=== PATIENT | female | born 1935 | race Caucasian/White ===

== ENCOUNTER → 2016-09-19 | Outpatient (CLI) | payer OTHER ==
[~2016-09-19] MED LIST: AMR2 PO; Aggrenox PO; CHOL100027 PO; CRS20 PO; FISHOIL PO; GLC500 PO; Gabapentin PO; HMLI SC; LEVO25TA34 PO; Lisinopril PO; Nexium PO
[2016-09-19 09:47] LABS: ALT/SGPT 22 U/L (12-78); AST/SGOT 17 U/L (15-37); BLOOD UREA NITROGEN 17 mg/dl (7-18); BUN/CREATININE RATIO 17.4 (10-20); CALCIUM 9.1 mg/dl (8.5-10.1); CARBON DIOXIDE 29 mmol/L (21-32); CHLORIDE 107 mmol/L (98-107); CHOLESTEROL 115 mg/dl (0-200); GLUCOSE 139 mg/dl (70-99); POTASSIUM 4.3 mmol/L (3.5-5.1); SODIUM 142 mmol/L (136-145)
[2016-09-19 09:53] LABS: ESTIMATED AVERAGE GLUCOSE 169 mg/dl; HA1C FLAG Normal (Normal)
[2016-09-19 09:58] LABS: ALB/GLOB RATIO 0.9 (0.9-2); ALKALINE PHOSPHATASE 117 U/L (45-117); CHOLESTEROL/HDL RATIO 2.7; HDL CHOLESTEROL 43 mg/dl; LDL CHOLESTEROL CALCULATED 34 mg/dl; TRIGLYCERIDES 190 mg/dl (0-150); VERY LOW DENSITY LIPOPROT CALC 38 mg/dl
== END | disposition home or self-care (01) ==
LOC: C.LAB 08:23
PROVIDERS: ATTEND Nurse Practitioner
DX: E11.49 Type 2 diabetes mellitus with other diabetic neurological complication (principal); E03.9 Hypothyroidism, unspecified

== ENCOUNTER → 2017-01-27 | Outpatient (CLI) | payer OTHER ==
[2017-01-27 19:04] LABS: URINE APPEARANCE CLEAR (CLEAR); URINE BILIRUBIN NEG (NEG); URINE COLOR YELLOW; URINE NITRITE NEG (NEG); URINE PH 5.5 (4.5-7.5); URINE SPECIFIC GRAVITY 1.029 (1.000-1.030); UROBILINOGEN NEG (NEG)
[2017-01-27 19:05] LABS: MANUAL MICROSCOPIC REQUIRED? NO; REVIEW REQ? NO
== END | disposition home or self-care (01) ==
LOC: C.LAB 17:17
PROVIDERS: ATTEND Nurse Practitioner
DX: R39.9 Unspecified symptoms and signs involving the genitourinary system (principal)

== ENCOUNTER → 2017-03-24 | Outpatient (CLI) | payer OTHER ==
[2017-03-24 12:30] LABS: ALT/SGPT 17 U/L (12-78); BLOOD UREA NITROGEN 20 mg/dl (7-18); BUN/CREATININE RATIO 21.8 (10-20); CALCIUM 10.1 mg/dl (8.5-10.1); CARBON DIOXIDE 28 mmol/L (21-32); CHLORIDE 105 mmol/L (98-107); CHOLESTEROL 126 mg/dl (0-200); CREATININE 0.93 mg/dl (0.60-1.20); GLUCOSE 108 mg/dl (70-99); POTASSIUM 4.4 mmol/L (3.5-5.1); SODIUM 140 mmol/L (136-145)
[2017-03-24 12:41] LABS: ALB/GLOB RATIO 0.9 (0.9-2); ALKALINE PHOSPHATASE 140 U/L (45-117); AST/SGOT 15 U/L (15-37); CHOLESTEROL/HDL RATIO 2.8; HDL CHOLESTEROL 45 mg/dl; LDL CHOLESTEROL CALCULATED 47 mg/dl; TRIGLYCERIDES 172 mg/dl (0-150); VERY LOW DENSITY LIPOPROT CALC 34 mg/dl
[2017-03-24 13:09] LABS: ESTIMATED AVERAGE GLUCOSE 166 mg/dl; HA1C FLAG Normal (Normal)
[2017-03-24 13:29] LABS: RATIO 5.3 mcg/mg (0-30.0)
== END | disposition home or self-care (01) ==
LOC: C.LAB 09:58
PROVIDERS: ATTEND Nurse Practitioner
DX: E11.49 Type 2 diabetes mellitus with other diabetic neurological complication (principal)

== ENCOUNTER → 2017-04-09 | Outpatient (CLI) | payer OTHER ==
--- NOTE | 2017-04-09 12:07 | DIAGNOSTIC IMAGING REPORT ---
ULTRASOUND OF THE ABDOMINAL AORTA CLINICAL HISTORY: Follow-up abdominal aortic aneurysm. COMPARISON STUDY: Ultrasound of the abdominal aorta dated 06/20/2015. TECHNIQUE: Multiple fletcher scale, color Doppler, and spectral Doppler sonograms of the abdominal aorta and iliac arteries are performed. Images are reviewed in the transverse and longitudinal planes. FINDINGS: There is advanced atherosclerotic calcification and irregularity noted throughout the abdominal aorta. The proximal abdominal aorta measures up to 1.8 cm. Again seen is a fusiform aneurysm of the mid distal abdominal aorta which measures 3.6 x 3.5 cm. The right common iliac artery measures up to 0.6 cm and the left common iliac artery measures up to 0.7 cm. IMPRESSION: There is been no significant change in the appearance of an aneurysm of the mid to distal abdominal aorta which measures 3.6 x 3.5 cm (previously measured 3.8 x 3.1 cm). Electronically signed by: Jacques Stewart M.D. 04/09/2017 12:06 PM Dictated Date/Time: 04/09/2017 12:02 PM
--- NOTE | 2017-04-09 13:01 | DIAGNOSTIC IMAGING REPORT ---
CHEST 2 VIEWS ROUTINE CLINICAL HISTORY: 81 years-old Female presenting with R05 Cough. TECHNIQUE: PA and lateral views of the chest were obtained. COMPARISON: 06/20/2015. FINDINGS: Atherosclerosis of aortic arch. Cardiac silhouette normal in size. The previously suggested nodular densities at the left lung base are not as apparent on the current exam. No new focal infiltrate. No pleural effusion or pneumothorax. Osseous structures normal. Upper abdomen normal. IMPRESSION: 1. No acute cardiopulmonary disease. Electronically signed by: Danny Wolf M.D. 04/09/2017 12:59 PM Dictated Date/Time: 04/09/2017 12:58 PM
== END | disposition home or self-care (01) ==
LOC: C.ULTR 11:29
PROVIDERS: ATTEND Nurse Practitioner
DX: I71.4 Abdominal aortic aneurysm, without rupture (principal)

== ENCOUNTER 2017-09-13 11:48 | Emergency (ER) | payer OTHER ==
[~2017-09-13] VITALS: Ht 144.8 cm; Wt 85.0 kg
[2017-09-13 11:54] VITALS: TEMP 36.4; Ht 144.8 cm; Wt 85.0 kg
[2017-09-13] MEDS ORDERED: TRAMADOL HCL 50 MG TAB PO STA (12:03)
[2017-09-13] MEDS ORDERED: ACETAMINOPHEN 500 MG TAB PO STA (12:03)
--- NOTE | 2017-09-13 12:13 | EMERGENCY ROOM VISIT NOTE ---
History First contact with patient: 11:58 Chief Complaint: BACK PAIN Stated Complaint: BACK PAIN History of Present Illness The patient is a 81 year old female who presents to the Emergency Room with complaints of right-sided back pain for the last 5 days. The pain is sharp. The pain is a 10/10. The patient has not had fever, chills, cough or congestion. There has been no trauma. No urinary complaints, vomiting or diarrhea. She states the pain is worse to take a deep breath. The patient has a history of chronic back pain. She did try some Tylenol with codeine last night, this helped her sleep but did not help the pain. The patient presents by EMS. She states that years ago when she had back issues , she received injections and this seemed to help. Source of History: patient Onset: 5 days ago Position: back Symptom Intensity: rated at a 10/10 Quality: sharp Modifying Factors (Worsening): breathing Associated Symptoms: No fevers, No chills, No cough, No vomiting, No diarrhea, No urinary symptoms Review of Systems ROS: Please see HPI. At least 10 systems in total were reviewed and otherwise negative. Past Medical/Surgical History Medical Problems: (1) Chronic obstructive lung disease (2) Diabetes mellitus type 2 (3) Hyperlipidemia (4) Hypothyroidism (5) Tobacco user Family History No pertinent family history Social History Smoking Status: Former Smoker Alcohol Use: none Drug Use: none Marital Status: Occupation Status: retired Current/Historical Medications Scheduled Cholecalciferol (Vitamin D), 1,000 UNITS PO QAM Dipyridamole/Aspirin (Aggrenox 25-200 mg), 1 CAP PO QAM Esomeprazole Magnesium (Nexium), 40 MG PO QAM Gabapentin (Neurontin), 100 MG PO HS Insulin Aspart 70/30 (Novolog Mix 70/30), 34 UNITS SC QAM Insulin Aspart 70/30 (Novolog Mix 70/30), 40 UNITS SC QPM Levothyroxine Sodium (Levothyroxine Sodium), 25 MCG PO QAM Lisinopril (Zestril), 10 MG PO QAM Rosuvastatin Calcium (Crestor), 20 MG PO QPM Physical Exam Vital Signs Date Time Temp Pulse Resp B/P (MAP) Pulse Ox O2 Delivery O2 Flow Rate FiO2 09/13/17 15:27 85 18 126/62 96 09/13/17 14:10 98 20 101/58 98 Room Air 09/13/17 13:15 88 16 144/64 96 Room Air 09/13/17 11:54 36.4 87 20 162/68 97 Room Air Physical Exam GENERAL: Patient is in no acute distress. HEENT: No acute trauma, normocephalic atraumatic, mucous membranes moist, no nasal congestion, no scleral icterus. NECK: No stridor, no adenopathy, no meningismus, trachea is midline. LUNGS: Clear to auscultation bilaterally, no wheeze, no rhonchi, breath sounds equal. HEART: Without murmurs gallops or rubs, regular rate and rhythm. ABDOMEN: Soft, nontender, bowel sounds positive, no hernias, no peritonitis. EXTREMITIES: No cyanosis or edema, full range of motion of all the joints without pain or difficulty, no signs for acute trauma. NEUROLOGIC: Oriented x 3, no acute motor or sensory deficits, no focal weakness. SKIN: No rash, no jaundice, no diaphoresis. Back: The patient is tender over the right posterior inferior ribs and right lumbar musculature. There is no rash or contusion. No midline bony lumbar discomfort. Medical Decision & Procedures ER Provider Diagnostic Interpretation: Radiology results as stated below per my review and radiologist interpretation: CHEST ONE VIEW PORTABLE CLINICAL HISTORY: Back pain COMPARISON STUDY: 04/09/2017 FINDINGS: The heart is at the upper limits of normal in size. There is slight elevation of the interstitium. This may be accentuated by the patient's body habitus. Nevertheless mild pulmonary vascular congestion is likely. There are no significant pleural effusions. There is no focal pulmonary consolidation.[ IMPRESSION: Diffuse elevation of the interstitium, likely secondary to pulmonary vascular congestion. It is however possible that the interstitial markings are artifactually elevated due to the patient's body habitus and overlying anterior soft tissues. If deemed clinically necessary, a follow-up PA and lateral study could be obtained. Electronically signed by: Chaparro Chew M.D. 09/13/2017 12:18 PM Dictated Date/Time: 09/13/2017 12:[address] LUMBAR SPINE WITHOUT CT DOSE: CLINICAL HISTORY: right sided back pain TECHNIQUE: Helical images were acquired in transverse plane. Reformatted sagittal and coronal images were reviewed. A dose lowering technique was utilized adhering to the principles of ALARA. CONTRAST: No contrast was administered COMPARISON STUDY: None. FINDINGS: L1-2 level: There is no evidence of significant disc bulge or focal herniation. There is no evidence of spinal or foraminal stenosis. L2-3 level: There is a mild circumferential disc bulge. There is mild spinal canal narrowing. There is no significant foraminal narrowing. L3-4 level: There is a circumferential disc bulge with moderate spinal stenosis. There is no significant foraminal narrowing L4-5 level: There is a mild circumferential disc bulge. There is mild spinal stenosis. There is no significant foraminal narrowing L5-S1 level: There is no evidence of significant disc bulge or focal herniation. There is no evidence of spinal or foraminal stenosis. No acute fractures or subluxations are visualized. There is a 3.4 cm infrarenal abdominal aortic aneurysm. There are extensive atheromatous changes within the aorta and iliac vessels. IMPRESSION: 1. No evidence of acute fracture or subluxation 2. Multilevel spondylitic changes with mild spinal stenosis the L2-3 level, moderate spinal stenosis at the L3-4 level, and mild spinal stenosis at the L4-5 level 3. 3.4 cm infrarenal abdominal aortic aneurysm 4. Extensive atheromatous changes within the aorta and iliac vessels Electronically signed by: Chaparro Chew M.D. 09/13/2017 2:13 PM Dictated Date/Time: 09/13/2017 2:[address] ANGIOGRAM OF THE CHEST CLINICAL HISTORY: Atypical chest and back pain. COMPARISON STUDY: 07/21/2013 TECHNIQUE: Following the IV administration of 79 mL of Optiray-320, CT angiogram of the thorax was performed from the thoracic inlet to the lung bases utilizing the pulmonary embolus protocol. Images are reviewed in the axial, sagittal, and coronal planes. IV contrast was administered without complication. MIP imaging was performed. A dose lowering technique was utilized adhering to the principles of ALARA. CT DOSE: 1979.29 mGy.cm FINDINGS: There are borderline enlarged mediastinal and hilar lymph nodes. There was no evidence of thoracic aortic dilatation. There were no pulmonary artery filling defects to indicate acute pulmonary embolism. No pleural effusions are visualized. The study is degraded by respiratory motion artifact. There is no focal pulmonary consolidation. There is a stable 2.5 mm right upper lobe pulmonary nodule. There is a 6 mm perifissural right middle lobe pulmonary nodule. Scattered subcentimeter left lung pulmonary nodules also remain stable IMPRESSION: 1. No evidence of acute pulmonary embolism 2. No evidence of focal pulmonary consolidation 3. Stable subcentimeter pulmonary nodules Electronically signed by: Chaparro Chew M.D. 09/13/2017 2:10 PM Dictated Date/Time: 09/13/2017 2:[address] SCAN OF THE ABDOMEN AND PELVIS WITHOUT CONTRAST CLINICAL HISTORY: Abdominal and right flank pain. Hematuria. COMPARISON STUDY: April 2010 TECHNIQUE: CT scan of the abdomen and pelvis was performed from the lung bases to the proximal femurs. Images are reviewed in the axial, sagittal, and coronal planes. IV contrast was not administered for this examination. A dose lowering technique was utilized adhering to the principles of ALARA. CT DOSE: FINDINGS: Lower chest: The heart is normal in size and configuration, without pericardial effusion. The lung bases and pleural spaces are clear. Liver: The unenhanced liver is normal in size, contour, and attenuation. There is no intrahepatic biliary ductal dilatation. Gallbladder: Surgically absent Spleen: Normal in size and attenuation. Pancreas: Unremarkable. Adrenal glands: Unremarkable. Kidneys: No renal, ureteral, or bladder calculi are visualized. There is a 7 mm left renal hypodensity likely representing a cyst. Bowel: There are no transition zones indicate bowel obstruction. There is a prominent duodenal diverticulum. There is a lipoma within the ascending colon. There is a lipomatous ileocecal valve. There is colonic diverticulosis. No acute peridiverticular inflammatory changes are visualized. The appendix appears normal. Peritoneum: There is no intraperitoneal free air or abdominal ascites. There is a nonspecific 12 mm left hemipelvis peritoneal nodule. There is a fat-containing left anterior abdominal wall hernia. Vasculature: There is a 3.4 cm infrarenal abdominal aortic aneurysm. Severe atheromatous changes are present within the aorta and iliac vessels. Adenopathy: None. Pelvic viscera: The uterus is surgically absent Skeletal structures: No destructive osseous lesions are seen. IMPRESSION: 1. No evidence of bowel obstruction. No evidence of free air 2. No evidence of acute diverticulitis. No evidence of acute appendicitis. 3. Fat-containing left anterior abdominal wall hernia 4. 3.4 cm infrarenal abdominal aortic aneurysm 5. Severe atheromatous changes within the aorta and iliac vessels 6. Nonspecific 12 mm peritoneal nodule within the left hemipelvis 7. 33 mm lipoma within the ascending colon. 8. No renal, ureteral, or bladder calculi identified. Electronically signed by: Chaparro Chew M.D. 09/13/2017 2:23 PM Dictated Date/Time: 09/13/2017 2:14 PM Laboratory Results 09/13/17 12:20 Red Blood Count 4.82, Mean Corpuscular Volume 88.6, Mean Corpuscular Hemoglobin 28.6, Mean Corpuscular Hemoglobin Concent 32.3, Mean Platelet Volume 9.2, Neutrophils (%) (Auto) 71.7, Lymphocytes (%) (Auto) 20.6, Monocytes (%) (Auto) 5.6, Eosinophils (%) (Auto) 1.6, Basophils (%) (Auto) 0.3, Neutrophils # (Auto) 7.38, Lymphocytes # (Auto) 2.12, Monocytes # (Auto) 0.58, Eosinophils # (Auto) 0.16, Basophils # (Auto) 0.03 09/13/17 12:20 Test 09/13/17 12:20 09/13/17 14:05 White Blood Count 10.29 K/uL (4.8-10.8) Red Blood Count 4.82 M/uL (4.2-5.4) Hemoglobin 13.8 g/dL (12.0-16.0) Hematocrit 42.7 % (37-47) Mean Corpuscular Volume 88.6 fL (80-100) Mean Corpuscular Hemoglobin 28.6 pg (25-34) Mean Corpuscular Hemoglobin Concent 32.3 g/dl (32-36) Platelet Count 206 K/uL (130-400) Mean Platelet Volume 9.2 fL (7.4-10.4) Neutrophils (%) (Auto) 71.7 % Lymphocytes (%) (Auto) 20.6 % Monocytes (%) (Auto) 5.6 % Eosinophils (%) (Auto) 1.6 % Basophils (%) (Auto) 0.3 % Neutrophils # (Auto) 7.38 K/uL (1.4-6.5) Lymphocytes # (Auto) 2.12 K/uL (1.2-3.4) Monocytes # (Auto) 0.58 K/uL (0.11-0.59) Eosinophils # (Auto) 0.16 K/uL (0-0.5) Basophils # (Auto) 0.03 K/uL (0-0.2) RDW Standard Deviation 45.3 fL (36.4-46.3) RDW Coefficient of Variation 13.9 % (11.5-14.5) Immature Granulocyte % (Auto) 0.2 % Immature Granulocyte # (Auto) 0.02 K/uL (0.00-0.02) Prothrombin Time 10.0 SECONDS (9.0-12.0) Prothromb Time International Ratio 1.0 (0.9-1.1) Activated Partial Thromboplast Time 26.4 SECONDS (21.0-31.0) Partial Thromboplastin Ratio 1.0 D-Dimer 1200 ug/L FEU (0-500) Anion Gap 10.0 mmol/L (3-11) Est Creatinine Clear Calc Drug Dose 43.7 ml/min Estimated GFR () 70.4 Estimated GFR (Non- 60.8 BUN/Creatinine Ratio 17.0 (10-20) Calcium Level 9.5 mg/dl (8.5-10.1) Total Bilirubin 0.5 mg/dl (0.2-1) Aspartate Amino Transf (AST/SGOT) 19 U/L (15-37) Alanine Aminotransferase (ALT/SGPT) 25 U/L (12-78) Alkaline Phosphatase 151 U/L (45-117) Total Protein 7.4 gm/dl (6.4-8.2) Albumin 3.4 gm/dl (3.4-5.0) Globulin 4.0 gm/dl (2.5-4.0) Albumin/Globulin Ratio 0.9 (0.9-2) Urine Color YELLOW Urine Appearance CLEAR (CLEAR) Urine pH 5.0 (4.5-7.5) Urine Specific [place] 1.020 (1.000-1.030) Urine Protein NEG (NEG) Urine Glucose (UA) NEG (NEG) Urine Ketones NEG (NEG) Urine Occult Blood NEG (NEG) Urine Nitrite NEG (NEG) Urine Bilirubin NEG (NEG) Urine Urobilinogen NEG (NEG) Urine Leukocyte Esterase SMALL (NEG) Urine WBC (Auto) 1-5 /hpf (0-5) Urine RBC (Auto) 0-4 /hpf (0-4) Urine Hyaline Casts (Auto) 1-5 /lpf (0-5) Urine Epithelial Cells (Auto) >30 /lpf (0-5) Urine Bacteria (Auto) 1+ (NEG) Laboratory results reviewed by me. Medications Administered Medications (Trade) Dose Ordered Sig/Jeremiah Route Start Time Stop Time Status Last Admin Dose Admin Acetaminophen (Tylenol Tab) 1,000 mg NOW STAT PO 09/13/17 12:03 09/13/17 12:08 DC 09/13/17 12:22 1,000 MG Tramadol HCl (Ultram Tab) 50 mg NOW STAT PO 09/13/17 12:03 09/13/17 12:08 DC 09/13/17 12:21 50 MG ED Course 1203: Ordered Ultram Tab 50 mg PO, Tylenol Tab 1,000 mg PO. 1430: I updated the patient on her results. 1453: Reevaluated the patient. Discussed results and discharge instructions: She verbalized understanding and agreement. The patient is ready for discharge. Medical Decision Differential diagnosis includes shingles, musculoskeletal pain, pneumonia, UTI, pyelonephritis, nerve impingement, PE, renal colic. There is no leukocytosis or concerning anemia. No significant electrolyte abnormality, kidney failure, or hepatitis. Urinalysis does not show infection or significant hematuria. There is no coagulopathy. Chest x-ray does not show pneumonia or pneumothorax. D-dimer was elevated. Lumbar spine CT shows arthritis, no fracture. Abdominal and pelvis CT does not show renal colic or any evidence for hydronephrosis or ureteral stone. No acute surgical process by CT. Chest CT does not show any evidence for PE, no pneumonia. Patient was given oral Tylenol and oral tramadol. This did help her pain but she felt a little lightheaded. There is no rash to suggest herpes zoster. No contusion, there has been no trauma. She has had similar pain before and this pain responded to lumbar injections. The patient does not want anything additional for pain. She was reassured by her workup. She will contact her back specialist for an appointment. She will return here for fever or worsening symptoms. She will continue to use the medication she has at home for pain. Medication Reconcilliation Current Medication List: was personally reviewed by me Blood Pressure Screening Patient's blood pressure: Elevated blood pressure Blood pressure disposition: Elevated BP felt to be situational Impression Primary Impression: Right flank pain Additional Impression: Lower back pain Departure Information Dispostion Home / Self-Care Referrals Kathie Clements C.R.NIsmaPIsma (PCP) Forms HOME CARE DOCUMENTATION FORM, IMPORTANT VISIT INFORMATION Patient Instructions My [facility] Additional Instructions continue the pain meds as before heat to the area may help talk with Dr. Gamino's office about a visit for your pain return if worsening or have fever imaging and lab work up was ok today Problem Qualifiers
--- NOTE | 2017-09-13 12:20 | DIAGNOSTIC IMAGING REPORT ---
CHEST ONE VIEW PORTABLE CLINICAL HISTORY: Back pain COMPARISON STUDY: 04/09/2017 FINDINGS: The heart is at the upper limits of normal in size. There is slight elevation of the interstitium. This may be accentuated by the patient's body habitus. Nevertheless mild pulmonary vascular congestion is likely. There are no significant pleural effusions. There is no focal pulmonary consolidation.[ IMPRESSION: Diffuse elevation of the interstitium, likely secondary to pulmonary vascular congestion. It is however possible that the interstitial markings are artifactually elevated due to the patient's body habitus and overlying anterior soft tissues. If deemed clinically necessary, a follow-up PA and lateral study could be obtained. Electronically signed by: Chaparro Chew M.D. 09/13/2017 12:18 PM Dictated Date/Time: 09/13/2017 12:17 PM
[2017-09-13 12:33] LABS: BASO % 0.3 %; BASO ABS # 0.03 K/uL (0-0.2); EOS % 1.6 %; EOS ABS # 0.16 K/uL (0-0.5); HEMATOCRIT 42.7 % (37-47); HEMOGLOBIN 13.8 g/dL (12.0-16.0); IG# 0.02 K/uL (0.00-0.02); LYMPH % 20.6 %; LYMPH ABS # 2.12 K/uL (1.2-3.4); MEAN CELL VOLUME 88.6 fL (80-100); MEAN CORPUSCULAR HEMOGLOBIN 28.6 pg (25-34); MEAN CORPUSCULAR HGB CONC 32.3 g/dl (32-36); MEAN PLATELET VOLUME 9.2 fL (7.4-10.4); MONO % 5.6 %; MONO ABS # 0.58 K/uL (0.11-0.59); NEUT % 71.7 %; NEUT ABS # 7.38 K/uL (1.4-6.5); PLATELET COUNT 206 K/uL (130-400); RED CELL DISTRIBUTION WIDTH CV 13.9 % (11.5-14.5); RED CELL DISTRIBUTION WIDTH SD 45.3 fL (36.4-46.3); WHITE BLOOD COUNT 10.29 K/uL (4.8-10.8)
[2017-09-13 12:45] LABS: ALBUMIN 3.4 gm/dl (3.4-5.0); CALCIUM 9.5 mg/dl (8.5-10.1); CREATININE 0.88 mg/dl (0.60-1.20); POTASSIUM 3.8 mmol/L (3.5-5.1)
[2017-09-13 12:47] LABS: PTT PATIENT 26.4 SECONDS (21.0-31.0)
[2017-09-13 12:48] LABS: TOTAL PROTEIN 7.4 gm/dl (6.4-8.2)
[2017-09-13] MEDS ORDERED: LEVO25TA5 PO (12:54)
[2017-09-13] MEDS ORDERED: AGG PO (12:54)
[2017-09-13] MEDS ORDERED: NXM/40 PO (12:54)
[2017-09-13] MEDS ORDERED: NVLGI7030 SC ×2 (12:54)
[2017-09-13] MEDS ORDERED: LISI-461 PO (12:54)
[2017-09-13] MEDS ORDERED: GABA-112 PO (12:54)
[2017-09-13] MEDS ORDERED: ROSU20TA PO (12:54)
[2017-09-13] MEDS ORDERED: CHOL100010 PO (12:56)
[2017-09-13] MEDS ORDERED: OPTIRAY 320 IV PRN (13:45)
--- NOTE | 2017-09-13 14:11 | DIAGNOSTIC IMAGING REPORT ---
CT ANGIOGRAM OF THE CHEST CLINICAL HISTORY: Atypical chest and back pain. COMPARISON STUDY: 07/21/2013 TECHNIQUE: Following the IV administration of 79 mL of Optiray-320, CT angiogram of the thorax was performed from the thoracic inlet to the lung bases utilizing the pulmonary embolus protocol. Images are reviewed in the axial, sagittal, and coronal planes. IV contrast was administered without complication. MIP imaging was performed. A dose lowering technique was utilized adhering to the principles of ALARA. CT DOSE: 1979.29 mGy.cm FINDINGS: There are borderline enlarged mediastinal and hilar lymph nodes. There was no evidence of thoracic aortic dilatation. There were no pulmonary artery filling defects to indicate acute pulmonary embolism. No pleural effusions are visualized. The study is degraded by respiratory motion artifact. There is no focal pulmonary consolidation. There is a stable 2.5 mm right upper lobe pulmonary nodule. There is a 6 mm perifissural right middle lobe pulmonary nodule. Scattered subcentimeter left lung pulmonary nodules also remain stable IMPRESSION: 1. No evidence of acute pulmonary embolism 2. No evidence of focal pulmonary consolidation 3. Stable subcentimeter pulmonary nodules Electronically signed by: Chaparro Chew M.D. 09/13/2017 2:10 PM Dictated Date/Time: 09/13/2017 2:06 PM
--- NOTE | 2017-09-13 14:15 | DIAGNOSTIC IMAGING REPORT ---
CT LUMBAR SPINE WITHOUT CT DOSE: CLINICAL HISTORY: right sided back pain TECHNIQUE: Helical images were acquired in transverse plane. Reformatted sagittal and coronal images were reviewed. A dose lowering technique was utilized adhering to the principles of ALARA. CONTRAST: No contrast was administered COMPARISON STUDY: None. FINDINGS: L1-2 level: There is no evidence of significant disc bulge or focal herniation. There is no evidence of spinal or foraminal stenosis. L2-3 level: There is a mild circumferential disc bulge. There is mild spinal canal narrowing. There is no significant foraminal narrowing. L3-4 level: There is a circumferential disc bulge with moderate spinal stenosis. There is no significant foraminal narrowing L4-5 level: There is a mild circumferential disc bulge. There is mild spinal stenosis. There is no significant foraminal narrowing L5-S1 level: There is no evidence of significant disc bulge or focal herniation. There is no evidence of spinal or foraminal stenosis. No acute fractures or subluxations are visualized. There is a 3.4 cm infrarenal abdominal aortic aneurysm. There are extensive atheromatous changes within the aorta and iliac vessels. IMPRESSION: 1. No evidence of acute fracture or subluxation 2. Multilevel spondylitic changes with mild spinal stenosis the L2-3 level, moderate spinal stenosis at the L3-4 level, and mild spinal stenosis at the L4-5 level 3. 3.4 cm infrarenal abdominal aortic aneurysm 4. Extensive atheromatous changes within the aorta and iliac vessels Electronically signed by: Chaparro Chew M.D. 09/13/2017 2:13 PM Dictated Date/Time: 09/13/2017 2:11 PM
--- NOTE | 2017-09-13 14:24 | DIAGNOSTIC IMAGING REPORT ---
CT SCAN OF THE ABDOMEN AND PELVIS WITHOUT CONTRAST CLINICAL HISTORY: Abdominal and right flank pain. Hematuria. COMPARISON STUDY: April 2010 TECHNIQUE: CT scan of the abdomen and pelvis was performed from the lung bases to the proximal femurs. Images are reviewed in the axial, sagittal, and coronal planes. IV contrast was not administered for this examination. A dose lowering technique was utilized adhering to the principles of ALARA. CT DOSE: FINDINGS: Lower chest: The heart is normal in size and configuration, without pericardial effusion. The lung bases and pleural spaces are clear. Liver: The unenhanced liver is normal in size, contour, and attenuation. There is no intrahepatic biliary ductal dilatation. Gallbladder: Surgically absent Spleen: Normal in size and attenuation. Pancreas: Unremarkable. Adrenal glands: Unremarkable. Kidneys: No renal, ureteral, or bladder calculi are visualized. There is a 7 mm left renal hypodensity likely representing a cyst. Bowel: There are no transition zones indicate bowel obstruction. There is a prominent duodenal diverticulum. There is a lipoma within the ascending colon. There is a lipomatous ileocecal valve. There is colonic diverticulosis. No acute peridiverticular inflammatory changes are visualized. The appendix appears normal. Peritoneum: There is no intraperitoneal free air or abdominal ascites. There is a nonspecific 12 mm left hemipelvis peritoneal nodule. There is a fat-containing left anterior abdominal wall hernia. Vasculature: There is a 3.4 cm infrarenal abdominal aortic aneurysm. Severe atheromatous changes are present within the aorta and iliac vessels. Adenopathy: None. Pelvic viscera: The uterus is surgically absent Skeletal structures: No destructive osseous lesions are seen. IMPRESSION: 1. No evidence of bowel obstruction. No evidence of free air 2. No evidence of acute diverticulitis. No evidence of acute appendicitis. 3. Fat-containing left anterior abdominal wall hernia 4. 3.4 cm infrarenal abdominal aortic aneurysm 5. Severe atheromatous changes within the aorta and iliac vessels 6. Nonspecific 12 mm peritoneal nodule within the left hemipelvis 7. 33 mm lipoma within the ascending colon. 8. No renal, ureteral, or bladder calculi identified. Electronically signed by: Chaparro Chew M.D. 09/13/2017 2:23 PM Dictated Date/Time: 09/13/2017 2:14 PM
[2017-09-13 15:27] VITALS: BP 126/62; PULSE 85; O2SAT 96
== END 2017-09-13 15:29 | disposition home or self-care (01) ==
LOC: EDBD 11:48 → C.EDB 11:49
DX: R10.9 Unspecified abdominal pain (principal); M54.5 Low back pain; G89.29 Other chronic pain; R03.0 Elevated blood-pressure reading, without diagnosis of hypertension; E11.9 Type 2 diabetes mellitus without complications; Z87.891 Personal history of nicotine dependence; Z79.82 Long term (current) use of aspirin; Z79.4 Long term (current) use of insulin

== ENCOUNTER → 2017-10-14 | Outpatient (CLI) | payer OTHER ==
[~2017-10-14] MED LIST changes: +AGG PO; -AMR2 PO; -Aggrenox PO; +CHOL100010 PO; -CHOL100027 PO; -CRS20 PO; -FISHOIL PO; +GABA-112 PO; -GLC500 PO; -Gabapentin PO; -HMLI SC; -LEVO25TA34 PO; +LEVO25TA5 PO; +LISI-461 PO; -Lisinopril PO; +NVLGI7030 SC; +NXM/40 PO; -Nexium PO; +ROSU20TA PO
[2017-10-14 16:43] LABS: ALBUMIN 3.3 gm/dl (3.4-5.0); ALT/SGPT 22 U/L (12-78); BLOOD UREA NITROGEN 15 mg/dl (7-18); CALCIUM 9.2 mg/dl (8.5-10.1); CARBON DIOXIDE 28 mmol/L (21-32); CREATININE 1.17 mg/dl (0.60-1.20); GLUCOSE 300 mg/dl (70-99); POTASSIUM 4.1 mmol/L (3.5-5.1); SODIUM 139 mmol/L (136-145)
[2017-10-14 16:46] LABS: ALKALINE PHOSPHATASE 146 U/L (45-117); AST/SGOT 20 U/L (15-37); TOTAL PROTEIN 7.2 gm/dl (6.4-8.2)
[2017-10-15 06:35] LABS: HEMOGLOBIN A1C 7.8 % (4.5-5.6)
== END | disposition home or self-care (01) ==
LOC: C.LABBFT 13:42
PROVIDERS: ATTEND Nurse Practitioner
DX: E11.49 Type 2 diabetes mellitus with other diabetic neurological complication (principal); E55.9 Vitamin D deficiency, unspecified

== ENCOUNTER → 2017-11-24 | Outpatient (CLI) | payer OTHER | END | disposition home or self-care (01) | LOC: C.LAB1850 08:13 | PROVIDERS: ATTEND Internal Medicine Cardiovascular Disease | DX: E78.5 Hyperlipidemia, unspecified (principal) ==

== ENCOUNTER 2018-08-19 13:56 | Inpatient (IN) ==
[2018-08-19] MEDS ORDERED: ALBUT/IPRATROP 3MG/0.5MG NEB 3 ML VIAL NEB STA ×2 (14:14→16:33)
--- NOTE | 2018-08-19 14:30 | XRay Report ---
XR chest 1V portable CLINICAL HISTORY: Dyspnea chest pain COMPARISON STUDY: 09/13/2017 FINDINGS: The bones soft tissues and hemidiaphragms are normal. The cardiomediastinal silhouette is n ormal. The lungs are clear. The pulmonary vasculature is normal. Slight chronic interstitial change. IMPRESSION: Slight chronic interstitial change. No acute process. The above report was generated using voice recognition software. It may contain grammatical, syntax or spelling errors. Electronically signed by: Panda Chavarria M.D. 08/19/2018 2:29 PM
--- NOTE | 2018-08-19 14:36 | Emergency Department Note ---
Entered by Christoph Valenzuela acting as a scribe for History of Present Illness General Chief complaint: Cough Time Seen by Provider: 08/19/18 14:10 Source: patient Limitations: no limitations History of Present Illness Provider complaint: SOB Onset (ago): day(s) (4) Location: chest Pain Consistency: + other (persistent) Quality: + other (SOB/Cough) Relieved By: + medication (Breathing treatment - EMS) Associated symptoms: no chest pain and no fever/chills Treatments prior to arrival: other (breathing treatment - EMS) The patient is an 82 year old female who presents to the Emergency Room with complaints of a persistent cough and shortness of breath that began on Thursday, 4 days ago. The patient denies any associated fevers, chest pain, or worsening swelling in her legs. She adds that the breathing treatment administered by EMS did improve her symptoms. She has a history of angina, but has never had any heart attacks. The patient lives alone in her apartment and is a former smoker. She has a history of angina and COPD. Home Medications Home Medications Medication Instructions Recorded Confirmed Type aspirin-dipyridamole 1 cap PO QAM 08/19/18 08/19/18 History esomeprazole magnesium 40 mg PO QAM 08/19/18 08/19/18 History gabapentin 100 mg PO HS 08/19/18 08/19/18 History insulin asp prt-insulin aspart 1 dose SUBCUT QAM 08/19/18 08/19/18 History [Novolog Mix 70-30FlexPen U-100] insulin asp prt-insulin aspart 1 dose SUBCUT QPM 08/19/18 08/19/18 History [Novolog Mix 70-30FlexPen U-100] levothyroxine 25 mcg PO QAM 08/19/18 08/19/18 History lisinopril 10 mg PO QAM 08/19/18 08/19/18 History rosuvastatin 20 mg PO QPM 08/19/18 08/19/18 History Allergies Allergy/AdvReac Type Severity Reaction Status Date / Time adhesive Allergy Unknown RASH Verified 08/19/18 17:55 egg Allergy Unknown GI SYMPTOMS Verified 08/19/18 17:55 garlic Allergy Unknown Unknown Verified 08/19/18 17:55 propoxyphene Allergy Unknown Verified 08/19/18 17:55 sertraline Allergy Unknown Unknown Verified 08/19/18 17:55 Sulfa (Sulfonamide Allergy Unknown Verified 08/19/18 17:55 Antibiotics) simvastatin AdvReac Intermediate MYALGIA Verified 08/19/18 17:55 iodine AdvReac Unknown . Verified 08/19/18 17:55 Past Med/Surg History Medical History COPD (chronic obstructive pulmonary disease) CVA (cerebral vascular accident) Diabetes Hx of angina pectoris Hypothyroid Surgical History H/O section S/P cholecystectomy S/P hysterectomy S/P removal of ovarian cyst Social History Current Living Situation: Alone current occupational status: retired Feels Safe at Home: Yes Smoking Status: Former smoker Preferred Language: Italian Physical Exam Vital Signs Vital Signs - 24 hr 08/19/18 14:00 08/19/18 14:12 08/19/18 15:00 Temperature 36.8 C Temperature Source Oral Sepsis Recent Fever Within 48 Hours No Sepsis New/Unexplained Change in Mental Status No Sepsis Action Taken by Nursing No Action Required Pulse Rate 97 H Pulse Rate [Left] Pulse Rhythm [Left] Pulse Strength [Left] Respiratory Rate 20 Respiratory Effort / Characteristics Respiratory Depth Respiratory Pattern Blood Pressure 127/55 L Blood Pressure [Right Arm] Blood Pressure Mean 79 Blood Pressure Mean [Right Arm] Blood Pressure Position [Right Arm] Pulse Oximetry 94 88 L Oxygen Delivery Method Room Air Room Air Room Air Oxygen Flow Rate 08/19/18 16:30 08/19/18 17:30 08/19/18 19:20 Temperature Temperature Source Sepsis Recent Fever Within 48 Hours Sepsis New/Unexplained Change in Mental Status Sepsis Action Taken by Nursing Pulse Rate Pulse Rate [Left] 79 98 H 95 H Pulse Rhythm [Left] Regular Pulse Strength [Left] Normal Respiratory Rate 20 20 18 Respiratory Effort / Characteristics Non-Labored Respiratory Depth Normal Respiratory Pattern Regular Blood Pressure Blood Pressure [Right Arm] 132/57 L 137/75 128/44 L Blood Pressure Mean Blood Pressure Mean [Right Arm] 82 95 72 Blood Pressure Position [Right Arm] Lying Pulse Oximetry 92 94 97 Oxygen Delivery Method Room Air Room Air Nasal Cannula Oxygen Flow Rate 2 08/19/18 20:14 08/19/18 21:09 Temperature Temperature Source Sepsis Recent Fever Within 48 Hours Sepsis New/Unexplained Change in Mental Status Sepsis Action Taken by Nursing Pulse Rate Pulse Rate [Left] 85 82 Pulse Rhythm [Left] Pulse Strength [Left] Respiratory Rate 18 18 Respiratory Effort / Characteristics Respiratory Depth Respiratory Pattern Blood Pressure Blood Pressure [Right Arm] 130/100 148/83 H Blood Pressure Mean Blood Pressure Mean [Right Arm] 110 104 Blood Pressure Position [Right Arm] Lying Pulse Oximetry 96 98 Oxygen Delivery Method Trach Collar Nasal Cannula Oxygen Flow Rate 10 2 GENERAL: Patient is awake and alert. She is somewhat anxious appearing. EYES: The conjunctivae are clear. The pupils are round and reactive. EARS, NOSE, MOUTH AND THROAT: The nose is without any evidence of any deformity. Mucous membranes are moist tongue is midline NECK: The neck is nontender and supple. RESPIRATORY: Shallow respirations were noted. There were diminished breath sounds noted throughout with expiratory wheezes in all shah. No tachypnea or conversational dyspnea was appreciated. CARDIOVASCULAR: Regular rate and rhythm noted there no murmurs rubs or gallops normal S1 normal S2 GASTROINTESTINAL: The abdomen is soft. Bowel sounds are present in all quadrants. Abdomen is nontender MUSCULOSKELETAL/EXTREMITIES: There is no evidence of gross deformity full range of motion is noted in the hips and shoulders SKIN: There is no obvious evidence of any rash. There are no petechiae, pallor or cyanosis noted. NEUROLOGIC: Patient is awake alert and oriented x3. Course 1411: Past medical records reviewed. The patient was evaluated in room A3, and a complete history and physical examination were performed. 1814: I checked on the patient at this time. Her oxygen saturation dropped on ambulatory trial. 1913: I reviewed the patient's case with Dr. Bonds - [facility]. She will evaluate the patient for further management. Administered Medications Discontinued Medications Albuterol (Duoneb) 3 ml NEB NOW STA Stop: 08/19/18 14:15 Last Admin: 08/19/18 14:52 Dose: 3 ml Albuterol (Duoneb) 3 ml NEB NOW STA Stop: 08/19/18 16:34 Last Admin: 08/19/18 17:14 Dose: 3 ml Sodium Chloride (Nss 1000ml) 1,000 mls @ 999 mls/hr IV .Q1H1M ONE Stop: 08/19/18 17:24 Last Infusion: 08/19/18 18:14 Dose: 0 mls/hr Admin: 08/19/18 17:14 Dose: 999 mls/hr Levofloxacin/Dextrose (Levaquin/D5w) 750 mg in 150 mls @ 100 mls/hr IV NOW STA Stop: 08/19/18 18:03 Last Infusion: 08/19/18 18:44 Dose: 0 mls/hr Admin: 08/19/18 17:14 Dose: 100 mls/hr Oseltamivir Phosphate (Tamiflu) 75 mg PO NOW STA Stop: 08/19/18 16:24 Last Admin: 08/19/18 17:14 Dose: 75 mg Medical Decision Making Differential Diagnosis Differential diagnosis: Etiologies such as infections, reactive airway disease, COPD, pneumonia, pleural effusion, pulmonary edema, ARDS, pneumothorax, CHF, cardiac ischemia, cardiac tamponade, dysrhythmia, anemia, pulmonary embolism, musculoskeletal, gastrointestinal process, as well as others were entertained. Medical Records Attestation: I reviewed the patient's medical records. Home Medications Current Medication List: was personally reviewed by me Laboratory Data Attestation: I reviewed the patient's lab results. Result diagrams: 08/19/18 14:46 08/19/18 14:46 Lab Results 08/19/18 08/19/18 08/19/18 Range/Units 14:14 14:46 14:46 WBC 5.76 (4.8-10.8) K/uL RBC 4.84 (4.2-5.4) M/uL Hgb 13.3 (12.0-16.0) g/dL Hct 41.9 (37-47) % MCV 86.6 (80-100) fL MCH 27.5 (25-34) pg MCHC 31.7 L (32-36) g/dL RDW Std Deviation 47.5 H (36.4-46.3) fL RDW Coeff of Flakito 14.9 H (11.5-14.5) % Plt Count 173 (130-400) K/uL MPV 9.1 (7.4-10.4) fL Immature Gran % (Auto) 0.2 % Neut % (Auto) 61.3 % Lymph % (Auto) 28.0 % [place] % (Auto) 10.2 % Eos % (Auto) 0.0 % Baso % (Auto) 0.3 % Immature Gran # (Auto) 0.01 (0.00-0.02) K/uL Neut # (Auto) 3.53 (1.4-6.5) K/uL Lymph # (Auto) 1.61 (1.2-3.4) K/uL [place] # (Auto) 0.59 (0.11-0.59) K/uL Eos # (Auto) 0.00 (0-0.5) K/uL Baso # (Auto) 0.02 (0-0.2) K/uL PT 9.8 (9.0-12.0) Seconds INR 1.0 (0.9-1.1) APTT 30.1 (21.0-31.0) Seconds PTT Ratio 1.2 Sodium (136-145) mmol/L Potassium (3.5-5.1) mmol/L Chloride (98-107) mmol/L Carbon Dioxide (21-32) mmol/L Anion Gap (3-11) BUN (7-18) mg/dl Creatinine (0.6-1.2) mg/dl Est Cr Clr Drug Dosing ml/min Est GFR ( Amer) Est GFR (Non-Af Amer) BUN/Creatinine Ratio (10-20) Glucose (70-99) mg/dl POC Glucose (70-99) Lactate (0.4-2.0) mmol/L Calcium (8.5-10.1) mg/dl Magnesium (1.8-2.4) mg/dl Total Bilirubin (0.2-1) mg/dl AST (15-37) U/L ALT (12-78) U/L Alkaline Phosphatase (45-117) U/L Troponin I (0-0.045) ng/ml Total Protein (6.4-8.2) gm/dl Albumin (3.4-5.0) gm/dl Globulin (2.5-4.0) gm/dl Albumin/Globulin Ratio (0.9-2) Urine Color Urine Appearance (Clear) Urine pH (4.5-7.5) Ur Specific [place] (1.000-1.030) Urine Protein (Negative) Urine Glucose (UA) (Negative) Urine Ketones (Negative) Urine Blood (Negative) Urine Nitrite (Negative) Urine Bilirubin (Negative) Urine Urobilinogen (Negative) Ur Leukocyte Esterase (Negative) Urine WBC (Auto) (0-5) /hpf Urine RBC (Auto) (0-4) /hpf U Hyaline Cast (Auto) (0-5) /lpf U Epithel Cells (Auto) (0-5) /lpf Urine Bacteria (Auto) (Negative) Influenza Type A (PCR) Pos for Influ A A* (Neg) Influenza Type B (PCR) Neg for Influ B (Neg) 08/19/18 08/19/18 08/19/18 Range/Units 14:46 17:07 18:12 WBC (4.8-10.8) K/uL RBC (4.2-5.4) M/uL Hgb (12.0-16.0) g/dL Hct (37-47) % MCV (80-100) fL MCH (25-34) pg MCHC (32-36) g/dL RDW Std Deviation (36.4-46.3) fL RDW Coeff of Flakito (11.5-14.5) % Plt Count (130-400) K/uL MPV (7.4-10.4) fL Immature Gran % (Auto) % Neut % (Auto) % Lymph % (Auto) % [place] % (Auto) % Eos % (Auto) % Baso % (Auto) % Immature Gran # (Auto) (0.00-0.02) K/uL Neut # (Auto) (1.4-6.5) K/uL Lymph # (Auto) (1.2-3.4) K/uL [place] # (Auto) (0.11-0.59) K/uL Eos # (Auto) (0-0.5) K/uL Baso # (Auto) (0-0.2) K/uL PT (9.0-12.0) Seconds INR (0.9-1.1) APTT (21.0-31.0) Seconds PTT Ratio Sodium 136 (136-145) mmol/L Potassium 3.5 (3.5-5.1) mmol/L Chloride 103 (98-107) mmol/L Carbon Dioxide 24 (21-32) mmol/L Anion Gap 9.0 (3-11) BUN 29 H (7-18) mg/dl Creatinine 1.30 H (0.6-1.2) mg/dl Est Cr Clr Drug Dosing 29.2 ml/min Est GFR ( Amer) 43.6 Est GFR (Non-Af Amer) 37.6 BUN/Creatinine Ratio 22.4 H (10-20) Glucose 86 (70-99) mg/dl POC Glucose (70-99) Lactate 1.1 (0.4-2.0) mmol/L Calcium 7.9 L (8.5-10.1) mg/dl Magnesium 2.1 (1.8-2.4) mg/dl Total Bilirubin 0.4 (0.2-1) mg/dl AST 35 (15-37) U/L ALT 26 (12-78) U/L Alkaline Phosphatase 107 (45-117) U/L Troponin I 0.016 (0-0.045) ng/ml Total Protein 6.6 (6.4-8.2) gm/dl Albumin 2.9 L (3.4-5.0) gm/dl Globulin 3.7 (2.5-4.0) gm/dl Albumin/Globulin Ratio 0.8 L (0.9-2) Urine Color Yellow Urine Appearance Clear (Clear) Urine pH 5.0 (4.5-7.5) Ur Specific [place] 1.012 (1.000-1.030) Urine Protein Negative (Negative) Urine Glucose (UA) Negative (Negative) Urine Ketones Trace H (Negative) Urine Blood Negative (Negative) Urine Nitrite Negative (Negative) Urine Bilirubin Negative (Negative) Urine Urobilinogen Negative (Negative) Ur Leukocyte Esterase 1+ H (Negative) Urine WBC (Auto) 5-10 H (0-5) /hpf Urine RBC (Auto) 0-4 (0-4) /hpf U Hyaline Cast (Auto) 1-5 (0-5) /lpf U Epithel Cells (Auto) 20-30 H (0-5) /lpf Urine Bacteria (Auto) Negative (Negative) Influenza Type A (PCR) (Neg) Influenza Type B (PCR) (Neg) 08/19/18 Range/Units 21:52 WBC (4.8-10.8) K/uL RBC (4.2-5.4) M/uL Hgb (12.0-16.0) g/dL Hct (37-47) % MCV (80-100) fL MCH (25-34) pg MCHC (32-36) g/dL RDW Std Deviation (36.4-46.3) fL RDW Coeff of Flakito (11.5-14.5) % Plt Count (130-400) K/uL MPV (7.4-10.4) fL Immature Gran % (Auto) % Neut % (Auto) % Lymph % (Auto) % [place] % (Auto) % Eos % (Auto) % Baso % (Auto) % Immature Gran # (Auto) (0.00-0.02) K/uL Neut # (Auto) (1.4-6.5) K/uL Lymph # (Auto) (1.2-3.4) K/uL [place] # (Auto) (0.11-0.59) K/uL Eos # (Auto) (0-0.5) K/uL Baso # (Auto) (0-0.2) K/uL PT (9.0-12.0) Seconds INR (0.9-1.1) APTT (21.0-31.0) Seconds PTT Ratio Sodium (136-145) mmol/L Potassium (3.5-5.1) mmol/L Chloride (98-107) mmol/L Carbon Dioxide (21-32) mmol/L Anion Gap (3-11) BUN (7-18) mg/dl Creatinine (0.6-1.2) mg/dl Est Cr Clr Drug Dosing ml/min Est GFR ( Amer) Est GFR (Non-Af Amer) BUN/Creatinine Ratio (10-20) Glucose (70-99) mg/dl POC Glucose 136 H (70-99) Lactate (0.4-2.0) mmol/L Calcium (8.5-10.1) mg/dl Magnesium (1.8-2.4) mg/dl Total Bilirubin (0.2-1) mg/dl AST (15-37) U/L ALT (12-78) U/L Alkaline Phosphatase (45-117) U/L Troponin I (0-0.045) ng/ml Total Protein (6.4-8.2) gm/dl Albumin (3.4-5.0) gm/dl Globulin (2.5-4.0) gm/dl Albumin/Globulin Ratio (0.9-2) Urine Color Urine Appearance (Clear) Urine pH (4.5-7.5) Ur Specific [place] (1.000-1.030) Urine Protein (Negative) Urine Glucose (UA) (Negative) Urine Ketones (Negative) Urine Blood (Negative) Urine Nitrite (Negative) Urine Bilirubin (Negative) Urine Urobilinogen (Negative) Ur Leukocyte Esterase (Negative) Urine WBC (Auto) (0-5) /hpf Urine RBC (Auto) (0-4) /hpf U Hyaline Cast (Auto) (0-5) /lpf U Epithel Cells (Auto) (0-5) /lpf Urine Bacteria (Auto) (Negative) Influenza Type A (PCR) (Neg) Influenza Type B (PCR) (Neg) Imaging Data Attestation: I personally reviewed and interpreted this imaging study as follows : Radiologist's Impression: XR chest 1V portable CLINICAL HISTORY: Dyspnea chest pain COMPARISON STUDY: 09/13/2017 FINDINGS: The bones soft tissues and hemidiaphragms are normal. The cardiomediastinal silhouette is normal. The lungs are clear. The pulmonary vasculature is normal. Slight chronic interstitial change. IMPRESSION: Slight chronic interstitial change. No acute process. The above report was generated using voice recognition software. It may contain grammatical, syntax or spelling errors. Electronically signed by: Panda Chavarria M.D. 08/19/2018 2:29 PM ECG Data Attestation: I personally reviewed and interpreted this ECG as follows: Indication: SOB/dyspnea Rate (beats per minute): 91 Rhythm: normal sinus Findings: no ST depression, no ST elevation, no acute ischemic change and no ectopy Comparison ECG Date: from (04/02/2012) Change: no significant change Blood Pressure Blood Pressure Findings: Normal blood pressure MDM Narrative The patient is an 82-year-old female who presented to the emergency department for an evaluation of difficulty breathing and cough. The patient was found to have abnormal lung sounds. She was treated with bronchodilator therapy. She was also given IV fluids. The patient was found to have a positive flu swab so she was treated with Tamiflu but also given an IV antibiotic because if your condition could be consistent with bronchitis. I discussed the patient's laboratory and radiographic studies with her. She was feeling somewhat better however continued to have significant oxygen desaturation as well as difficulty breathing upon any ambulation or any exertion. For this reason I discussed her case with the on-call [facility] hospitalist. They have agreed to evaluate the patient in the emergency department for further management and disposition. Impression & Plan Influenza, Bronchitis, Acute kidney injury Discharge Plan Visit Data *Final* Discharge Date/Time: 08/19/18 21:13 Chief Complaint: Cough Other Complaint: Congestion ED Provider: Vladimir Garcia Discharge Problem: Influenza, Bronchitis, Acute kidney injury Patient Disposition: Admitted As Inpatient Discharge Instructions Interventions: ED Discharge Assessment Last Done: 08/19/18 21:13 The scribe's documentation has been prepared under my direction and personally reviewed by me in its entirety. I confirm that the note above accurately reflects all work, treatment, procedures, and medical decision making performed by me.
[2018-08-19 14:54] LABS: Basophils # (auto) 0.02 K/uL (0-0.2); Basophils % (auto) 0.3 %; Hematocrit (blood only) 41.9 % (37-47); Hemoglobin 13.3 g/dL (12.0-16.0); Immature Granulocytes # (auto) 0.01 K/uL (0.00-0.02); Immature Granulocytes % (auto) 0.2 %; Lymphocytes # (auto) 1.61 K/uL (1.2-3.4); Mean Corpuscular Hgb Conc 31.7 g/dL (32-36); Mean Corpuscular Volume 86.6 fL (80-100); Mean Platelet Volume 9.1 fL (7.4-10.4); Monocytes # (auto) 0.59 K/uL (0.11-0.59); Monocytes % (auto) 10.2 %; Neutrophils # (auto) 3.53 K/uL (1.4-6.5); Neutrophils % (auto) 61.3 %; Platelet Count 173 K/uL (130-400); RDW Coefficient of Variation 14.9 % (11.5-14.5); RDW Standard Deviation 47.5 fL (36.4-46.3); Red Blood Count 4.84 M/uL (4.2-5.4); White Blood Count 5.76 K/uL (4.8-10.8)
[2018-08-19 15:13] LABS: Albumin Level 2.9 gm/dl (3.4-5.0); BUN Creatinine Ratio 22.4 (10-20); Calcium 7.9 mg/dl (8.5-10.1); Creatinine Clr Calc Pharmacy 29.2 ml/min; Est GFR (African American) 43.6; Est GFR (Non-African American) 37.6; Magnesium 2.1 mg/dl (1.8-2.4); Potassium 3.5 mmol/L (3.5-5.1)
[2018-08-19 15:19] LABS: Albumin Globulin Ratio 0.8 (0.9-2); Bilirubin,Total 0.4 mg/dl (0.2-1); Globulin 3.7 gm/dl (2.5-4.0); Partial Thromboplastin Ratio 1.2; Partial Thromboplastin Time 30.1 Seconds (21.0-31.0); Prothrombin Time 9.8 Seconds (9.0-12.0); Total Protein 6.6 gm/dl (6.4-8.2); Troponin I 0.016 ng/ml (0-0.045)
[2018-08-19 15:57] LABS: Influenza B virus by PCR Neg for Influ B (Neg)
[2018-08-19] MEDS ORDERED: OSELTAMIVIR PHOSPHATE 75 MG CAP PO STA (16:23)
[2018-08-19] MEDS ORDERED: SODIUM CHLORIDE 0.9% 1000ML 1,000 ML IV ONE (16:24)
[2018-08-19] MEDS ORDERED: LEVOFLOXACIN/D5W 750 MG/150 ML BAG IV STA (16:34)
[2018-08-19 19:13] LABS: Appearance Urine Clear (Clear); Bacteria Urine Automated Negative (Negative); Bilirubin Urine Negative (Negative); Color Urine Yellow; Epithelial Cell Urine Auto 20-30 /lpf (0-5); Glucose Urine UA Negative (Negative); Ketones Urine Trace (Negative); Leukocyte Esterase Urine 1+ (Negative); Nitrite Urine Negative (Negative); Protein Urine Negative (Negative); Specific Gravity Urine 1.012 (1.000-1.030); Urobilinogen Urine Negative (Negative)
--- NOTE | 2018-08-19 19:48 | History & Physical Report ---
Date of Service August 19, 2018 Assessment & Plan (1) Influenza: +Influenza. Patient with appx 4 days of symptoms -Tamiflu 75mg po BID x 7 days -Tylenol PRN pain or fever -Mucinex 600mg po BID -Tessalon Perles PRN cough (2) COPD (chronic obstructive pulmonary disease): Patient diffusely wheezing. Mild hypoxia with sats 88% on room air -DuoNebs q 4 hours -Albuterol q 4 hours PRN -Solumedrol 30mg IV TID (3) Diabetes: Blood sugar presently. SeI0N=3.6 on 04/19/18 -Continue home Novolog 70/30 - 40u SC q evening, 38u qAM -Continue to monitor - may need to increase insulin in setting of IV steroids -Continue Lisinopril (4) RAJESH (acute kidney injury): BUN=29, Cr=1.3. Patient appears euvolemic on exam. ?mild dehydration in setting of acute illness -LR at 100mL/hr x 2 liters -Repeat labs in AM History of CVA - no residual deficits -Continue Aggrenox -Continue Crestor History of Hypothyroidism - chronic. TSH=3.07 on 04/19/18 -Continue home Synthroid F/E/N - LR at 100mL/hr x 2 liters, monitor electrolytes and replete as needed. CC, AHA diet as tolerated Ppx - Lovenox 30 for DVT, Continue home Nexium Code - Full per discussion with patient Dispo - Admit to medical floor, O2 PRN History of Present Illness Chief Complaint: cough, SOB, influenza Primary Care Provider: KEVIN Guerrero Ms. Angel is an 82yo female with history of DM on insulin therapy, COPD, Hypothyroid, prior CVA presenting with flu-like symptoms. Patient states that 4 days ago she began having dry cough, body aches, weakness with difficulty ambulating as well as shortness of breath and wheezing. She denies fevers/ chills/VILLEGAS. She did not receive a flu shot this year. +sick contact - neighbor with respiratory symptoms. On arrival to the ER she was afebrile, hemodynamically stable. Hypoxic 88% on room air which dropped to mid-80's with ambulation. ER Course: Albuterol, Levaquin, Tamiflu Allergies Allergy/AdvReac Type Severity Reaction Status Date / Time adhesive Allergy Unknown RASH Verified 08/19/18 17:55 egg Allergy Unknown GI SYMPTOMS Verified 08/19/18 17:55 garlic Allergy Unknown Unknown Verified 08/19/18 17:55 propoxyphene Allergy Unknown Verified 08/19/18 17:55 sertraline Allergy Unknown Unknown Verified 08/19/18 17:55 Sulfa (Sulfonamide Allergy Unknown Verified 08/19/18 17:55 Antibiotics) simvastatin AdvReac Intermediate MYALGIA Verified 08/19/18 17:55 iodine AdvReac Unknown . Verified 08/19/18 17:55 Home Medications Home Medications Medication Instructions Recorded Confirmed Type aspirin-dipyridamole 1 cap PO QAM 08/19/18 08/19/18 History esomeprazole magnesium 40 mg PO QAM 08/19/18 08/19/18 History gabapentin 100 mg PO HS 08/19/18 08/19/18 History insulin asp prt-insulin aspart 1 dose SUBCUT QAM 08/19/18 08/19/18 History [Novolog Mix 70-30FlexPen U-100] insulin asp prt-insulin aspart 1 dose SUBCUT QPM 08/19/18 08/19/18 History [Novolog Mix 70-30FlexPen U-100] levothyroxine 25 mcg PO QAM 08/19/18 08/19/18 History lisinopril 10 mg PO QAM 08/19/18 08/19/18 History rosuvastatin 20 mg PO QPM 08/19/18 08/19/18 History Past Med/Surg History Medical History COPD (chronic obstructive pulmonary disease) CVA (cerebral vascular accident) Diabetes Hx of angina pectoris Hypothyroid Surgical History H/O section S/P cholecystectomy S/P hysterectomy S/P removal of ovarian cyst Family History Other Diabetes Heart disease Social History Current Living Situation: Alone current occupational status: retired Feels Safe at Home: Yes Smoking Status: Former smoker Preferred Language: Guinean Review of Systems All systems reviewed & are unremarkable except as noted in HPI & below +SOB, +Wheeze +Constipation Physical Exam 2 Vital Signs (Past 24 Hours): Last Vital Signs Temp 36.8 C 08/19/18 14:00 Pulse 95 H 08/19/18 19:20 Resp 18 08/19/18 19:20 BP 128/44 L 08/19/18 19:20 Pulse Ox 97 08/19/18 19:20 Physical Exam: General: patient uncomfortable, NAD, non-toxic in appearance, AA&O x 4 Skin: warm, dry, intact, no rashes or lesions HEENT: NC/AT, PERRL, EOMI, anicteric sclera, conjunctiva without injection, external ear normal to inspection and nontender, nares patent, moist mucus membranes, dentition intact, no oropharyngeal lesions, neck supple, trachea midline, no LAD, no thyromegaly, no JVD Heart: +S1/S2, regular, distant heart sounds, no m/r/g Lungs: equal air entry bilaterally, diffuse end-expiratory wheezing, +crackles in bilateral bases Abd: +BS, soft, NT/ND, no masses/organomegaly/ascites Ext: warm, 2+ pulses in UE/LE bilaterally, no clubbing/cyanosis or edema Neuro: nonfocal, patient AA&O x 4, speech intact, no facial droop, moving all extremities on command with equal strength 5/5 Results & Data Laboratory Results Lab Results 08/19/18 08/19/18 08/19/18 Range/Units 14:14 14:46 14:46 WBC 5.76 (4.8-10.8) K/uL RBC 4.84 (4.2-5.4) M/uL Hgb 13.3 (12.0-16.0) g/dL Hct 41.9 (37-47) % MCV 86.6 (80-100) fL MCH 27.5 (25-34) pg MCHC 31.7 L (32-36) g/dL RDW Std Deviation 47.5 H (36.4-46.3) fL RDW Coeff of [place] 14.9 H (11.5-14.5) % Plt Count 173 (130-400) K/uL MPV 9.1 (7.4-10.4) fL Immature Gran % (Auto) 0.2 % Neut % (Auto) 61.3 % Lymph % (Auto) 28.0 % [place] % (Auto) 10.2 % Eos % (Auto) 0.0 % Baso % (Auto) 0.3 % Immature Gran # (Auto) 0.01 (0.00-0.02) K/uL Neut # (Auto) 3.53 (1.4-6.5) K/uL Lymph # (Auto) 1.61 (1.2-3.4) K/uL [place] # (Auto) 0.59 (0.11-0.59) K/uL Eos # (Auto) 0.00 (0-0.5) K/uL Baso # (Auto) 0.02 (0-0.2) K/uL PT 9.8 (9.0-12.0) Seconds INR 1.0 (0.9-1.1) APTT 30.1 (21.0-31.0) Seconds PTT Ratio 1.2 Sodium (136-145) mmol/L Potassium (3.5-5.1) mmol/L Chloride (98-107) mmol/L Carbon Dioxide (21-32) mmol/L Anion Gap (3-11) BUN (7-18) mg/dl Creatinine (0.6-1.2) mg/dl Est Cr Clr Drug Dosing ml/min Est GFR ( Amer) Est GFR (Non-Af Amer) BUN/Creatinine Ratio (10-20) Glucose (70-99) mg/dl Lactate (0.4-2.0) mmol/L Calcium (8.5-10.1) mg/dl Magnesium (1.8-2.4) mg/dl Total Bilirubin (0.2-1) mg/dl AST (15-37) U/L ALT (12-78) U/L Alkaline Phosphatase (45-117) U/L Troponin I (0-0.045) ng/ml Total Protein (6.4-8.2) gm/dl Albumin (3.4-5.0) gm/dl Globulin (2.5-4.0) gm/dl Albumin/Globulin Ratio (0.9-2) Urine Color Urine Appearance (Clear) Urine pH (4.5-7.5) Ur Specific [place] (1.000-1.030) Urine Protein (Negative) Urine Glucose (UA) (Negative) Urine Ketones (Negative) Urine Blood (Negative) Urine Nitrite (Negative) Urine Bilirubin (Negative) Urine Urobilinogen (Negative) Ur Leukocyte Esterase (Negative) Urine WBC (Auto) (0-5) /hpf Urine RBC (Auto) (0-4) /hpf U Hyaline Cast (Auto) (0-5) /lpf U Epithel Cells (Auto) (0-5) /lpf Urine Bacteria (Auto) (Negative) Influenza Type A (PCR) Pos for Influ A A* (Neg) Influenza Type B (PCR) Neg for Influ B (Neg) 08/19/18 08/19/18 08/19/18 Range/Units 14:46 17:07 18:12 WBC (4.8-10.8) K/uL RBC (4.2-5.4) M/uL Hgb (12.0-16.0) g/dL Hct (37-47) % MCV (80-100) fL MCH (25-34) pg MCHC (32-36) g/dL RDW Std Deviation (36.4-46.3) fL RDW Coeff of [place] (11.5-14.5) % Plt Count (130-400) K/uL MPV (7.4-10.4) fL Immature Gran % (Auto) % Neut % (Auto) % Lymph % (Auto) % [place] % (Auto) % Eos % (Auto) % Baso % (Auto) % Immature Gran # (Auto) (0.00-0.02) K/uL Neut # (Auto) (1.4-6.5) K/uL Lymph # (Auto) (1.2-3.4) K/uL [place] # (Auto) (0.11-0.59) K/uL Eos # (Auto) (0-0.5) K/uL Baso # (Auto) (0-0.2) K/uL PT (9.0-12.0) Seconds INR (0.9-1.1) APTT (21.0-31.0) Seconds PTT Ratio Sodium 136 (136-145) mmol/L Potassium 3.5 (3.5-5.1) mmol/L Chloride 103 (98-107) mmol/L Carbon Dioxide 24 (21-32) mmol/L Anion Gap 9.0 (3-11) BUN 29 H (7-18) mg/dl Creatinine 1.30 H (0.6-1.2) mg/dl Est Cr Clr Drug Dosing 29.2 ml/min Est GFR ( Amer) 43.6 Est GFR (Non-Af Amer) 37.6 BUN/Creatinine Ratio 22.4 H (10-20) Glucose 86 (70-99) mg/dl Lactate 1.1 (0.4-2.0) mmol/L Calcium 7.9 L (8.5-10.1) mg/dl Magnesium 2.1 (1.8-2.4) mg/dl Total Bilirubin 0.4 (0.2-1) mg/dl AST 35 (15-37) U/L ALT 26 (12-78) U/L Alkaline Phosphatase 107 (45-117) U/L Troponin I 0.016 (0-0.045) ng/ml Total Protein 6.6 (6.4-8.2) gm/dl Albumin 2.9 L (3.4-5.0) gm/dl Globulin 3.7 (2.5-4.0) gm/dl Albumin/Globulin Ratio 0.8 L (0.9-2) Urine Color Yellow Urine Appearance Clear (Clear) Urine pH 5.0 (4.5-7.5) Ur Specific [place] 1.012 (1.000-1.030) Urine Protein Negative (Negative) Urine Glucose (UA) Negative (Negative) Urine Ketones Trace H (Negative) Urine Blood Negative (Negative) Urine Nitrite Negative (Negative) Urine Bilirubin Negative (Negative) Urine Urobilinogen Negative (Negative) Ur Leukocyte Esterase 1+ H (Negative) Urine WBC (Auto) 5-10 H (0-5) /hpf Urine RBC (Auto) 0-4 (0-4) /hpf U Hyaline Cast (Auto) 1-5 (0-5) /lpf U Epithel Cells (Auto) 20-30 H (0-5) /lpf Urine Bacteria (Auto) Negative (Negative) Influenza Type A (PCR) (Neg) Influenza Type B (PCR) (Neg) Diagnostic Findings XR chest 1V portable CLINICAL HISTORY: Dyspnea chest pain COMPARISON STUDY: 09/13/2017 FINDINGS: The bones soft tissues and hemidiaphragms are normal. The cardiomediastinal silhouette is normal. The lungs are clear. The pulmonary vasculature is normal. Slight chronic interstitial change. IMPRESSION: Slight chronic interstitial change. No acute process. The above report was generated using voice recognition software. It may contain grammatical, syntax or spelling errors. Electronically signed by: Panda Chavarria M.D. 08/19/2018 2:29 PM ECG Additional Comments: NSR at 91bpm, no acute ischemia Code Status & VTE Plan Code Status full VTE Prophylaxis Plan VTE Prophylaxis will be ordered: Yes Critical Care Time Critical Care Time: No _ (1) COPD (chronic obstructive pulmonary disease) COPD type: unspecified COPD Qualified Code(s): J44.9 - Chronic obstructive pulmonary disease, unspecified (2) Diabetes Diabetes mellitus type: type 2 Diabetes mellitus shelter insulin use: with shelter use Diabetes mellitus complication status: without complication Qualified Code(s): E11.9 - Type 2 diabetes mellitus without complications; 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
[2018-08-19] MEDS ORDERED: ACETAMINOPHEN 325 MG TAB PO PRN (22:05)
[2018-08-19] MEDS ORDERED: ALBUTEROL 0.5% NEB SOLN 2.5 MG/0.5 ML VIAL NEB PRN (22:05)
[2018-08-19] MEDS ORDERED: DEXTROSE 50% 50 ML SYRINGE IV PRN (22:05)
[2018-08-19] MEDS ORDERED: GLUCOSE 40% GEL 15 GM TUBE PO PRN (22:05)
[2018-08-19] MEDS ORDERED: GLUCOSE 10 TABS/TUBE PO PRN (22:05)
[2018-08-19] MEDS ORDERED: BENZONATATE 100 MG CAPSULE PO PRN (22:05)
[2018-08-19] MEDS ORDERED: GLUCAGON FOR INJ 1 MG VIAL SQ PRN (22:05)
[2018-08-19 23:08] LABS: Phosphorus 4.1 mg/dl (2.5-4.9)
[2018-08-19] MEDS: ALBUT/IPRATROP 3MG/0.5MG NEB 3 ML VIAL NEB SCH (23:14)
[2018-08-19] MEDS: GABAPENTIN 100 MG CAP PO SCH (23:45)
[2018-08-19] MEDS: ENOXAPARIN INJ 30 MG/0.3 ML SYR SQ SCH (23:46)
[2018-08-19] MEDS: ROSUVASTATIN CALCIUM 20 MG TAB PO SCH (23:46)
[2018-08-19] MEDS: guaiFENesin 600 MG TABCR PO SCH (23:46)
[2018-08-19] MEDS: LACTATED RINGER'S 1,000 ML IV SCH (23:47)
[2018-08-20] MEDS: ALBUT/IPRATROP 3MG/0.5MG NEB 3 ML VIAL NEB SCH ×6 (03:21→23:30)
[2018-08-20 06:10] LABS: Basophils # (auto) 0.01 K/uL (0-0.2); Basophils % (auto) 0.3 %; Eosinophils # (auto) 0.03 K/uL (0-0.5); Eosinophils % (auto) 0.9 %; Hematocrit (blood only) 37.8 % (37-47); Hemoglobin 11.8 g/dL (12.0-16.0); Immature Granulocytes # (auto) 0.01 K/uL (0.00-0.02); Immature Granulocytes % (auto) 0.3 %; Lymphocytes # (auto) 1.19 K/uL (1.2-3.4); Lymphocytes % (auto) 34.9 %; Mean Corpuscular Hgb Conc 31.2 g/dL (32-36); Mean Corpuscular Volume 87.3 fL (80-100); Mean Platelet Volume 9.1 fL (7.4-10.4); Monocytes # (auto) 0.42 K/uL (0.11-0.59); Monocytes % (auto) 12.3 %; Neutrophils # (auto) 1.75 K/uL (1.4-6.5); Neutrophils % (auto) 51.3 %; Platelet Count 151 K/uL (130-400); RDW Coefficient of Variation 14.8 % (11.5-14.5); Red Blood Count 4.33 M/uL (4.2-5.4); White Blood Count 3.41 K/uL (4.8-10.8)
[2018-08-20] MEDS: LEVOTHYROXINE SODIUM 25 MCG TABLET PO SCH (06:13)
[2018-08-20 06:54] LABS: BUN Creatinine Ratio 22.6 (10-20); Calcium 7.5 mg/dl (8.5-10.1); Creatinine Clr Calc Pharmacy 44.2 ml/min; Est GFR (African American) 71.9; Potassium 3.7 mmol/L (3.5-5.1)
--- NOTE | 2018-08-20 08:57 | Hospitalist Progress Note ---
Date of Service August 20, 2018 Assessment & Plan (1) Influenza: COPD exacerbation due to FLU +Influenza. Patient with appx 4 days of symptoms -will continue tamiflu -will try to taper her off her oxygen -Tylenol PRN pain or fever -Mucinex 600mg po BID -Tessalon Perles PRN cough (2) COPD (chronic obstructive pulmonary disease): Patient diffusely wheezing. Mild hypoxia with sats 88% on room air -DuoNebs q 4 hours -Albuterol q 4 hours PRN -Solumedrol 30mg IV TID (3) Diabetes: Blood sugar presently. [id number]=9.6 on 04/19/18 -Continue home Novolog 70/30 - 40u SC q evening, 38u qAM -Continue to monitor - may need to increase insulin in setting of IV steroids -Continue Lisinopril (4) RAJESH (acute kidney injury): BUN=29, Cr=1.3. Patient appears euvolemic on exam. ?mild dehydration in setting of acute illness -LR at 100mL/hr x 2 liters -Repeat labs in AM History of CVA - no residual deficits -Continue Aggrenox -Continue Crestor History of Hypothyroidism - chronic. TSH=3.07 on 04/19/18 -Continue home Synthroid Code - Full per discussion with patient Subjective 82 yo female reports feeling mildly better. She reports she still has a cough and requires oxygen. Patient also has subjective fever and chills. Review of Systems All systems reviewed & are unremarkable except as noted in HPI & below Physical Exam 2 Vital Signs (Past 24 Hours): Last Vital Signs Temp 36.9 C 08/20/18 08:00 Pulse 84 08/20/18 08:00 Resp 20 08/20/18 08:00 BP 144/70 H 08/20/18 08:00 Pulse Ox 98 08/20/18 08:00 Physical Exam: General: patient uncomfortable, NAD, non-toxic in appearance, AA&O x 4 Skin: warm, dry, intact, no rashes or lesions HEENT: NC/AT, PERRL, EOMI, anicteric sclera, no oropharyngeal lesions, no LAD, no thyromegaly, no JVD Heart: +S1/S2, regular, distant heart sounds, no m/r/g Lungs: equal air entry bilaterally, moderate wheezing heard Abd: +BS, soft, NT/ND, no masses/organomegaly/ascites Ext: warm, 2+ pulses in UE/LE bilaterally, no clubbing/cyanosis or edema Neuro: nonfocal, patient AA&O x 4, speech intact, no facial droop, moving all extremities on command with equal strength 5/5 _ (1) Diabetes Chronic kidney disease stage: Diabetes mellitus complication detail: Diabetes mellitus complication status: without complication Diabetes mellitus snf insulin use: with snf use Diabetes mellitus macular edema: Diabetes mellitus type: type 2 Diabetic retinopathy severity: Laterality: Proliferative retinopathy type: Qualified Code(s): E11.9 - Type 2 diabetes mellitus without complications; 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
[2018-08-20] MEDS ORDERED: DIPYRIDAMOLE/ASPIRIN CAP PO SCH (09:00)
[2018-08-20] MEDS: guaiFENesin 600 MG TABCR PO SCH ×2 (09:15→21:10)
[2018-08-20] MEDS: LISINOPRIL 10 MG TAB PO SCH (09:15)
[2018-08-20] MEDS: PANTOprazole 40 MG TAB PO SCH (09:15)
[2018-08-20] MEDS: INSULIN 70% ASPART PROTAMINE/30% ASPART SC SCH ×2 (09:20→18:24)
[2018-08-20] MEDS: LACTATED RINGER'S 1,000 ML IV SCH (09:22)
[2018-08-20] MEDS: OSELTAMIVIR PHOSPHATE SUSP 30 MG/5 ML UDP PO SCH (18:22)
[2018-08-20] MEDS: ROSUVASTATIN CALCIUM 20 MG TAB PO SCH (21:09)
[2018-08-20] MEDS: DIPYRIDAMOLE/ASPIRIN CAP PO SCH (21:09)
[2018-08-20] MEDS: GABAPENTIN 100 MG CAP PO SCH (21:10)
[2018-08-20] MEDS: ENOXAPARIN INJ 30 MG/0.3 ML SYR SQ SCH (23:31)
[2018-08-21] MEDS: ALBUT/IPRATROP 3MG/0.5MG NEB 3 ML VIAL NEB SCH ×6 (04:30→23:17)
[2018-08-21] MEDS: LEVOTHYROXINE SODIUM 25 MCG TABLET PO SCH (06:04)
[2018-08-21] MEDS: guaiFENesin 600 MG TABCR PO SCH ×2 (09:31→21:01)
[2018-08-21] MEDS: INSULIN 70% ASPART PROTAMINE/30% ASPART SC SCH ×2 (09:31→17:32)
[2018-08-21] MEDS: PANTOprazole 40 MG TAB PO SCH (09:31)
[2018-08-21] MEDS: LISINOPRIL 10 MG TAB PO SCH (09:31)
[2018-08-21] MEDS: OSELTAMIVIR PHOSPHATE SUSP 30 MG/5 ML UDP PO SCH ×2 (18:36→18:47)
[2018-08-21] MEDS: CARBOHYDRATES FOR HYPOGLYCEMIA PO PRN (20:12)
[2018-08-21] MEDS ORDERED: OSELTAMIVIR PHOSPHATE 75 MG CAP PO SCH (21:00)
[2018-08-21] MEDS: DIPYRIDAMOLE/ASPIRIN CAP PO SCH (21:02)
[2018-08-21] MEDS: ROSUVASTATIN CALCIUM 20 MG TAB PO SCH (21:02)
[2018-08-21] MEDS: GABAPENTIN 100 MG CAP PO SCH (21:02)
[2018-08-21] MEDS: ENOXAPARIN INJ 30 MG/0.3 ML SYR SQ SCH (22:27)
[2018-08-22] MEDS: CARBOHYDRATES FOR HYPOGLYCEMIA PO PRN ×2 (03:29→20:49)
[2018-08-22] MEDS: ALBUT/IPRATROP 3MG/0.5MG NEB 3 ML VIAL NEB SCH ×6 (03:55→23:12)
[2018-08-22] MEDS: LEVOTHYROXINE SODIUM 25 MCG TABLET PO SCH (06:30)
[2018-08-22] MEDS: OSELTAMIVIR PHOSPHATE SUSP 30 MG/5 ML UDP PO SCH ×2 (06:43→17:34)
[2018-08-22 06:57] LABS: Creatinine Clr Calc Pharmacy 46.9 ml/min; Est GFR (African American) 77.3; Est GFR (Non-African American) 66.7
[2018-08-22] MEDS: guaiFENesin 600 MG TABCR PO SCH ×2 (08:51→20:57)
[2018-08-22] MEDS: PANTOprazole 40 MG TAB PO SCH (08:51)
[2018-08-22] MEDS: LISINOPRIL 10 MG TAB PO SCH (08:54)
[2018-08-22] MEDS: INSULIN 70% ASPART PROTAMINE/30% ASPART SC SCH ×2 (08:56→17:33)
--- NOTE | 2018-08-22 14:20 | Hospitalist Progress Note ---
Date of Service August 21, 2018 Assessment & Plan (1) Influenza: COPD exacerbation due to FLU +Influenza. Patient with appx 4 days of symptoms -will continue tamiflu. Tamiflu dose was corrected today. -Patient is off oxygen. -Tylenol PRN pain or fever -Mucinex 600mg po BID -Tessalon Perles PRN cough (2) COPD (chronic obstructive pulmonary disease): Patient diffusely wheezing. Mild hypoxia with sats 88% on room air -DuoNebs q 4 hours -Albuterol q 4 hours PRN Solumedrol is held given her flu diagnosis. (3) Diabetes: Blood sugar presently. [id number]=9.6 on 04/19/18 -Continue home Novolog 70/30 - 40u SC q evening, 38u qAM -Continue to monitor - -Continue Lisinopril (4) RAJESH (acute kidney injury): Resolved. Patient appears euvolemic on exam. History of CVA - no residual deficits -Continue Aggrenox -Continue Crestor History of Hypothyroidism - chronic. TSH=3.07 on 04/19/18 -Continue home Synthroid Code - Full per discussion with patient Subjective 82 yo female reports reports that she is better but still has a cough. She has tapered off oxygen by nursing. She denies any fever chills. Physical Exam 2 Vital Signs (Past 24 Hours): Last Vital Signs Temp 36.7 C 08/21/18 14:49 Pulse 82 08/21/18 14:49 Resp 20 08/21/18 14:49 BP 129/75 08/21/18 14:49 Pulse Ox 97 08/21/18 14:49 Physical Exam: General: patient uncomfortable, NAD, non-toxic in appearance, AA&O x 4 Skin: warm, dry, intact, no rashes or lesions HEENT: NC/AT, PERRL, EOMI, anicteric sclera, no oropharyngeal lesions, no LAD, no thyromegaly, no JVD Heart: +S1/S2, regular, distant heart sounds, no m/r/g Lungs: equal air entry bilaterally, decreased wheezing heard Abd: +BS, soft, NT/ND, no masses/organomegaly/ascites Ext: warm, 2+ pulses in UE/LE bilaterally, no clubbing/cyanosis or edema Neuro: nonfocal, patient AA&O x 4, speech intact, no facial droop, moving all extremities on command with equal strength 5/5 _ (1) COPD (chronic obstructive pulmonary disease) COPD type: unspecified COPD Chronic bronchitis type: Emphysema type: Qualified Code(s): J44.9 - Chronic obstructive pulmonary disease, unspecified (2) Diabetes Diabetes mellitus type: type 2 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
[2018-08-22] MEDS: ROSUVASTATIN CALCIUM 20 MG TAB PO SCH (20:57)
[2018-08-22] MEDS: GABAPENTIN 100 MG CAP PO SCH (20:57)
[2018-08-22] MEDS: DIPYRIDAMOLE/ASPIRIN CAP PO SCH (20:57)
[2018-08-22] MEDS: ENOXAPARIN INJ 30 MG/0.3 ML SYR SQ SCH (23:31)
--- NOTE | 2018-08-22 23:43 | Hospitalist Progress Note ---
Date of Service August 22, 2018 Assessment & Plan (1) Influenza: COPD exacerbation due to FLU +Influenza. Patient with appx 4 days of symptoms -will continue tamiflu. Today is day 2 of corrected dose. -Patient is off oxygen. -Tylenol PRN pain or fever -Mucinex 600mg po BID -Tessalon Perles PRN cough (2) COPD (chronic obstructive pulmonary disease): Patient diffusely wheezing. Mild hypoxia with sats 88% on room air -DuoNebs q 4 hours -Albuterol q 4 hours PRN Solumedrol is held given her flu diagnosis. (3) Diabetes: Blood sugar presently. KrO3T=4.6 on 04/19/18 -Continue home Novolog 70/30 - 40u SC q evening, 38u qAM -Continue to monitor - -Continue Lisinopril (4) RAJESH (acute kidney injury): Resolved. Patient appears euvolemic on exam. History of CVA - no residual deficits -Continue Aggrenox -Continue Crestor History of Hypothyroidism - chronic. TSH=3.07 on 04/19/18 -Continue home Synthroid Code - Full per discussion with patient Spent 25 minutes in management of patient Subjective 82 yo female reports that she continues to have the cough, but she feels better. She is tolerating her day without oxygen. She has not been that active today. She states that she does not have anyone to pick her up today and is concerned over the possiblity of a winter stor,. She denies any fever chills. Physical Exam 2 Vital Signs (Past 24 Hours): Last Vital Signs Temp 36.5 C 08/22/18 23:00 Pulse 88 08/22/18 23:13 Resp 20 08/22/18 23:13 BP 102/55 L 08/22/18 23:00 Pulse Ox 94 08/22/18 23:13 Physical Exam: General: patient uncomfortable, NAD, non-toxic in appearance, AA&O x 4 Skin: warm, dry, intact, no rashes or lesions HEENT: NC/AT, PERRL, EOMI, anicteric sclera, no oropharyngeal lesions, no LAD, no thyromegaly, no JVD Heart: +S1/S2, regular, distant heart sounds, no m/r/g Lungs: equal air entry bilaterally, decreased wheezing heard Abd: +BS, soft, NT/ND, no masses/organomegaly/ascites Ext: warm, 2+ pulses in UE/LE bilaterally, no clubbing/cyanosis or edema Neuro: nonfocal, patient AA&O x 4, speech intact, no facial droop, moving all extremities on command with equal strength 5/5 _ (1) Diabetes Chronic kidney disease stage: Diabetes mellitus complication detail: Diabetes mellitus complication status: without complication Diabetes mellitus mcc insulin use: with stoker erector and servicer use Diabetes mellitus macular edema: Diabetes mellitus type: type 2 Diabetic retinopathy severity: Laterality: Proliferative retinopathy type: Qualified Code(s): E11.9 - Type 2 diabetes mellitus without complications; 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
[2018-08-23] MEDS: ALBUT/IPRATROP 3MG/0.5MG NEB 3 ML VIAL NEB SCH ×3 (03:08→10:58)
[2018-08-23] MEDS: LEVOTHYROXINE SODIUM 25 MCG TABLET PO SCH (06:03)
[2018-08-23] MEDS: OSELTAMIVIR PHOSPHATE SUSP 30 MG/5 ML UDP PO SCH (06:04)
[2018-08-23] MEDS ORDERED: Nursing to Pharmacy Communication ONE (09:00)
[2018-08-23] MEDS ORDERED: INSULIN 70% ASPART PROTAMINE/30% ASPART SC SCH (09:15)
[2018-08-23] MEDS: guaiFENesin 600 MG TABCR PO SCH (09:17)
[2018-08-23] MEDS: LISINOPRIL 10 MG TAB PO SCH (09:17)
[2018-08-23] MEDS: PANTOprazole 40 MG TAB PO SCH (09:17)
--- NOTE | 2018-08-23 17:51 | Discharge Summary ---
Date of Service August 23, 2018 Admission HPI Per Admitting Provider Ms. Angel is an 82yo female with history of DM on insulin therapy, COPD, Hypothyroid, prior CVA presenting with flu-like symptoms. Patient states that 4 days ago she began having dry cough, body aches, weakness with difficulty ambulating as well as shortness of breath and wheezing. She denies fevers/ chills/VILLEGAS. She did not receive a flu shot this year. +sick contact - neighbor with respiratory symptoms. On arrival to the ER she was afebrile, hemodynamically stable. Hypoxic 88% on room air which dropped to mid-80's with ambulation. ER Course: Albuterol, Levaquin, Tamiflu Principal Diagnosis Influenza A Discharge Exam Constitutional WD/WN, vitals as above Eyes EOM intact bilaterally; no conjunctival abnormality ENMT external ear and nose normal, oropharynx normal Neck trachea midline, no thyromegaly normal visual inspection Respiratory normal respiratory effort, lungs clear to auscultation no respiratory distress Cardiovascular RRR, no murmur, no edema Gastrointestinal (Abdomen) Inspection/Auscultation: abdomen normal to inspection; abdomen not distended Musculoskeletal no cyanosis or clubbing, extremities motor strength 5/5 Skin no rashes, warm and dry Neurologic moves all extremities and awake Psychiatric Orientation: alert, oriented to person and cooperative Discharge Data Allergies Allergy/AdvReac Type Severity Reaction Status Date / Time adhesive Allergy Unknown RASH Verified 08/19/18 17:55 egg Allergy Unknown GI SYMPTOMS Verified 08/19/18 17:55 garlic Allergy Unknown Unknown Verified 08/19/18 17:55 propoxyphene Allergy Unknown Verified 08/19/18 17:55 sertraline Allergy Unknown Unknown Verified 08/19/18 17:55 Sulfa (Sulfonamide Allergy Unknown Verified 08/19/18 17:55 Antibiotics) simvastatin AdvReac Intermediate MYALGIA Verified 08/19/18 17:55 iodine AdvReac Unknown . Verified 08/19/18 17:55 Consultations 08/19/18 18:16 ED Decision to Admit Stat Hospital Course (1) Influenza: COPD exacerbation due to flu. Patient received Tamiflu and needs 3 more doses to finish her 5-day course. By discharge, she was on room air and was feeling well. Had used some DuoNeb treatments while inpatient, so discharged with an albuterol inhaler as well. Encouraged OTC cough medication if cough was a still a problem, but it had been improving during hospital stay. (2) COPD (chronic obstructive pulmonary disease): Patient initially diffusely wheezing. Mild hypoxia with sats 88% on room air initially, but was on room air by discharge. Was not on any steroids or antibiotics while admitted, so did not discharge on any. - Discharged with albuterol inhaler. (3) Diabetes: JgA6Y=8.6 on 04/19/18. -Continued home Novolog 70/30 - 40u SC q evening, 38u qAM - Blood sugars were low in the morning (60-70); however, her daughter reports her diet at home is much less restrictive compared to in the hospital. (4) RAJESH (acute kidney injury): Baseline Cr is ~.8 with Cr of 1.3 on admission. Resolved with IV fluids. Likely prerenal from illness. (5) CVA (cerebral vascular accident): History of CVA - no residual deficits -Continue Aggrenox -Continue Crestor History of Hypothyroidism - chronic. TSH=3.07 on 04/19/18 -Continue home Synthroid Total Time Total Time Spent Total Time Spent (In Minutes): 45 Total Time Includes: Examination of the Patient, Discharge Planning, Medication Reconciliation and Other (Communicating with family) Discharge Plan Discharge Items Patient Disposition: Home - Home Health Services Reason For Visit: HYPOXIA,INFLUENZA Discharge Diagnosis: Influenza A Condition: Good Discharge Goals: Improve disease control and Improve function Activity: Resume your previous activity Non-emergency contact: Primary Care Provider Call non-emergency contact if: you have any medication questions, your symptoms worsen and your pain is unusual for you Follow-up/Referrals: Kathie Clements CRNP [Primary Care Provider] - 08/30/18 3:00 pm (Please, follow up at KEVIN Clements's office with her associate, Loulou Long, on ThursdayAugust 30 at 3:00 pm. *If you need to change this appointment, call their office at [phone]. ) Diet: Carb Consistent or DM2 Addtl Provider Instructions: Ms. Angel, you were admitted for problems breathing that were caused by the flu. We gave you Tamiflu and breathing treatments, and you improved over the course of a few days. You were up and around the room on your day of discharge and felt ready to go home. You were open to having a home nurse visit you, and we arranged this prior to discharge. Please take the last day of Tamiflu starting tonight and then twice tomorrow. I am also sending an inhaler to your pharmacy if you have any occasional shortness of breath. You can also take [id number] medications to help with your cough such as Mucinex. Please return to the hospital if you have any further fevers, chills, sweats, trouble breathing, or other concerning symptoms. Prescriptions: New albuterol sulfate 90 mcg/actuation HFA aerosol inhaler 2 inha INH Q6H PRN (Reason: shortness of breath or wheezing) Qty: 8 RF: 0 oseltamivir [Tamiflu] 30 mg capsule 30 mg PO BID Qty: 3 RF: 0 Continue aspirin-dipyridamole 25-200 mg capsule, ER multiphase 12 hr 1 cap PO QAM RF: 0 levothyroxine 25 mcg tablet 25 mcg PO QAM RF: 0 esomeprazole magnesium 40 mg capsule,delayed release(DR/EC) 40 mg PO QAM RF: 0 lisinopril 10 mg tablet 10 mg PO QAM RF: 0 gabapentin 100 mg capsule 100 mg PO HS RF: 0 insulin asp prt-insulin aspart 100 unit/mL (70-30) insulin pen 1 dose subcut QPM RF: 0 insulin asp prt-insulin aspart 100 unit/mL (70-30) insulin pen 1 dose subcut QAM RF: 0 rosuvastatin 20 mg tablet 20 mg PO QPM RF: 0 Stand-Alone Forms: [facility] Discharge Orders: Discharge Order (Routine); Ordered 08/23/18 Ordered By: Nic Boss Admission Data Admit Date/Time: 08/19/18 19:40 Attending Provider: Nic Boss Admit Provider: Bernie Bonds Primary Care Provider: Kathie Clements Other Providers: Nic Boss Service: Medical Other Interventions: Discharge Summary Assessment (RN) Last Done: 08/23/18 13:12 DC Date/Time DO NOT enter until pt leaves facility: 08/23/18 15:56
[2018-08-23] MEDS ORDERED: ROSUVASTATIN CALCIUM 10 MG TAB PO SCH (21:00)
== END 2018-08-23 15:56 | disposition home health service (06) ==
LOC: ED 13:56 → SUATTDRO 19:40 → 4W 19:40

== ENCOUNTER 2019-09-01 14:01 | Observation (INO) ==
[2019-09-01 14:55] LABS: Basophils # (auto) 0.02 K/uL (0-0.2); Basophils % (auto) 0.2 %; Eosinophils # (auto) 0.13 K/uL (0-0.5); Eosinophils % (auto) 1.3 %; Hematocrit (blood only) 39.7 % (37-47); Hemoglobin 12.3 g/dL (12.0-16.0); Immature Granulocytes # (auto) 0.03 K/uL (0.00-0.02); Immature Granulocytes % (auto) 0.3 %; Lymphocytes # (auto) 1.96 K/uL (1.2-3.4); Lymphocytes % (auto) 19.1 %; Mean Corpuscular Hemoglobin 27.2 pg (25-34); Mean Corpuscular Volume 87.8 fL (80-100); Mean Platelet Volume 9.6 fL (7.4-10.4); Monocytes # (auto) 0.72 K/uL (0.11-0.59); Neutrophils # (auto) 7.39 K/uL (1.4-6.5); Neutrophils % (auto) 72.1 %; Platelet Count 235 K/uL (130-400); RDW Coefficient of Variation 14.9 % (11.5-14.5); RDW Standard Deviation 48.1 fL (36.4-46.3); Red Blood Count 4.52 M/uL (4.2-5.4); White Blood Count 10.25 K/uL (4.8-10.8)
--- NOTE | 2019-09-01 15:01 | XRay Report ---
XR chest 1V portable CLINICAL HISTORY: chest pain dyspnea COMPARISON STUDY: 08/19/2018 FINDINGS: Slight increase in pulmonary size compared to the prior study. Subtle increase in pulmonary vasculature. Several subtle interstitial Scottie B line of the lung bases. Diaphragms are smooth. IMPRESSION: Mild and/or early congestive failure ACT 112: Negative or not required by law. The above report was generated using voice recognition software. It may contain grammatical, syntax or spelling errors. Electronically signed by: Panda Chavarria M.D. 09/01/2019 3:00 PM
[2019-09-01 15:11] LABS: Alanine Aminotransferase 15 U/L (12-78); Albumin Level 3.1 gm/dl (3.4-5.0); Aspartate Aminotransferase 16 U/L (15-37); BUN Creatinine Ratio 18.9 (10-20); Blood Urea Nitrogen 23 mg/dl (7-18); Calcium 9.1 mg/dl (8.5-10.1); Carbon Dioxide 26 mmol/L (21-32); Chloride 105 mmol/L (98-107); Creatinine Clr Calc Pharmacy 27.9 ml/min; Est GFR (African American) 46.3; Glucose 237 mg/dl (70-99); Sodium 139 mmol/L (136-145)
[2019-09-01 15:15] LABS: Prothrombin Time 9.9 Seconds (9.0-12.0)
[2019-09-01 15:16] LABS: Albumin Globulin Ratio 0.8 (0.9-2); Alkaline Phosphatase 96 U/L (45-117); Bilirubin,Total 0.3 mg/dl (0.2-1); NT Pro B Type Natriuretic Pept 94 pg/ml (0-1800); Total Protein 7.1 gm/dl (6.4-8.2); Troponin I < 0.015 ng/ml (0-0.045)
[2019-09-01 15:17] LABS: D Dimer 1010 ug/L FEU (0-500)
[2019-09-01] MEDS ORDERED: OPTIRAY 320 125ml IV PRN (16:31)
--- NOTE | 2019-09-01 16:52 | CT Scan Report ---
CT angio chest PE protocol CT DOSE: 483.97 mGycm HISTORY: Chest pain. Dyspnea. PE TECHNIQUE: Multiaxial CT images of the chest were performed following the intravenous administration of contrast to evaluate the pulmonary arteries. Maximal intensity projection images were also obtaine d. A dose lowering technique was utilized adhering to the principles of ALARA. COMPARISON STUDY: None. FINDINGS: Limited study due to considerable patient respiratory and somatic motion. Considerable athe rosclerotic change of the thoracic aorta. No evidence for aneurysm or dissection. The pulmonary vasculature appears to enhance appropriately. The vessels are not well seen again due t o artifact. Lumbar apices are clear. There are several small reactive mediastinal and hilar nodes. These measure less than 9 mm. There are slight basilar pleural thickening. Prominent basilar pulmonary vasculature. Scattered areas of pleural thickening are present. IMPRESSION: 1. No evidence for pulmonary embolus. 2. Mild interstitial prominence of the mid to lower lung regions. 3. Somewhat limited exam due to patient respiratory and somatic motion. ACT 112: Negative or not required by law. The above report was generated using voice recognition software. It may contain grammatical, syntax or spelling errors. Electronically signed by: Panda Chavarria M.D. 09/01/2019 4:51 PM
[2019-09-01] MEDS ORDERED: ACETAMINOPHEN 1,000 MG/100 ML VIAL IV STA (17:19)
--- NOTE | 2019-09-01 17:25 | Emergency Department Note ---
Entered by Dominic Licona acting as a scribe for History of Present Illness General Chief complaint: Chest Pain Time Seen by Provider: 09/01/19 14:02 Source: patient Limitations: no limitations History of Present Illness Onset (ago): hour(s) 1 Location: chest Radiation: neck (and jaw) and extremity (bilateral upper ex) Severity: similar to prior episodes Current Pain Intensity: 5 Associated symptoms: + other The patient is a 86 year old female who presents to the Emergency Room with complaints of intermittent chest pressure starting an hour ago. The patient states she was sitting in a chair when the pain come on. She states she was moving around this morning and felt fine. She states the pain radiated to both her arms, her neck, and her jaw. She states her pain is 5/10. She states she had similar pain a couple months ago when she woke up with the pain. She states at that time she tried to relax and eventually went back to sleep. She notes she takes blood thinners because she had a stroke about 5 years ago. She denies being sick recently and having any recent medication changes. 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 She sees Dr. Hunt. Patient states she is taking her medications as prescribed. No other recent illness. Home Medications Home Medications Medication Instructions Recorded Confirmed Type lisinopril 10 mg tablet 10 mg PO DAILY #90 tab 12/24/18 09/01/19 Rx levothyroxine 25 mcg tablet 25 mcg PO DAILY #90 tab 02/21/19 09/01/19 Rx aspirin 25 mg-dipyridamole 200 mg 1 cap PO HS #90 cap 04/11/19 09/01/19 Rx capsule,ext.release 12 hr multiphase docusate sodium 100 mg tablet 100 mg PO DAILY PRN 05/11/19 09/01/19 History esomeprazole magnesium 40 mg 40 mg PO DAILY #90 cap 05/11/19 09/01/19 Rx capsule,delayed release gabapentin 100 mg capsule 100 mg PO HS #90 cap 05/11/19 09/01/19 Rx rosuvastatin 20 mg tablet 20 mg PO DAILY #90 tab 05/11/19 09/01/19 Rx cholecalciferol (vitamin D3) 1,250 50,000 units PO WK cap 06/06/19 09/01/19 History mcg (50,000 unit) capsule insulin asp prt-insulin aspart 38 unit SUBCUT QAM 09/01/19 09/01/19 History [Novolog Mix 70-30FlexPen U-100] insulin asp prt-insulin aspart 44 unit SUBCUT HS 09/01/19 09/01/19 History [Novolog Mix 70-30FlexPen U-100] Allergies Allergy/AdvReac Type Severity Reaction Status Date / Time adhesive Allergy Mild Rash Verified 09/01/19 15:41 egg Allergy Mild GI SYMPTOMS Verified 09/01/19 15:41 garlic Allergy Mild GI symptoms Verified 09/01/19 15:41 povidone-iodine Allergy Mild itchy Verified 09/01/19 15:41 [From Betadine] propoxyphene Allergy Mild light Verified 09/01/19 15:41 headed sertraline Allergy Mild Dizziness Verified 09/01/19 15:41 soap [From Betadine] Allergy Mild itchy Verified 09/01/19 15:41 Sulfa (Sulfonamide Allergy Mild GI symptoms Verified 09/01/19 15:41 Antibiotics) simvastatin AdvReac Intermediate MYALGIA Verified 09/01/19 15:41 Past Med/Surg History Medical History ASCVD (arteriosclerotic cardiovascular disease) Carotid artery stenosis Cerebral arterial aneurysm COPD (chronic obstructive pulmonary disease) CVA (cerebral vascular accident) 2014--short term memory loss, gait loss--uses walker Diabetes mellitus, type 2 Hearing deficit History of CHF (congestive heart failure) Hx of angina pectoris Hypothyroid Osteoarthritis Restless leg syndrome Surgical History H/O section x3 History of bilateral cataract extraction History of bilateral tubal ligation History of cardiac cath @ [facility] [place]no stents History of colonoscopy History of sigmoidoscopy History of tonsillectomy and adenoidectomy History of tooth extraction all teeth removed History of total abdominal hysterectomy and bilateral salpingo-oophorectomy S/P cholecystectomy S/P removal of ovarian cyst Family History Grandmother (Paternal) Family history of diabetes mellitus Father Myocardial infarction Mother Myocardial infarction Other Heart disease No family history of adverse response to anesthesia Denies family history of Ovarian cancer Prostate cancer Social History Preferred Language: Bahraini Communication Ability: Effective 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 and A total of 10 systems reviewed and were otherwise negative Physical Exam Vital Signs Vital Signs - 24 hr 09/01/19 14:08 09/01/19 14:09 09/01/19 14:18 Temperature 97.9 F Temperature Source Oral Pulse Rate 103 H 120 H Pulse Rate [Apical] Respiratory Rate 20 23 Blood Pressure 210/99 H 210/99 H Blood Pressure [Left Arm] Blood Pressure Mean 156 136 Blood Pressure Mean [Left Arm] Pulse Oximetry 97 Oxygen Delivery Method Room Air Sepsis Recent Fever Within 48 Hours No Sepsis New/Unexplained Change in Mental Status No Sepsis Action Taken by Nursing No Action Required 09/01/19 14:20 09/01/19 14:30 09/01/19 14:40 Temperature Temperature Source Pulse Rate 112 H 105 H 97 H Pulse Rate [Apical] Respiratory Rate 22 23 21 Blood Pressure Blood Pressure [Left Arm] Blood Pressure Mean Blood Pressure Mean [Left Arm] Pulse Oximetry Oxygen Delivery Method Sepsis Recent Fever Within 48 Hours Sepsis New/Unexplained Change in Mental Status Sepsis Action Taken by Nursing 09/01/19 14:42 09/01/19 14:44 09/01/19 14:50 Temperature Temperature Source Pulse Rate 100 H 97 H 91 H Pulse Rate [Apical] Respiratory Rate 20 23 13 Blood Pressure 134/87 157/71 H Blood Pressure [Left Arm] Blood Pressure Mean 105 132 Blood Pressure Mean [Left Arm] Pulse Oximetry Oxygen Delivery Method Sepsis Recent Fever Within 48 Hours Sepsis New/Unexplained Change in Mental Status Sepsis Action Taken by Nursing 09/01/19 15:00 09/01/19 15:10 09/01/19 15:20 Temperature Temperature Source Pulse Rate 91 H 94 H 84 Pulse Rate [Apical] Respiratory Rate 19 19 19 Blood Pressure Blood Pressure [Left Arm] Blood Pressure Mean Blood Pressure Mean [Left Arm] Pulse Oximetry Oxygen Delivery Method Sepsis Recent Fever Within 48 Hours Sepsis New/Unexplained Change in Mental Status Sepsis Action Taken by Nursing 09/01/19 15:30 09/01/19 15:40 09/01/19 15:50 Temperature Temperature Source Pulse Rate 88 88 84 Pulse Rate [Apical] Respiratory Rate 26 H 16 Blood Pressure Blood Pressure [Left Arm] Blood Pressure Mean Blood Pressure Mean [Left Arm] Pulse Oximetry Oxygen Delivery Method Sepsis Recent Fever Within 48 Hours Sepsis New/Unexplained Change in Mental Status Sepsis Action Taken by Nursing 09/01/19 16:00 09/01/19 16:10 09/01/19 17:06 Temperature Temperature Source Pulse Rate 82 74 Pulse Rate [Apical] 85 Respiratory Rate 25 H 17 20 Blood Pressure Blood Pressure [Left Arm] 168/74 H Blood Pressure Mean Blood Pressure Mean [Left Arm] 105 Pulse Oximetry 96 Oxygen Delivery Method Room Air Sepsis Recent Fever Within 48 Hours Sepsis New/Unexplained Change in Mental Status Sepsis Action Taken by Nursing GENERAL: alert, uncomfortable appearing, well nourished, no distress, non-toxic EYE EXAM: normal conjunctiva, PERRL and EOM's grossly intact OROPHARYNX: no exudate, no erythema, lips, buccal mucosa, and tongue normal and mucous membranes are moist NECK: supple, no nuchal rigidity, no adenopathy, non-tender LUNGS: Clear to auscultation. Normal chest wall mechanics. No wheezing, rhonchi, or rales. HEART: no murmurs, S1 normal and S2 normal CHEST: No reproducible chest wall tenderness. ABDOMEN: abdomen soft, non-tender, normo-active bowel sounds, no masses, no rebound or guarding. BACK: Back is symmetrical on inspection and there is no deformity, no midline tenderness, no CVA tenderness. SKIN: no rashes and no bruising UPPER EXTREMITIES: upper extremities are grossly normal. FROM, nml pulses b/l. LOWER EXTREMITIES: No pitting edema. FROM, nml pulses b/l. NEURO EXAM: Normal sensorium, cranial nerves II-XII grossly intact, normal speech, no gross weakness of arms, no gross weakness of legs. Course Course 1403: The patient was evaluated [place] [facility], and a complete history and physical examination were performed. 1723: I spoke with Dr. Hunt - Cardiology. He agrees with the plan to admit the patient. 1729: I spoke with the patient and updated him on his labs and imaging results. I recommended admission, and the patient agrees with the plan. 1738: I discussed the patient's case with Dr. Cotter - [facility] Hospitalist. She will evaluate the patient for further management. Administered Medications Discontinued Medications Dipyridamole/Aspirin (Aggrenox 200mg/25mg) 1 cap PO HS ANGIE Stop: 10/01/19 21:24 Last Admin: 09/01/19 22:36 Dose: 1 cap Documented by: [id number] Gabapentin (Neurontin) 100 mg PO HS ANGIE Stop: 10/01/19 21:24 Last Admin: 09/01/19 22:36 Dose: 100 mg Documented by: [id number] Heparin Sodium (Porcine) (Heparin Sodium (Porcine)) 5,000 units SQ Q12 ANGIE Stop: 10/01/19 21:24 Last Admin: 09/02/19 08:07 Dose: 5,000 units Documented by: [id number] Cosigned by: [id number] Admin: 09/01/19 22:36 Dose: 5,000 units Documented by: [id number] Cosigned by: [id number] Sodium Chloride (Nss) 500 mls @ 125 mls/hr IV .Q4H ANGIE Stop: 10/01/19 17:29 Last Infusion: 09/01/19 20:37 Dose: 0 mls/hr Documented by: [id number] Admin: 09/01/19 17:23 Dose: 125 mls/hr Documented by: [id number] Acetaminophen (Ofirmev) 1,000 mg in 100 mls @ 400 mls/hr IV NOW STA Stop: 09/01/19 17:33 Last Infusion: 09/01/19 18:00 Dose: 0 mls/hr Documented by: [id number] Admin: 09/01/19 17:23 Dose: 400 mls/hr Documented by: [id number] Insulin Aspart (Novolog Flexpen) 0 units SC ACHS ANGIE Stop: 10/02/19 03:59 Last Admin: 09/02/19 12:10 Dose: 5 units Documented by: [id number] Cosigned by: [id number] Admin: 09/02/19 08:08 Dose: 3 units Documented by: [id number] Cosigned by: [id number] Admin: 09/02/19 04:26 Dose: Not Given Documented by: [id number] Cosigned by: [id number] Insulin Human NPH (Novolin N Nph) 20 units SC BIDM [facility] Stop: 10/01/19 23:29 Last Admin: 09/02/19 00:32 Dose: 20 units Documented by: [id number] Cosigned by: [id number] Insulin Human NPH (Novolin N Nph) 10 units SC NOW STA; Protocol Stop: 09/02/19 10:11 Last Admin: 09/02/19 10:35 Dose: 10 units Documented by: [id number] Cosigned by: [id number] Ioversol (Optiray 320 125ml) 119 ml IV ONCE PRN PRN Reason: Interaction Checking Stop: 09/05/19 16:30 Last Admin: 09/01/19 16:32 Dose: 119 ml Documented by: [id number] Levothyroxine Sodium (Synthroid) 25 mcg PO DAILYBB [facility] Stop: 10/02/19 06:29 Last Admin: 09/02/19 05:58 Dose: 25 mcg Documented by: [id number] Lisinopril (Zestril) 10 mg PO DAILY ANGIE Stop: 10/02/19 08:59 Last Admin: 09/02/19 08:07 Dose: 10 mg Documented by: [id number] Pantoprazole Sodium (Protonix) 40 mg PO DAILY ANGIE Stop: 10/02/19 08:59 Last Admin: 09/02/19 08:07 Dose: 40 mg Documented by: [id number] Polyethylene Glycol (Miralax Powder Packet) 17 gm PO BID ANGIE Stop: 10/02/19 08:59 Last Admin: 09/02/19 08:07 Dose: 17 gm Documented by: [id number] Rosuvastatin Calcium (Crestor) 20 mg PO DAILY ANGIE Stop: 10/02/19 08:59 Last Admin: 09/02/19 00:33 Dose: 20 mg Documented by: [id number] Medical Decision Making Differential Diagnosis Differential diagnoses includes but is not limited to acute coronary syndrome, myocardial infarction, pericarditis, pulmonary embolus, aortic dissection, pneumonia, pneumothorax, musculoskeletal, shingles, esophageal. Medical Records Attestation: I reviewed the patient's medical records. Home Medications Current Medication List: was personally reviewed by me Laboratory Data Attestation: I reviewed the patient's lab results. Result diagrams: 09/02/19 06:18 09/02/19 06:18 Lab Results 09/01/19 09/01/19 09/01/19 Range/Units 14:45 14:45 14:45 WBC 10.25 (4.8-10.8) K/uL RBC 4.52 (4.2-5.4) M/uL Hgb 12.3 (12.0-16.0) g/dL Hct 39.7 (37-47) % MCV 87.8 (80-100) fL MCH 27.2 (25-34) pg MCHC 31.0 L (32-36) g/dL RDW Std Deviation 48.1 H (36.4-46.3) fL RDW Coeff of [place] 14.9 H (11.5-14.5) % Plt Count 235 (130-400) K/uL MPV 9.6 (7.4-10.4) fL Immature Gran % (Auto) 0.3 % Neut % (Auto) 72.1 % Lymph % (Auto) 19.1 % [place] % (Auto) 7.0 % Eos % (Auto) 1.3 % Baso % (Auto) 0.2 % Immature Gran # (Auto) 0.03 H (0.00-0.02) K/uL Neut # (Auto) 7.39 H (1.4-6.5) K/uL Lymph # (Auto) 1.96 (1.2-3.4) K/uL [place] # (Auto) 0.72 H (0.11-0.59) K/uL Eos # (Auto) 0.13 (0-0.5) K/uL Baso # (Auto) 0.02 (0-0.2) K/uL PT 9.9 (9.0-12.0) Seconds INR 1.0 (0.9-1.1) D-Dimer 1010 H* (0-500) ug/L FEU Sodium 139 (136-145) mmol/L Potassium 4.0 (3.5-5.1) mmol/L Chloride 105 (98-107) mmol/L Carbon Dioxide 26 (21-32) mmol/L Anion Gap 8.0 (3-11) BUN 23 H (7-18) mg/dl Creatinine 1.23 H (0.6-1.2) mg/dl Est Cr Clr Drug Dosing 27.9 ml/min Est GFR ( Amer) 46.3 Est GFR (Non-Af Amer) 40.0 BUN/Creatinine Ratio 18.9 (10-20) Glucose 237 H (70-99) mg/dl Calcium 9.1 (8.5-10.1) mg/dl Total Bilirubin 0.3 (0.2-1) mg/dl AST 16 (15-37) U/L ALT 15 (12-78) U/L Alkaline Phosphatase 96 (45-117) U/L Troponin I < 0.015 (0-0.045) ng/ml NT-Pro-B Natriuret Pep 94 (0-1800) pg/ml Total Protein 7.1 (6.4-8.2) gm/dl Albumin 3.1 L (3.4-5.0) gm/dl Globulin 4.0 (2.5-4.0) gm/dl Albumin/Globulin Ratio 0.8 L (0.9-2) TSH 2.110 (0.300-4.500) uIu/ml Imaging Data Radiologist's Impression: Radiology results as stated below per my review and the radiologist's interpretation: XR chest 1V portable CLINICAL HISTORY: chest pain dyspnea COMPARISON STUDY: 08/19/2018 FINDINGS: Slight increase in pulmonary size compared to the prior study. Subtle increase in pulmonary vasculature. Several subtle interstitial Scottie B line of the lung bases. Diaphragms are smooth. IMPRESSION: Mild and/or early congestive failure ACT 112: Negative or not required by law. The above report was generated using voice recognition software. It may contain grammatical, syntax or spelling errors. Electronically signed by: Panda Chavarria M.D. 09/01/2019 3:[address] angio chest PE protocol CT DOSE: 483.97 mGycm HISTORY: Chest pain. Dyspnea. PE TECHNIQUE: Multiaxial CT images of the chest were performed following the intravenous administration of contrast to evaluate the pulmonary arteries. Maximal intensity projection images were also obtained. A dose lowering technique was utilized adhering to the principles of ALARA. COMPARISON STUDY: None. FINDINGS: Limited study due to considerable patient respiratory and somatic motion. Considerable atherosclerotic change of the thoracic aorta. No evidence for aneurysm or dissection. The pulmonary vasculature appears to enhance appropriately. The vessels are not well seen again due to artifact. Lumbar apices are clear. There are several small reactive mediastinal and hilar nodes. These measure less than 9 mm. There are slight basilar pleural thickening. Prominent basilar pulmonary vasculature. Scattered areas of pleural thickening are present. IMPRESSION: 1. No evidence for pulmonary embolus. 2. Mild interstitial prominence of the mid to lower lung regions. 3. Somewhat limited exam due to patient respiratory and somatic motion. ACT 112: Negative or not required by law. The above report was generated using voice recognition software. It may contain grammatical, syntax or spelling errors. Electronically signed by: Panda Chavarria M.D. 09/01/2019 4:51 PM ECG Data Attestation: I personally reviewed and interpreted this ECG as follows: Indication: + chest pain Rate (beats per minute): 102 Rhythm: + sinus tachycardia ECG Intervals/blocks: + Normal QRS, + Normal QT, + Normal [place] and + Normal QT-c ECG [place]: + Normal ECG ST segments: no ST depression and no ST elevation ECG Findings: no PACs and no PVCs Blood Pressure Blood Pressure Findings: Elevated blood pressure Blood Pressure Disposition: further management by hospitalist ROSIO Mcdermott Continuous Cardiac Monitoring: An order was placed for continuous cardiac monitoring. The monitor shows a rate of 102 with a sinus tachycardia Patient here well-appearing and symptoms did improve following improvement of blood pressure. Patient was initially markedly hypertensive, however this did seem to come down without any additional IV medication. Patient's labs and carla ging here are reassuring. Due to concern for patient's significant cardiac history, possible component of hypertensive urgency, I discussed with patient additional inpatient evaluation. She was in agreement with this plan. Patient was made aware of all results. Case discussed with hospitalist. At this time I do not suspect aneurysm, dissection, PE, tamponade, effusion, occult pneumonia, ACS, no evidence of dysrhythmia on telemetry, GI bleed, perforation, or mediastinitis. Patient did develop a headache here, I feel likely this was secondary to blood pressure and pain. Patient had a normal and nonfocal neuro exam, and pain was relieved with Tylenol. I do not suspect occult CVA or ICH. Impression & Plan Chest pain, Hypertension Discharge Plan Visit Data *Final* Discharge Date/Time: 09/01/19 21:04 Chief Complaint: Chest Pain ED Provider: Steffany Greer Discharge Problem: Chest pain, Hypertension Patient Disposition: Admitted As Inpatient Discharge Instructions Interventions: ED Discharge Assessment Last Done: 09/01/19 21:04 Discharge Problem: Chest pain Qualifiers: Chest pain type: unspecified Qualified Code(s): R07.9 - Chest pain, unspecified Hypertension Qualifiers: Hypertension type: unspecified Qualified Code(s): I10 - Essential (primary) hypertension The scribe's documentation has been prepared under my direction and personally reviewed by me in its entirety. I confirm that the note above accurately reflects all work, treatment, procedures, and medical decision making performed by me.
[2019-09-01] MEDS ORDERED: SODIUM CHLORIDE 0.9% 500 ML IV SCH (17:30)
--- NOTE | 2019-09-01 19:16 | Electrocardiogram Report ---
Test Reason : Blood Pressure : / mmHG Vent. Rate : 102 BPM Atrial Rate : 102 BPM P-R Int : 168 ms QRS Dur : 084 ms QT Int : 366 ms P-R-T Axes : 062 043 053 degrees QTc Int : 477 ms Poor data quality, interpretation may be adversely affected Sinus tachycardia Otherwise normal ECG When compared with ECG of 19-AUG-2018 14:42, No significant change was found Confirmed by Eliazar Rae ([id number]) on 09/01/2019 7:16:08 PM Referred By: REFERRED SELF Confirmed By:Kaleb Rae
[2019-09-01] MEDS ORDERED: GLUCOSE 40% GEL 15 GM TUBE PO PRN (21:25)
[2019-09-01] MEDS ORDERED: CARBOHYDRATES FOR HYPOGLYCEMIA PO PRN (21:25)
[2019-09-01] MEDS ORDERED: ONDANSETRON INJ 2 MG/ML 2 ML VIAL IV PRN (21:25)
[2019-09-01] MEDS ORDERED: MAGNESIUM HYDROXIDE SUSP 30 ML UDC PO PRN (21:25)
[2019-09-01] MEDS ORDERED: GLUCAGON FOR INJ 1 MG VIAL SQ PRN (21:25)
[2019-09-01] MEDS ORDERED: HydrALAZINE 10 MG TAB PO PRN (21:25)
[2019-09-01] MEDS ORDERED: ALUMINUM/MAGNESIUM SUSP 30 ML UDC PO PRN (21:25)
[2019-09-01] MEDS ORDERED: GABAPENTIN 100 MG CAP PO SCH (21:25)
[2019-09-01] MEDS ORDERED: POLYETHYLENE (MIRALAX) 17 GM PACK PO PRN (21:25)
[2019-09-01] MEDS ORDERED: DEXTROSE 50% 50 ML SYRINGE IV PRN (21:25)
[2019-09-01] MEDS ORDERED: GLUCOSE 10 TABS/TUBE PO PRN (21:25)
[2019-09-01] MEDS ORDERED: ACETAMINOPHEN 325 MG TAB PO PRN (21:25)
[2019-09-01] MEDS ORDERED: DIPYRIDAMOLE/ASPIRIN CAP PO SCH (21:25)
--- NOTE | 2019-09-01 21:41 | History & Physical Report ---
Date of Service September 01, 2019 Assessment & Plan (1) Chest pain: Admit to PCU on telemetry for observation. Vital signs every 4 hours. Monitor blood pressure closely. Started hydralazine 10 mg p.o. 4 times daily as needed for blood pressure 160/90. Troponin x3 with EKG. First troponin negative. DVT prophylaxis Heparin 5000 units every 12 hours. Patient is a full code. Present on Admission?: Yes (2) Hypertension: Continue home medication. Patient had elevated blood pressure in the ER. We will titrate up her blood pressure medicine. Use for now hydralazine 10 mg p.o. 4 times daily as needed for elevated blood pressure systolic over 160 and diastolic over 90. Continue Aggrenox, Present on Admission?: Yes (3) GERD (gastroesophageal reflux disease): Stable, continue as esomeprazole 40 mg p.o. daily Present on Admission?: Yes (4) Hypothyroidism: TSH pending, continue home dose of levothyroxine 25 MCG's p.o. daily. Present on Admission?: Yes (5) Hyperlipidemia: Lipid panel pending, continue rosuvastatin 20 mg p.o. daily. Present on Admission?: Yes (6) Diabetes: Glycemic control per pharmacy. Continue home dose insulin and adjust if patient hypoglycemic. A1c pending. Accu-Cheks before meals and at bedtime. Present on Admission?: Yes (7) CVA (cerebral vascular accident): Stable, continue Aggrenox as per home dose. Present on Admission?: Yes (8) Constipation, chronic: Patient reports not having bowel movement for many days. KUB pending, Continue docusate sodium 100 mg p.o. daily as needed. MiraLAX twice daily. Present on Admission?: Yes History of Present Illness Chief Complaint: Chest pain Primary Care Provider: KEVIN Guerrero Patient is an 83 years old female with past medical history of CVA, diabetes mellitus type 2, COPD, hypothyroidism, hyperlipidemia, hypertension, GERD, who presents to the emergency room with hypertensive urgency and tightness in her chest. Patient states that tightness in the chest started at rest all of the sudden. Patient reports being constipated for days. Patient reports having an abscess in the past and resection after bowel which occurred sometimes in 1999. Patient colostomy was reversed. Patient denies fever, chills, abdominal pain, frequency, urgency. Labs are reviewed: WBCs 10.25, hemoglobin 12.3, hematocrit 39.7, platelets 235, PT 9.9, INR 1, d-dimer 110, patient's D-dimers are chronically elevated. Sodium 139, potassium 4, chloride 105, carbon dioxide 26, anion gap 8, BUN 23, creatinine 1.23, GFR 40, calcium 9.1, AST 16, ALT 15, troponin 0.015, BNP 94, albumin 3.1. CT Trina of the chest no evidence of pulmonary embolus. Mild interstitial prominence of the mid to lower lung regions. Somewhat limited exam due to patient respiratory and somatic motion. No evidence of aneurysm or dissection. Decision was made to admit patient to PCU on telemetry for observation and to rule out atypical chest pain versus acut e coronary syndrome. Allergies Allergy/AdvReac Type Severity Reaction Status Date / Time adhesive Allergy Mild Rash Verified 09/01/19 15:41 egg Allergy Mild GI SYMPTOMS Verified 09/01/19 15:41 garlic Allergy Mild GI symptoms Verified 09/01/19 15:41 povidone-iodine Allergy Mild itchy Verified 09/01/19 15:41 [From Betadine] propoxyphene Allergy Mild light Verified 09/01/19 15:41 headed sertraline Allergy Mild Dizziness Verified 09/01/19 15:41 soap [From Betadine] Allergy Mild itchy Verified 09/01/19 15:41 Sulfa (Sulfonamide Allergy Mild GI symptoms Verified 09/01/19 15:41 Antibiotics) simvastatin AdvReac Intermediate MYALGIA Verified 09/01/19 15:41 Home Medications Home Medications Medication Instructions Recorded Confirmed Type lisinopril 10 mg tablet 10 mg PO DAILY #90 tab 12/24/18 09/01/19 Rx levothyroxine 25 mcg tablet 25 mcg PO DAILY #90 tab 02/21/19 09/01/19 Rx aspirin 25 mg-dipyridamole 200 mg 1 cap PO HS #90 cap 04/11/19 09/01/19 Rx capsule,ext.release 12 hr multiphase docusate sodium 100 mg tablet 100 mg PO DAILY PRN 05/11/19 09/01/19 History esomeprazole magnesium 40 mg 40 mg PO DAILY #90 cap 05/11/19 09/01/19 Rx capsule,delayed release gabapentin 100 mg capsule 100 mg PO HS #90 cap 05/11/19 09/01/19 Rx rosuvastatin 20 mg tablet 20 mg PO DAILY #90 tab 05/11/19 09/01/19 Rx cholecalciferol (vitamin D3) 1,250 50,000 units PO WK cap 06/06/19 09/01/19 History mcg (50,000 unit) capsule insulin asp prt-insulin aspart 38 unit SUBCUT QAM 09/01/19 09/01/19 History [Novolog Mix 70-30FlexPen U-100] insulin asp prt-insulin aspart 44 unit SUBCUT HS 09/01/19 09/01/19 History [Novolog Mix 70-30FlexPen U-100] Past Med/Surg History Medical History ASCVD (arteriosclerotic cardiovascular disease) Carotid artery stenosis Cerebral arterial aneurysm COPD (chronic obstructive pulmonary disease) CVA (cerebral vascular accident) 2014--short term memory loss, gait loss--uses walker Diabetes mellitus, type 2 Hearing deficit History of CHF (congestive heart failure) Hx of angina pectoris Hypothyroid Osteoarthritis Restless leg syndrome Surgical History H/O section x3 History of bilateral cataract extraction History of bilateral tubal ligation [place] [facility] [place] History of colonoscopy History of sigmoidoscopy History of tonsillectomy and adenoidectomy History of tooth extraction all teeth removed History of total abdominal hysterectomy and bilateral salpingo-oophorectomy S/P cholecystectomy S/P removal of ovarian cyst Family History Grandmother (Paternal) Family history of diabetes mellitus Father Myocardial infarction Mother Myocardial infarction Other Heart disease No family history of adverse response to anesthesia Denies family history of Ovarian cancer Prostate cancer Social History Preferred Language: Dutch Communication Ability: Effective Laboratory Associate Required: No Beliefs That Will Affect Care: None marital status: Current Living Situation: Alone current occupational status: retired Feels Safe at Home: Yes Smoking Status: Former smoker Second Hand Exposure: Yes (2 sisters smoked; smoked) ; Hx Alcohol Use: No Hx Substance Use: No Dental Care, Regularly: No Physical Activity Frequency: 1-2 Times per Week Review of Systems Review of Systems: All systems reviewed & are unremarkable except as noted in HPI & below Physical Exam Constitutional: WD/WN, vitals as above well developed and + morbidly obese Eyes: PERRL, conjunctivae normal, anicteric sclerae ENMT: external ear and nose normal, oropharynx normal Neck: trachea midline, no thyromegaly Respiratory: normal respiratory effort, lungs clear to auscultation Cardiovascular: Heart Sounds: normal S1 and normal S2 Vessels: dorsalis pedis pulses present Gastrointestinal (Abdomen): normal bowel sounds, soft, nontender, no hepatosplenomegaly Musculoskeletal: no cyanosis or clubbing, extremities motor strength 5/5 Skin: no rashes, warm and dry Psychiatric: A+Ox3, euthymic affect Lymphatic: no cervical or axillary lymphadenopathy Results & Data Vital Signs (Past 12 Hours) Vital Signs Temp Pulse Pulse Resp BP BP Pulse Ox 09/01/19 17:06 85 20 168/74 H 96 09/01/19 16:10 74 17 09/01/19 16:00 82 25 H 09/01/19 15:50 84 16 09/01/19 15:40 88 26 H 09/01/19 15:30 88 09/01/19 15:20 84 19 09/01/19 15:10 94 H 19 09/01/19 15:00 91 H 19 09/01/19 14:50 91 H 13 09/01/19 14:44 97 H 23 157/71 H 09/01/19 14:42 100 H 20 134/87 09/01/19 14:40 97 H 21 09/01/19 14:30 105 H 23 09/01/19 14:20 112 H 22 09/01/19 14:18 120 H 23 09/01/19 14:09 36.6 C 103 H 20 210/99 H 97 09/01/19 14:08 210/99 H Code Status & VTE Plan Code Status Full code PG Care Time/CCT Total # of Minutes Spent Total Time Spent with Patient: Total time spent is greater than 50% in coordination of care (as documented) at patient's floor/unit and/or counseling patient: Coding Level of Care Code 59475 Initial Inpt Care Lvl 3 Diagnoses Chest pain R07.9 Chest pain type: unspecified Hypertension I10 Hypertension type: unspecified GERD (gastroesophageal reflux disease) K21.9 Hypothyroidism E03.9 Hyperlipidemia E78.5 Diabetes E11.9; Z79.4 Diabetes mellitus type: type 2 Diabetes mellitus senior care insulin use: with outpatient surgery rn use Diabetes mellitus complication status: without complication CVA (cerebral vascular accident) I63.9 Constipation, chronic K59.09 (1) Chest pain Chest pain type: unspecified Qualified Code(s): R07.9 - Chest pain, unspecified (2) Hypertension Hypertension type: unspecified Qualified Code(s): I10 - Essential (primary) hypertension (3) Diabetes Diabetes mellitus type: type 2 Diabetes mellitus outpatient surgery rn insulin use: with senior care use Diabetes mellitus complication status: without complication Qualified Code(s): E11.9 - Type 2 diabetes mellitus without complications; Z79.4 - breaker up (current) use of insulin
[2019-09-01] MEDS ORDERED: DOCUSATE SODIUM 100 MG CAP PO PRN (22:17)
--- NOTE | 2019-09-01 22:25 | XRay Report ---
KUB HISTORY: Constipation COMPARISON: CT abdomen and pelvis 09/13/2017. FINDINGS: The bowel gas pattern is non-obstructive. Cholecystectomy. Moderate fecal retention is note d throughout, most pronounced within the ascending and transverse segments. Calcified plaque with fus iform dilation of the abdominal aorta redemonstrated. Contrast noted within the urinary bladder. Card iomegaly. There is no organomegaly. No renal calculi. No ureteral calculi. No pneumoperitoneum or pn eumatosis. No fracture. IMPRESSION: 1. Moderate fecal retention, most pronounced in the ascending and transverse segments. 2. No bowel obstruction. 3. Cholecystectomy. 4. Fusiform dilation of the abdominal aorta redemonstrated. ACT 112: Negative or not required by law. The above report was generated using voice recognition software. It may contain grammatical, syntax o r spelling errors. Electronically signed by: Gerald Pham M.D. 09/01/2019 10:23 PM
[2019-09-01] MEDS: HEPARIN SOD 5,000 UNIT/0.5 ML VIAL SQ SCH (22:36)
[2019-09-01] MEDS ORDERED: PHARMACY GLYCEMIC MGMT CONSULT PRN (22:51)
[2019-09-01] MEDS ORDERED: INSULIN HUMAN NPH SC SCH (23:30)
[2019-09-02] MEDS ORDERED: Nursing to Pharmacy Communication ONE (01:41)
[2019-09-02] MEDS: INSULIN ASPART 100 UNITS/ML 3 ML PEN SC SCH ×3 (04:26→12:10)
[2019-09-02] MEDS ORDERED: LEVOTHYROXINE SODIUM 25 MCG TABLET PO SCH (06:30)
[2019-09-02 06:39] LABS: Basophils # (auto) 0.02 K/uL (0-0.2); Basophils % (auto) 0.2 %; Eosinophils # (auto) 0.16 K/uL (0-0.5); Hemoglobin 11.5 g/dL (12.0-16.0); Immature Granulocytes # (auto) 0.02 K/uL (0.00-0.02); Immature Granulocytes % (auto) 0.2 %; Lymphocytes # (auto) 2.06 K/uL (1.2-3.4); Lymphocytes % (auto) 25.4 %; Mean Corpuscular Hemoglobin 27.4 pg (25-34); Mean Corpuscular Hgb Conc 31.1 g/dL (32-36); Mean Corpuscular Volume 88.3 fL (80-100); Mean Platelet Volume 9.4 fL (7.4-10.4); Monocytes # (auto) 0.71 K/uL (0.11-0.59); Monocytes % (auto) 8.7 %; Neutrophils # (auto) 5.15 K/uL (1.4-6.5); Neutrophils % (auto) 63.5 %; Platelet Count 220 K/uL (130-400); RDW Standard Deviation 48.5 fL (36.4-46.3); Red Blood Count 4.19 M/uL (4.2-5.4); White Blood Count 8.12 K/uL (4.8-10.8)
[2019-09-02 07:10] LABS: Albumin Level 2.6 gm/dl (3.4-5.0); BUN Creatinine Ratio 19.1 (10-20); Calcium 8.4 mg/dl (8.5-10.1); Creatinine Clr Calc Pharmacy 43.2 ml/min; Est GFR (African American) 71.4; Est GFR (Non-African American) 61.6; Potassium 3.7 mmol/L (3.5-5.1)
[2019-09-02 07:21] LABS: Albumin Globulin Ratio 0.8 (0.9-2); Bilirubin,Total 0.3 mg/dl (0.2-1); Globulin 3.2 gm/dl (2.5-4.0); Thyroid Stimulating Hormone 2.49 uIu/ml (0.300-4.500); Total Protein 5.8 gm/dl (6.4-8.2); Troponin I 0.073 ng/ml (0-0.045)
[2019-09-02 07:49] LABS: Estimated Average Glucose 160 mg/dl; Hemoglobin A1C 7.2 % (4.5-5.6)
[2019-09-02] MEDS: HEPARIN SOD 5,000 UNIT/0.5 ML VIAL SQ SCH (08:07)
[2019-09-02] MEDS ORDERED: ROSUVASTATIN CALCIUM 20 MG TAB PO SCH ×2 (09:00→21:00)
[2019-09-02] MEDS ORDERED: lisinopriL 10 MG TAB PO SCH (09:00)
[2019-09-02] MEDS ORDERED: POLYETHYLENE (MIRALAX) 17 GM PACK PO SCH (09:00)
[2019-09-02] MEDS ORDERED: PANTOprazole 40 MG TAB PO SCH (09:00)
[2019-09-02] MEDS ORDERED: INSULIN HUMAN NPH SC STA (10:10)
--- NOTE | 2019-09-02 10:22 | Pharmacy Report ---
Glycemic Control Consultation - Date of Service September 02, 2019 - Scope Scope: Glycemic Pharmacist consulted by for glycemic control and to write orders per [facility] inpatient glycemic control protocol - Objective Weight: 85.3 kg Accuchecks BSG (last 24hrs): 09/01/19 09/01/19 09/02/19 14:45 22:19 00:28 Glucose 237 H POC Glucose 188 H 133 H 09/02/19 09/02/19 09/02/19 03:54 06:18 07:23 Glucose 104 H POC Glucose 84 99 Laboratory Data (last 24hrs): 09/01/19 09/02/19 14:45 06:18 Potassium 4.0 3.7 Carbon Dioxide 26 26 Anion Gap 8.0 6.0 Creatinine 1.23 H 0.86 D Est Cr Clr Drug Dosing 27.9 43.2 HbA1c: Hemoglobin A1c 7.2 % (4.5-5.6) H 09/02/19 06:18 - Recent Pertinent Medications Outpatient Anti-diabetic Regimen: * Novolog 70/30: 38 units SC qAM and 44 units qPM * A1c = 7.2 % on 09/02/19 The patient is currently receiving: * Basal insulin: NPH 20 units SC x1 administered 09/02 @ 0032 * Correctional Insulin: Novolog Correction per scale ACHS Goal Range: Low 110 mg/dL - High 150 mg/dL Correction Factor: 20 mg/dL/unit * Prandial insulin: Per carb ratio of 1 unit per 6 grams CHO consumed Risk Factors for Insulin Resistance: * Diet: T2DM - Assessment & Plan Assessment & Plan: ASSESSMENT: * 83 yo F with well-controlled T2DM on Novolog 70/30 BIDM as outpatient admitted 09/01 for chest pain * Will utilize insulin NPH for basal insulin to better help eventual transition back to Novolog 70/30 as an outpatient * BSG's decreased overnight 184 to 84 to 99 mg/dL. Will reduce NPH dose and administer BIDM * Will loosen Novolog parameters to weight-based moderate stress estimate PLAN FOR INPATIENT GLYCEMIC CONTROL: * Basal insulin: NPH 5-15 units SQ BIDM based on BSG (see MAR for details) * Bolus insulin * NovoLog per scale ACHS or Q6hrs while NPO * Goal Range: Low 110 mg/dL - High 150 mg/dL * Correction Factor: 30 mg/dL/unit * Nutritional / Prandial insulin per carb ratio of 1 unit per 9 grams CHO consumed * Please note that the plan above was derived based on current level of insulin resistance and hospital stress. These recommendations are appropriate for inpatient admission only. Plan of care upon discharge will need to be reassessed to avoid potential outpatient hypo/hyperglycemia. Thank you.
--- NOTE | 2019-09-02 12:31 | Cardiology Consultation ---
Date of Consultation September 02, 2019 Assessment & Plan (1) Chest pain: Unclear etiology. The character of her symptoms are consistent with an acute coronary syndrome. However, the patient had a prolonged episode of discomfort without any associated rise in her biomarkers. Current troponin is just above the limits for normal. Very possible this is due to significant hypertension noted at the time of admission. She is known to have significant coronary disease with occlusion of the right coronary artery and collateralization. Would not be surprised this resulted in a small biomarker elevation with severe hypertension. She has not had any recurrent symptoms. No evidence of pulmonary embolus or aortic pathology on CT scanning. (2) Hypertension: She was markedly hypertensive at the time of admission. Outpatient readings are generally well controlled or only mildly elevated. Unclear why her blood pressure was so high when she presents to the hospital. This is possibly related to anxiety or her acute discomfort. Do not think she requires any adjustment in her medical regimen since her blood pressure is normal this morning. (3) PVD (peripheral vascular disease): SHe is known to have carotid artery stenosis as well as an abdominal aortic aneurysm. These can be followed over time. Her current symptoms not appear to be related to peripheral vascular disease. (4) Coronary artery disease: Known right coronary occlusion. She has been maintained on aspirin, lisinopril and rosuvastatin. History of Present Illness Reason for Consultation: Chest pain Requesting Physician: Lew Attending Physician: Melecio Hackett History of Present Illness The patient is an 83-year-old woman with a known history of coronary disease, peripheral vascular disease, diabetes mellitus and renal insufficiency who experienced an episode chest discomfort yesterday morning. Patient states that after lying down for a nap after breakfast yesterday morning she began to experience a sense of chest pressure. This was [id number] in severity and did radiate to both arms and her neck. She felt that if she rested perhaps the symptoms would resolve. However, upon awakening later that morning her symptoms have persisted. A neighbor who was a nurse evaluated her and felt that she should come to the hospital. Patient presented to the hospital for evaluation. She was discovered to be significantly hypertensive at the time of initial evaluation. She continued to have symptoms as described which appear to have resolved in the emergency room with treatment. Patient states she has not had the symptoms in the past. She has not had any symptoms since admission. In general she is active for her age, but does not perform exercise. She is ambulatory with a wheeled walker. He states she is limited more by hip and leg discomfort and anything else. She does not describe exertional dyspnea. She has no exertional chest pain. She says claims to sleep poorly but did not endorse symptoms of orthopnea. She has not noticed any recent palpitations. No dizziness or syncope. Allergies Allergy/AdvReac Type Severity Reaction Status Date / Time adhesive Allergy Mild Rash Verified 09/01/19 15:41 egg Allergy Mild GI SYMPTOMS Verified 09/01/19 15:41 garlic Allergy Mild GI symptoms Verified 09/01/19 15:41 povidone-iodine Allergy Mild itchy Verified 09/01/19 15:41 [From Betadine] propoxyphene Allergy Mild light Verified 09/01/19 15:41 headed sertraline Allergy Mild Dizziness Verified 09/01/19 15:41 soap [From Betadine] Allergy Mild itchy Verified 09/01/19 15:41 Sulfa (Sulfonamide Allergy Mild GI symptoms Verified 09/01/19 15:41 Antibiotics) simvastatin AdvReac Intermediate MYALGIA Verified 09/01/19 15:41 Home Medications Home Medications Medication Instructions Recorded Confirmed Type lisinopril 10 mg tablet 10 mg PO DAILY #90 tab 12/24/18 09/01/19 Rx levothyroxine 25 mcg tablet 25 mcg PO DAILY #90 tab 02/21/19 09/01/19 Rx aspirin 25 mg-dipyridamole 200 mg 1 cap PO HS #90 cap 04/11/19 09/01/19 Rx capsule,ext.release 12 hr multiphase docusate sodium 100 mg tablet 100 mg PO DAILY PRN 05/11/19 09/01/19 History esomeprazole magnesium 40 mg 40 mg PO DAILY #90 cap 05/11/19 09/01/19 Rx capsule,delayed release gabapentin 100 mg capsule 100 mg PO HS #90 cap 05/11/19 09/01/19 Rx rosuvastatin 20 mg tablet 20 mg PO DAILY #90 tab 05/11/19 09/01/19 Rx cholecalciferol (vitamin D3) 1,250 50,000 units PO WK cap 06/06/19 09/01/19 History mcg (50,000 unit) capsule insulin asp prt-insulin aspart 38 unit SUBCUT QAM 09/01/19 09/01/19 History [Novolog Mix 70-30FlexPen U-100] insulin asp prt-insulin aspart 44 unit SUBCUT HS 09/01/19 09/01/19 History [Novolog Mix 70-30FlexPen U-100] Patient History Medical History ASCVD (arteriosclerotic cardiovascular disease) Carotid artery stenosis Cerebral arterial aneurysm COPD (chronic obstructive pulmonary disease) CVA (cerebral vascular accident) 2014--short term memory loss, gait loss--uses walker Diabetes mellitus, type 2 Hearing deficit History of CHF (congestive heart failure) Hx of angina pectoris Hypothyroid Osteoarthritis Restless leg syndrome Surgical History H/O section x3 History of bilateral cataract extraction History of bilateral tubal ligation History of cardiac [place] [facility] [place] [facility] [place] History of colonoscopy History of sigmoidoscopy History of tonsillectomy and adenoidectomy History of tooth extraction all teeth removed History of total abdominal hysterectomy and bilateral salpingo-oophorectomy S/P cholecystectomy S/P removal of ovarian cyst Family History Grandmother (Paternal) Family history of diabetes mellitus Father Myocardial infarction Mother Myocardial infarction Other Heart disease No family history of adverse response to anesthesia Denies family history of Ovarian cancer Prostate cancer Social History Preferred Language: Tajik Communication Ability: Effective 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 Beliefs That Will Affect Care: None marital status: Current Living Situation: Alone current occupational status: retired Other Information That Helps Us Care for You: No Feels Safe at Home: Yes Safety Concerns: Feels Safe At This Time Smoking Status: Former smoker Tobacco Type: cigarettes ; Cigarettes Per Day: 1 pack per day ; Do You Dip or Chew Tobacco: No ; Second Hand Exposure: No ; Tobacco Cessation Education Requested by Patient: No Hx Alcohol Use: No Hx Substance Use: No Dental Care, Regularly: No Physical Activity Frequency: 1-2 Times per Week Review of Systems Review of Systems: All systems reviewed & are unremarkable except as noted in HPI & below No recent constitutional symptoms such as fevers or chills. No upper respiratory illness. Eating and drinking well. No recent indigestion or chest pain. Physical Exam Physical Exam: She is alert and oriented x3. Mood affect appear normal. She answered all questions appropriately. HEENT: Sclerae are anicteric. Pupils are equal and reactive to light and accommodation. Extraocular movements were intact. Neuro: Cranial nerves intact Neck: Examination of the submandibular region did not reveal any significant lymphadenopathy. Carotids are palpable bilaterally and free of bruits on auscultation. There was no evidence of jugular venous distention. The thyroid was not enlarged. Lungs: Lungs are clear to auscultation bilaterally. There are no rales wheezes or rhonchi. She has normal respiratory effort without use of accessory muscles. There is normal pulmonary excursion. Cardiac: The rhythm was regular. S1 and S2 were normal. There are no murmurs on examination. The PMI was not markedly displaced on palpation. Abdomen: The abdomen was soft and nontender. Extremities: Patient has bilateral radial pulses that are equal in intensity. There is no evidence cyanosis or clubbing. Mild lower extremity edema bilaterally. Skin: There are no rashes noted on examination today. Results & Data ([facility]) Vital Signs (Past 12 Hours) Vital Signs Temp Pulse Pulse Resp BP BP Pulse Ox 09/02/19 11:58 36.5 C 71 17 134/73 94 09/02/19 07:55 76 09/02/19 07:34 36.3 C L 74 17 110/61 94 09/02/19 03:54 36.5 C 84 20 127/70 94 09/02/19 00:27 36.9 C 76 19 131/71 91 Laboratory Results Abnormal Lab Results 09/01/19 09/01/19 09/01/19 14:45 14:45 14:45 WBC 10.25 RBC 4.52 Hgb 12.3 Hct 39.7 MCV 87.8 MCH 27.2 MCHC 31.0 L RDW Std Deviation 48.1 H RDW Coeff of Flakito 14.9 H Plt Count 235 MPV 9.6 Immature Gran % (Auto) 0.3 Neut % (Auto) 72.1 Lymph % (Auto) 19.1 Lynn % (Auto) 7.0 Eos % (Auto) 1.3 Baso % (Auto) 0.2 Immature Gran # (Auto) 0.03 H Neut # (Auto) 7.39 H Lymph # (Auto) 1.96 Lynn # (Auto) 0.72 H Eos # (Auto) 0.13 Baso # (Auto) 0.02 PT 9.9 INR 1.0 D-Dimer 1010 H* Sodium 139 Potassium 4.0 Chloride 105 Carbon Dioxide 26 Anion Gap 8.0 BUN 23 H Creatinine 1.23 H Est Cr Clr Drug Dosing 27.9 Est GFR ( Amer) 46.3 Est GFR (Non-Af Amer) 40.0 BUN/Creatinine Ratio 18.9 Glucose 237 H POC Glucose Estimat Average Glucose Hemoglobin A1c Calcium 9.1 Total Bilirubin 0.3 AST 16 ALT 15 Alkaline Phosphatase 96 Troponin I < 0.015 NT-Pro-B Natriuret Pep 94 Total Protein 7.1 Albumin 3.1 L Globulin 4.0 Albumin/Globulin Ratio 0.8 L Triglycerides Cholesterol LDL Cholesterol, Calc VLDL Cholesterol, Calc HDL Cholesterol Cholesterol/HDL Ratio TSH 2.110 09/01/19 09/02/19 09/02/19 22:19 00:28 03:54 WBC RBC Hgb Hct MCV MCH MCHC RDW Std Deviation RDW Coeff of Flakito Plt Count MPV Immature Gran % (Auto) Neut % (Auto) Lymph % (Auto) Lynn % (Auto) Eos % (Auto) Baso % (Auto) Immature Gran # (Auto) Neut # (Auto) Lymph # (Auto) Lynn # (Auto) Eos # (Auto) Baso # (Auto) PT INR D-Dimer Sodium Potassium Chloride Carbon Dioxide Anion Gap BUN Creatinine Est Cr Clr Drug Dosing Est GFR ( Amer) Est GFR (Non-Af Amer) BUN/Creatinine Ratio Glucose POC Glucose 188 H 133 H 84 Estimat Average Glucose Hemoglobin A1c Calcium Total Bilirubin AST ALT Alkaline Phosphatase Troponin I NT-Pro-B Natriuret Pep Total Protein Albumin Globulin Albumin/Globulin Ratio Triglycerides Cholesterol LDL Cholesterol, Calc VLDL Cholesterol, Calc HDL Cholesterol Cholesterol/HDL Ratio TSH 09/02/19 09/02/19 09/02/19 06:18 06:18 06:18 WBC 8.12 RBC 4.19 L Hgb 11.5 L Hct 37.0 MCV 88.3 MCH 27.4 MCHC 31.1 L RDW Std Deviation 48.5 H RDW Coeff of Flakito 15.0 H Plt Count 220 MPV 9.4 Immature Gran % (Auto) 0.2 Neut % (Auto) 63.5 Lymph % (Auto) 25.4 Lynn % (Auto) 8.7 Eos % (Auto) 2.0 Baso % (Auto) 0.2 Immature Gran # (Auto) 0.02 Neut # (Auto) 5.15 Lymph # (Auto) 2.06 Lynn # (Auto) 0.71 H Eos # (Auto) 0.16 Baso # (Auto) 0.02 PT INR D-Dimer Sodium 142 Potassium 3.7 Chloride 110 H Carbon Dioxide 26 Anion Gap 6.0 BUN 16 Creatinine 0.86 D Est Cr Clr Drug Dosing 43.2 Est GFR ( Amer) 71.4 Est GFR (Non-Af Amer) 61.6 BUN/Creatinine Ratio 19.1 Glucose 104 H POC Glucose Estimat Average Glucose 160 Hemoglobin A1c 7.2 H Calcium 8.4 L Total Bilirubin 0.3 AST 13 L ALT 15 Alkaline Phosphatase 78 Troponin I 0.073 H* NT-Pro-B Natriuret Pep Total Protein 5.8 L Albumin 2.6 L Globulin 3.2 Albumin/Globulin Ratio 0.8 L Triglycerides 186 H Cholesterol 97 LDL Cholesterol, Calc 23 VLDL Cholesterol, Calc 37 HDL Cholesterol 37 Cholesterol/HDL Ratio 3 TSH 2.490 09/02/19 09/02/19 07:23 11:28 WBC RBC Hgb Hct MCV MCH MCHC RDW Std Deviation RDW Coeff of Flakito Plt Count MPV Immature Gran % (Auto) Neut % (Auto) Lymph % (Auto) Lynn % (Auto) Eos % (Auto) Baso % (Auto) Immature Gran # (Auto) Neut # (Auto) Lymph # (Auto) Lynn # (Auto) Eos # (Auto) Baso # (Auto) PT INR D-Dimer Sodium Potassium Chloride Carbon Dioxide Anion Gap BUN Creatinine Est Cr Clr Drug Dosing Est GFR ( Amer) Est GFR (Non-Af Amer) BUN/Creatinine Ratio Glucose POC Glucose 99 137 H Estimat Average Glucose Hemoglobin A1c Calcium Total Bilirubin AST ALT Alkaline Phosphatase Troponin I NT-Pro-B Natriuret Pep Total Protein Albumin Globulin Albumin/Globulin Ratio Triglycerides Cholesterol LDL Cholesterol, Calc VLDL Cholesterol, Calc HDL Cholesterol Cholesterol/HDL Ratio TSH Medications Administered Chest CT pain at the time of admission did not reveal any evidence of pulmonary embolus. Kb was obtained which did reveal significant amount of stool in the at ascending and transverse colon ECG Additional Comments: Sinus tachycardia without acute ST or T-wave changes PG Care Time/CCT Total # of Minutes Spent Total Time Spent with Patient: Total time spent is greater than 50% in coordination of care (as documented) at patient's floor/unit and/or counseling patient: Coding Level of Care Code 34361 Initial Inpt Care Lvl 3 Diagnoses Chest pain R07.9 Chest pain type: unspecified Hypertension I10 Hypertension type: unspecified PVD (peripheral vascular disease) I73.9 Coronary artery disease I25.10 (1) Chest pain Chest pain type: unspecified Qualified Code(s): R07.9 - Chest pain, unspecified (2) Hypertension Hypertension type: unspecified Qualified Code(s): I10 - Essential (primary) hypertension
--- NOTE | 2019-09-02 15:02 | XCELERA ---
[id number] \\[email or web address]\[id number]_[email or web address]\[id number]
[2019-09-02] MEDS ORDERED: INSULIN HUMAN NPH SC SCH (17:00)
[2019-09-05] MEDS ORDERED: ERGOCALCIFEROL 50,000 UNITS CAP PO SCH (09:00)
--- NOTE | 2019-09-09 06:59 | Discharge Summary ---
Date of Service September 02, 2019 Admission HPI Per Admitting Provider Patient is an 83 years old female with past medical history of CVA, diabetes mellitus type 2, COPD, hypothyroidism, hyperlipidemia, hypertension, GERD, who presents to the emergency room with hypertensive urgency and tightness in her chest. Patient states that tightness in the chest started at rest all of the sudden. Patient reports being constipated for days. Patient reports having an abscess in the past and resection after bowel which occurred sometimes in 1999. Patient colostomy was reversed. Patient denies fever, chills, abdominal pain, frequency, urgency. Labs are reviewed: WBCs 10.25, hemoglobin 12.3, hematocrit 39.7, platelets 235, PT 9.9, INR 1, d-dimer 110, patient's D-dimers are chronically elevated. Sodium 139, potassium 4, chloride 105, carbon dioxide 26, anion gap 8, BUN 23, creatinine 1.23, GFR 40, calcium 9.1, AST 16, ALT 15, troponin 0.015, BNP 94, albumin 3.1. CT Trina of the chest no evidence of pulmonary embolus. Mild interstitial prominence of the mid to lower lung regions. Somewhat limited exam due to patient respiratory and somatic motion. No evidence of aneurysm or dissection. Decision was made to admit patient to PCU on telemetry for observation and to rule out atypical chest pain versus acute coronary syndrome. Principal Diagnosis chest pain Discharge Exam Constitutional: WD/WN, vitals as above well developed and + morbidly obese Eyes: PERRL, conjunctivae normal, anicteric sclerae ENMT: external ear and nose normal, oropharynx normal Neck: trachea midline, no thyromegaly Respiratory: normal respiratory effort, lungs clear to auscultation Cardiovascular: Heart Sounds: normal S1 and normal S2 Vessels: dorsalis pedis pulses present Gastrointestinal (Abdomen): normal bowel sounds, soft, nontender, no hepatosplenomegaly Musculoskeletal: no cyanosis or clubbing, extremities motor strength 5/5 Skin: no rashes, warm and dry Psychiatric: A+Ox3, euthymic affect Lymphatic: no cervical or axillary lymphadenopathy Discharge Data Allergies Allergy/AdvReac Type Severity Reaction Status Date / Time adhesive Allergy Mild Rash Verified 09/05/19 13:53 egg Allergy Mild GI SYMPTOMS Verified 09/05/19 13:53 garlic Allergy Mild GI symptoms Verified 09/05/19 13:53 povidone-iodine Allergy Mild itchy Verified 09/05/19 13:53 [From Betadine] propoxyphene Allergy Mild light Verified 09/05/19 13:53 headed sertraline Allergy Mild Dizziness Verified 09/05/19 13:53 soap [From Betadine] Allergy Mild itchy Verified 09/05/19 13:53 Sulfa (Sulfonamide Allergy Mild GI symptoms Verified 09/05/19 13:53 Antibiotics) simvastatin AdvReac Intermediate MYALGIA Verified 09/05/19 13:53 Consultations 09/01/19 17:39 ED Decision to Admit Stat 09/02/19 08:38 Consult Cardiology Routine Ordered Studies 09/01/19 15:26 CT angio chest PE protocol Stat Hospital Course (1) Chest pain: Admit to PCU on telemetry for observation. Vital signs every 4 hours. Monitor blood pressure closely. Started hydralazine 10 mg p.o. 4 times daily as needed for blood pressure 160/90. Troponin x3 with EKG. First troponin negative. DVT prophylaxis Heparin 5000 units every 12 hours. Patient is a full code. On day 2: Patient was evaluated by cardiology. (1) Chest pain: Unclear etiology. The character of her symptoms are consistent with an acute coronary syndrome. However, the patient had a prolonged episode of discomfort without any associated rise in her biomarkers. Current troponin is just above the limits for normal. Very possible this is due to significant hypertension noted at the time of admission. She is known to have significant coronary disease with occlusion of the right coronary artery and collateralization. Would not be surprised this resulted in a small biomarker elevation with severe hypertension. She has not had any recurrent symptoms. No evidence of pulmonary embolus or aortic pathology on CT scanning. (2) Hypertension: She was markedly hypertensive at the time of admission. Outpatient read ings are generally well controlled or only mildly elevated. Unclear why her blood pressure was so high when she presents to the hospital. This is possibly related to anxiety or her acute discomfort. Do not think she requires any adjustment in her medical regimen since her blood pressure is normal this morning. (3) PVD (peripheral vascular disease): SHe is known to have carotid artery stenosis as well as an abdominal aortic aneurysm. These can be followed over time. Her current symptoms not appear to be related to peripheral vascular disease. (4) Coronary artery disease: Known right coronary occlusion. She has been maintained on aspirin, lisinopril and rosuvastatin. Patient was cleared for discharge. (2) Hypertension: Continue home medication. Patient had elevated blood pressure in the ER. We will titrate up her blood pressure medicine. Use for now hydralazine 10 mg p.o. 4 times daily as needed for elevated blood pressure systolic over 160 and diastolic over 90. Continue Aggrenox, (3) GERD (gastroesophageal reflux disease): Stable, continue as esomeprazole 40 mg p.o. daily (4) Hypothyroidism: TSH pending, continue home dose of levothyroxine 25 MCG's p.o. daily. (5) Hyperlipidemia: Lipid panel pending, continue rosuvastatin 20 mg p.o. daily. (6) Diabetes: Glycemic control per pharmacy. Continue home dose insulin and adjust if patient hypoglycemic. A1c pending. Accu-Cheks before meals and at bedtime. (7) CVA (cerebral vascular accident): Stable, continue Aggrenox as per home dose. (8) Constipation, chronic: Patient reports not having bowel movement for many days. KUB pending, Continue docusate sodium 100 mg p.o. daily as needed. MiraLAX twice daily. Total Time Total Time Spent Total Time Spent (In Minutes): 32 Total Time Includes: Examination of the Patient, Discharge Planning and Medication Reconciliation Discharge Plan Discharge Items Patient Disposition: Home - Self-Care Reason For Visit: CHEST PAIN Discharge Diagnosis: chest pain Activity: Resume your previous activity Non-emergency contact: Primary Care Provider Call non-emergency contact if: you have any medication questions Follow-up/Referrals: Kathie Clements CRNP [Primary Care Provider] - 09/05/19 2:00 pm (Follow-up appt. scheduled with STEVIE Ordoñez at Kathie Clements's office in [place]. Px notified at discharge) Diet: Carb Consistent or DM2 and Heart Healthy Addtl Attending Provider Instructions: You have been hospitalized for an acute medical problem. During your stay at [facility], we have made an effort to correct the problem that brought you to the hospital while keeping you as comfortable as possible. Medications were used to bring your condition under control and your discharge instructions will include directions for any medications you should take after leaving the hospital. Please make sure you see your Primary Care Provider as part of your follow up plan. Pending Studies at Discharge: No Stand-Alone Forms: My [facility] [employer]arity[employer], Smoking Cessation Medications and DC Order Prescriptions: Continued lisinopril 10 mg tablet 10 mg PO DAILY Qty: 90 RF: 3 levothyroxine 25 mcg tablet 25 mcg PO DAILY Qty: 90 RF: 3 aspirin-dipyridamole 25-200 mg capsule, ER multiphase 12 hr 1 cap PO HS Qty: 90 RF: 3 gabapentin 100 mg capsule 100 mg PO HS Qty: 90 RF: 4 rosuvastatin 20 mg tablet 20 mg PO DAILY Qty: 90 RF: 4 esomeprazole magnesium 40 mg capsule,delayed release(DR/EC) 40 mg PO DAILY Qty: 90 RF: 4 cholecalciferol (vitamin D3) 50,000 unit capsule 50,000 units PO WK RF: 0 insulin asp prt-insulin aspart [Novolog Mix 70-30FlexPen U-100] 100 unit/mL (70-30) insulin pen 38 unit SUBCUT QAM RF: 0 insulin asp prt-insulin aspart [Novolog Mix 70-30FlexPen U-100] 100 unit/mL (70-30) insulin pen 44 unit SUBCUT HS RF: 0 docusate sodium [Stool Softener] 100 mg tablet 100 mg PO DAILY PRN (Reason: Constipation) RF: 0 No Action clotrimazole-betamethasone 1-0.05 % cream 1 appln TOP BID 28 Days Qty: 45 RF: 0 ipratropium bromide 0.03 % spray,non-aerosol 2 sprays INTNAS TID Qty: 30 RF: 2 Discharge Orders: Discharge Order (Routine); Ordered 09/02/19 Ordered By: Melecio Hackett Admission Data Admit Date/Time: 09/01/19 20:03 Attending Provider: Melecio Hackett Admit Provider: Shyam Cotter Primary Care Provider: Kathie Clements Other Providers: Shyam Cotter ; Jovanni Rae Other Interventions: Discharge Summary Assessment (RN) Last Done: 09/02/19 15:03 DC Date/Time DO NOT enter until pt leaves facility: 09/02/19 15:32 Coding Level of Care Code 33762 OBS Care - Discharge Diagnoses Chest pain R07.9 Chest pain type: unspecified Hypertension I10 Hypertension type: unspecified GERD (gastroesophageal reflux disease) K21.9 Hypothyroidism E03.9 Hyperlipidemia E78.5 Diabetes E11.9; Z79.4 Diabetes mellitus complication status: without complication 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
== END 2019-09-02 15:32 | disposition home or self-care (01) ==
LOC: ED 14:01 → 2S 14:01 → SUATTDRO 20:03 → 2S 21:04

== ENCOUNTER 2021-04-06 12:08 | Inpatient (IN) ==
[2021-04-06] MEDS ORDERED: ONDANSETRON INJ 2 MG/ML 2 ML VIAL IV STA (12:23)
[2021-04-06] MEDS ORDERED: fentaNYL citrate 100 MCG/2 ML VIAL IV STA (12:23)
--- NOTE | 2021-04-06 12:26 | Emergency Department Note ---
History of Present Illness General Chief complaint: Chest Pain Stated complaint: CHEST PAIN Time Seen by Provider: 04/06/21 12:12 Source: patient History of Present Illness Provider complaint: Chest pain Onset (ago): hour(s) Location: chest and left Radiation: extremity (Left arm) Severity: moderate Pain Consistency: + constant Quality: + sharp Relieved By: + none Exacerbated By: + none Associated symptoms: + shortness of breath; no cough, no diaphoresis, no fever/chills or no nausea/vomiting This is a 85-year-old female who presents with chest pain starting at approximately 10:30 AM this morning. She is describes it as a sharp pain. It is on the left side of her chest rating to her left arm. It is associated with shortness of breath. She denies any diaphoresis. She denies any modifying factors. She refused nitroglycerin in the ambulance because she states that it has given her bad headaches in the past. She continues to refuse it here. She does have a history of coronary artery disease and has had angioplasty. She is not sure if her symptoms are the same as previously because she cannot remember. She denies any fever, cough or cold symptoms, abdominal pain, vomiting, diarrhea or urinary symptoms. She does have chronic swelling to left leg for about 3 to 4 years. She denies having a clot in the leg. She states that she has chronic pain from her hips down to her legs for the past 2 years and is on gabapentin for this. She has not noted any change in her swelling or pain. She states that she is on Plavix but no other blood thinners. Home Medications Medication Instructions Recorded Confirmed Type cyclobenzaprine 5 mg tablet 5 mg PO TID PRN #30 tab 05/17/20 04/06/21 Rx gabapentin 100 mg capsule 100 mg PO HS #90 cap 05/22/20 04/06/21 Rx clopidogrel 75 mg tablet (Plavix) 75 mg PO DAILY #90 tab 07/23/20 04/06/21 Rx esomeprazole magnesium 40 mg 40 mg PO DAILY #90 cap 07/26/20 04/06/21 Rx capsule,delayed release rosuvastatin 20 mg tablet 20 mg PO DAILY #90 tab 08/08/20 04/06/21 Rx ferrous sulfate 325 mg (65 mg 325 mg PO DAILY #30 tab 11/29/20 04/06/21 Rx iron) tablet lisinopril 10 mg tablet 10 mg PO DAILY #90 tab 01/10/21 04/06/21 Rx insulin aspar prot-insulin aspart 50 unit SUBCUT BID #30 ml 02/25/21 04/06/21 Rx 100 unit/mL (70-30) subcutaneous pen (Novolog Mix 70-30FlexPen U-100) levothyroxine 25 mcg tablet 25 mcg PO DAILY #90 tab 02/25/21 04/06/21 Rx Allergies Allergy/AdvReac Type Severity Reaction Status Date / Time adhesive Allergy Mild Rash Verified 04/06/21 14:58 egg Allergy Mild GI SYMPTOMS Verified 04/06/21 14:58 garlic Allergy Mild GI symptoms Verified 04/06/21 14:58 povidone-iodine Allergy Mild itchy Verified 04/06/21 14:58 [From Betadine] propoxyphene Allergy Mild light Verified 04/06/21 14:58 headed sertraline Allergy Mild Dizziness Verified 04/06/21 14:58 soap [From Betadine] Allergy Mild itchy Verified 04/06/21 14:58 Sulfa (Sulfonamide Allergy Mild GI symptoms Verified 04/06/21 14:58 Antibiotics) simvastatin AdvReac Intermediate MYALGIA Verified 04/06/21 14:58 Past Med/Surg History Medical History ASCVD (arteriosclerotic cardiovascular disease) Carotid artery stenosis Cerebral arterial aneurysm COPD (chronic obstructive pulmonary disease) CVA (cerebral vascular accident) 2014--short term memory loss, gait loss--uses walker Diabetes mellitus, type 2 Hearing deficit History of CHF (congestive heart failure) Hx of angina pectoris Hyperlipidemia Hypothyroid Osteoarthritis Restless leg syndrome Surgical History H/O section x3 History of bilateral cataract extraction History of bilateral tubal ligation History of cardiac cath @ [facility] [place]--no stents History of colonoscopy History of sigmoidoscopy History of tonsillectomy and adenoidectomy History of tooth extraction all teeth removed History of total abdominal hysterectomy and bilateral salpingo-oophorectomy S/P cholecystectomy S/P removal of ovarian cyst Family History Grandmother (Paternal) Family history of diabetes mellitus Father Myocardial infarction Mother Myocardial infarction Family/Other Heart disease Multiple benign polyps of large intestine Other No family history of adverse response to anesthesia Denies family history of Ovarian cancer Prostate cancer Crohn's disease Colorectal cancer Cancer Ulcerative colitis Social History Smoking Status: Never smoker Cigarettes Per Day: 1 pack per day; Second Hand Exposure: No; Hx Alcohol Use: No (previously 'heavy' at one time) Hx Substance Use: No Preferred Language: Icelandic Communication Ability: Effective [employer] Inspector Required: No Beliefs That Will Affect Care: None marital status: Current Living Situation: Alone current occupational status: retired Feels Safe at Home: Yes Dental Care, Regularly: No Physical Activity Frequency: 1-2 Times per Week Seatbelt Use: always Assistive Devices: Glasses and Walker Review of Systems See HPI for pertinent positives & negatives. and A total of 10 systems reviewed and were otherwise negative Physical Exam Vital Signs Vital Signs - 24 hr 04/06/21 12:14 04/06/21 12:20 04/06/21 12:23 Temperature 36.8 C Temperature Source Oral Pulse Rate 108 H 99 H Pulse Rate [Right Finger] Pulse Rate from SpO2 Sensor 107 H Pulse Rhythm Irregular Pulse Rhythm [Right Finger] Pulse Strength [Right Finger] Respiratory Rate 21 22 Respiratory Effort / Characteristics Non-Labored Respiratory Depth Normal Respiratory Pattern Regular Blood Pressure 133/99 133/99 Blood Pressure [Right Arm] Blood Pressure Mean 110 110 Blood Pressure Mean [Right Arm] Blood Pressure Position [Right Arm] Pulse Oximetry 99 98 99 Oxygen Delivery Method Room Air Room Air Sepsis Recent Fever Within 48 Hours No Sepsis New/Unexplained Change in Mental Status No Sepsis Action Taken by Nursing No Action Required 04/06/21 12:31 04/06/21 13:00 04/06/21 14:02 Temperature Temperature Source Pulse Rate 94 H 97 H Pulse Rate [Right Finger] Pulse Rate from SpO2 Sensor 93 H 95 H 99 H Pulse Rhythm Pulse Rhythm [Right Finger] Pulse Strength [Right Finger] Respiratory Rate 23 15 Respiratory Effort / Characteristics Respiratory Depth Respiratory Pattern Blood Pressure 156/67 H 180/77 H Blood Pressure [Right Arm] Blood Pressure Mean 96 111 Blood Pressure Mean [Right Arm] Blood Pressure Position [Right Arm] Pulse Oximetry 97 99 99 Oxygen Delivery Method Sepsis Recent Fever Within 48 Hours Sepsis New/Unexplained Change in Mental Status Sepsis Action Taken by Nursing 04/06/21 14:20 04/06/21 14:30 04/06/21 14:38 Temperature Temperature Source Pulse Rate 90 Pulse Rate [Right Finger] 86 Pulse Rate from SpO2 Sensor 89 90 Pulse Rhythm Pulse Rhythm [Right Finger] Regular Pulse Strength [Right Finger] Normal Respiratory Rate 18 17 Respiratory Effort / Characteristics Non-Labored Respiratory Depth Normal Respiratory Pattern Regular Blood Pressure 151/76 H Blood Pressure [Right Arm] 151/76 H Blood Pressure Mean 101 Blood Pressure Mean [Right Arm] 101 Blood Pressure Position [Right Arm] Lying Pulse Oximetry 98 96 100 Oxygen Delivery Method Room Air Sepsis Recent Fever Within 48 Hours Sepsis New/Unexplained Change in Mental Status Sepsis Action Taken by Nursing 04/06/21 15:00 04/06/21 15:30 04/06/21 16:00 Temperature Temperature Source Pulse Rate 83 0 L 83 Pulse Rate [Right Finger] Pulse Rate from SpO2 Sensor 82 88 87 Pulse Rhythm Pulse Rhythm [Right Finger] Pulse Strength [Right Finger] Respiratory Rate 17 17 31 H Respiratory Effort / Characteristics Respiratory Depth Respiratory Pattern Blood Pressure 144/72 H 153/76 H 148/81 H Blood Pressure [Right Arm] Blood Pressure Mean 96 101 103 Blood Pressure Mean [Right Arm] Blood Pressure Position [Right Arm] Pulse Oximetry 98 98 96 Oxygen Delivery Method Sepsis Recent Fever Within 48 Hours Sepsis New/Unexplained Change in Mental Status Sepsis Action Taken by Nursing Constitutional: Vital signs reviewed. Eyes: Pupils are equal round reactive to light. Conjunctiva are noninjected. ENT: Pharynx is clear without erythema or exudate. Mucous membranes are moist. Neck supple without meningeal signs. Respiratory: Clear to auscultation bilaterally. Breath sounds are equal bilaterally. Cardiovascular: Tachycardic. Regular rhythm. Heart rate is 101. GI: Soft, nondistended and nontender. Bowel sounds are present. Musculoskeletal: No peripheral edema. No lower extremity tenderness. Integumentary: No cyanosis. or jaundice. Neurological: The patient is awake and alert. No focal deficits. Psychiatric: Normal affect. Not anxious appearing. Course Administered Medications Discontinued Medications Aspirin (Aspirin Chew 324 Mg) 324 mg PO NOW STA Stop: 04/06/21 15:25 Last Admin: 04/06/21 16:31 Dose: 324 mg Documented by: [id number] Aspirin (Aspirin Chew 324 Mg) Confirm Administered Dose 324 mg .ROUTE .STK-MED ONE Stop: 04/06/21 15:30 Last Admin: 04/06/21 15:37 Dose: Not Given Documented by: [id number] Fentanyl Citrate (Fentanyl Citrate 100 Mcg/2 Ml Vial) 50 mcg IV NOW STA Stop: 04/06/21 12:24 Last Admin: 04/06/21 15:16 Dose: Not Given Documented by: [id number] Ioversol (Optiray 320 125ml) 118 ml IV ONCE ONE Stop: 04/06/21 13:17 Last Admin: 04/06/21 13:16 Dose: 118 ml Documented by: [id number] Ondansetron HCl (Ondansetron Inj 2 Mg/Ml 2 Ml Vial) 4 mg IV NOW STA Stop: 04/06/21 12:24 Last Admin: 04/06/21 15:16 Dose: Not Given Documented by: [id number] Medical Decision Making Medical Records Attestation: I reviewed the patient's medical records. I did perform a limited focused review of portions of the patient's old chart on the electronic medical record. The patient was admitted in September of last year for severe hypertension and chest pain. The cause of her chest pain was unclear. She does have known occlusive RCA disease with collateralization. Laboratory Data Attestation: I reviewed the patient's lab results. Result diagrams: 04/06/21 12:26 04/06/21 12:26 Lab Results 04/06/21 04/06/21 04/06/21 Range/Units 12:26 12:26 12:26 WBC 11.21 H (4.8-10.8) K/uL RBC 4.48 (4.2-5.4) M/uL Hgb 9.5 L (12.0-16.0) g/dL Hct 33.4 L (37-47) % MCV 74.6 L (80-100) fL MCH 21.2 L (25-34) pg MCHC 28.4 L (32-36) g/dL RDW Std Deviation 48.8 H (36.4-46.3) fL RDW Coeff of Flakito 17.9 H (11.5-14.5) % Plt Count 289 (130-400) K/uL MPV 9.2 (7.4-10.4) fL Immature Gran % (Auto) 0.4 % Neut % (Auto) 75.7 % Lymph % (Auto) 14.6 % [place] % (Auto) 7.9 % Eos % (Auto) 1.2 % Baso % (Auto) 0.2 % Neut # (Auto) 8.48 H (1.4-6.5) K/uL Lymph # (Auto) 1.64 (1.2-3.4) K/uL [place] # (Auto) 0.88 H (0.11-0.59) K/uL Eos # (Auto) 0.14 (0-0.5) K/uL Baso # (Auto) 0.02 (0-0.2) K/uL Immature Gran # (Auto) 0.05 H (0.00-0.02) K/uL Polychromasia 1+ Hypochromasia Present Microcytosis Present APTT 26.6 (21.0-31.0) Seconds PTT Ratio 1.0 Sodium 139 (136-145) mmol/L Potassium 4.1 (3.5-5.1) mmol/L Chloride 106 (98-107) mmol/L Carbon Dioxide 26 (21-32) mmol/L Anion Gap 7.0 (3-11) BUN 17 (7-18) mg/dl Creatinine 0.96 (0.6-1.2) mg/dl Est Cr Clr Drug Dosing 37.8 ml/min Est GFR ( Amer) 61.6 ml/min Est GFR (Non-Af Amer) 53.2 ml/min BUN/Creatinine Ratio 17.5 (10-20) Glucose 253 H (70-99) mg/dl Calcium 9.0 (8.5-10.1) mg/dl Total Bilirubin 0.3 (0.2-1) mg/dl AST 11 L (15-37) U/L ALT 14 (12-78) U/L Alkaline Phosphatase 97 (45-117) U/L Troponin I < 0.015 (0-0.045) ng/ml Total Protein 7.3 (6.4-8.2) gm/dl Albumin 3.2 L (3.4-5.0) gm/dl Globulin 4.1 H (2.5-4.0) gm/dl Albumin/Globulin Ratio 0.8 L (0.9-2) Lipase 102 (73-393) U/L COVID-19 Eval Order SARS-CoV-2 (PCR) (Negative) 04/06/21 04/06/21 Range/Units 12:55 12:55 WBC (4.8-10.8) K/uL RBC (4.2-5.4) M/uL Hgb (12.0-16.0) g/dL Hct (37-47) % MCV (80-100) fL MCH (25-34) pg MCHC (32-36) g/dL RDW Std Deviation (36.4-46.3) fL RDW Coeff of Flakito (11.5-14.5) % Plt Count (130-400) K/uL MPV (7.4-10.4) fL Immature Gran % (Auto) % Neut % (Auto) % Lymph % (Auto) % [place] % (Auto) % Eos % (Auto) % Baso % (Auto) % Neut # (Auto) (1.4-6.5) K/uL Lymph # (Auto) (1.2-3.4) K/uL [place] # (Auto) (0.11-0.59) K/uL Eos # (Auto) (0-0.5) K/uL Baso # (Auto) (0-0.2) K/uL Immature Gran # (Auto) (0.00-0.02) K/uL Polychromasia Hypochromasia Microcytosis APTT (21.0-31.0) Seconds PTT Ratio Sodium (136-145) mmol/L Potassium (3.5-5.1) mmol/L Chloride (98-107) mmol/L Carbon Dioxide (21-32) mmol/L Anion Gap (3-11) BUN (7-18) mg/dl Creatinine (0.6-1.2) mg/dl Est Cr Clr Drug Dosing ml/min Est GFR ( Amer) ml/min Est GFR (Non-Af Amer) ml/min BUN/Creatinine Ratio (10-20) Glucose (70-99) mg/dl Calcium (8.5-10.1) mg/dl Total Bilirubin (0.2-1) mg/dl AST (15-37) U/L ALT (12-78) U/L Alkaline Phosphatase (45-117) U/L Troponin I (0-0.045) ng/ml Total Protein (6.4-8.2) gm/dl Albumin (3.4-5.0) gm/dl Globulin (2.5-4.0) gm/dl Albumin/Globulin Ratio (0.9-2) Lipase (73-393) U/L COVID-19 Eval Order Covid19 at [facility] SARS-CoV-2 (PCR) NEGATIVE (Negative) Imaging Data Radiologist's Impression: Chest X-Ray 04/06/21 12:23 XR chest 1V portable INDICATION: Atypical chest pain. TECHNIQUE: Single frontal radiograph of the chest was obtained. Comparison: Comparison is made to chest one view 05/17/2020 FINDINGS: No lines and tubes are seen. Calcified aortic knob is seen. The lungs are clear. No evidence of pleural effusion or pneumothorax. IMPRESSION: No acute chest disease. ACT 112: Negative or not required by law. Electronically signed by: Chato Sequeira M.D. 04/06/2021 1:02 PM Chest CTA 04/06/21 13:05 CT angio chest PE protocol INDICATION: Atypical chest pain, evaluate for pulmonary embolus. TECHNIQUE: Multidetector row helical CT of the chest was performed. Coronal and sagittal reformations were obtained. Automated dose lowering techniques and/or adjustment according to patient size were utilized for this exam. Comparison: None available at the time of this dictation. FINDINGS: Lungs and pleura: 6 mm pleural-based pulmonary nodule in the left lower lobe (series 4 image 91). Heart and pericardium: Cardiomegaly is seen with biatrial enlargement. Vessels: No evidence of pulmonary embolism. Moderate to severe atherosclerotic disease is seen. Mediastinum and inessa: Unremarkable. Chest wall and lower neck: Unremarkable. Abdomen: A hiatal hernia is seen. Bones: Degenerative changes in the thoracic spine. IMPRESSION: 1. No evidence of pulmonary embolism. 2. 6 mm pleural-based coronary nodule in the left lower lobe. According to Fleischner criteria, CT chest should be performed at 6-12 months. In high-risk patients, a 18-24 month follow-up is recommended, in low-risk patients, this 18- 24 month follow-up CT is optional. ACT 112: Negative or not required by law. Electronically signed by: Chato Sequeira M.D. 04/06/2021 1:40 PM ECG Data Attestation: I personally reviewed and interpreted this ECG as follows: Indication: + chest pain Rate (beats per minute): 100 Rhythm: + normal sinus ECG [place]: + Normal ECG ST segments: no ST elevation ECG Findings: + Other (Wavy baseline in the lateral leads limiting int erpretation to a degree.); no PVCs Comparison ECG Date: from (May 17, 2020) Change: no significant change Additional Comments: Repeat twelve-lead EKG performed at 1335 because the patient developed repeat chest pain per my interpretation shows sinus tachycardia with a rate of 105 bpm. There is no evidence of acute ST elevation. [place] is normal. No PVCs. No significant change from prior. MDM Narrative I did evaluate the patient as noted above. Patient is presenting with sudden onset of chest pain starting at 1030 with shortness of breath. IV access was established. She is refusing nitroglycerin and so I did treat her with IV fentanyl and Zofran. I did place an order for continuous cardiac monitoring. The monitor showed normal sinus rhythm at a rate of 100 bpm. I did order and personally review the patient's 12-lead EKG as described above. She has no evidence of acute ischemia. I did order and personally reviewed the images of the patient's chest x-ray as described above. There is no evidence of acute process within the chest. I did order and review the patient's blood work as noted in the electronic medical record. CBC demonstrates a mild elevation of white count 11.2. She has chronic anemia with a hemoglobin of 9.5 which is sli ghtly below her baseline. Platelet count is within normal limits. Electrolytes are unremarkable. Glucose is elevated to 253. Troponin is negative. I did reassess the patient. She is now chest pain-free but still states she is short of breath. After discussion with the patient, I did order a CT angiogram of the chest. I did review the images myself as well as the radiology report as described above. There is no evidence of acute pulmonary embolism. She does have a pulmonary nodule. When she came back from CAT scan she developed some chest pain again. A repeat twelve-lead EKG was performed which showed no acute ischemic changes. She is refusing any medication at this time according to the nurse. I went back to talk to her. She states that she no longer has any chest pain. She does state that she feels short of breath. I did discuss the test results with her. I did recommend hospitalization for repeat cardiac biomarkers and further evaluation. I did discuss case with the hospitalist and supportive employment case manager. I was informed by the nurse later that the hospitalist had added a repeat troponin which was elevated 0.72. The patient is currently upstairs on the floor and the hospitalist was notified of this test. Impression & Plan Acute chest pain, Elevated troponin Discharge Plan Visit Data Chief Complaint: Chest Pain Stated Complaint: CHEST PAIN ED Provider: Johan Sood Discharge Problem: Acute chest pain, Elevated troponin Patient Disposition: Being Evaluated by Hospitalist
[2021-04-06 12:43] LABS: Hematocrit (blood only) 33.4 % (37-47); Hemoglobin 9.5 g/dL (12.0-16.0); Mean Corpuscular Hemoglobin 21.2 pg (25-34); Mean Corpuscular Hgb Conc 28.4 g/dL (32-36); Mean Corpuscular Volume 74.6 fL (80-100); Mean Platelet Volume 9.2 fL (7.4-10.4); Platelet Count 289 K/uL (130-400); RDW Coefficient of Variation 17.9 % (11.5-14.5); RDW Standard Deviation 48.8 fL (36.4-46.3); Red Blood Count 4.48 M/uL (4.2-5.4); White Blood Count 11.21 K/uL (4.8-10.8)
[2021-04-06 12:46] LABS: Partial Thromboplastin Time 26.6 Seconds (21.0-31.0)
[2021-04-06 12:55] LABS: Alanine Aminotransferase 14 U/L (12-78); Albumin Level 3.2 gm/dl (3.4-5.0); Aspartate Aminotransferase 11 U/L (15-37); BUN Creatinine Ratio 17.5 (10-20); Blood Urea Nitrogen 17 mg/dl (7-18); Carbon Dioxide 26 mmol/L (21-32); Chloride 106 mmol/L (98-107); Creatinine Clr Calc Pharmacy 37.8 ml/min; Est GFR (African American) 61.6 ml/min; Est GFR (Non-African American) 53.2 ml/min; Glucose 253 mg/dl (70-99); Lipase 102 U/L (73-393); Potassium 4.1 mmol/L (3.5-5.1); Sodium 139 mmol/L (136-145)
[2021-04-06 13:00] LABS: Albumin Globulin Ratio 0.8 (0.9-2); Alkaline Phosphatase 97 U/L (45-117); Bilirubin,Total 0.3 mg/dl (0.2-1); Globulin 4.1 gm/dl (2.5-4.0); Total Protein 7.3 gm/dl (6.4-8.2); Troponin I < 0.015 ng/ml (0-0.045)
--- NOTE | 2021-04-06 13:04 | XRay Report ---
XR chest 1V portable INDICATION: Atypical chest pain. TECHNIQUE: Single frontal radiograph of the chest was obtained. Comparison: Comparison is made to chest one view 05/17/2020 FINDINGS: No lines and tubes are seen. Calcified aortic knob is seen. The lungs are clear. No evidence of pleur al effusion or pneumothorax. IMPRESSION: No acute chest disease. ACT 112: Negative or not required by law. Electronically signed by: Chato Sequeira M.D. 04/06/2021 1:02 PM
[2021-04-06] MEDS ORDERED: OPTIRAY 320 125ml IV ONE (13:16)
[2021-04-06 13:17] LABS: Basophils # (auto) 0.02 K/uL (0-0.2); Basophils % (auto) 0.2 %; Eosinophils # (auto) 0.14 K/uL (0-0.5); Eosinophils % (auto) 1.2 %; Hypochromasia Present; Immature Granulocytes # (auto) 0.05 K/uL (0.00-0.02); Immature Granulocytes % (auto) 0.4 %; Lymphocytes # (auto) 1.64 K/uL (1.2-3.4); Lymphocytes % (auto) 14.6 %; Microcytosis Present; Monocytes # (auto) 0.88 K/uL (0.11-0.59); Monocytes % (auto) 7.9 %; Neutrophils # (auto) 8.48 K/uL (1.4-6.5); Neutrophils % (auto) 75.7 %; Polychromasia 1+
--- NOTE | 2021-04-06 13:42 | CT Scan Report ---
CT angio chest PE protocol INDICATION: Atypical chest pain, evaluate for pulmonary embolus. TECHNIQUE: Multidetector row helical CT of the chest was performed. Coronal and sagittal reformations were obtained. Automated dose lowering techniques and/or adjustment according to patient size were u tilized for this exam. Comparison: None available at the time of this dictation. FINDINGS: Lungs and pleura: 6 mm pleural-based pulmonary nodule in the left lower lobe (series 4 image 91). Heart and pericardium: Cardiomegaly is seen with biatrial enlargement. Vessels: No evidence of pulmonary embolism. Moderate to severe atherosclerotic disease is seen. Mediastinum and inessa: Unremarkable. Chest wall and lower neck: Unremarkable. Abdomen: A hiatal hernia is seen. Bones: Degenerative changes in the thoracic spine. IMPRESSION: 1. No evidence of pulmonary embolism. 2. 6 mm pleural-based coronary nodule in the left lower lobe. According to Fleischner criteria, CT c hest should be performed at 6-12 months. In high-risk patients, a 18-24 month follow-up is recommende d, in low-risk patients, this 18-24 month follow-up CT is optional. ACT 112: Negative or not required by law. Electronically signed by: Chato Sequeira M.D. 04/06/2021 1:40 PM
--- NOTE | 2021-04-06 15:21 | History & Physical Report ---
Date of Service April 06, 2021 Assessment & Plan (1) NSTEMI (non-ST elevated myocardial infarction): Plan: Already on clopidogrel Add aspirin (took some convincing but she eventually took this in the ER), add aspirin 81mg PO daily Add carvedilol 3.125mg PO now, then BID with hold parameters Continue lisinopril 10mg PO daily Add nitro paste 0.5% (can uptitrate if patient tolerating) mainly to help with BP control Continue rosuvastatin, lipid profile with am labs Consult cardiology (2) Coronary artery disease: Plan: Prior cath: 100% RCA obstruction with collaterals, 1994, no intervention perfo rmed per patient As above (3) Microcytic anemia: Plan: Suspect iron def. anemia. Repeat with AM labs. (4) Type II diabetes mellitus, well controlled: Plan: HbA1C 7.6 in November, repeat with AM labs Consult pharmacy for glycemic control (5) Hyperlipidemia: Plan: Continue rosuvastatin (6) Hypertension: Plan: Start nitro patch as above Start carvedilol as above (7) GERD (gastroesophageal reflux disease): Plan: Switch Esomeprazole for pantoprazole per hospital formulary (8) Hypothyroidism: Plan: TSH 3.15 Continue levothyroxine 25 mcg PO daily Plan: VTE Prophylaxis - on heparin drip Diet - heart healthy, T2DM Disposition - admit to PCU Admission and Anticipated Discharge Date Admission Date: April 06, 2021 History of Present Illness Chief Complaint: Chest pain Primary Care Provider: KEVIN Link Debra Angel is an 85 year female with known coronary artery disease who comes to the ER with chest pain started 10:30am this morning went for groceries and riding in [place]. Lives at [facility] and when she went back into [facility] her chest pain started chest pain, mostly on right side and down both arms, severity 10/10 currently 0/10, thinks just lying down helped it. Lasted till she came to the ER but also reports it returned she she had the contrast for the CT for PE. No diaphoresis or nausea. She did not associated shortness of breath which she still has. She has refused aspirin or nitroglycerin by EMS and the ER physician. Aspirin because she has a remote history of GI bleed that did not require blood transfusions. Nitroglycerin gives her a headache. She is a former smoker with 35 pack-year history, quitting 7 years ago. In the ER EKG showed sinus tachycardia but no acute ischemic changes. Initial troponin negative. She was referred to medicine for admission and ongoing management of chest pain. I convinced her to take some aspirin with some food. An hour after taking this her shortness of breath resolved. Second troponin came back positive. She was initially admitted to med/tele until second troponin came back positive then was transferred to PCU. Allergies Allergy/AdvReac Type Severity Reaction Status Date / Time adhesive Allergy Mild Rash Verified 04/06/21 14:58 egg Allergy Mild GI SYMPTOMS Verified 04/06/21 14:58 garlic Allergy Mild GI symptoms Verified 04/06/21 14:58 povidone-iodine Allergy Mild itchy Verified 04/06/21 14:58 [From Betadine] propoxyphene Allergy Mild light Verified 04/06/21 14:58 headed sertraline Allergy Mild Dizziness Verified 04/06/21 14:58 soap [From Betadine] Allergy Mild itchy Verified 04/06/21 14:58 Sulfa (Sulfonamide Allergy Mild GI symptoms Verified 04/06/21 14:58 Antibiotics) simvastatin AdvReac Intermediate MYALGIA Verified 04/06/21 14:58 Home Medications Medication Instructions Recorded Confirmed Type cyclobenzaprine 5 mg tablet 5 mg PO TID PRN #30 tab 05/17/20 04/06/21 Rx gabapentin 100 mg capsule 100 mg PO HS #90 cap 05/22/20 04/06/21 Rx clopidogrel 75 mg tablet (Plavix) 75 mg PO DAILY #90 tab 07/23/20 04/06/21 Rx esomeprazole magnesium 40 mg 40 mg PO DAILY #90 cap 07/26/20 04/06/21 Rx capsule,delayed release rosuvastatin 20 mg tablet 20 mg PO DAILY #90 tab 08/08/20 04/06/21 Rx ferrous sulfate 325 mg (65 mg 325 mg PO DAILY #30 tab 11/29/20 04/06/21 Rx iron) tablet lisinopril 10 mg tablet 10 mg PO DAILY #90 tab 01/10/21 04/06/21 Rx insulin aspar prot-insulin aspart 50 unit SUBCUT BID #30 ml 02/25/21 04/06/21 Rx 100 unit/mL (70-30) subcutaneous pen (Novolog Mix 70-30FlexPen U-100) levothyroxine 25 mcg tablet 25 mcg PO DAILY #90 tab 02/25/21 04/06/21 Rx Past Med/Surg History Medical History ASCVD (arteriosclerotic cardiovascular disease) Carotid artery stenosis Cerebral arterial aneurysm COPD (chronic obstructive pulmonary disease) CVA (cerebral vascular accident) 2014--short term memory loss, gait loss--uses walker Diabetes mellitus, type 2 Hearing deficit History of CHF (congestive heart failure) Hx of angina pectoris Hyperlipidemia Hypothyroid Osteoarthritis Restless leg syndrome Surgical History H/O section x3 History of bilateral cataract extraction History of bilateral tubal ligation History of cardiac cath [facility] [place]--no stents History of colonoscopy History of sigmoidoscopy History of tonsillectomy and adenoidectomy History of tooth extraction all teeth removed History of total abdominal hysterectomy and bilateral salpingo-oophorectomy S/P cholecystectomy S/P removal of ovarian cyst Family History Grandmother (Paternal) Family history of diabetes mellitus Father Myocardial infarction Mother Myocardial infarction Family/Other Heart disease Multiple benign polyps of large intestine Other No family history of adverse response to anesthesia Denies family history of Ovarian cancer Prostate cancer Crohn's disease Colorectal cancer Cancer Ulcerative colitis Social History Smoking Status: Former smoker Cigarettes Per Day: 1 pack per day; Second Hand Exposure: No; Do You Dip or Chew Tobacco: No; Tobacco Cessation Education Requested by Patient: No Hx Alcohol Use: No Hx Substance Use: No Preferred Language: Amharic Communication Ability: Effective [employer] Required: No Beliefs That Will Affect Care: None marital status: Current Living Situation: Alone Current Living Situation Comment: senior apartment current occupational status: retired Feels Safe at Home: Yes Safety Concerns: Feels Safe At This Time Dental Care, Regularly: No Physical Activity Frequency: 1-2 Times per Week Seatbelt Use: always Assistive Devices: Walker Review of Systems Review of Systems: All systems reviewed & are unremarkable except as noted in HPI & below Physical Exam Constitutional: WD/WN, vitals as above no acute distress Eyes: + anicteric sclerae; normal pupil size ENMT: external ear and nose normal, oropharynx normal Neck: trachea midline, no thyromegaly Respiratory: normal respiratory effort, lungs clear to auscultation Cardiovascular: Rate/Rhythm: regular rhythm and + tachycardic Heart Sounds: no murmur Extremities: normal capillary refill and + pedal edema (trace ank les b/l equal); no calf tenderness Gastrointestinal (Abdomen): normal bowel sounds, soft, nontender, no hepatosplenomegaly Musculoskeletal: no cyanosis or clubbing, extremities motor strength 5/5 Skin: no rashes, warm and dry Neurologic: moves all extremities and awake; no focal motor deficits and not confused Psychiatric: A+Ox3, euthymic affect Results & Data Results & Data ([facility]) Vital Signs (Past 12 Hours) Vital Signs Temp Pulse Pulse Resp BP BP Pulse Ox 04/06/21 14:38 90 17 151/76 H 100 04/06/21 14:30 96 04/06/21 14:20 86 18 151/76 H 98 04/06/21 14:02 99 04/06/21 13:00 97 H 15 180/77 H 99 04/06/21 12:31 94 H 23 156/67 H 97 04/06/21 12:23 99 04/06/21 12:20 36.8 C 99 H 22 133/99 98 04/06/21 12:14 108 H 21 133/99 99 Diagnostic Findings XR chest 1V portable INDICATION: Atypical chest pain. TECHNIQUE: Single frontal radiograph of the chest was obtained. Comparison: Comparison is made to chest one view 05/17/2020 FINDINGS: No lines and tubes are seen. Calcified aortic knob is seen. The lungs are clear. No evidence of pleural effusion or pneumothorax. IMPRESSION: No acute chest disease. CT angio chest PE protocol INDICATION: Atypical chest pain, evaluate for pulmonary embolus. TECHNIQUE: Multidetector row helical CT of the chest was performed. Coronal and sagittal reformations were obtained. Automated dose lowering techniques and/or adjustment according to patient size were utilized for this exam. Comparison: None available at the time of this dictation. FINDINGS: Lungs and pleura: 6 mm pleural-based pulmonary nodule in the left lower lobe (series 4 image 91). Heart and pericardium: Cardiomegaly is seen with biatrial enlargement. Vessels: No evidence of pulmonary embolism. Moderate to severe atherosclerotic disease is seen. Mediastinum and inessa: Unremarkable. Chest wall and lower neck: Unremarkable. Abdomen: A hiatal hernia is seen. Bones: Degenerative changes in the thoracic spine. IMPRESSION: 1. No evidence of pulmonary embolism. 2. 6 mm pleural-based coronary nodule in the left lower lobe. According to Fleischner criteria, CT chest should be performed at 6-12 months. In high-risk patients, a 18-24 month follow-up is recommended, in low-risk patients, this 18- 24 month follow-up CT is optional. Medications Administered ER Medications Given: Fentanyl 50 mcg IV Ondansetron 4mg IV ECG Indication: chest pain Rate (beats per minute): 105 Rhythm: sinus tachycardia Findings: + prolonged QT (QTc 518ms); no acute ischemic change Comparison ECG Date: from (Apr 06, 2021) Change: the following changes noted (QT prolongation) Code Status & VTE Plan Code Status DNR/DNI VTE Prophylaxis Plan VTE Prophylaxis will be ordered: Yes PG Care Time/CCT Total # of Minutes Spent Total Time Spent with Patient: Total time spent is greater than 50% in coordination of care (as documented) at patient's floor/unit and/or counseling patient: Coding Level of Care Code INT OBSERVATION CARE 70M LVL 3 Diagnoses NSTEMI (non-ST elevated myocardial infarction) I21.4 Type II diabetes mellitus, well controlled E11.9 Hyperlipidemia E78.2 Hyperlipidemia type: mixed hyperlipidemia Hypertension I10 Hypertension type: unspecified GERD (gastroesophageal reflux disease) K21.9 Hypothyroidism E03.9 Coronary artery disease I25.10 Microcytic anemia D50.9 (1) Hyperlipidemia Hyperlipidemia type: mixed hyperlipidemia Qualified Code(s): E78.2 - Mixed hyperlipidemia (2) Hypertension Hypertension type: unspecified Qualified Code(s): I10 - Essential (primary) hypertension
[2021-04-06] MEDS ORDERED: ASPIRIN CHEW 324 MG PO STA (15:24)
[2021-04-06] MEDS ORDERED: ASPIRIN CHEW 324 MG ONE (15:29)
[2021-04-06] MEDS ORDERED: Heparin IV Adult Wt-Based Low-Dose WITH Bolus Protocol IV SCH (17:52)
[2021-04-06] MEDS ORDERED: carvediloL 3.125 MG TAB PO STA ×2 (17:56→19:25)
[2021-04-06] MEDS ORDERED: NITROGLYCERIN 2% OINTMENT 30GM TUBE EXT STA (17:56)
[2021-04-06] MEDS ORDERED: CYCLOBENZAPRINE HCL 5 MG TAB PO PRN (18:11)
[2021-04-06] MEDS ORDERED: PHARMACY GLYCEMIC MGMT CONSULT PRN (18:11)
[2021-04-06] MEDS ORDERED: HEPARIN SODIUM/DEXTROSE 25,000 UNITS/500 ML BAG IV SCH (18:15)
[2021-04-06] MEDS ORDERED: HEPARIN SOD (PORCINE) 1000 UNIT/ML IV ONE (19:00)
[2021-04-06 19:20] LABS: Partial Thromboplastin Time 26.2 Seconds (21.0-31.0); Prothrombin Time 9.8 Seconds (9.0-12.0)
[2021-04-06 19:21] LABS: Hematocrit (blood only) 31.2 % (37-47); Hemoglobin 8.8 g/dL (12.0-16.0); Mean Corpuscular Hemoglobin 20.9 pg (25-34); Mean Corpuscular Hgb Conc 28.2 g/dL (32-36); Mean Corpuscular Volume 73.9 fL (80-100); Mean Platelet Volume 9.3 fL (7.4-10.4); Platelet Count 273 K/uL (130-400); RDW Standard Deviation 48.4 fL (36.4-46.3); Red Blood Count 4.22 M/uL (4.2-5.4); White Blood Count 9.53 K/uL (4.8-10.8)
[2021-04-06] MEDS: INSULIN ASPART 100 UNITS/ML 3 ML PEN SC SCH ×2 (19:42→22:27)
[2021-04-06] MEDS ORDERED: GLUCOSE 10 TABS/TUBE PO PRN (19:45)
[2021-04-06] MEDS ORDERED: DEXTROSE 50% 50 ML SYRINGE IV PRN (19:45)
[2021-04-06] MEDS ORDERED: GLUCOSE 40% GEL 15 GM TUBE PO PRN (19:45)
[2021-04-06] MEDS ORDERED: CARBOHYDRATES FOR HYPOGLYCEMIA PO PRN (19:45)
[2021-04-06] MEDS ORDERED: GLUCAGON FOR INJ 1 MG VIAL IM PRN (19:45)
[2021-04-06 19:54] LABS: Basophils # (auto) 0.02 K/uL (0-0.2); Basophils % (auto) 0.2 %; Eosinophils # (auto) 0.08 K/uL (0-0.5); Eosinophils % (auto) 0.8 %; Immature Granulocytes # (auto) 0.02 K/uL (0.00-0.02); Immature Granulocytes % (auto) 0.2 %; Lymphocytes # (auto) 1.83 K/uL (1.2-3.4); Lymphocytes % (auto) 19.2 %; Microcytosis Present; Monocytes # (auto) 0.68 K/uL (0.11-0.59); Monocytes % (auto) 7.1 %; Neutrophils % (auto) 72.5 %; Polychromasia 1+
[2021-04-06] MEDS ORDERED: INSULIN HUMAN NPH SC ONE (20:00)
[2021-04-06] MEDS: GABAPENTIN 100 MG CAP PO SCH (20:07)
[2021-04-06] MEDS ORDERED: Nursing to Pharmacy Communication SCH (22:00)
--- NOTE | 2021-04-06 22:03 | XCELERA ---
[id number]
[2021-04-06] MEDS: NITROGLYCERIN 2% OINTMENT 30GM TUBE EXT SCH (22:18)
[2021-04-06 23:17] LABS: Hemoglobin 8.5 g/dL (12.0-16.0)
[2021-04-07] MEDS: INSULIN ASPART 100 UNITS/ML 3 ML PEN SC SCH ×6 (00:19→20:45)
[2021-04-07] MEDS: NITROGLYCERIN 2% OINTMENT 30GM TUBE EXT SCH ×5 (00:20→21:18)
[2021-04-07 03:10] LABS: Hematocrit (blood only) 28.8 % (37-47); Hemoglobin 8.3 g/dL (12.0-16.0); Mean Corpuscular Hemoglobin 21.2 pg (25-34); Mean Corpuscular Hgb Conc 28.8 g/dL (32-36); Mean Corpuscular Volume 73.7 fL (80-100); Mean Platelet Volume 9.5 fL (7.4-10.4); Platelet Count 257 K/uL (130-400); RDW Coefficient of Variation 18.1 % (11.5-14.5); Red Blood Count 3.91 M/uL (4.2-5.4); White Blood Count 9.57 K/uL (4.8-10.8)
[2021-04-07 03:11] LABS: Partial Thromboplastin Ratio 1.6; Partial Thromboplastin Time 41.6 Seconds (21.0-31.0)
[2021-04-07 03:14] LABS: BUN Creatinine Ratio 17.5 (10-20); Basophils # (auto) 0.01 K/uL (0-0.2); Basophils % (auto) 0.1 %; Calcium 8.5 mg/dl (8.5-10.1); Creatinine Clr Calc Pharmacy 38.2 ml/min; Eosinophils # (auto) 0.18 K/uL (0-0.5); Eosinophils % (auto) 1.9 %; Est GFR (African American) 62.4 ml/min; Est GFR (Non-African American) 53.9 ml/min; Hypochromasia Present; Immature Granulocytes # (auto) 0.03 K/uL (0.00-0.02); Immature Granulocytes % (auto) 0.3 %; Lymphocytes # (auto) 2.71 K/uL (1.2-3.4); Lymphocytes % (auto) 28.3 %; Monocytes % (auto) 8.4 %; Neutrophils # (auto) 5.84 K/uL (1.4-6.5); Polychromasia 1+; Potassium 3.8 mmol/L (3.5-5.1)
[2021-04-07] MEDS: LEVOTHYROXINE SODIUM 25 MCG TABLET PO SCH (05:55)
--- NOTE | 2021-04-07 08:37 | Hospitalist Progress Note ---
Date of Service April 07, 2021 Assessment & Plan (1) NSTEMI (non-ST elevated myocardial infarction): Plan: 85 y/o WM who follows Dr. Hunt. PMHx of known CAD/Angina, DM, HTN - presented to the ED c/o CP x 1/2 hour - initial troponin was negative. - EKG was nonacute. FU EKG done today and remains nonacute - CTA negative for PE - Already takes Plavix and high intensity statin. ASA added in the ED - subsequent troponin was elevated at 0.876 for which a heparin gtt was added. Troponin further cycled and downtrending (0.015 --> 0.876 --> 0.341) - anemia noted upon admission (hgb 9.5). Is 8.3 today. Patient denied melena or hematochezia or known h/o anemia. hgb baseline ~10.0 - Rectal exam done and Hemoccult positive. No melena. - with marginal hypotension this am (that was self limiting), will T&C and transfuse 1Unit of PRBC's with premedication. Patient may have associated supply demand ischemia and would benefit from the oxygen carrying capacity of blood - I did run this past cardiology who agrees with discontinuation of aspirin and heparin for now. Okay to continue aspirin along with aggressive medical management - Continue topical paste as blood pressure will allow. With improving BP, will add beta-blockade - Echo done yesterday--> preserved EF of 60-65% without RWMA - cardiology consulted-- appreciate recommendations review of records shows--(100% RCA obstruction with collaterals, 1994). Doubt any intervention needs done during this hospitalization; however, this is discretion of cardiology. Appreciate recommendations. (2) Coronary artery disease: Plan: As above (3) Microcytic anemia: Plan: - as outlined above, patient would benefit from the O2 carrying capacity of blood - T&C/transfuse 1 Unit now (in the setting of NSTEMI). consent obtained - iron studies to be drawn PRIOR TO TRANSFUSION - patient has had multiple c.scopes in the past with polypectomy Colonoscopy Impression - Two 4 to 5 mm polyps in the rectum and in the transverse colon, removed with a hot snare. Resected and retrieved. - Patent end-to-side colo-colonic anastomosis, characterized by healthy appearing mucosa. - Diverticulosis in the sigmoid colon. - Non-bleeding internal hemorrhoids. - she currently denies melena/hematochezia - rectal exam positive for occult blood (4) Type II diabetes mellitus, well controlled: Plan: HbA1C 7.6 in November, repeat with AM labs pharmacy on board for glycemic control (5) Hyperlipidemia: Plan: Continue rosuvastatin (6) Hypertension: Plan: - patient with accelerated BP upon arrival into the ED (190's/70's) - this am, slightly hypotensive (stable right now) - continue topical nitropaste in the setting of NSTEMI - hold ACEI - BP acceptable for addition of BB. Will hold if needed (hypotensive/bradycardic) (7) GERD (gastroesophageal reflux disease): Plan: - Switch Esomeprazole for pantoprazole per hospital formulary and patient takes plavix at home. Will need to stay on protonix (8) Hypothyroidism: Plan: TSH 3.15 Continue levothyroxine 25 mcg PO daily Plan: Plan of care D/W Dr. Boss and Margret Admission and Anticipated Discharge Date Admission Date: April 07, 2021 Subjective Mrs. Angel is an 85-year-old white female with known cardiac disease. In addition, she has diabetes mellitus, hypertension, hypothyroidism, and GERD. She presented to the ED yesterday complaining of chest pain X approximately 30 minutes [employer]. Started after going grocery shopping while sitting in a chair. Constant and right-sided in nature. Described as sharp with radiation down both arms. Had associated shortness of breath but denied jaw pain, diaphoresis, nausea. Came to the ED where she was found to have no EKG changes and her initial troponin was negative at less than 0.015. Chest x-ray showed no acute cardiopulmonary process. CTA showed no evidence of PE with no acute subsequent troponin drawn and elevated at 0.876. Patient was given aspirin, topical paste, and started on a heparin drip. Pain subsequently alleviated. She was hospitalized for further evaluation and care. This morning she was complaining of right subscapular pain; however, this alleviated with position changes. She was marginally hypotensive this morning at 87/42. Initially was going to DC Nitropaste and her lisinopril was held; however, without interventionsubsequent BP came up to 114 systolic. She was asymptomatic with that marginally low BP. In addition, her hemoglobin was noted to be slightly low at 8.3 this morning. Upon arrival into the ED, it was 9.4. Baseline is about 10.2. Patient takes Plavix chronically. She is not on aspirin or any other anticoagulation therapy. Is on Nexium. Denies melena or hematochezia. Is up-to-date with colonoscopy and positive for polypectomy. Does have a history of colon resection- denies h/o colon CA or diverticular disease (I was able to find copy of last colonoscopy from 2019 that does confirm patient has history of end-to-end anastomosis in the sigmoid colon). Review of Systems Review of Systems: All systems reviewed and are unremarkable except as noted in HPI and below Denies fevers, chills, headache, nasal congestion, sore throat, cough, chest pain, shortness of breath, palpitations, orthopnea, PND, abdominal pain, nausea, vomiting, diarrhea, constipation, dysuria, hematuria, frequency, back pain, joint pain or swelling, easy bruising or bleeding, skin lesions or rashes. Physical Exam Physical Exam: General: Resting comfortably in his/her hospital bed/bedside chair. NAD. HEENT: Head is AT/NC buccal mucosa is moist and pink Neck: No JVD. Negative hepatojugular reflex Cardiac: RRR without M/G/R Lungs: CTA without W/R/R Abdomen: Normoactive X4. Soft and nontender in all quadrants. Rectal exam done and sent to lab: Positive Hemoccult Extremity: + adiposity without true pitting edema no peripheral clubbing cyanosis or edema Neuro: A&O X4 cranial nerves II through XII are grossly intact no focal neuro deficits Skin: No obvious skin lesions or rashes Psych: Appropriate affect pleasant and cooperative Results & Data Results & Data ([facility]) Vital Signs (Past 12 Hours) Vital Signs Temp Pulse Resp BP Pulse Ox 04/07/21 08:32 86 114/71 04/07/21 07:50 71 106/54 L 04/07/21 04:03 36.5 C 75 18 87/42 L 98 04/07/21 00:13 36.6 C 73 18 84/51 L 97 Laboratory Results 04/07/21 02:20 04/07/21 02:20 Diagnostic Findings Echocardiogram: Normal LV size and systolic function. EF 60 to 65%. No regional wall motion abnormality or left ventricular hypertrophy Mild MR Normal estimated RV systolic pressure 32 mmHg No significant change from prior study done 09/02/2019 ECG Additional Comments: EKG shows sinus tachycardia with frequent PACs. No acute ST/T wave changes. PG Care Time/CCT Total # of Minutes Spent Total Time Spent with Patient: Total time spent is greater than 50% in coordination of care (as documented) at patient's floor/unit and/or counseling patient: 60 min of time including coordination of care (D/W cardiology and attending, review of records and examination of patient) Coding [place] [address] Subseq Hosp Care Lvl 3 Patient Type Established History Comprehensive Exam Comprehensive Medical Decision Making High Complexity Diagnoses NSTEMI (non-ST elevated myocardial infarction) I21.4 Coronary artery disease I25.10 Microcytic anemia D50.9 Type II diabetes mellitus, well controlled E11.9 Hyperlipidemia E78.2 Hyperlipidemia type: mixed hyperlipidemia Hypertension I10 Hypertension type: unspecified GERD (gastroesophageal reflux disease) K21.9 Hypothyroidism E03.9 (1) Hyperlipidemia Hyperlipidemia type: mixed hyperlipidemia Qualified Code(s): E78.2 - Mixed hyperlipidemia (2) Hypertension Hypertension type: unspecified Qualified Code(s): I10 - Essential (primary) hypertension
[2021-04-07] MEDS: FERROUS SULFATE 325 MG TAB PO SCH (08:39)
[2021-04-07] MEDS: ROSUVASTATIN CALCIUM 20 MG TAB PO SCH (08:39)
[2021-04-07] MEDS: CLOPIDOGREL BISULFATE 75 MG TAB PO SCH (08:40)
[2021-04-07] MEDS ORDERED: PANTOprazole 40 MG TAB PO SCH (09:00)
[2021-04-07] MEDS ORDERED: lisinopril 10 MG TAB PO SCH ×2 (09:00)
[2021-04-07 10:11] LABS: Partial Thromboplastin Ratio 1.5; Partial Thromboplastin Time 38.7 Seconds (21.0-31.0)
[2021-04-07 10:19] LABS: Immature Retic Fraction 13.2 % (3.0-15.9); Reticulated Hemoglobin 19.3 pg (28.2-36.6); Reticulocyte % 2.2 % (0.5-2.0); Reticulocytes # 0.08 10^6/uL (0.02-0.10)
[2021-04-07 10:28] LABS: Ferritin 3.9 ng/ml (8-388)
[2021-04-07] MEDS ORDERED: ACETAMINOPHEN 325 MG TAB PO ONE (10:37)
[2021-04-07] MEDS ORDERED: SODIUM CHLORIDE 0.9% 250 ML IV PRN (10:37)
[2021-04-07] MEDS ORDERED: diphenhydrAMINE Capsule 25 MG CAP PO ONE (10:37)
[2021-04-07] MEDS: INSULIN HUMAN NPH SC SCH ×2 (11:29→17:24)
[2021-04-07] MEDS ORDERED: carvediloL 3.125 MG TAB PO ONE (12:30)
--- NOTE | 2021-04-07 13:49 | Pharmacy Report ---
Pharmacy Glycemic Short Note 2 - Date of Service April 07, 2021 - Glycemic Short BSG Results (Last 24 hours): 04/06/21 04/06/21 04/07/21 19:26 22:25 00:10 Glucose POC Glucose 231 H 129 H 89 04/07/21 04/07/21 04/07/21 02:20 04:06 07:23 Glucose 144 H POC Glucose 125 H 159 H 04/07/21 11:12 Glucose POC Glucose 225 H OUTPATIENT ANTIDIABETIC REGIMEN: * Novolog 70/30 50 units BID * Pt took 45 units SQ 10/2 AM Prior to admission ASSESSMENT: * 85 year old female admitted w/ NSTEMI, type 2 diabetic, A1c 7.6% in November 2020, repeat pending. * Outpatient regimen is premixed basal/prandial insulin of NovoLog 70/30 mix insulin. * Pre-mixed insulin is difficult to titrate since it is already in a fixed distribution of basal:prandial insulin. Continuing pre-mixed insulin for admission typically lead to hypoglycemia d/t changing PO status but rapid acting insulin is unable to be held. * Home regimen will be held for admission per pharmacy consult. Will utilize recommended regimen of SQ basal bolus insulin regimen with NPH + NovoLog (CF+CR). * Blood sugar high today at lunch, but NPH dose given late, so no adjustments at this time. Titrate doses to goal blood sugar. PLAN FOR INPATIENT GLYCEMIC CONTROL: * Hold outpatient mixed insulin * Basal insulin * NPH 25 units SQ BID with meals * Bolus insulin * NovoLog per scale ACHS or Q6hrs while NPO * Goal Range: Low 110 mg/dL - High 140 mg/dL * Correction Factor: 25 mg/dL/unit * Nutritional / Prandial insulin per carb ratio of 1 unit per 9 grams CHO consumed PLAN FOR DISCHARGE: * to be determined
--- NOTE | 2021-04-07 16:25 | Cardiology Consultation ---
Date of Consultation April 07, 2021 Assessment & Plan (1) Chest discomfort: (2) NSTEMI (non-ST elevated myocardial infarction): 1. Chest discomfort: Her presenting description of chest discomfort with left arm radiation is suspicious for ischemia but I suspect it is on the basis of acute anemia in the setting of coronary artery disease. It lasted for several hours before being relieved in the emergency room so small enzyme leak is consistent with this. 2. NSTEMI: She appears to have had an NSTEMI based on cardiac enzymes however it may be on the basis of demand ischemia although the association with chest discomfort suggests she may have some element of progression of coronary artery disease compared to her prior catheterization many years ago. On the other hand with her anemia and probable GI bleed I would not consider catheterization or intervention unless we are forced to do so, I would favor conservative treatment with blood transfusions and observation for recurrent symptoms. There is no evidence that she has had a vessel occlusion based on her electrocardiogram and enzyme pattern as well as resolution of her symptoms. With her GI bleed I agree with continuing clopidogrel as a platelet inhibitor and avoiding anticoagulation otherwise unless progressive cardiac symptoms or signs require further treatment. History of Present Illness Reason for Consultation: Chest pain, elevated cardiac enzymes Attending Physician: Nic Boss MD History of Present Illness This is an 85-year-old woman with a history of hypertension, hypercholesterolemia, vascular disease including an abdominal aortic aneurysm and cerebrovascular disease including bilateral carotid stenosis and coronary artery disease identified at catheterization in 1994. She is followed in our office by Dr. Hunt. She presented to the emergency room on April 06, 2021 with chest discomfort starting in the morning of April 06, 2021. She described it as sharp and left- sided with radiation to her left arm. Evaluation here has included echocardiography showing normal left ventricular size and function with no regional wall motion abnormalities, mild mitral regurgitation. Her situation is further complicated by anemia on presentation with a hemoglobin of 9.5 which trended down to 8.3 and she did have a Hemoccult positive stool. Her cardiac enzymes were abnormal but minimally so starting as undetectable and then: 0.721, 0.876, 0.341 with the last 3 about 8 hours apart. Her electrocardiograms show sinus tachycardia on presentation with minor ST-T abnormalities but no ST elevation, a subsequent electrocardiogram an hour later is very similar. She tells me that she had chest discomfort for several hours prior to it being relieved in the emergency room. It has not recurred. Currently she feels quite well and has no complaints. She has not been having difficulty with shortness of breath. Allergies Allergy/AdvReac Type Severity Reaction Status Date / Time adhesive Allergy Mild Rash Verified 04/06/21 14:58 egg Allergy Mild GI SYMPTOMS Verified 04/06/21 14:58 garlic Allergy Mild GI symptoms Verified 04/06/21 14:58 povidone-iodine Allergy Mild itchy Verified 04/06/21 14:58 [From Betadine] propoxyphene Allergy Mild light Verified 04/06/21 14:58 headed sertraline Allergy Mild Dizziness Verified 04/06/21 14:58 soap [From Betadine] Allergy Mild itchy Verified 04/06/21 14:58 Sulfa (Sulfonamide Allergy Mild GI symptoms Verified 04/06/21 14:58 Antibiotics) simvastatin AdvReac Intermediate MYALGIA Verified 04/06/21 14:58 Home Medications Medication Instructions Recorded Confirmed Type cyclobenzaprine 5 mg tablet 5 mg PO TID PRN #30 tab 05/17/20 04/06/21 Rx gabapentin 100 mg capsule 100 mg PO HS #90 cap 05/22/20 04/06/21 Rx clopidogrel 75 mg tablet (Plavix) 75 mg PO DAILY #90 tab 07/23/20 04/06/21 Rx esomeprazole magnesium 40 mg 40 mg PO DAILY #90 cap 07/26/20 04/06/21 Rx capsule,delayed release rosuvastatin 20 mg tablet 20 mg PO DAILY #90 tab 08/08/20 04/06/21 Rx ferrous sulfate 325 mg (65 mg 325 mg PO DAILY #30 tab 11/29/20 04/06/21 Rx iron) tablet lisinopril 10 mg tablet 10 mg PO DAILY #90 tab 01/10/21 04/06/21 Rx insulin aspar prot-insulin aspart 50 unit SUBCUT BID #30 ml 02/25/21 04/06/21 Rx 100 unit/mL (70-30) subcutaneous pen (Novolog Mix 70-30FlexPen U-100) levothyroxine 25 mcg tablet 25 mcg PO DAILY #90 tab 02/25/21 04/06/21 Rx Patient History Medical History ASCVD (arteriosclerotic cardiovascular disease) Carotid artery stenosis Cerebral arterial aneurysm COPD (chronic obstructive pulmonary disease) CVA (cerebral vascular accident) 2014--short term memory loss, gait loss--uses walker Diabetes mellitus, type 2 Hearing deficit History of CHF (congestive heart failure) Hx of angina pectoris Hyperlipidemia Hypothyroid Osteoarthritis Restless leg syndrome Surgical History H/O section x3 History of bilateral cataract extraction History of bilateral tubal ligation History of cardiac cath @ [facility] [place]--no stents History of colonoscopy History of sigmoidoscopy History of tonsillectomy and adenoidectomy History of tooth extraction all teeth removed History of total abdominal hysterectomy and bilateral salpingo-oophorectomy S/P cholecystectomy S/P removal of ovarian cyst Family History Grandmother (Paternal) Family history of diabetes mellitus Father Myocardial infarction Mother Myocardial infarction Family/Other Heart disease Multiple benign polyps of large intestine Other No family history of adverse response to anesthesia Denies family history of Ovarian cancer Prostate cancer Crohn's disease Colorectal cancer Cancer Ulcerative colitis Social History Smoking Status: Former smoker Cigarettes Per Day: 1 pack per day; Second Hand Exposure: No; Do You Dip or Chew Tobacco: No; Tobacco Cessation Education Requested by Patient: No Hx Alcohol Use: No Hx Substance Use: No Preferred Language: Nigerian Communication Ability: Effective Bulk Mail Clerk Required: No Beliefs That Will Affect Care: None marital status: Current Living Situation: Alone Current Living Situation Comment: senior apartment current occupational status: retired Feels Safe at Home: Yes Safety Concerns: Feels Safe At This Time Dental Care, Regularly: No Physical Activity Frequency: 1-2 Times per Week Seatbelt Use: always Assistive Devices: Glasses and Walker Review of Systems Review of Systems: All systems reviewed & are unremarkable except as noted in HPI & below Physical Exam Physical Exam: Constitutional: Alert, cooperative and in no distress. HEENT: Unremarkable Neck: No jugular venous distention, carotid pulses are normal and equal bilaterally without bruits. Pulmonary: Clear to auscultation bilaterally. Cardiac: Regular rhythm with no murmur, gallop or rub. Abdomen: Soft, nontender with normal bowel sounds. Extremities: No edema. Distal pulses intact. Neurologic: No focal findings. Gait is steady. Skin: No rash, ecchymoses or petechiae. Results & Data ([facility]) Vital Signs (Past 12 Hours) Vital Signs Temp Pulse Pulse Resp BP BP Pulse Ox 04/07/21 15:38 36.6 C 81 121/73 04/07/21 14:47 36.7 C 78 117/47 L 04/07/21 14:12 36.4 C L 90 104/56 L 04/07/21 13:42 36.5 C 93 H 104/61 04/07/21 13:27 36.9 C 84 112/62 04/07/21 13:06 36.4 C L 99 H 102/61 04/07/21 11:35 36.6 C 81 19 134/71 95 04/07/21 08:32 86 114/71 04/07/21 08:00 73 04/07/21 07:50 71 106/54 L Laboratory Results Cardiac Enzymes 04/06/21 04/06/21 04/07/21 Range/Units 16:58 23:01 08:18 Troponin I 0.721 H* 0.876 H* 0.341 H* (0-0.045) ng/ml Coagulation 04/06/21 04/07/21 04/07/21 Range/Units 18:53 02:20 09:42 PT 9.8 (9.0-12.0) Seconds APTT 26.2 41.6 H 38.7 H (21.0-31.0) Seconds CBC 04/06/21 04/06/21 04/07/21 Range/Units 18:53 23:01 02:20 WBC 9.53 9.57 (4.8-10.8) K/uL RBC 4.22 3.91 L (4.2-5.4) M/uL Hgb 8.8 L 8.5 L 8.3 L (12.0-16.0) g/dL Hct 31.2 L 30.0 L 28.8 L (37-47) % Plt Count 273 257 (130-400) K/uL Neut # (Auto) 6.90 H 5.84 (1.4-6.5) K/uL Lymph # (Auto) 1.83 2.71 (1.2-3.4) K/uL Mchenry # (Auto) 0.68 H 0.80 H (0.11-0.59) K/uL Eos # (Auto) 0.08 0.18 (0-0.5) K/uL Baso # (Auto) 0.02 0.01 (0-0.2) K/uL Comprehensive Metabolic Panel 04/07/21 Range/Units 02:20 Sodium 140 (136-145) mmol/L Potassium 3.8 (3.5-5.1) mmol/L Chloride 109 H (98-107) mmol/L Carbon Dioxide 24 (21-32) mmol/L BUN 17 (7-18) mg/dl Creatinine 0.95 (0.6-1.2) mg/dl Glucose 144 H (70-99) mg/dl Calcium 8.5 (8.5-10.1) mg/dl Intake and Output 04/07/21 04/07/21 04/07/21 06:59 14:59 22:59 Intake Total 423.5 / 423.5 623.005 / 1033.005 410 / 1033.005 Output Total Balance 423.5 / 423.5 622.005 / 1032.005 410 / 1032.005 Intake: IV 123.5 / 123.5 148.005 / 148.005 Heparin Sodium/Dextrose 25,000 123.5 / 123.5 148.005 / 148.005 units In 500 ml @ 800 UNITS/HR 16 mls/hr IV .Q24H [facility] Rx#: [id number] Oral 300 / 300 475 / 475 Intake (Blood Product) Amt 0 / 310 310 / 310 Packed Cells, Leukoreduced 0 / 310 310 / 310 Unit [id number] Other 100 / 100 Packed Cells, Leukoreduced 100 / 100 Unit [id number] Output: # Bowel Movements Other: Weight 83 kg Weight Measurement Method Built in [facility] Diagnostic Findings Telemetry: Sinus rhythm, no significant arrhythmia PG Care Time/CCT Total # of Minutes Spent Total Time Spent with Patient: Total time spent is greater than 50% in coordination of care (as documented) at patient's floor/unit and/or counseling patient: Coding Level of Care Code 97037 Initial Inpt Care Lvl 3 Diagnoses NSTEMI (non-ST elevated myocardial infarction) I21.4 Chest discomfort R07.89
[2021-04-07 16:42] LABS: Hematocrit (blood only) 34.2 % (37-47); Hemoglobin 10.1 g/dL (12.0-16.0)
--- NOTE | 2021-04-07 19:42 | Electrocardiogram Report ---
Test Reason : Blood Pressure : / mmHG Vent. Rate : 100 BPM Atrial Rate : 100 BPM P-R Int : 148 ms QRS Dur : 086 ms QT Int : 352 ms P-R-T Axes : 054 032 033 degrees QTc Int : 454 ms Normal sinus rhythm Premature atrial complexes Nonspecific ST abnormality Abnormal ECG When compared with ECG of 17-MAY-2020 15:09, No significant change Confirmed by Estuardo Oswald ([id number]) on 04/07/2021 7:42:01 PM Referred By: REFERRED SELF Confirmed By:Estuardo Oswald
--- NOTE | 2021-04-07 19:43 | Electrocardiogram Report ---
Test Reason : Blood Pressure : / mmHG Vent. Rate : 105 BPM Atrial Rate : 119 BPM P-R Int : 162 ms QRS Dur : 082 ms QT Int : 392 ms P-R-T Axes : 072 047 065 degrees QTc Int : 518 ms Sinus tachycardia Premature atrial complexes Otherwise normal ECG When compared with ECG of 06-APR-2021 12:19, (unconfirmed) No significant change Confirmed by Estuardo Oswald ([id number]) on 04/07/2021 7:43:03 PM Referred By: REFERRED SELF Confirmed By:Estuardo Oswald
--- NOTE | 2021-04-07 19:58 | Electrocardiogram Report ---
Test Reason : Blood Pressure : / mmHG Vent. Rate : 084 BPM Atrial Rate : 084 BPM P-R Int : 150 ms QRS Dur : 084 ms QT Int : 402 ms P-R-T Axes : 065 047 048 degrees QTc Int : 475 ms Normal sinus rhythm with sinus arrhythmia Normal ECG When compared with ECG of 06-APR-2021 13:35, (unconfirmed) Nonspecific T wave abnormality no longer evident in Lateral leads Confirmed by Estuardo Oswald ([id number]) on 04/07/2021 7:58:42 PM Referred By: REFERRED SELF Confirmed By:Estuardo Oswald
[2021-04-07] MEDS: carvediloL 3.125 MG TAB PO SCH (21:19)
[2021-04-07] MEDS: GABAPENTIN 100 MG CAP PO SCH (21:19)
[2021-04-07] MEDS: PANTOprazole 40 MG TAB PO SCH (21:20)
[2021-04-08] MEDS: NITROGLYCERIN 2% OINTMENT 30GM TUBE EXT SCH ×2 (04:22→08:22)
[2021-04-08] MEDS: LEVOTHYROXINE SODIUM 25 MCG TABLET PO SCH (05:56)
[2021-04-08 06:24] LABS: Basophils # (auto) 0.03 K/uL (0-0.2); Basophils % (auto) 0.3 %; Eosinophils # (auto) 0.26 K/uL (0-0.5); Eosinophils % (auto) 2.4 %; Hematocrit (blood only) 33.7 % (37-47); Hemoglobin 9.9 g/dL (12.0-16.0); Immature Granulocytes # (auto) 0.03 K/uL (0.00-0.02); Immature Granulocytes % (auto) 0.3 %; Lymphocytes # (auto) 2.46 K/uL (1.2-3.4); Mean Corpuscular Hemoglobin 22.3 pg (25-34); Mean Corpuscular Hgb Conc 29.4 g/dL (32-36); Mean Corpuscular Volume 76.1 fL (80-100); Mean Platelet Volume 9.3 fL (7.4-10.4); Monocytes # (auto) 0.99 K/uL (0.11-0.59); Monocytes % (auto) 9.3 %; Neutrophils # (auto) 6.93 K/uL (1.4-6.5); Neutrophils % (auto) 64.7 %; Platelet Count 227 K/uL (130-400); RDW Coefficient of Variation 18.1 % (11.5-14.5); RDW Standard Deviation 50.9 fL (36.4-46.3); Red Blood Count 4.43 M/uL (4.2-5.4)
[2021-04-08 06:54] LABS: Albumin Globulin Ratio 0.7 (0.9-2); Albumin Level 2.6 gm/dl (3.4-5.0); BUN Creatinine Ratio 18.6 (10-20); Bilirubin,Total 0.5 mg/dl (0.2-1); Calcium 8.7 mg/dl (8.5-10.1); Creatinine Clr Calc Pharmacy 32.7 ml/min; Est GFR (African American) 53.5 ml/min; Est GFR (Non-African American) 46.1 ml/min; Globulin 3.8 gm/dl (2.5-4.0); Magnesium 2.1 mg/dl (1.8-2.4); Potassium 4.3 mmol/L (3.5-5.1); Total Protein 6.4 gm/dl (6.4-8.2)
[2021-04-08 07:19] LABS: Estimated Average Glucose 174 mg/dl; Hemoglobin A1C 7.7 % (4.5-5.6)
[2021-04-08] MEDS: CLOPIDOGREL BISULFATE 75 MG TAB PO SCH (08:01)
[2021-04-08] MEDS: PANTOprazole 40 MG TAB PO SCH (08:01)
[2021-04-08] MEDS: carvediloL 3.125 MG TAB PO SCH (08:01)
[2021-04-08] MEDS: ROSUVASTATIN CALCIUM 20 MG TAB PO SCH (08:02)
[2021-04-08] MEDS: INSULIN ASPART 100 UNITS/ML 3 ML PEN SC SCH ×2 (08:03→11:54)
[2021-04-08] MEDS: INSULIN HUMAN NPH SC SCH (08:05)
--- NOTE | 2021-04-08 11:39 | Pharmacy Report ---
Pharmacy Glycemic Short Note 2 - Date of Service April 08, 2021 - Glycemic Short BSG Results (Last 24 hours): 04/07/21 04/07/21 04/08/21 16:03 20:39 05:55 Glucose 98 POC Glucose 239 H 89 04/08/21 04/08/21 06:56 11:06 Glucose POC Glucose 111 H 129 H OUTPATIENT ANTIDIABETIC REGIMEN: * Novolog 70/30 50 units BID * Pt took 45 units SQ 10/2 AM Prior to admission ASSESSMENT: 04/08 * Patient received total of 73 units of insulin yesterday, of which 50 units were NPH * Fasting BSG 98 mg/dL - november scale back on evening NPH slightly as HS BSG also on lower side * Continue with NPH 25 units for this AM, continue same CF/CR for now 04/07 * 85 year old female admitted w/ NSTEMI, type 2 diabetic, A1c 7.6% in November 2020, repeat pending. * Outpatient regimen is premixed basal/prandial insulin of NovoLog 70/30 mix insulin. * Pre-mixed insulin is difficult to titrate since it is already in a fixed distribution of basal:prandial insulin. Continuing pre-mixed insulin for admission typically lead to hypoglycemia d/t changing PO status but rapid acting insulin is unable to be held. * Home regimen will be held for admission per pharmacy consult. Will utilize recommended regimen of SQ basal bolus insulin regimen with NPH + NovoLog (CF+CR). * Blood sugar high today at lunch, but NPH dose given late, so no adjustments at this time. Titrate doses to goal blood sugar. PLAN FOR INPATIENT GLYCEMIC CONTROL: * Hold outpatient mixed insulin * Basal insulin * NPH 25 units Qam * NPH 20 units with dinner * Bolus insulin * NovoLog per scale ACHS or Q6hrs while NPO * Goal Range: Low 110 mg/dL - High 140 mg/dL * Correction Factor: 25 mg/dL/unit * Nutritional / Prandial insulin per carb ratio of 1 unit per 9 grams CHO consumed PLAN FOR DISCHARGE: * A1c 7.7% - goal <8% * Reasonable to continued home insulin regimen on discharge as long as patient is not reporting frequent hypoglycemia
[2021-04-08] MEDS ORDERED: ACETAMINOPHEN 325 MG TAB PO ONE (11:42)
[2021-04-08] MEDS: FERROUS SULFATE 325 MG TAB PO SCH (11:52)
--- NOTE | 2021-04-08 14:32 | Electrocardiogram Report ---
Test Reason : Blood Pressure : / mmHG Vent. Rate : 078 BPM Atrial Rate : 078 BPM P-R Int : 152 ms QRS Dur : 080 ms QT Int : 416 ms P-R-T Axes : 064 034 028 degrees QTc Int : 474 ms Sinus rhythm with marked sinus arrhythmia Otherwise normal ECG When compared with ECG of 07-APR-2021 08:23, No significant change was found Confirmed by Eliazar Rae ([id number]) on 04/08/2021 2:32:30 PM Referred By: REFERRED SELF Confirmed By:Kaleb Rae
[2021-04-08] MEDS ORDERED: INSULIN HUMAN NPH SC SCH (18:00)
[2021-04-09] MEDS ORDERED: INSULIN HUMAN NPH SC SCH (08:00)
--- NOTE | 2021-04-11 09:32 | Discharge Summary ---
Date of Service April 08, 2021 Admission HPI Per Admitting Provider Debra Angel is an 85 year female with known coronary artery disease who comes to the ER with chest pain started 10:30am this morning went for groceries and riding in cart. Lives at [facility] and when she went back into building her chest pain started chest pain, mostly on right side and down both arms, severity 10/10 currently 0/10, thinks just lying down helped it. Lasted till she came to the ER but also reports it returned she she had the contrast for the CT for PE. No diaphoresis or nausea. She did not associated shortness of breath which she still has. She has refused aspirin or nitroglycerin by EMS and the ER physician. Aspirin because she has a remote history of GI bleed that did not require blood transfusions. Nitroglycerin gives her a headache. She is a former smoker with 35 pack-year history, quitting 7 years ago. In the ER EKG showed sinus tachycardia but no acute ischemic changes. Initial troponin negative. She was referred to medicine for admission and ongoing management of chest pain. I convinced her to take some aspirin with some food. An hour after taking this her shortness of breath resolved. Second troponin came back positive. She was initially admitted to med/tele until second troponin came back positive then was transferred to PCU. Principal Diagnosis NSTEMI Discharge Exam General: Resting comfortably in his/her hospital bed/bedside chair. NAD. HEENT: Head is AT/NC buccal mucosa is moist and pink Neck: No JVD. Negative hepatojugular reflex Cardiac: RRR without M/G/R Lungs: CTA without W/R/R Abdomen: Normoactive X4. Soft and nontender in all quadrants. Extremity: + adiposity without true pitting edema no peripheral clubbing cyanosis or edema Neuro: A&O X4 cranial nerves II through XII are grossly intact no focal neuro deficits Skin: No obvious skin lesions or rashes Psych: Appropriate affect pleasant and cooperative Discharge Data Allergies Allergy/AdvReac Type Severity Reaction Status Date / Time adhesive Allergy Mild Rash Verified 04/11/21 13:56 egg Allergy Mild GI SYMPTOMS Verified 04/11/21 13:56 garlic Allergy Mild GI symptoms Verified 04/11/21 13:56 povidone-iodine Allergy Mild itchy Verified 04/11/21 13:56 [From Betadine] propoxyphene Allergy Mild light Verified 04/11/21 13:56 headed sertraline Allergy Mild Dizziness Verified 04/11/21 13:56 soap [From Betadine] Allergy Mild itchy Verified 04/11/21 13:56 Sulfa (Sulfonamide Allergy Mild GI symptoms Verified 04/11/21 13:56 Antibiotics) simvastatin AdvReac Intermediate MYALGIA Verified 04/11/21 13:56 Consultations 04/06/21 13:56 ED Decision to Admit Stat 04/06/21 17:49 Consult Cardiology Routine Ordered Studies 04/06/21 13:05 CT angio chest PE protocol Stat Hospital Course (1) NSTEMI (non-ST elevated myocardial infarction): 85 y/o WM who follows Dr. Hunt. PMHx of known CAD/Angina, DM, HTN - presented to the ED c/o CP x 1/2 hour - initial troponin was negative. - EKG was nonacute. FU EKG done today and remains nonacute - CTA negative for PE - Already takes Plavix and high intensity statin. ASA added in the ED - subsequent troponin was elevated at 0.876 for which a heparin gtt was added. Troponin further cycled and downtrending (0.015 --> 0.876 --> 0.341) - anemia noted upon admission (hgb 9.5). Is 8.3 today. Patient denied melena or hematochezia or known h/o anemia. hgb baseline ~10.0 - Rectal exam done and Hemoccult positive. No melena. - with marginal hypotension this am (that was self limiting), will T&C and transfuse 1Unit of PRBC's with premedication. Patient may have associated supply demand ischemia and would benefit from the oxygen carrying capacity of blood - I did run this past cardiology who agrees with discontinuation of aspirin and heparin for now. Okay to continue aspirin along with aggressive medical management - Continue topical paste as blood pressure will allow. With improving BP, will add beta-blockade - Echo done yesterday--> preserved EF of 60-65% without RWMA - cardiology consulted-- appreciate recommendations review of records shows--(100% RCA obstruction with collaterals, 1994). Doubt any intervention needs done during this hospitalization; however, this is discretion of cardiology. Appreciate recommendations. (BOLD) NSTEMI (non-ST elevated myocardial infarction): 1. Chest discomfort: Her presenting description of chest discomfort with left arm radiation is suspicious for ischemia but I suspect it is on the basis of acute anemia in the setting of coronary artery disease. It lasted for several hours before being relieved in the emergency room so small enzyme leak is consistent with this. 2. NSTEMI: She appears to have had an NSTEMI based on cardiac enzymes however it may be on the basis of demand ischemia although the association with chest di scomfort suggests she may have some element of progression of coronary artery disease compared to her prior catheterization many years ago. On the other hand with her anemia and probable GI bleed I would not consider catheterization or intervention unless we are forced to do so, I would favor conservative treatment with blood transfusions and observation for recurrent symptoms. There is no evidence that she has had a vessel occlusion based on her electrocardiogram and enzyme pattern as well as resolution of her symptoms. With her GI bleed I agree with continuing clopidogrel as a platelet inhibitor and avoiding anticoagulation otherwise unless progressive cardiac symptoms or signs require further treatment. (2) Coronary artery disease: As above (3) Microcytic anemia: - as outlined above, patient would benefit from the O2 carrying capacity of blood - T&C/transfuse 1 Unit now (in the setting of NSTEMI). consent obtained - iron studies to be drawn PRIOR TO TRANSFUSION - patient has had multiple c.scopes in the past with polypectomy Colonoscopy Impression - Two 4 to 5 mm polyps in the rectum and in the transverse colon, removed with a hot snare. Resected and retrieved. - Patent end-to-side colo-colonic anastomosis, characterized by healthy appearing mucosa. - Diverticulosis in the sigmoid colon. - Non-bleeding internal hemorrhoids. - she currently denies melena/hematochezia - rectal exam positive for occult blood (4) Type II diabetes mellitus, well controlled: HbA1C 7.6 in November, repeat with AM labs pharmacy on board for glycemic control (5) Hyperlipidemia: Continue rosuvastatin (6) Hypertension: - patient with accelerated BP upon arrival into the ED (190's/70's) - this am, slightly hypotensive (stable right now) - continue topical nitropaste in the setting of NSTEMI - hold ACEI - BP acceptable for addition of BB. Will hold if needed (hypotensive/bradycardic) (7) GERD (gastroesophageal reflux disease): - Switch Esomeprazole for pantoprazole per hospital formulary and patient takes plavix at home. Will need to stay on protonix (8) Hypothyroidism: TSH 3.15 Continue levothyroxine 25 mcg PO daily (9) Lung nodule: 6 mm pleural-based coronary nodule in the left lower lobe. According to Fleischner criteria, CT chest should be performed at 6-12 months. In high-risk patients, a 18-24 month follow-up is recommended, in low-risk patients, this 18- 24 month follow-up CT is optional. Plan of care D/W Dr. Shi Total Time Total Time Spent Total Time Spent (In Minutes): 33 Discharge Plan Discharge Items Patient Disposition: Home - Self-Care Reason For Visit: CHEST PAIN RULE OUT MA Discharge Diagnosis: chest pain rule out Activity: Resume your previous activity Non-emergency contact: Primary Care Provider Call non-emergency contact if: you have any medication questions Follow-up/Referrals: Zulema Gonsalez CRNP [Primary Care Provider] - 04/15/21 2:00 pm (YOU WILL SEE MARTHA VASQUEZ) Diet: Regular Addtl Attending Provider Instructions: You have been hospitalized for an acute medical problem. During your stay at [facility], we have made an effort to correct the problem that brought you to the hospital while keeping you as comfortable as possible. Medications were used to bring your condition under control and your discharge instructions will include directions for any medications you should take after leaving the hospital. Please make sure you see your Primary Care Provider as part of your follow up plan. You will have an appointment on 04/11/21 to be seen by one of Dr. Abad's APC at 1:[address] [facility]. [address], [place] [address] Will recommend you recheck your blood work this Thursday. Please take iron supplements. Pending Studies at Discharge: No Stand-Alone Forms: My [facility], Smoking Cessation Medications and DC Order Prescriptions: New carvedilol 3.125 mg Tablet 3.125 mg PO BID Qty: 60 RF: 0 Continued gabapentin 100 mg capsule 100 mg PO HS Qty: 90 RF: 4 clopidogrel [Plavix] 75 mg tablet 75 mg PO DAILY Qty: 90 RF: 3 esomeprazole magnesium 40 mg capsule,delayed release(DR/EC) 40 mg PO DAILY Qty: 90 RF: 3 rosuvastatin 20 mg tablet 20 mg PO DAILY Qty: 90 RF: 3 lisinopril 10 mg tablet 10 mg PO DAILY Qty: 90 RF: 3 levothyroxine 25 mcg tablet 25 mcg PO DAILY Qty: 90 RF: 3 ferrous sulfate 325 mg (65 mg iron) tablet 325 mg PO DAILY Qty: 30 RF: 6 cyclobenzaprine 5 mg tablet 5 mg PO TID PRN (Reason: muscle spasm) Qty: 30 RF: 0 No Action insulin asp prt-insulin aspart [Novolog Mix 70-30FlexPen U-100] 100 unit/mL (70-30) insulin pen See Rx Instructions SUBCUT BID Qty: 8 RF: 3 Discharge Orders: Discharge Order (Routine); Ordered 04/08/21 Ordered By: Melecio Og/Other Patient Handouts: A1C, Managing Type 2 Diabetes Admission Data Admit Date/Time: 04/07/21 07:39 Attending Provider: Melecio Hackett Admit Provider: David Dia Primary Care Provider: Zulema Gonsalez I. Other Providers: Nic Boss ; David Dia ; Estuardo Oswald Other Interventions: Discharge Summary Assessment (RN) Last Done: 04/08/21 15:03 Coding Level of Care Code D/C DAY MANAGEMENT >30 MINS Diagnoses NSTEMI (non-ST elevated myocardial infarction) I21.4 Coronary artery disease I25.10 Microcytic anemia D50.9 Type II diabetes mellitus, well controlled E11.9 Hyperlipidemia E78.2 Hyperlipidemia type: mixed hyperlipidemia Hypertension I10 Hypertension type: unspecified GERD (gastroesophageal reflux disease) K21.9 Hypothyroidism E03.9 Lung nodule R91.1 Time Spent (min) 32
== END 2021-04-08 17:10 | disposition home or self-care (01) | DRG 282 ==
LOC: 2W 12:08 → ED 12:08 → SUATTDRO 16:16 → 2W 18:29 → 2S 22:43 → SUATTDRO 04-07 07:39

== ENCOUNTER 2022-07-02 07:09 | Inpatient (IN) ==
[2022-07-02] MEDS ORDERED: SODIUM CHLORIDE 0.9% 1000ML 500 ML IV ONE (07:26)
[2022-07-02] MEDS ORDERED: ALBUT/IPRATROP 3MG/0.5MG NEB 3 ML VIAL NEB ONE (07:26)
--- NOTE | 2022-07-02 07:29 | Emergency Department Note ---
Impression & Plan COPD with acute exacerbation, Respiratory difficulty ED Provider Note Name: TUNG THURMAN Age: 86 Sex: F Arrives Via: Walk-In Informant: Patient, Daughter ED Provider: Harry Gordon MD Chief Complaint: Shortness of breath Impression: As per impression above Medical Decision Makin-year-old female arrives for evaluation of 5 days of illness with worsening breathing difficulty. She arrives significantly short of breath with diffuse tight lung sounds. She does have a history of CHF though does not appear significantly fluid overloaded at this time, in fact seems a bit dry. She was given an hour-long breathing treatment along with some IV steroids. She has actually much louder wheezing but breathing has improved somewhat. She is still in far too much respiratory distress for discharge at this time. Suspect she has an acute COPD exacerbation secondary to likely viral illness. Hospitalist was consulted for further management. Prior Medical Record and Triage/Nursing Notes reviewed by Me Additional history obtained from chart and daughter Differentials:Reactive airway disease, pneumonia, pneumothorax, COPD, CHF, infections, cardiac ischemia, pulmonary embolism, musculoskeletal, gastrointestinal, as well as other pathologies. Vital Signs: reviewed and remarkable for tachycardia Interventions: duoneb x 1 hr, decadron 10mg iv, nss bolus Labs:Reviewed and remarkable for no significant abnormalities Imagin view chest x-ray as per radiology possible congestive failure EKG:As per my interpretation. Indication shortness of breath. Sinus tachycardia at 104 bpm with a QTC of 470. There is no ectopy nor ischemia. When compared to EKG from there are no significant changes. Consults:Dr Segundo KAMARA hospitalist Plan: Disposition:Hospitalization. Condition: Good History of Present Illness:86-year-old female arrives for evaluation of illness. Patient with 5 days worsening illness. Associated runny nose, sore throat, congestion, cough, shortness of breath generalized malaise/fatigue. Daughter notes that her legs were mildly swollen a few days ago but they seem to have come down. Patient does have a history of CHF. She has been exposed to multiple people but no known sick contacts. No medications prior to arrival. Any exertion makes worse rest makes better. No fevers, chills, vomiting, abdominal pain, back pain, urinary symptoms, calf pain or other concerning signs or symptoms. She has had her COVID and flu vaccinations. ROS: See above HPI for pertinent positives & negatives. A total of 10 systems reviewed and were otherwise negative. Past Medical History:See Below Past Surgical History:See Below Family History:See Below Social History:See Below Home Medications:See Below Allergies:See Below Vitals:Blood Pressure: 182/65, Pulse 106, RR 22, T 36.0C, O2 95% on RA Physical Exam: GENERAL: Patient is tired appearing and in mild distress. Dehydrated EYES: No scleral icterus, unremarkable pupils. ENT: Mucous membranes dry, no nasal congestion. NECK: No masses appreciated, nomeningismus, trachea is midline. RESPIRATORY: Hoarse voice/laryngitis with nonproductive yet junky cough mild diffuse wheezing CARDIOVASCULAR: Tachycardic.No murmurs, rubs, gallops appreciated. GASTROINTESTINAL: Abdomen soft, non-tender, no peritonitis.Bowel sounds positive.No masses appreciated. BACK: No midline tenderness, no CVA tenderness EXTREMITIES: Normal motion all extremities, no cyanosis, 1+ edema. NEUROLOGIC: Alert and oriented, no acute motor or sensory deficits, no focal weakness, cranial nerves grossly intact. SKIN: No rash, no jaundice, no diaphoresis. PSYCH: Appropriate GCS: 15 ED Course: Times/Reassessments: Patient is breathing significantly better after DuoNeb treatment. She is a bit tachycardic which has slowly improved. Agreeable to hospitalization. Harry Gordon MD Past Med/Surg History Medical History Anemia ASCVD (arteriosclerotic cardiovascular disease) Carotid artery stenosis Cerebral arterial aneurysm COPD (chronic obstructive pulmonary disease) CVA (cerebral vascular accident) CVA (cerebral vascular accident) Diabetes mellitus, type 2 Diabetic peripheral neuropathy GI bleed Hearing deficit History of CHF (congestive heart failure) Hx of angina pectoris Hyperlipidemia Hypothyroid NSTEMI (non-ST elevated myocardial infarction) Occlusion and stenosis of carotid artery with cerebral infarction On anticoagulant therapy Osteoarthritis Rectocutaneous fistula Restless leg syndrome Surgical History H/O section History of bilateral cataract extraction History of bilateral tubal ligation History of cardiac cath History of colonoscopy History of sigmoidoscopy History of tonsillectomy and adenoidectomy History of tooth extraction History of total abdominal hysterectomy and bilateral salpingo-oophorectomy S/P cholecystectomy S/P removal of ovarian cyst Family History Grandmother (Paternal) Family history of diabetes mellitus Father Myocardial infarction Mother Myocardial infarction Family/Other Heart disease Multiple benign polyps of large intestine Other No family history of adverse response to anesthesia Denies family history of Ovarian cancer Prostate cancer Crohn's disease Colorectal cancer Cancer Ulcerative colitis Social History Smoking Status: Former smoker Tobacco Type: Cigarettes Cigarettes Per Day: 1 pack per day; Second Hand Exposure: No; Hx Alcohol Use: No Hx Substance Use: No Preferred Language: Korean Communication Ability: Effective Visual Impairment: No Limitations Hearing Ability: Use of Hearing Aid Whizzer Operator Required: No Beliefs That Will Affect Care: None marital status: Current Living Situation: Alone Current Living Situation Comment: senior apartment current occupational status: retired Feels Safe at Home: Yes Childhood Exposure to Second-Hand Smoke: Yes Dental Care, Regularly: No Physical Activity Frequency: Does not Exercise Seatbelt Use: always Sunscreen Use: No Assistive Devices: Denture - Upper, Denture - Lower, Glasses, Hearing Aid - Bilateral and Walker Allergies Allergies Allergy/AdvReac Type Severity Reaction Status Date / Time adhesive Allergy Mild Rash Verified 06/17/22 12:57 egg Allergy Mild GI SYMPTOMS Verified 06/17/22 12:57 garlic Allergy Mild GI symptoms Verified 06/17/22 12:57 propoxyphene Allergy Mild light Verified 06/17/22 12:57 headed sertraline Allergy Mild Dizziness Verified 06/17/22 12:57 soap [From Betadine] Allergy Mild itchy Verified 06/17/22 12:57 Sulfa (Sulfonamide Allergy Mild GI symptoms Verified 06/17/22 12:57 Antibiotics) simvastatin AdvReac Intermediate MYALGIA Verified 06/17/22 12:57 Home Meds Home Medications Medication Instructions Recorded Confirmed ferrous sulfate 325 mg (65 mg 162.5 mg PO DAILY 12/09/21 01/22/22 iron) tablet Previous Rx's Medication Instructions Recorded cyclobenzaprine 5 mg tablet 5 mg PO TID PRN muscle spasm #30 04/15/21 tabs clotrimazole-betamethasone 1 1 applic topical BID PRN rash #45 07/11/21 %-0.05 % topical cream grams rosuvastatin 20 mg tablet (Crestor) 20 mg PO HS #90 tabs 07/11/21 insulin aspar prot-insulin aspart See Rx Instructions subcut 09/10/21 100 unit/mL (70-30) subcutaneous .COMPLEX #90 mL pen (Novolog Mix 70-30FlexPen U-100) Accu-Chek Guide test strips (blood #200 ea 10/07/21 sugar diagnostic) gabapentin 100 mg capsule 100 mg PO HS #90 caps 11/26/21 levothyroxine 25 mcg tablet 25 mcg PO QAM #90 tabs 11/26/21 lisinopril 10 mg tablet 10 mg PO QAM #90 tabs 11/26/21 esomeprazole magnesium 40 mg 40 mg PO QAM #90 caps 04/29/22 capsule,delayed release clopidogrel 75 mg tablet (Plavix) 75 mg PO QPM #90 tabs 05/02/22 carvedilol 3.125 mg tablet 3.125 mg PO BID #60 tabs 05/15/22 Results & Data (ED) Vital Signs Vital Signs - 24 hr 07/02/22 07:13 07/02/22 07:41 07/02/22 07:48 Temperature 36.0 C L Temperature Source Temporal Artery Scan Pulse Rate 106 H Pulse Rate [Finger] 106 H Pulse Rate from SpO2 Sensor Pulse Rhythm Regular Pulse Rhythm [Finger] Pulse Strength Normal Respiratory Rate 22 22 Respiratory Effort / Characteristics Non-Labored Spontaneous Non-Labored Spontaneous Respiratory Depth Normal Respiratory Pattern Regular Blood Pressure 182/65 H Blood Pressure [Left Arm] Blood Pressure Mean 104 Blood Pressure Mean [Left Arm] Blood Pressure Position Sitting Pulse Oximetry 95 96 Oxygen Delivery Method Room Air Room Air Room Air Oxygen Flow Rate 0 Sepsis Recent Fever Within 48 Hours No Sepsis New/Unexplained Change in Mental Status No Sepsis Action Taken by Nursing No Action Required 07/02/22 07:48 07/02/22 07:48 07/02/22 08:33 Temperature Temperature Source Pulse Rate Pulse Rate [Finger] 103 H 122 H Pulse Rate from SpO2 Sensor Pulse Rhythm Pulse Rhythm [Finger] Regular Pulse Strength Respiratory Rate 19 19 Respiratory Effort / Characteristics Respiratory Depth Respiratory Pattern Blood Pressure Blood Pressure [Left Arm] 200/61 H 229/77 H Blood Pressure Mean Blood Pressure Mean [Left Arm] 107 127 Blood Pressure Position Pulse Oximetry 100 100 100 Oxygen Delivery Method Room Air Room Air Room Air Oxygen Flow Rate 0 Sepsis Recent Fever Within 48 Hours Sepsis New/Unexplained Change in Mental Status Sepsis Action Taken by Nursing 07/02/22 07:48 07/02/22 07:50 07/02/22 07:50 Temperature Temperature Source Pulse Rate 99 H 99 H Pulse Rate [Finger] Pulse Rate from SpO2 Sensor 102 H 105 H Pulse Rhythm Pulse Rhythm [Finger] Pulse Strength Respiratory Rate 17 18 Respiratory Effort / Characteristics Respiratory Depth Respiratory Pattern Blood Pressure 200/61 H Blood Pressure [Left Arm] Blood Pressure Mean 107 Blood Pressure Mean [Left Arm] Blood Pressure Position Pulse Oximetry 100 100 Oxygen Delivery Method Oxygen Flow Rate Sepsis Recent Fever Within 48 Hours Sepsis New/Unexplained Change in Mental Status Sepsis Action Taken by Nursing 07/02/22 08:00 07/02/22 08:10 07/02/22 08:20 Temperature Temperature Source Pulse Rate 112 H 112 H 115 H Pulse Rate [Finger] Pulse Rate from SpO2 Sensor 111 H 114 H 115 H Pulse Rhythm Pulse Rhythm [Finger] Pulse Strength Respiratory Rate 18 15 18 Respiratory Effort / Characteristics Respiratory Depth Respiratory Pattern Blood Pressure Blood Pressure [Left Arm] Blood Pressure Mean Blood Pressure Mean [Left Arm] Blood Pressure Position Pulse Oximetry 98 100 100 Oxygen Delivery Method Oxygen Flow Rate Sepsis Recent Fever Within 48 Hours Sepsis New/Unexplained Change in Mental Status Sepsis Action Taken by Nursing 07/02/22 08:30 07/02/22 08:31 07/02/22 08:31 Temperature Temperature Source Pulse Rate 123 H 124 H Pulse Rate [Finger] Pulse Rate from SpO2 Sensor 127 H 124 H Pulse Rhythm Pulse Rhythm [Finger] Pulse Strength Respiratory Rate 20 23 Respiratory Effort / Characteristics Respiratory Depth Respiratory Pattern Blood Pressure 229/77 H Blood Pressure [Left Arm] Blood Pressure Mean 127 Blood Pressure Mean [Left Arm] Blood Pressure Position Pulse Oximetry 100 100 Oxygen Delivery Method Oxygen Flow Rate Sepsis Recent Fever Within 48 Hours Sepsis New/Unexplained Change in Mental Status Sepsis Action Taken by Nursing 07/02/22 08:40 07/02/22 08:50 07/02/22 08:59 Temperature Temperature Source Pulse Rate 130 H 97 H 103 H Pulse Rate [Finger] Pulse Rate from SpO2 Sensor 130 H 98 H 102 H Pulse Rhythm Pulse Rhythm [Finger] Pulse Strength Respiratory Rate 25 H 30 H 20 Respiratory Effort / Characteristics Respiratory Depth Respiratory Pattern Blood Pressure 114/85 Blood Pressure [Left Arm] Blood Pressure Mean 94 Blood Pressure Mean [Left Arm] Blood Pressure Position Pulse Oximetry 100 100 100 Oxygen Delivery Method Oxygen Flow Rate Sepsis Recent Fever Within 48 Hours Sepsis New/Unexplained Change in Mental Status Sepsis Action Taken by Nursing Laboratory Data Result diagrams: 07/02/22 07:45 07/02/22 07:45 Lab Results 07/02/22 07/02/22 07/02/22 Range/Units 07:45 07:45 07:45 WBC 7.67 (4.8-10.8) K/ul RBC 4.93 (3.93-5.22) M/uL Hgb 10.9 L (12.0-16.0) g/dl Hct 38.1 (34.1-44.9) % MCV 77.3 L (80.0-100.0) fL MCH 22.1 L (25.0-34.0) pg MCHC 28.6 L (32.0-36.0) g/dL RDW Std Deviation 50.1 H (36.4-46.3) fL RDW Coeff of [place] 18.3 H (11.5-14.5) % Plt Count 229 (130-400) K/uL MPV 9.7 (9.4-12.3) fL Immature Gran % (Auto) 0.3 % Neut % (Auto) 69.4 % Lymph % (Auto) 15.1 % Ocean % (Auto) 11.9 % Eos % (Auto) 2.6 % Baso % (Auto) 0.7 % Neut # (Auto) 5.33 (1.4-6.5) K/uL Lymph # (Auto) 1.16 L (1.2-3.4) K/uL Ocean # (Auto) 0.91 H (0.24-0.82) K/uL Eos # (Auto) 0.20 (0-0.50) K/uL Baso # (Auto) 0.05 (0-0.2) K/uL Immature Gran # (Auto) 0.02 (0.00-0.02) K/uL Sodium 139 (136-145) mmol/L Potassium 3.7 (3.5-5.1) mmol/L Chloride 103 (98-107) mmol/L Carbon Dioxide 29 (21-32) mmol/L Anion Gap 7 (3-11) BUN 17 (6-23) mg/dl Creatinine 0.84 (0.6-1.2) mg/dl Est Cr Clr Drug Dosing 43.5 ml/min Est GFR ( Amer) 71.9 ml/min Est GFR (Non-Af Amer) 62.1 ml/min BUN/Creatinine Ratio 20.2 H (10-20) Glucose 250 H (70-99(Fasting)) mg/dl Calcium 8.5 (8.5-10.1) mg/dl Magnesium 1.8 (1.7-2.4) mg/dl Total Bilirubin 0.4 (0.2-1.0) mg/dl Direct Bilirubin 0.1 (0-0.2) mg/dl AST 16 (13-39) U/L ALT 9 (7-52) U/L Alkaline Phosphatase 94 (34-104) U/L Troponin I High Sens 23.3 H (0-14) pg/ml Total Protein 7.0 (6.0-8.3) gm/dl Albumin 3.8 (3.4-5.0) gm/dl Procalcitonin < 0.05 (0-0.5) ng/ml Administered Medications Discontinued Medications Albuterol (Albut/Ipratrop 3mg/0.5mg Neb 3 Ml Vial) 12 ml NEB ONE ONE; Protocol Stop: 07/02/22 07:27 Last Admin: 07/02/22 07:41 Dose: 12 ml Documented By: ALYSIA Dexamethasone Sodium Phosphate (DexamethasonePf 10 Mg/Ml Vial) 10 mg IV NOW ONE Stop: 07/02/22 09:16 Last Admin: 07/02/22 09:28 Dose: 10 mg Documented By: ETIENNE Sodium Chloride (Nss 1000ml) 500 mls @ 999 mls/hr IV .Q31M ONE Stop: 07/02/22 07:56 Last Infusion: 07/02/22 08:36 Dose: 0 mls/hr Documented By: Admin: 07/02/22 07:53 Dose: 999 mls/hr Documented By: ETIENNE Labetalol HCl (Labetalol Hcl Iv 5 Mg/Ml 20ml) 10 mg IV NOW STA Stop: 07/02/22 08:36 Last Admin: 07/02/22 08:41 Dose: 10 mg Documented By: ETIENNE Co-signed By: ESTELA Lisinopril (Lisinopril 10 Mg Tab) 10 mg PO NOW STA Stop: 07/02/22 08:36 Last Admin: 07/02/22 08:59 Dose: 10 mg Documented By: KV Imaging Data Radiologist's Impression: Chest X-Ray 07/02/22 07:26 SINGLE VIEW CHEST CLINICAL HISTORY: Dyspnea FINDINGS: An AP, portable, upright chest radiograph is compared to study dated 04/06/2021 and correlated with chest CT dated 11/05/2021. The heart is enlarged not ing atherosclerotic calcification of the thoracic aorta. There is prominence of the pulmonary vasculature. Chronic interstitial thickening is similar to previous. No airspace consolidation or large pleural effusion is identified. Tiny pulmonary nodules seen by CT are not apparent on x-ray. No pneumothorax is seen. The skeletal structures are osteopenic. The bony thorax is grossly intact. IMPRESSION: 1. Cardiomegaly with prominence of the pulmonary vasculature. Correlate clinically for evidence of fluid overload/congestive change. 2. No airspace consolidation or large pleural effusion is identified. ACT 112: Negative or not required by law. Electronically signed by: Jacques Stewart M.D. 07/02/2022 7:49 AM Discharge Plan Visit Data Chief Complaint: Respiratory Problems Stated Complaint: RESPIRATORY PROBLEMS ED Provider: Harry Gordon Discharge Problem: COPD with acute exacerbation, Respiratory difficulty Patient Disposition: Admitted As Inpatient Discharge Instructions Interventions: ED Discharge Assessment Last Done: 07/02/22 12:21
--- NOTE | 2022-07-02 07:50 | XRay Report ---
SINGLE VIEW CHEST CLINICAL HISTORY: Dyspnea FINDINGS: An AP, portable, upright chest radiograph is compared to study dated 04/06/2021 and correlat ed with chest CT dated 11/05/2021. The heart is enlarged noting atherosclerotic calcification of the th oracic aorta. There is prominence of the pulmonary vasculature. Chronic interstitial thickening is si milar to previous. No airspace consolidation or large pleural effusion is identified. Tiny pulmonary nodules seen by CT are not apparent on x-ray. No pneumothorax is seen. The skeletal structures are os teopenic. The bony thorax is grossly intact. IMPRESSION: 1. Cardiomegaly with prominence of the pulmonary vasculature. Correlate clinically for evidence of fl uid overload/congestive change. 2. No airspace consolidation or large pleural effusion is identified. ACT 112: Negative or not required by law. Electronically signed by: Jacques Stewart M.D. 07/02/2022 7:49 AM
[2022-07-02 08:29] LABS: Basophils # (auto) 0.05 K/uL (0-0.2); Basophils % (auto) 0.7 %; Eosinophils % (auto) 2.6 %; Immature Granulocytes # (auto) 0.02 K/uL (0.00-0.02); Immature Granulocytes % (auto) 0.3 %; Lymphocytes # (auto) 1.16 K/uL (1.2-3.4); Lymphocytes % (auto) 15.1 %; Monocytes # (auto) 0.91 K/uL (0.24-0.82); Monocytes % (auto) 11.9 %; Neutrophils # (auto) 5.33 K/uL (1.4-6.5); Neutrophils % (auto) 69.4 %
[2022-07-02 08:30] LABS: Hematocrit (blood only) 38.1 % (34.1-44.9); Hemoglobin 10.9 g/dl (12.0-16.0); Mean Corpuscular Hemoglobin 22.1 pg (25.0-34.0); Mean Corpuscular Hgb Conc 28.6 g/dL (32.0-36.0); Mean Corpuscular Volume 77.3 fL (80.0-100.0); Mean Platelet Volume 9.7 fL (9.4-12.3); Platelet Count 229 K/uL (130-400); RDW Coefficient of Variation 18.3 % (11.5-14.5); RDW Standard Deviation 50.1 fL (36.4-46.3); Red Blood Count 4.93 M/uL (3.93-5.22); White Blood Count 7.67 K/ul (4.8-10.8)
[2022-07-02] MEDS ORDERED: LABETALOL HCL IV 5 MG/ML 20ML IV STA (08:35)
[2022-07-02] MEDS ORDERED: lisinopril 10 MG TAB PO STA (08:35)
[2022-07-02 08:48] LABS: Influenza A virus by PCR Negative (Neg); Influenza B virus by PCR Negative (Neg); RSV by PCR Negative (Neg); SARS CoV2 RNA(COVID-19) Ceph NEGATIVE (Negative)
[2022-07-02 08:56] LABS: Troponin I High Sensitivity 23.3 pg/ml (0-14)
[2022-07-02 09:03] LABS: Albumin Level 3.8 gm/dl (3.4-5.0); BUN Creatinine Ratio 20.2 (10-20); Bilirubin Direct 0.1 mg/dl (0-0.2); Bilirubin,Total 0.4 mg/dl (0.2-1.0); Calcium 8.5 mg/dl (8.5-10.1); Creatinine Clr Calc Pharmacy 43.5 ml/min; Est GFR (African American) 71.9 ml/min; Est GFR (Non-African American) 62.1 ml/min; Magnesium 1.8 mg/dl (1.7-2.4); Potassium 3.7 mmol/L (3.5-5.1)
--- NOTE | 2022-07-02 09:11 | Emergency Department Note ---
ED Visit Note I personally performed a history and examined the patient in conjunction with Dr. Gordon. Additional information regarding the history, physical, assessment, and plan were discussed with supervising attending physician and are noted in their ED visit note. Resident Activity Tracking Resident Involvement: Resident Care Provided Care Provided: Adult ED
[2022-07-02] MEDS ORDERED: dexAMETHasone**PF** 10 MG/ML VIAL IV ONE (09:15)
--- NOTE | 2022-07-02 09:46 | Electrocardiogram Report ---
Test Reason : Blood Pressure : / mmHG Vent. Rate : 104 BPM Atrial Rate : 104 BPM P-R Int : 166 ms QRS Dur : 074 ms QT Int : 358 ms P-R-T Axes : 073 052 066 degrees QTc Int : 470 ms Sinus tachycardia with Premature supraventricular complexes Otherwise normal ECG When compared with ECG of 08-APR-2021 05:26, Premature supraventricular complexes are now Present Confirmed by Eliazar Rae ([id number]) on 07/02/2022 9:45:53 AM Referred By: Confirmed By:Kaleb Rae
--- NOTE | 2022-07-02 11:09 | History & Physical Report ---
Date of Service July 02, 2022 Assessment & Plan (1) Acute respiratory distress: Plan: Patient presented with acute respiratory distress with a respiration rate of 30 sensory muscle use she is given hour-long neb and intravenous Solu-Medrol in emergency department with improvement. Patient still has evidence of derangement of her pulmonary system with coarse rhonchorous breath sounds and a loose cough. She has no pneumonia on chest x-ray and pending bio fire respiratory virus with negative RSV flu and COVID on presentation. Subsequently the patient will be observed given intravenous Solu-Medrol duo nebs mucolytic's with a flutter valve and azithromycin at this point to cover bronchitis The degree of respiratory distress on presentation assisted observation (2) Elevated troponin: Plan: Patient is a troponin elevated to 23. She is a history of NSTEMI. These will be trended. She denies any chest pain or pressure and she does not have any acute changes on her EKG. Baby aspirin is added to Plavix in her regimen at this time, but she continues also on her carvedilol and statin (3) Diabetes mellitus type 2, uncontrolled: Plan: Patient typically is on 70/30 insulin 50 units in the morning 40 units at night. We will take two thirds of the total dose and give her Lantus 30 twice daily to total 60 with insulin sliding scale expecting that the IV Solu-Medrol will make her diabetes more difficult to control. She did not take her 70/30 insulin the morning of admission (4) CKD (chronic kidney disease) stage 3, GFR 30-59 ml/min: Plan: Patient's chronic kidney disease is likely attributed to her diabetes and stable at this time she remains on lisinopril for renal protective effects from diabetes and antihypertensive control (5) Hypertension: Plan: Lisinopril and carvedilol continue blood pressure is in good condition and presentation (6) GERD (gastroesophageal reflux disease): Plan: Ease omeprazole her pharmacy substitute (7) Hypothyroidism: Plan: Synthroid is continued at 25 mcg a day, last TSH was checked December 09 this past year and was in good condition Plan Enoxaparin for DVT prevention the patient wishes to be DNR daughter was present during this discussion History of Present Illness Primary Care Provider: Anthony Boss DO 78-year-old female arrives with 5 days of worsening illness with increasing cough and shortness of breath. Patient has congestion coryza and weakness. Patient does not believe she is around any ill contacts. Patient did require a hour-long nebulizer. It is felt that she is acute on exacerbation of chronic lung disease. Patient reportedly is up-to-date on her COVID and flu vaccines. I visited the patient after her nebulizer she still had prolonged expiratory phase and some loose coughing but no wheezing and no respiratory distress when I evaluated her. She was on room air at that time. Patient will be observed on steroids insulin to cover her type 2 diabetes for the effects of the steroids and azithromycin for bronchitis with mucolytic's and flutter valve, antitussives added for comfort for sleep Allergies Allergy/AdvReac Type Severity Reaction Status Date / Time adhesive Allergy Mild Rash Verified 06/17/22 12:57 egg Allergy Mild GI SYMPTOMS Verified 06/17/22 12:57 garlic Allergy Mild GI symptoms Verified 06/17/22 12:57 propoxyphene Allergy Mild light Verified 06/17/22 12:57 headed sertraline Allergy Mild Dizziness Verified 06/17/22 12:57 soap [From Betadine] Allergy Mild itchy Verified 06/17/22 12:57 Sulfa (Sulfonamide Allergy Mild GI symptoms Verified 06/17/22 12:57 Antibiotics) simvastatin AdvReac Intermediate MYALGIA Verified 06/17/22 12:57 Home Medications Medication Instructions Recorded Confirmed Type cyclobenzaprine 5 mg tablet 5 mg PO TID PRN muscle spasm #30 04/15/21 01/22/22 Rx tabs clotrimazole-betamethasone 1 1 applic topical BID PRN rash #45 07/11/21 01/22/22 Rx %-0.05 % topical cream grams rosuvastatin 20 mg tablet (Crestor) 20 mg PO HS #90 tabs 07/11/21 01/22/22 Rx insulin aspar prot-insulin aspart See Rx Instructions subcut 09/10/21 01/22/22 Rx 100 unit/mL (70-30) subcutaneous .COMPLEX #90 mL pen (Novolog Mix 70-30FlexPen U-100) Accu-Chek Guide test strips (blood #200 ea 10/07/21 01/22/22 Rx sugar diagnostic) gabapentin 100 mg capsule 100 mg PO HS #90 caps 11/26/21 01/22/22 Rx levothyroxine 25 mcg tablet 25 mcg PO QAM #90 tabs 11/26/21 01/22/22 Rx lisinopril 10 mg tablet 10 mg PO QAM #90 tabs 11/26/21 01/22/22 Rx ferrous sulfate 325 mg (65 mg 162.5 mg PO DAILY 12/09/21 01/22/22 History iron) tablet esomeprazole magnesium 40 mg 40 mg PO QAM #90 caps 04/29/22 Rx capsule,delayed release clopidogrel 75 mg tablet (Plavix) 75 mg PO QPM #90 tabs 05/02/22 Rx carvedilol 3.125 mg tablet 3.125 mg PO BID #60 tabs 05/15/22 Rx Past Med/Surg History Medical History (Updated 07/02/22 @ 11:05 by Johan Raymond MD) Anemia treated with PRBC inpatient 04/06/21 at [facility] ASCVD (arteriosclerotic cardiovascular disease) Carotid artery stenosis Cerebral arterial aneurysm COPD (chronic obstructive pulmonary disease) CVA (cerebral vascular accident) 2014--short term memory loss, gait loss--uses walker CVA (cerebral vascular accident) Diabetes mellitus, type 2 Diabetic peripheral neuropathy GI bleed heme+ stool Hearing deficit History of CHF (congestive heart failure) Hx of angina pectoris Hyperlipidemia Hypothyroid NSTEMI (non-ST elevated myocardial infarction) pt unsure if she had an MO while inpatient at [facility] at the beginning of April 2021. states no one told her either way. but she denies sob or chest pain currently. Occlusion and stenosis of carotid artery with cerebral infarction On anticoagulant therapy Osteoarthritis Rectocutaneous fistula Restless leg syndrome Surgical History H/O section x3 History of bilateral cataract extraction History of bilateral tubal ligation History of cardiac cath @ [facility] – [place]--no stents History of colonoscopy History of sigmoidoscopy History of tonsillectomy and adenoidectomy History of tooth extraction all teeth removed History of total abdominal hysterectomy and bilateral salpingo-oophorectomy S/P cholecystectomy S/P removal of ovarian cyst Family History Grandmother (Paternal) Family history of diabetes mellitus Father Myocardial infarction Mother Myocardial infarction Family/Other Heart disease Multiple benign polyps of large intestine Other No family history of adverse response to anesthesia Denies family history of Ovarian cancer Prostate cancer Crohn's disease Colorectal cancer Cancer Ulcerative colitis Social History Smoking Status: Former smoker Tobacco Type: Cigarettes Cigarettes Per Day: 1 pack per day; Second Hand Exposure: No; Hx Alcohol Use: No Hx Substance Use: No Preferred Language: Khmer Communication Ability: Effective Visual Impairment: No Limitations Hearing Ability: Use of Hearing Aid Departmental Buyer Required: No Beliefs That Will Affect Care: None marital status: Current Living Situation: Alone Current Living Situation Comment: senior apartment current occupational status: retired Feels Safe at Home: Yes Childhood Exposure to Second-Hand Smoke: Yes Dental Care, Regularly: No Physical Activity Frequency: Does not Exercise Seatbelt Use: always Sunscreen Use: No Assistive Devices: Denture - Upper, Denture - Lower, Glasses, Hearing Aid - Bilateral and Walker Review of Systems Review of Systems: Mild distress and fatigue no headache, no visual changes no speech or swallowing issues no chest pain, pressure or palpitations no shortness of breath, cough or wheezes no abdominal pain, nausea or vomiting, diarrhea or constipation no dysuria, hematuria or frequency no focal joint pain or swelling no back pain, CVA tenderness or radicular pain no bruising, bleeding or rashes no focal signs of weakness or numbness or altered sensation no complaints of anxiety or depression.. Physical Exam Physical Exam: The patient appeared well nourished and normally developed. Vital signs as documented. Head exam is normocephalic atraumatic Neck is without JVD, thyromegaly, or carotid bruits. Lungs are clear to auscultation, no focal loss of breath sounds Cardiac exam, Rhythm is regular.. No murmurs, rubs or gallops. Abdominal exam reveals normal bowel sounds, soft non tender, no masses Extremities are nonedematous and both pedal pulses are present Neurologic exam is alert and oriented, no focal loss of strength or sensation Skin is without bruises or rashes Psychologically is without concerns for anxiety or depression.. Results & Data Results & Data ([facility]) Vital Signs (Past 12 Hours) Vital Signs Temp Pulse Pulse Resp BP BP Pulse Ox 07/02/22 08:59 103 H 20 114/85 100 07/02/22 08:50 97 H 30 H 100 07/02/22 08:40 130 H 25 H 100 07/02/22 08:31 124 H 23 100 07/02/22 08:31 229/77 H 07/02/22 08:30 123 H 20 100 07/02/22 08:20 115 H 18 100 07/02/22 08:10 112 H 15 100 07/02/22 08:00 112 H 18 98 07/02/22 07:50 99 H 18 100 07/02/22 07:50 200/61 H 07/02/22 07:48 99 H 17 100 07/02/22 08:33 122 H 19 229/77 H 100 07/02/22 07:48 103 H 19 200/61 H 100 07/02/22 07:48 100 07/02/22 07:48 07/02/22 07:41 106 H 22 96 07/02/22 07:13 96.8 F L 106 H 22 182/65 H 95 O2 Del Method O2 Flow Rate 07/02/22 08:59 07/02/22 08:50 07/02/22 08:40 07/02/22 08:31 07/02/22 08:31 07/02/22 08:30 07/02/22 08:20 07/02/22 08:10 07/02/22 08:00 07/02/22 07:50 07/02/22 07:50 07/02/22 07:48 07/02/22 08:33 Room Air 07/02/22 07:48 Room Air 07/02/22 07:48 Room Air 0 07/02/22 07:48 Room Air 0 07/02/22 07:41 Room Air 07/02/22 07:13 Room Air Diagnostic Findings Chest X-Ray 07/02/22 07:26 SINGLE VIEW CHEST CLINICAL HISTORY: Dyspnea FINDINGS: An AP, portable, upright chest radiograph is compared to study dated 04/06/2021 and correlated with chest CT dated 11/05/2021. The heart is enlarged noting atherosclerotic calcification of the thoracic aorta. There is prominence of the pulmonary vasculature. Chronic interstitial thickening is similar to previous. No airspace consolidation or large pleural effusion is identified. Tiny pulmonary nodules seen by CT are not apparent on x-ray. No pneumothorax is seen. The skeletal structures are osteopenic. The bony thorax is grossly intact. IMPRESSION: 1. Cardiomegaly with prominence of the pulmonary vasculature. Correlate clinically for evidence of fluid overload/congestive change. 2. No airspace consolidation or large pleural effusion is identified. Electronically signed by: Jacques Stewart M.D. 07/02/2022 7:49 AM ECG Additional Comments: Normal sinus rhythm without acute ST or T wave changes Code Status & VTE Plan VTE Prophylaxis Plan VTE Prophylaxis will be ordered: Yes PG Care Time/CCT Total # of Minutes Spent Total Time Spent with Patient: Total time spent is greater than 50% in coordination of care (as documented) at patient's floor/unit and/or counseling patient: Coding Level of Care Code INT OBSERVATION CARE 70M LVL 3 Diagnoses Acute respiratory distress R06.03 Elevated troponin R77.8 Diabetes mellitus type 2, uncontrolled E11.65 CKD (chronic kidney disease) stage 3, GFR 30-59 ml/min N18.30 Hypertension I10 Hypertension type: unspecified GERD (gastroesophageal reflux disease) K21.9 Hypothyroidism E03.9 (1) Hypertension Hypertension type: unspecified Qualified Code(s): I10 - Essential (primary) hypertension
[2022-07-02] MEDS ORDERED: CARBOHYDRATES FOR HYPOGLYCEMIA PO PRN (12:19)
[2022-07-02] MEDS ORDERED: GLUCOSE 40% GEL 15 GM TUBE PO PRN (12:19)
[2022-07-02] MEDS ORDERED: LANTUS PER UNIT CHARGE SQ ONE (12:19)
[2022-07-02] MEDS ORDERED: GLUCAGON FOR INJ 1 MG VIAL SQ PRN (12:19)
[2022-07-02] MEDS ORDERED: GLUCOSE 10 TAB/TUBE PO PRN (12:19)
[2022-07-02] MEDS ORDERED: CYCLOBENZAPRINE HCL 5 MG TAB PO PRN (12:19)
[2022-07-02] MEDS ORDERED: DEXTROSE 50% 50 ML SYRINGE IV PRN (12:19)
[2022-07-02] MEDS ORDERED: POLYETHYLENE (MIRALAX) 17 GM PACK PO PRN (12:19)
[2022-07-02] MEDS ORDERED: ACETAMINOPHEN 325 MG TAB PO PRN (12:19)
[2022-07-02] MEDS ORDERED: AZITHROMYCIN 500 MG in DEXTROSE 5% 250 ML IV ONE (12:45)
[2022-07-02] MEDS: ASPIRIN 81 MG ECTAB PO SCH (13:26)
[2022-07-02] MEDS: ENOXAPARIN INJ 40 MG/0.4 ML SYR SQ SCH (13:27)
[2022-07-02] MEDS: INSULIN ASPART PER UNIT SC SCH ×3 (13:37→22:24)
[2022-07-02] MEDS: ALBUT/IPRATROP 3MG/0.5MG NEB 3 ML VIAL NEB SCH ×3 (13:56→18:20)
[2022-07-02 16:00] LABS: Adenovirus PCR Not Detected (NotDetected); Bordetella parapertussis PCR Not Detected (NotDetected); Bordetella pertussis PCR Not Detected (NotDetected); Chlamydia pneumoniae PCR Not Detected (NotDetected); Coronavirus 229E PCR Not Detected (NotDetected); Coronavirus CoV-2 (COVID19)PCR Not Detected (NotDetected); Coronavirus HKU1 PCR Not Detected (NotDetected); Coronavirus NL63 PCR Not Detected (NotDetected); Coronavirus OC43PCR Not Detected (NotDetected); Human Metapneumovirus PCR Not Detected (NotDetected); Influenza A PCR Not Detected (NotDetected); Influenza B PCR Not Detected (NotDetected); Mycoplasma pneumoniae PCR Not Detected (NotDetected); Parainfluenza Virus 1 PCR Not Detected (NotDetected); Parainfluenza Virus 2 PCR Not Detected (NotDetected); Parainfluenza Virus 4 PCR Not Detected (NotDetected); Respiratory Syncytial VirusPCR Not Detected (NotDetected); Rhinovirus/Enterovirus PCR Not Detected (NotDetected)
[2022-07-02 16:22] LABS: Parainfluenza Virus 3 PCR DETECTED (NotDetected)
[2022-07-02] MEDS: ROSUVASTATIN CALCIUM 20 MG TAB PO SCH (22:18)
[2022-07-02] MEDS: carvediloL 3.125 MG TAB PO SCH (22:19)
[2022-07-02] MEDS: CLOPIDOGREL BISULFATE 75 MG TAB PO SCH (22:19)
[2022-07-02] MEDS: GABAPENTIN 100 MG CAP PO SCH (22:20)
[2022-07-02] MEDS: guaiFENesin 600 MG TABCR PO SCH (22:21)
[2022-07-02] MEDS: LANTUS PER UNIT CHARGE SQ SCH (22:25)
[2022-07-02] MEDS: methylPREDNISolone 40 MG in SYRINGE 0 ML IV SCH (23:06)
[2022-07-03] MEDS: ALBUT/IPRATROP 3MG/0.5MG NEB 3 ML VIAL NEB SCH ×4 (05:56→21:32)
[2022-07-03] MEDS: LEVOTHYROXINE SODIUM 25 MCG TABLET PO SCH (06:15)
--- NOTE | 2022-07-03 08:43 | Hospitalist Progress Note ---
Date of Service July 03, 2022 Assessment & Plan (1) Acute respiratory distress: Plan: Patient presented with acute respiratory distress with a respiration rate of 30 sensory muscle use she is given hour-long neb and intravenous Solu-Medrol in emergency department with improvement. Patient has biofire showing parainfluenza infection She has no pneumonia on chest x-ray continues on Solu-Medrol duo nebs mucolytic's with a flutter valve and azithromycin for anti inflammatory affects in copd pts with epigastric pain maybe gastritis increase protonix to bid (2) Elevated troponin: Plan: Patient is a troponin elevated to 23,29,80 . She is a history of NSTEMI. repeat ECG without acs with elev trop and pain to shoulder blades, check CT dissection study, order echo to tan JENNIFERLUCIAN Baby aspirin is added to Plavix in her regimen at this time, she continues also on her carvedilol and statin (3) Diabetes mellitus type 2, uncontrolled: Plan: Patient typically is on 70/30 insulin 50 units in the morning 40 units at night. We will take two thirds of the total dose and give her Lantus 30 twice daily to total 60 with insulin sliding scale expecting that the IV Solu-Medrol will make her diabetes more difficult to control. She did not take her 70/30 insulin the morning of admission (4) CKD (chronic kidney disease) stage 3, GFR 30-59 ml/min: Plan: Patient's chronic kidney disease is likely attributed to her diabetes and stable at this time she remains on lisinopril for renal protective effects from diabetes and antihypertensive control (5) Hypertension: Plan: Lisinopril and carvedilol continue blood pressure is in good condition and presentation (6) GERD (gastroesophageal reflux disease): Plan: Ease omeprazole her pharmacy substitute, make protonix bid (7) Hypothyroidism: Plan: Synthroid is continued at 25 mcg a day, last TSH was checked December 09 this past year and was in good condition Plan Enoxaparin for DVT prevention the patient wishes to be DNR daughter was present during this discussion Admission and Anticipated Discharge Date Admission Date: July 02, 2022 Subjective Patient states she does not feel much better. Patient states she is epigastric pain radiating to her back and up to her shoulder blades. EKG this morning does not show acute changes troponin did rise slightly to 80 from the 20s. Pulm exam is stable at this time O2 sat on room air is 97% Review of Systems Review of Systems: Mild distress and fatigue no headache, no visual changes no speech or swallowing issues no chest pain, pressure or palpitations shortness of breath, productive cough no wheezes abdominal pain radiating to back, shoulder blades no dysuria, hematuria or frequency, stress incontinence no focal joint pain or swelling no back pain, CVA tenderness or radicular pain no bruising, bleeding or rashes no focal signs of weakness or numbness or altered sensation no complaints of anxiety or depression.. Physical Exam Physical Exam: The patient appeared well nourished and normally developed. Vital signs as documented. Head exam is normocephalic atraumatic Neck is without JVD, thyromegaly, or carotid bruits. Lungs coarse bilaterally no focal loss of breath sounds Cardiac exam, Rhythm is regular.. No murmurs, rubs or gallops.equal bilateral pulses Abdominal exam reveals normal bowel sounds, soft non tender, no masses Extremities are nonedematous and both pedal pulses are present Neurologic exam is alert and oriented, no focal loss of strength or sensation Skin is without bruises or rashes Psychologically is without concerns for anxiety or depression.. Results & Data Results & Data ([facility]) Vital Signs (Past 12 Hours) Vital Signs Pulse Pulse Resp BP BP Pulse Ox O2 Del Method 07/03/22 06:19 89 20 168/73 H 95 Room Air 07/03/22 05:58 89 22 92 Room Air 07/03/22 04:00 91 H 23 07/03/22 02:00 64 19 07/03/22 00:00 94 H 17 07/02/22 22:32 101 H 20 07/02/22 22:32 150/62 H 07/02/22 22:00 99 H 22 PG Care Time/CCT Total # of Minutes Spent Total Time Spent with Patient: Total time spent is greater than 50% in coordination of care (as documented) at patient's floor/unit and/or counseling patient: Coding Level of Care Code 28661 Subseq Hosp Care Lvl 3 Diagnoses Acute respiratory distress R06.03 Elevated troponin R77.8 Diabetes mellitus type 2, uncontrolled E11.65 CKD (chronic kidney disease) stage 3, GFR 30-59 ml/min N18.30 Hypertension I10 Hypertension type: unspecified GERD (gastroesophageal reflux disease) K21.9 Hypothyroidism E03.9 (1) Hypertension Hypertension type: unspecified Qualified Code(s): I10 - Essential (primary) hypertension
[2022-07-03 08:51] LABS: Hematocrit (blood only) 35.7 % (34.1-44.9); Hemoglobin 10.3 g/dl (12.0-16.0); Mean Corpuscular Hemoglobin 22.2 pg (25.0-34.0); Mean Corpuscular Hgb Conc 28.9 g/dL (32.0-36.0); Mean Corpuscular Volume 76.8 fL (80.0-100.0); Mean Platelet Volume 9.4 fL (9.4-12.3); Platelet Count 240 K/uL (130-400); RDW Coefficient of Variation 17.9 % (11.5-14.5); RDW Standard Deviation 49.2 fL (36.4-46.3); Red Blood Count 4.65 M/uL (3.93-5.22); White Blood Count 10.44 K/ul (4.8-10.8)
[2022-07-03 09:32] LABS: BUN Creatinine Ratio 30.7 (10-20); Calcium 8.7 mg/dl (8.5-10.1); Creatinine Clr Calc Pharmacy 47.8 ml/min; Est GFR (African American) 82.5 ml/min; Est GFR (Non-African American) 71.2 ml/min; Magnesium 1.9 mg/dl (1.7-2.4); Potassium 4.6 mmol/L (3.5-5.1)
[2022-07-03] MEDS: guaiFENesin 600 MG TABCR PO SCH ×2 (09:33→21:09)
[2022-07-03] MEDS: carvediloL 3.125 MG TAB PO SCH ×2 (09:34→21:10)
[2022-07-03] MEDS: AZITHROMYCIN 250 MG TAB PO SCH (09:34)
[2022-07-03] MEDS: methylPREDNISolone 40 MG in SYRINGE 0 ML IV SCH ×2 (09:34→21:13)
[2022-07-03] MEDS: ASPIRIN 81 MG ECTAB PO SCH (09:34)
[2022-07-03] MEDS: PANTOprazole 40 MG TAB PO SCH (09:41)
[2022-07-03] MEDS: ALUMINUM/MAGNESIUM SUSP 30 ML UDC PO PRN (09:41)
[2022-07-03] MEDS: lisinopril 10 MG TAB PO SCH (10:29)
[2022-07-03] MEDS ORDERED: OPTIRAY 320 500ml IV ONE (10:45)
[2022-07-03 10:46] LABS: Estimated Average Glucose 160 mg/dl; Hemoglobin A1C 7.2 % (4.5-5.6)
[2022-07-03] MEDS: INSULIN ASPART PER UNIT SC SCH ×4 (11:06→21:13)
[2022-07-03] MEDS: LANTUS PER UNIT CHARGE SQ SCH ×2 (11:14→21:13)
--- NOTE | 2022-07-03 12:01 | CT Scan Report ---
CT angio chest dissec wo/w con CLINICAL HISTORY: abd pain to back and shoulder pain TECHNIQUE: Multidetector row helical CT of the chest was performed before and after injection of IV c ontrast. Coronal and sagittal reformations were obtained. Automated dose lowering techniques and/or a djustment according to patient size were utilized for this exam. CT DOSE: 1177.95 mGy.cm Comparison: Comparison is made to chest radiograph 11/05/2021 FINDINGS: Lungs and pleura: Bronchial wall thickening is seen. There are multiple stable pulmonary nodules incl uding the followin mm nodule in the left upper lobe (series 4 image 74) 4 mm nodule in the right upper lobe (image 131) 4 mm pleural-based nodule in the right lower lobe (image 136) 3 mm nodule in the left lower lobe (image 157) 6 mm pleural-based nodule in the lingula (image 172) 4 mm nodule in the right lower lobe (image 174) 3 mm nodule in the left lower lobe (image 185). Heart and pericardium: Heart size is normal. No pericardial effusion. Vessels: Severe atherosclerotic changes in the aorta and coronary arteries. No evidence of acute aort ic injury. The great vessels are patent. Mediastinum and inessa: Subcentimeter lymph nodes are seen. Chest wall and lower neck: Unremarkable. Abdomen: Unremarkable. Bones: Unremarkable. IMPRESSION: No acute abnormality and in particular no evidence of acute aortic injury. ACT 112: Negative or not required by law. Electronically signed by: Chato Sequeira M.D. 07/03/2022 11:59 AM
[2022-07-03] MEDS: ENOXAPARIN INJ 40 MG/0.4 ML SYR SQ SCH (13:15)
--- NOTE | 2022-07-03 14:26 | XCELERA ---
[id number]
--- NOTE | 2022-07-03 17:45 | Electrocardiogram Report ---
Test Reason : Blood Pressure : / mmHG Vent. Rate : 092 BPM Atrial Rate : 092 BPM P-R Int : 152 ms QRS Dur : 082 ms QT Int : 378 ms P-R-T Axes : 066 057 062 degrees QTc Int : 467 ms Normal sinus rhythm Normal ECG When compared with ECG of 02-JUL-2022 07:40, Premature supraventricular complexes are no longer Present Confirmed by Eliazar Rae ([id number]) on 07/03/2022 5:44:52 PM Referred By: REFERRED SELF Confirmed By:Kaleb Rae
[2022-07-03] MEDS: CLOPIDOGREL BISULFATE 75 MG TAB PO SCH (21:10)
[2022-07-03] MEDS: GABAPENTIN 100 MG CAP PO SCH (21:11)
[2022-07-03] MEDS: ROSUVASTATIN CALCIUM 20 MG TAB PO SCH (21:12)
[2022-07-04 02:32] LABS: Hematocrit (blood only) 36.7 % (34.1-44.9); Mean Corpuscular Hemoglobin 22.4 pg (25.0-34.0); Mean Corpuscular Volume 74.6 fL (80.0-100.0); Mean Platelet Volume 9.5 fL (9.4-12.3); Platelet Count 280 K/uL (130-400); RDW Coefficient of Variation 18.2 % (11.5-14.5); Red Blood Count 4.92 M/uL (3.93-5.22); White Blood Count 18.75 K/ul (4.8-10.8)
[2022-07-04 02:55] LABS: BUN Creatinine Ratio 34.2 (10-20); Calcium 9.2 mg/dl (8.5-10.1); Creatinine Clr Calc Pharmacy 46.1 ml/min; Est GFR (African American) 81.2 ml/min; Magnesium 2.1 mg/dl (1.7-2.4); Potassium 4.7 mmol/L (3.5-5.1)
[2022-07-04] MEDS: LEVOTHYROXINE SODIUM 25 MCG TABLET PO SCH (05:59)
[2022-07-04] MEDS: ALBUT/IPRATROP 3MG/0.5MG NEB 3 ML VIAL NEB SCH ×4 (07:16→20:17)
--- NOTE | 2022-07-04 08:02 | Hospitalist Progress Note ---
Date of Service July 04, 2022 Assessment & Plan (1) Acute respiratory distress: Plan: Patient presented with acute respiratory distress with a respiration rate of 30 sensory muscle use she was given hour-long neb and intravenous Solu-Medrol in emergency department with improvement. Patient had biofire with + parainfluenza infection She has no pneumonia on chest x-ray Continue on Methylprednisolone 40mg IV BID, duo nebs, mucinex with a flutter valve and azithromycin for anti inflammatory affects in copd pts (2) Elevated troponin: Plan: Today Troponin 162.5 down from peak of 201.2 Echo revealed EF 60-65% with normal left ventricular wall motion Patient has a hx of NSTEMI EKG today reveals NSR with no changes CTA revealed no aortic dissection Continue aspirin 81mg, Plavix, carvedilol and statin (3) Diabetes mellitus type 2, uncontrolled: Plan: Patient typically is on 70/30 insulin 50 units in the morning 40 units at night. Currently on Lantus 30 twice daily with insulin sliding scale expecting that the IV Solu-Medrol will make her diabetes more difficult to control. Glucose this AM random was 300 and POC glucose was 225 Pharmacy tightened carb ratio to 6 May also need to increase basal insulin Continue to closely monitor glucose HgbA1c 7.2 07/03/22 (4) CKD (chronic kidney disease) stage 3, GFR 30-59 ml/min: Plan: Patient's chronic kidney disease is likely attributed to her diabetes and stable at this time she remains on lisinopril for renal protective effects from diabetes and antihypertensive control (5) Hypertension: Plan: Lisinopril and carvedilol continue blood pressure is in good condition and presentation (6) GERD (gastroesophageal reflux disease): Plan: At home was on omeprazole Here on Protonix BID (had epigastric pain on admission) Zofran as needed for nausea (7) Hypothyroidism: Plan: Synthroid is continued at 25 mcg a day, last TSH was checked December 09 this past year and was normal at 3 (8) Constipation: Plan: Miralax 17 gm given today Encouraged up and OOB Plan Enoxaparin 40mg SQ for DVT prevention Patient is DNR/DNI Admission and Anticipated Discharge Date Admission Date: July 03, 2022 Subjective Patient is awake sitting up in the recliner. Patient states she is feeling slightly better today. She tells me though that she is slightly nauseated and did not feel like eating her lunch. She was treated with Zofran. Patient states she has not had a BM in a few days and normally moves her bowels daily. She denies any chest pain. Still with a cough and drainage but feels the nebulizer treatments are helping. Review of Systems Constitutional: + fatigue; no fever and no chills Respiratory: + cough and + chest congestion; no dyspnea and no hemoptysis Cardiovascular: no chest pain, no syncope and no edema Gastrointestinal: + nausea and + constipation; no vomiting Genitourinary: no dysuria, no urinary frequency and no urinary hesitancy Integumentary: no rash, no lesions and no new lesions Physical Exam Constitutional: WD/WN, vitals as above Neck: trachea midline, no thyromegaly Respiratory: + cough (course upper lung sounds no wheeze or rhonchi) and able to speak in complete sentences; no respiratory distress Gastrointestinal (Abdomen): normal bowel sounds, soft, nontender, no hepatosplenomegaly Skin: no rashes, warm and dry Results & Data Results & Data ([facility]) Vital Signs (Past 12 Hours) Vital Signs Temp Pulse Pulse Resp BP BP Pulse Ox 07/04/22 07:56 36.8 C 84 20 154/70 H 95 07/04/22 07:29 101 H 07/04/22 07:17 95 H 18 95 07/04/22 03:42 36.4 C L 87 16 175/80 H 94 07/04/22 04:48 07/04/22 01:31 99 H 23 139/93 92 07/03/22 23:00 77 21 92 07/03/22 22:28 07/03/22 22:10 36.6 C 97 H 18 163/81 H 93 07/03/22 21:00 163/81 H 07/03/22 21:00 94 H 19 93 07/03/22 20:41 167/77 H 07/03/22 20:41 93 H 19 94 O2 Del Method 07/04/22 07:56 Room Air 07/04/22 07:29 07/04/22 07:17 Room Air 07/04/22 03:42 Room Air 07/04/22 04:48 Room Air 07/04/22 01:31 Room Air 07/03/22 23:00 Room Air 07/03/22 22:28 Room Air 07/03/22 22:10 Room Air 07/03/22 21:00 07/03/22 21:00 Room Air 07/03/22 20:41 07/03/22 20:41 Room Air Laboratory Results Abnormal lab results 07/03/22 07/03/22 07/03/22 Range/Units 18:24 19:56 20:34 WBC (4.8-10.8) K/ul Hgb (12.0-16.0) g/dl MCV (80.0-100.0) fL MCH (25.0-34.0) pg MCHC (32.0-36.0) g/dL RDW Std Deviation (36.4-46.3) fL RDW Coeff of Flakito (11.5-14.5) % BUN (6-23) mg/dl BUN/Creatinine Ratio (10-20) Glucose (70-99(Fasting)) mg/dl POC Glucose 260 H 303 H* (70-99) mg/dl Troponin I High Sens 178.1 H* (0-14) pg/ml Urine Glucose (UA) (Negative) 07/03/22 07/04/22 07/04/22 Range/Units 20:35 02:24 02:24 WBC 18.75 H (4.8-10.8) K/ul Hgb 11.0 L (12.0-16.0) g/dl MCV 74.6 L (80.0-100.0) fL MCH 22.4 L (25.0-34.0) pg MCHC 30.0 L (32.0-36.0) g/dL RDW Std Deviation 48.0 H (36.4-46.3) fL RDW Coeff of Flakito 18.2 H (11.5-14.5) % BUN 26 H (6-23) mg/dl BUN/Creatinine Ratio 34.2 H (10-20) Glucose 169 H (70-99(Fasting)) mg/dl POC Glucose 288 H (70-99) mg/dl Troponin I High Sens (0-14) pg/ml Urine Glucose (UA) (Negative) 07/04/22 07/04/22 07/04/22 Range/Units 02:24 03:49 07:34 WBC (4.8-10.8) K/ul Hgb (12.0-16.0) g/dl MCV (80.0-100.0) fL MCH (25.0-34.0) pg MCHC (32.0-36.0) g/dL RDW Std Deviation (36.4-46.3) fL RDW Coeff of Flakito (11.5-14.5) % BUN (6-23) mg/dl BUN/Creatinine Ratio (10-20) Glucose (70-99(Fasting)) mg/dl POC Glucose 174 H 225 H (70-99) mg/dl Troponin I High Sens 162.5 H* (0-14) pg/ml Urine Glucose (UA) (Negative) 07/04/22 07/04/22 Range/Units 11:38 14:23 WBC (4.8-10.8) K/ul Hgb (12.0-16.0) g/dl MCV (80.0-100.0) fL MCH (25.0-34.0) pg MCHC (32.0-36.0) g/dL RDW Std Deviation (36.4-46.3) fL RDW Coeff of Lfakito (11.5-14.5) % BUN (6-23) mg/dl BUN/Creatinine Ratio (10-20) Glucose (70-99(Fasting)) mg/dl POC Glucose 241 H (70-99) mg/dl Troponin I High Sens (0-14) pg/ml Urine Glucose (UA) 1+ H (Negative) PG Care Time/CCT Total # of Minutes Spent Total Time Spent with Patient: Total time spent is greater than 50% in coordination of care (as documented) at patient's floor/unit and/or counseling patient: Coding Level of Care Code 71246 Subseq Hosp Care Lvl 2 Diagnoses Acute respiratory distress R06.03 Elevated troponin R77.8 Diabetes mellitus type 2, uncontrolled E11.65 CKD (chronic kidney disease) stage 3, GFR 30-59 ml/min N18.30 Hypertension I10 Hypertension type: unspecified GERD (gastroesophageal reflux disease) K21.9 Hypothyroidism E03.9 Constipation K59.00 Time Spent (min) 20 (1) Hypertension Hypertension type: unspecified Qualified Code(s): I10 - Essential (primary) hypertension
[2022-07-04] MEDS: carvediloL 3.125 MG TAB PO SCH ×2 (08:40→20:09)
[2022-07-04] MEDS: ASPIRIN 81 MG ECTAB PO SCH (08:40)
[2022-07-04] MEDS: guaiFENesin 600 MG TABCR PO SCH ×2 (08:40→20:07)
[2022-07-04] MEDS: lisinopril 10 MG TAB PO SCH (08:40)
[2022-07-04] MEDS: AZITHROMYCIN 250 MG TAB PO SCH (08:40)
[2022-07-04] MEDS: PANTOprazole 40 MG TAB PO SCH (08:40)
[2022-07-04] MEDS: INSULIN ASPART PER UNIT SC SCH ×4 (08:45→20:51)
[2022-07-04] MEDS: LANTUS PER UNIT CHARGE SQ SCH ×2 (08:46→20:51)
[2022-07-04] MEDS: methylPREDNISolone 40 MG in SYRINGE 0 ML IV SCH ×2 (08:47→20:08)
[2022-07-04] MEDS: ONDANSETRON INJ 2 MG/ML 2 ML VIAL IV PRN ×2 (12:07→19:59)
[2022-07-04] MEDS: ALUMINUM/MAGNESIUM SUSP 30 ML UDC PO PRN (12:07)
[2022-07-04] MEDS: ENOXAPARIN INJ 40 MG/0.4 ML SYR SQ SCH (12:44)
--- NOTE | 2022-07-04 13:01 | Electrocardiogram Report ---
Test Reason : Blood Pressure : / mmHG Vent. Rate : 093 BPM Atrial Rate : 093 BPM P-R Int : 142 ms QRS Dur : 080 ms QT Int : 378 ms P-R-T Axes : 067 042 054 degrees QTc Int : 469 ms Normal sinus rhythm Normal ECG When compared with ECG of 03-JUL-2022 09:01, No significant change was found Confirmed by Eliazar Rae ([id number] on 07/04/2022 1:01:44 PM Referred By: REFERRED SELF Confirmed By:Kaleb Rae
[2022-07-04 15:00] LABS: Appearance Urine Clear (Clear); Bilirubin Urine Negative (Negative); Blood Urine Negative (Negative); Color Urine Yellow; Glucose Urine UA 1+ (Negative); Ketones Urine Negative (Negative); Leukocyte Esterase Urine Negative (Negative); Nitrite Urine Negative (Negative); Protein Urine Negative (Negative); Specific Gravity Urine 1.025 (1.000-1.030); Urobilinogen Urine Negative (Negative)
[2022-07-04] MEDS: CLOPIDOGREL BISULFATE 75 MG TAB PO SCH (20:08)
[2022-07-04] MEDS: ROSUVASTATIN CALCIUM 20 MG TAB PO SCH (20:08)
[2022-07-04] MEDS: GABAPENTIN 100 MG CAP PO SCH (20:08)
[2022-07-05] MEDS: ONDANSETRON INJ 2 MG/ML 2 ML VIAL IV PRN ×2 (05:46→16:58)
[2022-07-05] MEDS ORDERED: hydrALAZINE HCL 20 MG/ML VIAL IV ONE (05:47)
[2022-07-05] MEDS: LEVOTHYROXINE SODIUM 25 MCG TABLET PO SCH (06:32)
[2022-07-05] MEDS: ALUMINUM/MAGNESIUM SUSP 30 ML UDC PO PRN (06:32)
[2022-07-05] MEDS: ALBUT/IPRATROP 3MG/0.5MG NEB 3 ML VIAL NEB SCH ×4 (07:16→17:51)
[2022-07-05 07:36] LABS: Hematocrit (blood only) 39.1 % (34.1-44.9); Hemoglobin 11.7 g/dl (12.0-16.0); Mean Corpuscular Hemoglobin 22.1 pg (25.0-34.0); Mean Corpuscular Hgb Conc 29.9 g/dL (32.0-36.0); Mean Corpuscular Volume 73.9 fL (80.0-100.0); Mean Platelet Volume 9.7 fL (9.4-12.3); Platelet Count 309 K/uL (130-400); RDW Coefficient of Variation 18.6 % (11.5-14.5); RDW Standard Deviation 47.6 fL (36.4-46.3); Red Blood Count 5.29 M/uL (3.93-5.22)
[2022-07-05 07:59] LABS: BUN Creatinine Ratio 37.2 (10-20); Calcium 8.9 mg/dl (8.5-10.1); Est GFR (African American) 78.7 ml/min; Est GFR (Non-African American) 67.9 ml/min; Potassium 4.6 mmol/L (3.5-5.1)
[2022-07-05] MEDS: ASPIRIN 81 MG ECTAB PO SCH (08:56)
[2022-07-05] MEDS: AZITHROMYCIN 250 MG TAB PO SCH (08:57)
[2022-07-05] MEDS: PANTOprazole 40 MG TAB PO SCH ×2 (08:57→22:29)
[2022-07-05] MEDS: lisinopril 10 MG TAB PO SCH (08:57)
[2022-07-05] MEDS: INSULIN ASPART PER UNIT SC SCH ×4 (08:58→23:36)
[2022-07-05] MEDS: LANTUS PER UNIT CHARGE SQ SCH ×2 (08:58→22:46)
[2022-07-05] MEDS: carvediloL 3.125 MG TAB PO SCH ×2 (08:58→22:27)
[2022-07-05] MEDS: guaiFENesin 600 MG TABCR PO SCH ×2 (08:58→22:28)
[2022-07-05] MEDS: methylPREDNISolone 40 MG in SYRINGE 0 ML IV SCH ×2 (09:46→22:29)
--- NOTE | 2022-07-05 10:45 | Hospitalist Progress Note ---
Date of Service July 05, 2022 Assessment & Plan (1) Acute respiratory distress: Plan: Biofire with + parainfluenza infection No pneumonia on chest x-ray Continue on Methylprednisolone 40mg IV BID, duo nebs, mucinex with a flutter valve and azithromycin on day #4 Elevated WBC (on prednisone, afebrile) (2) Elevated troponin: Plan: Today Troponin 162.5 down from peak of 201.2 Echo revealed EF 60-65% with normal left ventricular wall motion Patient has a hx of NSTEMI EKG today reveals NSR with no changes CTA revealed no aortic dissection Continue aspirin 81mg, Plavix, carvedilol and statin (3) Small bowel obstruction: Plan: NGT to LIS NPO IVFs Consult placed with general surgery (4) Diabetes mellitus type 2, uncontrolled: Plan: Patient typically is on 70/30 insulin 50 units in the morning 40 units at night. Currently on Lantus 30 twice daily with insulin sliding scale expecting that the IV Solu-Medrol will make her diabetes more difficult to control. Glucose this AM random was 300 and POC glucose was 225 Pharmacy tightened carb ratio to 6 May also need to increase basal insulin Continue to closely monitor glucose HgbA1c 7.2 07/03/22 (5) CKD (chronic kidney disease) stage 3, GFR 30-59 ml/min: Plan: Patient's chronic kidney disease is likely attributed to her diabetes and stable at this time Conitnue on lisinopril for renal protective effects from diabetes and ant ihypertensive control (6) Hypertension: Plan: Lisinopril and carvedilol continue blood pressure is in good condition and presentation (7) GERD (gastroesophageal reflux disease): Plan: At home was on omeprazole Here on Protonix BID (had epigastric pain on admission) Zofran as needed for nausea (8) Hypothyroidism: Plan: Synthroid is continued at 25 mcg a day, last TSH was checked December 09 this past year and was normal at 3 (9) Constipation: Plan: Miralax 17 gm given yesterday and no BM Encouraged up and OOB (10) Nausea and vomiting: Plan: Now with Nausea and vomiting and zofra no help Added one time dose of compazine with only minimal improvement Bowel sounds are present but decreased Check a STAT CTAP to r/o a bowel obstruction Plan Enoxaparin 40mg SQ for DVT prevention Patient is DNR/DNI Admission and Anticipated Discharge Date Admission Date: July 03, 2022 Supervising Physician Co-Signing Physician Notes PA Supervision Note: I did not personally see or examine the patient. I verified all humphrey points and agree with STEVIE Jorgensen with the following exceptions and/or additions: COPD exacerbation: secondary to parainfluenza infection. Continue IV steroids, azithromycin. Wean oxygen as tolerated to baseline needs. SBO: developed abdominal pain today, CTAP with SBO, improving pain and nausea with NGT. Gen Surg involved and will follow, and did reduce abdominal wall hernia. Elevated troponin: Type 2 demand ischemia is likely cause, from acute hypoxia and acute illness in patient with known atherosclerotic disease. No evidence of ACS. Troponin downtrending. Labs, Rads, and ECG reviewed Subjective Patient is awake in bed. She states she is very nauseated and the zofran did not help. She also states she still has not had BM. Yesterday she passed flatus and nothing today. She had 17gm of miralax yesterday. She vomited x 2 this AM and has not been able to tolerate any po fluids.She denies any chest pain. She still has cough and congestion. Review of Systems Constitutional: + fatigue; no fever and no chills Respiratory: + cough and + chest congestion; no dyspnea and no hemoptysis Cardiovascular: no chest pain, no syncope and no edema Gastrointestinal: + belching, + nausea, + vomiting and + constipation; no dysphagia Genitourinary: no dysuria, no urinary frequency and no urinary hesitancy Integumentary: no rash, no lesions and no new lesions Neurologic: no falls, no headache(s) and no confusion Psychiatric: + change in appetite; no anxiety, no confusion and no auditory hallucinations Physical Exam Constitutional: WD/WN, vitals as above Neck: trachea midline, no thyromegaly Respiratory: + cough (course upper lung sounds no wheeze or rhonchi) and able to speak in complete sentences; no respiratory distress Gastrointestinal (Abdomen): Abdomen soft and minimal tenderness left lower abdomen, no R/R/G. No HSM. Bowels sounds are present but are decreased. Appears uncomfortable Skin: no rashes, warm and dry Psychiatric: A+Ox3, euthymic affect Results & Data Results & Data ([facility]) Vital Signs (Past 12 Hours) Vital Signs Temp Pulse Resp BP BP Pulse Ox O2 Del Method 07/05/22 07:16 100 H 24 95 Nasal Cannula 07/05/22 07:06 36.5 C 89 20 175/77 H 95 Nasal Cannula 07/05/22 05:41 107 H 209/87 H 97 Nasal Cannula 07/05/22 03:58 36.5 C 94 H 20 146/76 H 94 Nasal Cannula 07/04/22 23:15 36.7 C 89 20 171/79 H 93 Nasal Cannula 07/04/22 22:57 Nasal Cannula O2 Flow Rate 07/05/22 07:16 2 07/05/22 07:06 2 07/05/22 05:41 2 07/05/22 03:58 2 07/04/22 23:15 2 07/04/22 22:57 2 Laboratory Results Abnormal lab results 07/04/22 07/04/22 07/04/22 Range/Units 14:23 16:42 20:38 WBC (4.8-10.8) K/ul RBC (3.93-5.22) M/uL Hgb (12.0-16.0) g/dl MCV (80.0-100.0) fL MCH (25.0-34.0) pg MCHC (32.0-36.0) g/dL RDW Std Deviation (36.4-46.3) fL RDW Coeff of Flakito (11.5-14.5) % Sodium (136-145) mmol/L BUN (6-23) mg/dl BUN/Creatinine Ratio (10-20) Glucose (70-99(Fasting)) mg/dl POC Glucose 165 H 288 H (70-99) mg/dl Urine Glucose (UA) 1+ H (Negative) 07/05/22 07/05/22 07/05/22 Range/Units 07:12 07:12 07:58 WBC 24.70 H (4.8-10.8) K/ul RBC 5.29 H (3.93-5.22) M/uL Hgb 11.7 L (12.0-16.0) g/dl MCV 73.9 L (80.0-100.0) fL MCH 22.1 L (25.0-34.0) pg MCHC 29.9 L (32.0-36.0) g/dL RDW Std Deviation 47.6 H (36.4-46.3) fL RDW Coeff of Flakito 18.6 H (11.5-14.5) % Sodium 134 L (136-145) mmol/L BUN 29 H (6-23) mg/dl BUN/Creatinine Ratio 37.2 H (10-20) Glucose 192 H (70-99(Fasting)) mg/dl POC Glucose 177 H (70-99) mg/dl Urine Glucose (UA) (Negative) 07/05/22 Range/Units 11:58 WBC (4.8-10.8) K/ul RBC (3.93-5.22) M/uL Hgb (12.0-16.0) g/dl MCV (80.0-100.0) fL MCH (25.0-34.0) pg MCHC (32.0-36.0) g/dL RDW Std Deviation (36.4-46.3) fL RDW Coeff of Flakito (11.5-14.5) % Sodium (136-145) mmol/L BUN (6-23) mg/dl BUN/Creatinine Ratio (10-20) Glucose (70-99(Fasting)) mg/dl POC Glucose 186 H (70-99) mg/dl Urine Glucose (UA) (Negative) PG Care Time/CCT Total # of Minutes Spent Total Time Spent with Patient: Total time spent is greater than 50% in coordination of care (as documented) at patient's floor/unit and/or counseling patient: Coding Level of Care Code 18973 Subseq Hosp Care Lvl 3 Medical Decision Making High Complexity Diagnoses Acute respiratory distress R06.03 Elevated troponin R77.8 Small bowel obstruction K56.609 Diabetes mellitus type 2, uncontrolled E11.65 CKD (chronic kidney disease) stage 3, GFR 30-59 ml/min N18.30 Hypertension I10 Hypertension type: unspecified GERD (gastroesophageal reflux disease) K21.9 Hypothyroidism E03.9 Constipation K59.00 Nausea and vomiting R11.2 (1) Hypertension Hypertension type: unspecified Qualified Code(s): I10 - Essential (primary) hypertension
[2022-07-05] MEDS ORDERED: PROCHLORPERAZINE MALEATE 5 MG TAB PO ONE (10:49)
[2022-07-05] MEDS: ENOXAPARIN INJ 40 MG/0.4 ML SYR SQ SCH (13:03)
[2022-07-05] MEDS ORDERED: OPTIRAY 350 100ml IV ONE (13:52)
--- NOTE | 2022-07-05 14:10 | CT Scan Report ---
CT OF THE ABDOMEN AND PELVIS WITH CONTRAST CLINICAL HISTORY: Abdominal pain, decreased bowel sounds, hx multiple surgeries COMPARISON STUDY: CT of the abdomen and pelvis May 17, 2020. TECHNIQUE: Following IV administration of 88 mL of Optiray, axial images of the abdomen and pelvis we re obtained from the lung bases to the proximal femurs. Images were reviewed in the axial, sagittal, and coronal planes. IV contrast was administered without complication. Automated exposure control wa s utilized for the study. A dose lowering technique was utilized adhering to the principles of ALARA . CT DOSE: 948.84 mGy.cm FINDINGS: Mild left lower lobe airspace opacity is new since chest CT of July 03, 2022. No pneuma tosis, free air or portal venous gas is present. There is no significant biliary ductal dilatation st atus post cholecystectomy. There are no hepatic lesions. Spleen, adrenal glands and pancreas are unre markable. There is duodenal diverticula. Low-attenuation bilateral renal lesions favor cysts. There i s no hydronephrosis. There are also parapelvic cysts. Postoperative findings within the sigmoid colon are noted. Colonic diverticulosis is present without evidence for acute diverticulitis. The appendix is normal. Multiple dilated distal jejunal and proximal ileal loops are present. A left lower abdomi nal wall hernia contains a small bowel loop. Small bowel distal to the hernia is decompressed. There is mild associated mesenteric stranding. Extensive aortoiliac atherosclerotic plaque is noted. A 3.5 cm infrarenal abdominal aortic aneurysm is unchanged in caliber since CT of May 17, 2020. Althou gh suboptimally assessed on this non-CTA exam, there is suspected occlusion of the aorta just inferio r to the renal arteries. There is also probable occlusion of the left common iliac artery and severe stenosis of the right common iliac artery. At least moderate stenosis of the left renal artery is pre sent. There is no lymphadenopathy. No acute fractures are identified. IMPRESSION: 1. Small bowel obstruction due to a left lower abdominal wall hernia which contains a small bowel loo p. 2. No change in caliber of a 3.5 cm infrarenal abdominal aortic aneurysm since CT of May 17 0. Extensive aortoiliac atherosclerotic plaque, as above. 3. Mild left lower lobe airspace opacity. Although this could reflect atelectasis, pneumonia or aspir ation pneumonitis could appear similar. ACT 112: Negative or not required by law. Electronically signed by: Alcon Perez M.D. 07/05/2022 2:08 PM
--- NOTE | 2022-07-05 15:26 | Surgery Consultation ---
Date of Consultation July 05, 2022 Assessment & Plan (1) Small bowel obstruction: Secondary to hernia at ostomy site, left side. I was able to reduce this at the bedside. She is at high risk of repeat incarceration given her cough with her current respiratory illness. Explained how to hold pressure over the site when she coughs to minimize chance of incarceration. Agree with NG decompression which also may lower risk of repeat incarceration and allow SBO to resolve. If incarcerates again, she may need operative intervention but is at very high risk for complication/ morbidity/ hernia recurrence given her other medical issues and ongoing cough. She is DNR/ DNI but tells me she would be willing to c onsider surgery if needed (her mother had strangulated hernia in her 80s, repaired, and lived into her 90s). Unsure if she is a candidate for surgery here - would appreciate medical assessment of her perioperative risks. Discussed with PA. History of Present Illness Reason for Consultation: small bowel obstruction Requesting Physician: Johan Raymond MD Attending Physician: Neisha Ham DO History of Present Illness 86 yr old woman with multiple medical issues admitted with respiratory infection (viral bronchitis). During her hospital stay, she developed nausea and vomiting this AM. Sent for a CT scan which shows SBO with LLQ hernia containing small bowel loop, likely cause of obstruction. She has had multiple abdominal operations - hysterectomy, C-sxn x 3, colectomy with ostomy followed by ostomy takedown. Has noted a bulge in the left lower quadrant for many years. Has been told she should not have hernia surgery because she is high risk. 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 Hernia was reduced at the bedside - following reduction, she was no longer able to feel bulge. No abdominal pain currently. Allergies Allergy/AdvReac Type Severity Reaction Status Date / Time adhesive Allergy Mild Rash Verified 07/03/22 15:03 egg Allergy Mild GI SYMPTOMS Verified 07/03/22 15:03 garlic Allergy Mild GI symptoms Verified 07/03/22 15:03 propoxyphene Allergy Mild light Verified 07/03/22 15:03 headed sertraline Allergy Mild Dizziness Verified 07/03/22 15:03 soap [From Betadine] Allergy Mild itchy Verified 07/03/22 15:03 Sulfa (Sulfonamide Allergy Mild GI symptoms Verified 07/03/22 15:03 Antibiotics) simvastatin AdvReac Intermediate MYALGIA Verified 07/03/22 15:03 Home Medications Medication Instructions Recorded Confirmed Type cyclobenzaprine 5 mg tablet 5 mg PO TID PRN muscle spasm #30 04/15/21 07/03/22 Rx tabs clotrimazole-betamethasone 1 1 applic topical BID PRN rash #45 07/11/21 07/03/22 Rx %-0.05 % topical cream grams rosuvastatin 20 mg tablet (Crestor) 20 mg PO HS #90 tabs 07/11/21 07/03/22 Rx insulin aspar prot-insulin aspart See Rx Instructions subcut 09/10/21 07/03/22 Rx 100 unit/mL (70-30) subcutaneous .COMPLEX #90 mL pen (Novolog Mix 70-30FlexPen U-100) Accu-Chek Guide test strips (blood #200 ea 10/07/21 07/03/22 Rx sugar diagnostic) gabapentin 100 mg capsule 100 mg PO HS #90 caps 11/26/21 07/03/22 Rx levothyroxine 25 mcg tablet 25 mcg PO QAM #90 tabs 11/26/21 07/03/22 Rx lisinopril 10 mg tablet 10 mg PO QAM #90 tabs 11/26/21 07/03/22 Rx ferrous sulfate 325 mg (65 mg 162.5 mg PO DAILY 12/09/21 07/03/22 History iron) tablet esomeprazole magnesium 40 mg 40 mg PO QAM #90 caps 04/29/22 07/03/22 Rx capsule,delayed release clopidogrel 75 mg tablet (Plavix) 75 mg PO QPM #90 tabs 05/02/22 07/03/22 Rx carvedilol 3.125 mg tablet 3.125 mg PO BID #60 tabs 05/15/22 07/03/22 Rx Patient History Medical History Anemia treated with [facility] inpatient 04/06/21 at [facility] ASCVD (arteriosclerotic cardiovascular disease) Carotid artery stenosis Cerebral arterial aneurysm COPD (chronic obstructive pulmonary disease) CVA (cerebral vascular accident) 2014--short term memory loss, gait loss--uses walker CVA (cerebral vascular accident) Diabetes mellitus, type 2 Diabetic peripheral neuropathy GI bleed heme+ stool Hearing deficit History of CHF (congestive heart failure) Hx of angina pectoris Hyperlipidemia Hypothyroid NSTEMI (non-ST elevated myocardial infarction) pt unsure if she had an AL while inpatient at [facility] at the beginning of April 2021. states no one told her either way. but she denies sob or chest pain currently. Occlusion and stenosis of carotid artery with cerebral infarction On anticoagulant therapy Osteoarthritis Rectocutaneous fistula Restless leg syndrome Surgical History H/O section x3 History of bilateral cataract extraction History of bilateral tubal ligation History of cardiac cath @ [facility] [place]--no stents History of colonoscopy History of sigmoidoscopy History of tonsillectomy and adenoidectomy History of tooth extraction all teeth removed History of total abdominal hysterectomy and bilateral salpingo-oophorectomy S/P cholecystectomy S/P removal of ovarian cyst Family History Grandmother (Paternal) Family history of diabetes mellitus Father Myocardial infarction Mother Myocardial infarction Family/Other Heart disease Multiple benign polyps of large intestine Other No family history of adverse response to anesthesia Denies family history of Ovarian cancer Prostate cancer Crohn's disease Colorectal cancer Cancer Ulcerative colitis Social History Smoking Status: Former smoker Tobacco Type: Cigarettes Cigarettes Per Day: 1 pack per day; Smoking End Date: 1992; Second Hand Exposure: No; Hx Alcohol Use: No Hx Substance Use: No Preferred Language: Danish Communication Ability: Effective Visual Impairment: No Limitations Hearing Ability: Use of Hearing Aid [employer] Installer Required: No Beliefs That Will Affect Care: None marital status: Current Living Situation: Alone Current Living Situation Comment: senior apartment current occupational status: retired Other Information That Helps Us Care for You: No Feels Safe at Home: Yes Safety Concerns: Feels Safe At This Time Childhood Exposure to Second-Hand Smoke: Yes Dental Care, Regularly: No Physical Activity Frequency: Does not Exercise Seatbelt Use: always Sunscreen Use: No Assistive Devices: Walker Physical Exam Constitutional: WD/WN, vitals as above Respiratory: normal respiratory effort and + cough; no respiratory distress Gastrointestinal (Abdomen): Inspection/Auscultation: abdomen normal to inspection and + hypoactive bowel sounds; abdomen not distended Percussion/Palpation: abdomen soft and + hernia (left lower quadrant hernia about 5 cm, containing bowel); abdomen nontender Psychiatric: A+Ox3, euthymic affect Results & Data ([facility]) Vital Signs (Past 12 Hours) Vital Signs Temp Pulse Pulse Resp BP BP Pulse Ox 07/05/22 06:04 85 07/05/22 11:46 07/05/22 11:35 36.4 C L 95 H 20 174/82 H 96 07/05/22 11:15 90 24 95 07/05/22 07:16 100 H 24 95 07/05/22 07:06 36.5 C 89 20 175/77 H 95 07/05/22 05:41 107 H 209/87 H 97 07/05/22 03:58 36.5 C 94 H 20 146/76 H 94 O2 Del Method O2 Flow Rate 07/05/22 06:04 07/05/22 11:46 Nasal Cannula 2 07/05/22 11:35 Nasal Cannula 2 07/05/22 11:15 Nasal Cannula 2 07/05/22 07:16 Nasal Cannula 2 07/05/22 07:06 Nasal Cannula 2 07/05/22 05:41 Nasal Cannula 2 07/05/22 03:58 Nasal Cannula 2 Laboratory Results Abnormal lab results 07/04/22 07/04/22 07/05/22 Range/Units 16:42 20:38 07:12 WBC 24.70 H (4.8-10.8) K/ul RBC 5.29 H (3.93-5.22) M/uL Hgb 11.7 L (12.0-16.0) g/dl MCV 73.9 L (80.0-100.0) fL MCH 22.1 L (25.0-34.0) pg MCHC 29.9 L (32.0-36.0) g/dL RDW Std Deviation 47.6 H (36.4-46.3) fL RDW Coeff of Flakito 18.6 H (11.5-14.5) % Sodium (136-145) mmol/L BUN (6-23) mg/dl BUN/Creatinine Ratio (10-20) Glucose (70-99(Fasting)) mg/dl POC Glucose 165 H 288 H (70-99) mg/dl 07/05/22 07/05/22 07/05/22 Range/Units 07:12 07:58 11:58 WBC (4.8-10.8) K/ul RBC (3.93-5.22) M/uL Hgb (12.0-16.0) g/dl MCV (80.0-100.0) fL MCH (25.0-34.0) pg MCHC (32.0-36.0) g/dL RDW Std Deviation (36.4-46.3) fL RDW Coeff of Flakito (11.5-14.5) % Sodium 134 L (136-145) mmol/L BUN 29 H (6-23) mg/dl BUN/Creatinine Ratio 37.2 H (10-20) Glucose 192 H (70-99(Fasting)) mg/dl POC Glucose 177 H 186 H (70-99) mg/dl Diagnostic Findings CT scan personally reviewed left lower quadrant hernia containing loop of small bowel, SBO
[2022-07-05] MEDS: DEXTROSE 5% 1,000 ML IV SCH (15:45)
--- NOTE | 2022-07-05 16:15 | XRay Report ---
KUB CLINICAL HISTORY: after NGT insertion for placement COMPARISON STUDY: Chest CT July 03, 2022. FINDINGS: Tip of nasogastric tube is within the body of the stomach. The tube is well-positioned. The re is no pneumothorax or pleural effusion. Cardiomediastinal silhouette is stable. Cholecystectomy cl ips are incidentally noted. IMPRESSION: Tip of nasogastric tube within the body of the stomach. ACT 112: Negative or not required by law. Electronically signed by: Alcon Perez M.D. 07/05/2022 4:13 PM
[2022-07-05] MEDS: GABAPENTIN 100 MG CAP PO SCH (22:27)
[2022-07-05] MEDS: CLOPIDOGREL BISULFATE 75 MG TAB PO SCH (22:27)
[2022-07-05] MEDS: ROSUVASTATIN CALCIUM 20 MG TAB PO SCH (22:29)
[2022-07-06] MEDS: DEXTROSE 5% 1,000 ML IV SCH ×3 (00:13→16:21)
[2022-07-06] MEDS: INSULIN ASPART PER UNIT SC SCH ×4 (01:23→18:19)
[2022-07-06] MEDS: LEVOTHYROXINE SODIUM 25 MCG TABLET PO SCH (05:58)
[2022-07-06 07:09] LABS: Hematocrit (blood only) 35.9 % (34.1-44.9); Hemoglobin 10.6 g/dl (12.0-16.0); Mean Corpuscular Hemoglobin 22.1 pg (25.0-34.0); Mean Corpuscular Hgb Conc 29.5 g/dL (32.0-36.0); Mean Corpuscular Volume 74.9 fL (80.0-100.0); Mean Platelet Volume 9.8 fL (9.4-12.3); Platelet Count 278 K/uL (130-400); RDW Coefficient of Variation 17.7 % (11.5-14.5); RDW Standard Deviation 47.4 fL (36.4-46.3); Red Blood Count 4.79 M/uL (3.93-5.22); White Blood Count 16.12 K/ul (4.8-10.8)
[2022-07-06] MEDS: ALBUT/IPRATROP 3MG/0.5MG NEB 3 ML VIAL NEB SCH ×4 (07:26→20:18)
[2022-07-06 07:40] LABS: BUN Creatinine Ratio 32.5 (10-20); Creatinine Clr Calc Pharmacy 41.8 ml/min; Potassium 4.5 mmol/L (3.5-5.1)
--- NOTE | 2022-07-06 08:24 | Hospitalist Progress Note ---
Date of Service July 06, 2022 Assessment & Plan (1) Acute respiratory distress: Plan: Biofire with + parainfluenza infection No pneumonia on chest x-ray Continue on Methylprednisolone 40mg IV BID, duo nebs, mucinex with a flutter valve and azithromycin on day #5 Will stop Azithromycin after today's dose Elevated WBC (on prednisone, afebrile) (2) Elevated troponin: Plan: Today Troponin 162.5 down from peak of 201.2 Echo revealed EF 60-65% with normal left ventricular wall motion Patient has a hx of NSTEMI EKG today reveals NSR with no changes CTA revealed no aortic dissection Continue aspirin 81mg, Plavix, carvedilol and statin (3) Small bowel obstruction: Plan: NGT to LIS NPO IVFs General surgery reduced and is following Ok for ice chips and sips with medications Dulcolax suppository today KUB in the AM (4) Diabetes mellitus type 2, uncontrolled: Plan: Patient typically is on 70/30 insulin 50 units in the morning 40 units at night. Currently on Lantus 30 twice daily with insulin sliding scale expecting that the IV Solu-Medrol will make her diabetes more difficult to control. Glucose this AM random was 208 Pharmacy tightened carb ratio to 6 May also need to increase basal insulin (currently is NPO with SBO) Continue to closely monitor glucose HgbA1c 7.2 07/03/22 (5) CKD (chronic kidney disease) stage 3, GFR 30-59 ml/min: Plan: Patient's chronic kidney disease is likely attributed to her diabetes and stable at this time Conitnue on lisinopril for renal protective effects from diabetes and antihypertensive control (6) Hypertension: Plan: Lisinopril and carvedilol continue blood pressure is in good condition and presentation (7) GERD (gastroesophageal reflux disease): Plan: At home was on omeprazole Here on Protonix BID (had epigastric pain on admission) Zofran as needed for nausea (8) Hypothyroidism: Plan: Synthroid is continued at 25 mcg a day, last TSH was checked December 09 this past year and was normal at 3 (9) Constipation: Plan: SBO and is passing flatus but no BM Dulcolax suppository today KUB in he AM Encouraged up and OOB (10) Nausea and vomiting: Plan: Yesterday with SBO secondary to Herniated small bowel loop in LLQ over previous ostomy site Resolved with NGT to LIS and hernia reduced by surgery (11) Incarcerated hernia of abdominal cavity: Plan: cause of SBO manually reduced by general surgery - Dr John Patient educated on holding abdomen with coughing If hernia returns, may need surgical intervention/repair Patient is DNR/DNI but is interested in having surgery if needed Plan Enoxaparin 40mg SQ for DVT prevention Encourage OOB Patient is DNR/DNI Admission and Anticipated Discharge Date Admission Date: July 03, 2022 Supervising Physician Co-Signing Physician Notes PA Supervision Note: I did not personally see or examine the patient. I verified all humphrey points and agree with STEVIE Jorgensen with the following exceptions and/or additions: COPD exacerbation: secondary to parainfluenza infection. Continue IV steroids, azithromycin, to complete today. On room air at this time. SBO: developed abdominal pain 07/05, CTAP with SBO, improving pain and nausea with NGT. Gen Surg involved and will continue to follow, and did reduce abdominal wall hernia. Elevated troponin: Type 2 demand ischemia is likely cause, from acute hypoxia and acute illness in patient with known atherosclerotic disease. No evidence of ACS. Troponin downtrended. Otherwise as above Labs, Rads, and ECG reviewed Subjective Patient was sleeping and awoke to her name. She states she feels "a whole lot better" She has been NPO and still with NGT to LIS. Yesterday she was found to have a SBO due to a left lower abdominal wall hernia which contained a small bowel loop. Patient was evaluated By Dr John and had hernia reduced. Patient was educated to put pressure and hold the LLQ area with coughing. Patient is aware if hernia returns and is incarcerated she may need surgery. Patient has not had any BM and has not passed flatus. Review of Systems Constitutional: no fever, no chills and no sweats Ear, Nose, Mouth, Throat: + post nasal drip; no ear pain and no sinus pain/pressure Respiratory: + cough and + chest congestion; no hemoptysis Cardiovascular: no chest pain, no syncope and no calf pain Gastrointestinal: no abdominal pain, no nausea and no vomiting Integumentary: no rash, no lesions and no new lesions Neurologic: no falls, no syncope, no headache(s) and no confusion Psychiatric: no behavioral changes, no panic attacks and no confusion Physical Exam Constitutional: WD/WN, vitals as above Neck: trachea midline, no thyromegaly Respiratory: + cough and able to speak in complete sentences; no respiratory distress and no labored breathing upper respiratory congestion that clears with cough Cardiovascular: RRR, no murmur, no edema Gastrointestinal (Abdomen): Inspection/Auscultation: abdomen normal to inspection and + abdominal surgical scar; no visible herniation abdomen soft with decreased but + bowels sounds soft and nontender with no visible or palpable hernia Skin: no rashes, warm and dry Neurologic: PERRL, EOMI, accommodation nl, no face palsy, no dysarthria Psychiatric: A+Ox3, euthymic affect Results & Data Results & Data ([facility]) Vital Signs (Past 12 Hours) Vital Signs Temp Pulse Pulse Resp BP Pulse Ox O2 Del Method 07/06/22 07:26 36.4 C L 79 20 129/54 L 90 Nasal Cannula 07/06/22 04:20 36.4 C L 73 20 118/71 97 Nasal Cannula 07/05/22 22:01 71 07/06/22 01:49 Nasal Cannula 07/06/22 00:10 36.5 C 76 20 144/79 H 92 Room Air O2 Flow Rate 07/06/22 07:26 2 07/06/22 04:20 2 07/05/22 22:01 07/06/22 01:49 2 07/06/22 00:10 Laboratory Results Abnormal lab results 07/05/22 07/05/22 07/06/22 Range/Units 11:58 16:42 01:16 WBC (4.8-10.8) K/ul Hgb (12.0-16.0) g/dl MCV (80.0-100.0) fL MCH (25.0-34.0) pg MCHC (32.0-36.0) g/dL RDW Std Deviation (36.4-46.3) fL RDW Coeff of Flakito (11.5-14.5) % Sodium (136-145) mmol/L BUN (6-23) mg/dl BUN/Creatinine Ratio (10-20) Glucose (70-99(Fasting)) mg/dl POC Glucose 186 H 212 H 241 H (70-99) mg/dl Calcium (8.5-10.1) mg/dl 07/06/22 07/06/22 07/06/22 Range/Units 05:47 06:32 06:32 WBC 16.12 H (4.8-10.8) K/ul Hgb 10.6 L (12.0-16.0) g/dl MCV 74.9 L (80.0-100.0) fL MCH 22.1 L (25.0-34.0) pg MCHC 29.5 L (32.0-36.0) g/dL RDW Std Deviation 47.4 H (36.4-46.3) fL RDW Coeff of Flakito 17.7 H (11.5-14.5) % Sodium 131 L (136-145) mmol/L BUN 27 H (6-23) mg/dl BUN/Creatinine Ratio 32.5 H (10-20) Glucose 224 H (70-99(Fasting)) mg/dl POC Glucose 232 H (70-99) mg/dl Calcium 8.0 L (8.5-10.1) mg/dl Diagnostic Findings Abdomen/Pelvis CT 07/05/22 13:24 CT OF THE ABDOMEN AND PELVIS WITH CONTRAST CLINICAL HISTORY: Abdominal pain, decreased bowel sounds, hx multiple surgeries COMPARISON STUDY: CT of the abdomen and pelvis May 17, 2020. TECHNIQUE: Following IV administration of 88 mL of Optiray, axial images of the abdomen and pelvis were obtained from the lung bases to the proximal femurs. Images were reviewed in the axial, sagittal, and coronal planes. IV contrast was administered without complication. Automated exposure control was utilized for the study. A dose lowering technique was utilized adhering to the principles of ALARA. CT DOSE: 948.84 mGy.cm FINDINGS: Mild left lower lobe airspace opacity is new since chest CT of July 03, 2022. No pneumatosis, free air or portal venous gas is present. There is no significant biliary ductal dilatation status post cholecystectomy. There are no hepatic lesions. Spleen, adrenal glands and pancreas are unremarkable. There is duodenal diverticula. Low-attenuation bilateral renal lesions favor cysts. There is no hydronephrosis. There are also parapelvic cysts. Postoperative findings within the sigmoid colon are noted. Colonic diverticulosis is present without evidence for acute diverticulitis. The appendix is normal. Multiple dilated distal jejunal and proximal ileal loops are present. A left lower abdominal wall hernia contains a small bowel loop. Small bowel distal to the hernia is decompressed. There is mild associated mesenteric stranding. Extensive aortoiliac atherosclerotic plaque is noted. A 3.5 cm infrarenal abdominal aortic aneurysm is unchanged in caliber since CT of May 17, 2020. Although suboptimally assessed on this non-CTA exam, there is suspected occlusion of the aorta just inferior to the renal arteries. There is a lso probable occlusion of the left common iliac artery and severe stenosis of the right common iliac artery. At least moderate stenosis of the left renal artery is present. There is no lymphadenopathy. No acute fractures are identified. IMPRESSION: 1. Small bowel obstruction due to a left lower abdominal wall hernia which contains a small bowel loop. 2. No change in caliber of a 3.5 cm infrarenal abdominal aortic aneurysm since CT of May 17, 2020. Extensive aortoiliac atherosclerotic plaque, as above. 3. Mild left lower lobe airspace opacity. Although this could reflect atelecta sis, pneumonia or aspiration pneumonitis could appear similar. ACT 112: Negative or not required by law. Electronically signed by: Alcon Perez M.D. 07/05/2022 2:08 PM KUB X-Ray 07/05/22 14:40 KUB CLINICAL HISTORY: after NGT insertion for placement COMPARISON STUDY: Chest CT July 03, 2022. FINDINGS: Tip of nasogastric tube is within the body of the stomach. The tube is well-positioned. There is no pneumothorax or pleural effusion. Cardiomediastinal silhouette is stable. Cholecystectomy clips are incidentally noted. IMPRESSION: Tip of nasogastric tube within the body of the stomach. ACT 112: Negative or not required by law. Electronically signed by: Alcon Perez M.D. 07/05/2022 4:13 PM PG Care Time/CCT Total # of Minutes Spent Total Time Spent with Patient: Total time spent is greater than 50% in coordination of care (as documented) at patient's floor/unit and/or counseling patient: Coding Level of Care Code 23772 Subseq Hosp Care Lvl 3 Diagnoses Acute respiratory distress R06.03 Elevated troponin R77.8 Small bowel obstruction K56.609 Diabetes mellitus type 2, uncontrolled E11.65 CKD (chronic kidney disease) stage 3, GFR 30-59 ml/min N18.30 Hypertension I10 Hypertension type: unspecified GERD (gastroesophageal reflux disease) K21.9 Hypothyroidism E03.9 Constipation K59.00 Nausea and vomiting R11.2 Incarcerated hernia of abdominal cavity K45.0 (1) Hypertension Hypertension type: unspecified Qualified Code(s): I10 - Essential (primary) hypertension
[2022-07-06] MEDS: LANTUS PER UNIT CHARGE SQ SCH ×2 (08:34→21:29)
[2022-07-06] MEDS: carvediloL 3.125 MG TAB PO SCH ×2 (09:58→21:22)
[2022-07-06] MEDS: AZITHROMYCIN 250 MG TAB PO SCH (09:58)
[2022-07-06] MEDS: PANTOprazole 40 MG TAB PO SCH ×2 (09:59→21:22)
[2022-07-06] MEDS: ASPIRIN 81 MG ECTAB PO SCH (09:59)
[2022-07-06] MEDS: guaiFENesin 600 MG TABCR PO SCH ×2 (09:59→21:21)
[2022-07-06] MEDS: lisinopril 10 MG TAB PO SCH (10:00)
[2022-07-06] MEDS: methylPREDNISolone 40 MG in SYRINGE 0 ML IV SCH ×2 (10:00→21:23)
--- NOTE | 2022-07-06 10:35 | Surgery Progress Note ---
Date of Service July 06, 2022 Assessment & Plan (1) Small bowel obstruction: Plan: Secondary to hernia at ostomy site, left side. This was reduced yesterday and she continues to reduce it when it pops out with cough. Her cough is slowly improving. Passing flatus but no bowel movement yet. Consider repeat xray in am. Awaiting return of bowel function. Admission and Anticipated Discharge Date Admission Date: July 03, 2022 Subjective Sitting in chair. No further abdominal pain. No nausea or vomiting. She has been pushing the hernia back in when it pops out with cough. It is not out now. Ng in place. Passed some flatus this am but no bowel movement. Physical Exam Constitutional: WD/WN, vitals as above Respiratory: normal respiratory effort and + cough (less than yesterday); no respiratory distress Gastrointestinal (Abdomen): Inspection/Auscultation: abdomen normal to inspection and + hypoactive bowel sounds; abdomen not distended Percussion/Pa lpation: abdomen soft and + hernia (left lower quadrant hernia is reduced currently); abdomen nontender Psychiatric: A+Ox3, euthymic affect Results & Data ([facility]) Vital Signs (Past 12 Hours) Vital Signs Temp Pulse Resp BP Pulse Ox O2 Del Method O2 Flow Rate 07/06/22 08:31 36.8 C 85 18 136/71 95 Nasal Cannula 2 07/06/22 07:26 36.4 C L 79 20 129/54 L 90 Nasal Cannula 2 07/06/22 04:20 36.4 C L 73 20 118/71 97 Nasal Cannula 2 07/06/22 01:49 Nasal Cannula 2 07/06/22 00:10 36.5 C 76 20 144/79 H 92 Room Air Laboratory Results Abnormal lab results 07/05/22 07/05/22 07/06/22 Range/Units 11:58 16:42 01:16 WBC (4.8-10.8) K/ul Hgb (12.0-16.0) g/dl MCV (80.0-100.0) fL MCH (25.0-34.0) pg MCHC (32.0-36.0) g/dL RDW Std Deviation (36.4-46.3) fL RDW Coeff of Flakito (11.5-14.5) % Sodium (136-145) mmol/L BUN (6-23) mg/dl BUN/Creatinine Ratio (10-20) Glucose (70-99(Fasting)) mg/dl POC Glucose 186 H 212 H 241 H (70-99) mg/dl Calcium (8.5-10.1) mg/dl 07/06/22 07/06/22 07/06/22 Range/Units 05:47 06:32 06:32 WBC 16.12 H (4.8-10.8) K/ul Hgb 10.6 L (12.0-16.0) g/dl MCV 74.9 L (80.0-100.0) fL MCH 22.1 L (25.0-34.0) pg MCHC 29.5 L (32.0-36.0) g/dL RDW Std Deviation 47.4 H (36.4-46.3) fL RDW Coeff of Flakito 17.7 H (11.5-14.5) % Sodium 131 L (136-145) mmol/L BUN 27 H (6-23) mg/dl BUN/Creatinine Ratio 32.5 H (10-20) Glucose 224 H (70-99(Fasting)) mg/dl POC Glucose 232 H (70-99) mg/dl Calcium 8.0 L (8.5-10.1) mg/dl
[2022-07-06] MEDS: ENOXAPARIN INJ 40 MG/0.4 ML SYR SQ SCH (12:50)
[2022-07-06] MEDS ORDERED: bisacodyL 10 MG SUPP PR STA (14:54)
[2022-07-06] MEDS: ROSUVASTATIN CALCIUM 20 MG TAB PO SCH (21:20)
[2022-07-06] MEDS: GABAPENTIN 100 MG CAP PO SCH (21:21)
[2022-07-06] MEDS: CLOPIDOGREL BISULFATE 75 MG TAB PO SCH (21:22)
[2022-07-07] MEDS: INSULIN ASPART PER UNIT SC SCH ×4 (00:22→18:15)
[2022-07-07] MEDS: DEXTROSE 5% 1,000 ML IV SCH ×3 (01:15→18:38)
[2022-07-07] MEDS: LEVOTHYROXINE SODIUM 25 MCG TABLET PO SCH (05:56)
[2022-07-07] MEDS: ALBUT/IPRATROP 3MG/0.5MG NEB 3 ML VIAL NEB SCH ×4 (06:58→19:41)
[2022-07-07 07:47] LABS: Hematocrit (blood only) 38.5 % (34.1-44.9); Hemoglobin 11.6 g/dl (12.0-16.0); Mean Corpuscular Hemoglobin 22.2 pg (25.0-34.0); Mean Corpuscular Hgb Conc 30.1 g/dL (32.0-36.0); Mean Corpuscular Volume 73.6 fL (80.0-100.0); Mean Platelet Volume 9.7 fL (9.4-12.3); Platelet Count 306 K/uL (130-400); RDW Coefficient of Variation 17.4 % (11.5-14.5); RDW Standard Deviation 46.2 fL (36.4-46.3); Red Blood Count 5.23 M/uL (3.93-5.22); White Blood Count 17.15 K/ul (4.8-10.8)
[2022-07-07 08:17] LABS: BUN Creatinine Ratio 32.1 (10-20); Calcium 8.3 mg/dl (8.5-10.1); Est GFR (African American) 75.2 ml/min; Est GFR (Non-African American) 64.8 ml/min; Potassium 4.1 mmol/L (3.5-5.1)
--- NOTE | 2022-07-07 08:48 | Hospitalist Progress Note ---
Date of Service July 07, 2022 Assessment & Plan (1) Acute respiratory distress: Plan: Biofire with + parainfluenza infection No pneumonia on chest x-ray Continue on Methylprednisolone 40mg IV BID, duo nebs, mucinex with a flutter valve (Completed Azithromycin 07/06/21) Elevated WBC (on prednisone, afebrile) (2) Elevated troponin: Plan: 07/04/22 Troponin 162.5 down from peak of 201.2 Echo revealed EF 60-65% with normal left ventricular wall motion Patient has a hx of NSTEMI EKG - NSR with no changes CTA revealed no aortic dissection Continue aspirin 81mg, Plavix, carvedilol and statin (3) Small bowel obstruction: Plan: NGT to LIS NPO IVFs General surgery reduced and is following Ok for ice chips and sips with medications Dulcolax suppository yesterday and per nursing has had several brown soft BMs Repeat KUB in the AM (4) Diabetes mellitus type 2, uncontrolled: Plan: Patient typically is on 70/30 insulin 50 units in the morning 40 units at night. Currently on Lantus 30 twice daily with insulin sliding scale expecting that the IV Solu-Medrol will make her diabetes more difficult to control. Glucose this AM 174 and 189 Pharmacy tightened carb ratio to 6 May also need to increase basal insulin (currently is NPO with SBO) Continue to closely monitor glucose HgbA1c 7.2 07/03/22 (5) CKD (chronic kidney disease) stage 3, GFR 30-59 ml/min: Plan: Patient's chronic kidney disease is likely attributed to her diabetes and stable at this time Conitnue on lisinopril for renal protective effects from diabetes and antihypertensive control (6) Hypertension: Plan: Continue Lisinopril and carvedilol - blood pressure today 107/67 (7) GERD (gastroesophageal reflux disease): Plan: At home was on omeprazole Here on Protonix BID (had epigastric pain on admission) Zofran as needed for nausea (8) Hypothyroidism: Plan: Synthroid is continued at 25 mcg a day, last TSH was checked December 09 this past year and was normal at 3 (9) Constipation: Plan: SBO and is passing flatus but no BM Dulcolax suppository yesterday and had several formed and brown BMs KUB ordered for tomorrow Encouraged up and OOB (10) Nausea and vomiting: Plan: 07/05 with SBO secondary to Herniated small bowel loop in LLQ over previous ostomy site Resolved with NGT to LIS and hernia reduced by surgery (11) Incarcerated hernia of abdominal cavity: Plan: cause of SBO manually reduced by general surgery - Dr John 07/05 Patient educated on holding abdomen with coughing If hernia returns, may need surgical intervention/repair Patient is DNR/DNI but is interested in having surgery if needed Plan Enoxaparin 40mg SQ for DVT prevention Encourage OOB Patient is DNR/DNI Admission and Anticipated Discharge Date Admission Date: July 03, 2022 Supervising Physician Co-Signing Physician Notes PA Supervision Note: I did not personally see or examine the patient. I verified all humphrey points and agree with STEVIE Jorgensen with the following exceptions and/or additions: COPD exacerbation: secondary to parainfluenza infection. Transition methylpred to prednisone 40mg daily tomorrow if still breathing well on room air and able to escalate to clear liquid diet. SBO: developed abdominal pain 07/05, CTAP with SBO, improving pain and nausea with NGT. Gen Surg involved and will continue to follow, and did reduce abdominal wall hernia. Patient really wants NGT out; certainly improving per imaging and PA exam, however if will let us keep overnight but otherwise remove and closely monitor for worsening. Elevated troponin: Resolved. Type 2 demand ischemia is likely cause, from acute hypoxia and acute illness in patient with known atherosclerotic disease. No evidence of ACS. Troponin downtrended. Otherwise as above Labs, Rads, and ECG reviewed Subjective Patient is awake in bed and states she is feeling some better. She states her coughing has improved and she feels the nebulizer treatments help. She has no further abdominal pain. She had a repeat KUB revealing persistent SBO with slight improvement She had some mild nausea after po medications and some mild lower abdominal pain last night She is still NPO on IVFs with NGT Review of Systems Constitutional: no fever, no chills and no sweats Ear, Nose, Mouth, Throat: + post nasal drip; no ear pain and no sinus pain/pressure Respiratory: + cough and + chest congestion; no hemoptysis Cardiovascular: no chest pain, no syncope and no calf pain Gastrointestinal: no abdominal pain, no nausea and no vomiting Genitourinary: no dysuria, no urinary frequency and no urinary hesitancy Integumentary: no rash, no lesions and no new lesions Neurologic: no falls, no syncope, no headache(s) and no confusion Psychiatric: no behavioral changes, no panic attacks and no confusion Physical Exam Constitutional: WD/WN, vitals as above Neck: trachea midline, no thyromegaly Respiratory: + cough and able to speak in complete sentences; no respiratory distress and no labored breathing Cardiovascular: RRR, no murmur, no edema Gastrointestinal (Abdomen): normal bowel sounds, soft, nontender, no hepatosplenomegaly Inspection/Auscultation: abdomen normal to inspection and + abdominal surgical scar; no visible herniation Skin: no rashes, warm and dry Neurologic: PERRL, EOMI, accommodation nl, no face palsy, no dysarthria Psychiatric: A+Ox3, euthymic affect Results & Data Results & Data ([facility]) Vital Signs (Past 12 Hours) Vital Signs Temp Pulse Pulse Resp BP BP Pulse Ox 07/07/22 07:30 76 19 107/67 94 07/07/22 06:59 85 18 93 07/07/22 04:31 36.8 C 76 20 141/81 H 94 07/06/22 22:03 68 07/06/22 22:23 36.3 C L 71 20 121/74 92 07/06/22 22:55 07/06/22 21:52 95 07/06/22 21:15 36.3 C L 84 18 116/71 91 O2 Del Method O2 Flow Rate 07/07/22 07:30 Room Air 07/07/22 06:59 Room Air 07/07/22 04:31 Nasal Cannula 2 07/06/22 22:03 07/06/22 22:23 Nasal Cannula 2 07/06/22 22:55 Nasal Cannula 2 07/06/22 21:52 Nasal Cannula 2 07/06/22 21:15 Room Air Laboratory Results Abnormal lab results 07/06/22 07/06/22 07/06/22 Range/Units 12:25 18:11 20:38 WBC (4.8-10.8) K/ul RBC (3.93-5.22) M/uL Hgb (12.0-16.0) g/dl MCV (80.0-100.0) fL MCH (25.0-34.0) pg MCHC (32.0-36.0) g/dL RDW Coeff of Flakito (11.5-14.5) % Sodium (136-145) mmol/L BUN (6-23) mg/dl BUN/Creatinine Ratio (10-20) Glucose (70-99(Fasting)) mg/dl POC Glucose 208 H 272 H 261 H (70-99) mg/dl Calcium (8.5-10.1) mg/dl 07/07/22 07/07/22 07/07/22 Range/Units 00:19 05:33 07:14 WBC 17.15 H (4.8-10.8) K/ul RBC 5.23 H (3.93-5.22) M/uL Hgb 11.6 L (12.0-16.0) g/dl MCV 73.6 L (80.0-100.0) fL MCH 22.2 L (25.0-34.0) pg MCHC 30.1 L (32.0-36.0) g/dL RDW Coeff of Flakito 17.4 H (11.5-14.5) % Sodium (136-145) mmol/L BUN (6-23) mg/dl BUN/Creatinine Ratio (10-20) Glucose (70-99(Fasting)) mg/dl POC Glucose 214 H 201 H (70-99) mg/dl Calcium (8.5-10.1) mg/dl 07/07/22 07/07/22 Range/Units 07:14 07:42 WBC (4.8-10.8) K/ul RBC (3.93-5.22) M/uL Hgb (12.0-16.0) g/dl MCV (80.0-100.0) fL MCH (25.0-34.0) pg MCHC (32.0-36.0) g/dL RDW Coeff of Flakito (11.5-14.5) % Sodium 132 L (136-145) mmol/L BUN 26 H (6-23) mg/dl BUN/Creatinine Ratio 32.1 H (10-20) Glucose 189 H (70-99(Fasting)) mg/dl POC Glucose 174 H (70-99) mg/dl Calcium 8.3 L (8.5-10.1) mg/dl PG Care Time/CCT Total # of Minutes Spent Total Time Spent with Patient: Total time spent is greater than 50% in coordination of care (as documented) at patient's floor/unit and/or counseling patient: Coding Level of Care Code 22950 Subseq Hosp Care Lvl 2 Diagnoses Acute respiratory distress R06.03 Elevated troponin R77.8 Small bowel obstruction K56.609 Diabetes mellitus type 2, uncontrolled E11.65 CKD (chronic kidney disease) stage 3, GFR 30-59 ml/min N18.30 Hypertension I10 Hypertension type: unspecified GERD (gastroesophageal reflux disease) K21.9 Hypothyroidism E03.9 Constipation K59.00 Nausea and vomiting R11.2 Incarcerated hernia of abdominal cavity K45.0 (1) Hypertension Hypertension type: unspecified Qualified Code(s): I10 - Essential (primary) hypertension
[2022-07-07] MEDS: methylPREDNISolone 40 MG in SYRINGE 0 ML IV SCH ×2 (09:53→21:08)
[2022-07-07] MEDS: carvediloL 3.125 MG TAB PO SCH ×2 (10:09→21:10)
[2022-07-07] MEDS: ASPIRIN 81 MG ECTAB PO SCH (10:09)
[2022-07-07] MEDS: guaiFENesin 600 MG TABCR PO SCH ×2 (10:09→21:11)
[2022-07-07] MEDS: PANTOprazole 40 MG TAB PO SCH ×2 (10:09→21:09)
[2022-07-07] MEDS: lisinopril 10 MG TAB PO SCH (10:10)
[2022-07-07] MEDS: LANTUS PER UNIT CHARGE SQ SCH ×2 (10:21→21:24)
--- NOTE | 2022-07-07 11:07 | XRay Report ---
KUB CLINICAL HISTORY: history of sbo COMPARISON STUDY: CT of the abdomen and pelvis and KUB July 05, 2022. FINDINGS: Tip of nasogastric tube is within the body of the stomach. There are cholecystectomy clips. Several loops of mildly dilated small bowel are present. These measure up to 3.4 cm in caliber. IMPRESSION: Findings suggestive of a persistent, but slightly improved, small bowel obstruction. ACT 112: Negative or not required by law. Electronically signed by: Alcon Perez M.D. 07/07/2022 11:06 AM
[2022-07-07] MEDS: ENOXAPARIN INJ 40 MG/0.4 ML SYR SQ SCH (11:47)
--- NOTE | 2022-07-07 14:34 | Surgery Progress Note ---
Date of Service July 07, 2022 Assessment & Plan (1) Small bowel obstruction: Plan: Secondary to hernia at ostomy site, left side. This was reduced yesterday and she continues to reduce it when it pops out with cough. Her cough is slowly improving. Persistent leukocytosis (but on steroids for her respiratory issues). Had a few bowel movements following dulcolax and xray today shows slow improvement in SBO. Given xray findings and pain last evening, would keep ng tube tonight. Admission and Anticipated Discharge Date Admission Date: July 03, 2022 Subjective Lying in bed. Noted increased abdominal pain in abdomen during the night. Had received dulcolax at 2:30 pm yesterday. Nursing report several small bowel movements as a result. some nausea after PO meds. Cough still persists, still pushing hernia back in. Physical Exam Constitutional: WD/WN, vitals as above Respiratory: normal respiratory effort and + cough (less than yesterday); no respiratory distress Gastrointestinal (Abdomen): Inspection/Auscultation: abdomen normal to inspection and + hypoactive bowel sounds; abdomen not distended Percussion/Palpation: abdomen soft and + hernia (left lower quadrant hernia is reduced currently); abdomen nontender Psychiatric: A+Ox3, euthymic affect Results & Data ([facility]) Vital Signs (Past 12 Hours) Vital Signs Temp Pulse Resp BP BP Pulse Ox O2 Del Method 07/07/22 12:51 Room Air 07/07/22 11:08 36.4 C L 70 16 146/82 H 96 Room Air 07/07/22 10:36 74 18 93 Room Air 07/07/22 07:30 76 19 107/67 94 Room Air 07/07/22 06:59 85 18 93 Room Air 07/07/22 04:31 36.8 C 76 20 141/81 H 94 Nasal Cannula O2 Flow Rate 07/07/22 12:51 07/07/22 11:08 07/07/22 10:36 07/07/22 07:30 07/07/22 06:59 07/07/22 04:31 2 Laboratory Results 07/07/22 07/07/22 07/07/22 Range/Units 11:29 07:42 07:14 WBC (4.8-10.8) K/ul RBC (3.93-5.22) M/uL Hgb (12.0-16.0) g/dl Hct (34.1-44.9) % MCV (80.0-100.0) fL MCH (25.0-34.0) pg MCHC (32.0-36.0) g/dL RDW Std Deviation (36.4-46.3) fL RDW Coeff of Flakito (11.5-14.5) % Plt Count (130-400) K/uL MPV (9.4-12.3) fL Sodium 132 L (136-145) mmol/L Potassium 4.1 (3.5-5.1) mmol/L Chloride 98 (98-107) mmol/L Carbon Dioxide 29 (21-32) mmol/L Anion Gap 5 (3-11) BUN 26 H (6-23) mg/dl Creatinine 0.81 (0.6-1.2) mg/dl Est Cr Clr Drug Dosing 43.0 ml/min Est GFR ( Amer) 75.2 ml/min Est GFR (Non-Af Amer) 64.8 ml/min BUN/Creatinine Ratio 32.1 H (10-20) Glucose 189 H (70-99(Fasting)) mg/dl POC Glucose 141 H 174 H (70-99) mg/dl Calcium 8.3 L (8.5-10.1) mg/dl 07/07/22 07/07/22 07/07/22 Range/Units 07:14 05:33 00:19 WBC 17.15 H (4.8-10.8) K/ul RBC 5.23 H (3.93-5.22) M/uL Hgb 11.6 L (12.0-16.0) g/dl Hct 38.5 (34.1-44.9) % MCV 73.6 L (80.0-100.0) fL MCH 22.2 L (25.0-34.0) pg MCHC 30.1 L (32.0-36.0) g/dL RDW Std Deviation 46.2 (36.4-46.3) fL RDW Coeff of Flakito 17.4 H (11.5-14.5) % Plt Count 306 (130-400) K/uL MPV 9.7 (9.4-12.3) fL Sodium (136-145) mmol/L Potassium (3.5-5.1) mmol/L Chloride (98-107) mmol/L Carbon Dioxide (21-32) mmol/L Anion Gap (3-11) BUN (6-23) mg/dl Creatinine (0.6-1.2) mg/dl Est Cr Clr Drug Dosing ml/min Est GFR ( Amer) ml/min Est GFR (Non-Af Amer) ml/min BUN/Creatinine Ratio (10-20) Glucose (70-99(Fasting)) mg/dl POC Glucose 201 H 214 H (70-99) mg/dl Calcium (8.5-10.1) mg/dl 07/06/22 07/06/22 Range/Units 20:38 18:11 WBC (4.8-10.8) K/ul RBC (3.93-5.22) M/uL Hgb (12.0-16.0) g/dl Hct (34.1-44.9) % MCV (80.0-100.0) fL MCH (25.0-34.0) pg MCHC (32.0-36.0) g/dL RDW Std Deviation (36.4-46.3) fL RDW Coeff of Flakito (11.5-14.5) % Plt Count (130-400) K/uL MPV (9.4-12.3) fL Sodium (136-145) mmol/L Potassium (3.5-5.1) mmol/L Chloride (98-107) mmol/L Carbon Dioxide (21-32) mmol/L Anion Gap (3-11) BUN (6-23) mg/dl Creatinine (0.6-1.2) mg/dl Est Cr Clr Drug Dosing ml/min Est GFR ( Amer) ml/min Est GFR (Non-Af Amer) ml/min BUN/Creatinine Ratio (10-20) Glucose (70-99(Fasting)) mg/dl POC Glucose 261 H 272 H (70-99) mg/dl Calcium (8.5-10.1) mg/dl Diagnostic Findings KUB CLINICAL HISTORY: history of sbo COMPARISON STUDY: CT of the abdomen and pelvis and KUB July 05, 2022. FINDINGS: Tip of nasogastric tube is within the body of the stomach. There are cholecystectomy clips. Several loops of mildly dilated small bowel are present. These measure up to 3.4 cm in caliber. IMPRESSION: Findings suggestive of a persistent, but slightly improved, small bowel obstruction. ACT 112: Negative or not required by law.
[2022-07-07] MEDS: CLOPIDOGREL BISULFATE 75 MG TAB PO SCH (21:10)
[2022-07-07] MEDS: GABAPENTIN 100 MG CAP PO SCH (21:12)
[2022-07-07] MEDS: ROSUVASTATIN CALCIUM 20 MG TAB PO SCH (21:12)
[2022-07-08] MEDS: INSULIN ASPART PER UNIT SC SCH ×5 (00:15→22:52)
[2022-07-08] MEDS: DEXTROSE 5% 1,000 ML IV SCH ×2 (02:42→10:45)
[2022-07-08] MEDS: LEVOTHYROXINE SODIUM 25 MCG TABLET PO SCH (06:22)
[2022-07-08] MEDS: ALBUT/IPRATROP 3MG/0.5MG NEB 3 ML VIAL NEB SCH ×4 (07:17→17:46)
[2022-07-08 07:57] LABS: Hematocrit (blood only) 35.7 % (34.1-44.9); Hemoglobin 10.7 g/dl (12.0-16.0); Mean Corpuscular Hemoglobin 22.3 pg (25.0-34.0); Mean Corpuscular Volume 74.5 fL (80.0-100.0); Mean Platelet Volume 9.5 fL (9.4-12.3); Platelet Count 273 K/uL (130-400); RDW Coefficient of Variation 17.4 % (11.5-14.5); RDW Standard Deviation 46.7 fL (36.4-46.3); Red Blood Count 4.79 M/uL (3.93-5.22); White Blood Count 14.26 K/ul (4.8-10.8)
[2022-07-08 08:16] LABS: BUN Creatinine Ratio 27.7 (10-20); Calcium 7.7 mg/dl (8.5-10.1); Creatinine Clr Calc Pharmacy 36.4 ml/min; Est GFR (African American) 62.8 ml/min; Est GFR (Non-African American) 54.2 ml/min; Potassium 4.6 mmol/L (3.5-5.1)
--- NOTE | 2022-07-08 09:07 | XRay Report ---
KUB HISTORY: Follow up study in a patient with small bowel obstruction SBO compare with 07/07/22 COMPARISON: KUB July 07, 2022, CT 07/05/2022 FINDINGS: Distal tip of enteric tube projects over the mid gastric body. Cholecystectomy. Moderate co lonic fecal retention. Dilated air-filled loop of small bowel within the midabdomen measures up to 3. 9 cm which appears generally unchanged from yesterday's study. Air is present within the large bowel. No renal calculi. No ureteral calculi. No pneumoperitoneum or pneumatosis. No fracture. IMPRESSION: 1. Generally stable appearance of the persistent small bowel obstruction. 2. Unchanged positioning of the enteric tube. ACT 112: Negative or not required by law. The above report was generated using voice recognition software. It may contain grammatical, syntax o r spelling errors. Electronically signed by: Judd Pham M.D. 07/08/2022 9:06 AM
[2022-07-08] MEDS: PANTOprazole 40 MG TAB PO SCH ×2 (10:00→22:10)
[2022-07-08] MEDS: lisinopril 10 MG TAB PO SCH (10:01)
[2022-07-08] MEDS: carvediloL 3.125 MG TAB PO SCH ×2 (10:01→22:11)
[2022-07-08] MEDS: ASPIRIN 81 MG ECTAB PO SCH (10:01)
[2022-07-08] MEDS: methylPREDNISolone 40 MG in SYRINGE 0 ML IV SCH ×2 (10:02→22:07)
[2022-07-08] MEDS: guaiFENesin 600 MG TABCR PO SCH ×2 (10:02→22:10)
[2022-07-08] MEDS: LANTUS PER UNIT CHARGE SQ SCH ×2 (10:08→22:51)
[2022-07-08] MEDS ORDERED: bisacodyL 10 MG SUPP PR STA (10:57)
--- NOTE | 2022-07-08 11:44 | Surgery Progress Note ---
Date of Service July 08, 2022 Assessment & Plan (1) Small bowel obstruction: Plan: Secondary to hernia at ostomy site, left side. This was reduced yesterday and she continues to reduce it when it pops out with cough. Her cough is slowly improving. Persistent leukocytosis (but on steroids for her respiratory issues). Had a few bowel movements following dulcolax and xray today shows slow improvement in SBO. Given xray findings and pain last evening, would keep ng tube tonight. 07/08/2022 11:47AM, DR. Patterson base on pt'H/P, CT scan and KUB, finding, I reviewed all with pt, I recommend to do open repair abdominal wall hernia possible mesh, but pt is high risk for surgery, if pt wants to accept the risks- D/W benefits, risks and alternatives of the surgery, but pt dose not want to do surgery at this point, may pull NG, start clear diet today, KUB and labs tomorrow, will F/U Admission and Anticipated Discharge Date Admission Date: July 03, 2022 Supervising Physician Co-Signing Physician Notes PA Supervision Note: I did not personally see or examine the patient. I verified all humphrey points and agree with STEVIE Jorgensen with the following exceptions and/or additions: COPD exacerbation: secondary to parainfluenza infection. Transition methylpred to prednisone 40mg daily tomorrow if still breathing well on room air and able to escalate to clear liquid diet. SBO: developed abdominal pain 07/05, CTAP with SBO, improving pain and nausea with NGT. Gen Surg involved and will continue to follow, and did reduce abdominal wall hernia. Patient really wants NGT out; certainly improving per imaging and PA exam, however if will let us keep overnight but otherwise remove and closely monitor for worsening. Elevated troponin: Resolved. Type 2 demand ischemia is likely cause, from acute hypoxia and acute illness in patient with known atherosclerotic disease. No evidence of ACS. Troponin downtrended. Otherwise as above Labs, Rads, and ECG reviewed Subjective Patient is awake in bed and states she is feeling some better. She states her coughing has improved and she feels the nebulizer treatments help. She has no further abdominal pain. She had a repeat KUB revealing persistent SBO with slight improvement She had some mild nausea after po medications and some mild lower abdominal pain last night She is still NPO on IVFs with NGT 07/08/2022 11:44AM Dr. Patterson F/U SBO, abdominal wall hernia, pt is doing better, passed BM, pt denies nausea, no vomiting, NG mimnimal, Physical Exam Constitutional: WD/WN, vitals as above Eyes: PERRL, conjunctivae normal, anicteric sclerae Neck: trachea midline, no thyromegaly Respiratory: normal respiratory effort, lungs clear to auscultation Cardiovascular: RRR, no murmur, no edema Gastrointestinal (Abdomen): normal bowel sounds, soft, nontender, no hepatosplenomegaly no significant tenderness at abdomen, no palpable mass on abdomen, middle line scar, and scar on LLQ, BS +. Neurologic: patellar DTR's 2+ bilat, sensation intact Psychiatric: A+Ox3, euthymic affect Results & Data ([facility]) Vital Signs (Past 12 Hours) Vital Signs Temp Pulse Resp BP BP Pulse Ox O2 Del Method 07/08/22 11:10 88 18 93 Room Air 07/08/22 10:54 36.8 C 84 18 124/71 96 Room Air 07/08/22 08:00 36.4 C L 68 20 124/71 90 Room Air 07/08/22 07:18 76 18 93 Room Air 07/08/22 03:24 36.5 C 77 16 115/63 95 Room Air Laboratory Results Abnormal lab results 07/07/22 07/07/22 07/08/22 Range/Units 18:10 20:18 06:05 WBC (4.8-10.8) K/ul Hgb (12.0-16.0) g/dl MCV (80.0-100.0) fL MCH (25.0-34.0) pg MCHC (32.0-36.0) g/dL RDW Std Deviation (36.4-46.3) fL RDW Coeff of Flakito (11.5-14.5) % Sodium (136-145) mmol/L BUN (6-23) mg/dl BUN/Creatinine Ratio (10-20) Glucose (70-99(Fasting)) mg/dl POC Glucose 159 H 69 L* 172 H (70-99) mg/dl Calcium (8.5-10.1) mg/dl 07/08/22 07/08/2207/08/23 Range/Units 07:46 07:46 09:59 WBC 14.26 H (4.8-10.8) K/ul Hgb 10.7 L (12.0-16.0) g/dl MCV 74.5 L (80.0-100.0) fL MCH 22.3 L (25.0-34.0) pg MCHC 30.0 L (32.0-36.0) g/dL RDW Std Deviation 46.7 H (36.4-46.3) fL RDW Coeff of Flakito 17.4 H (11.5-14.5) % Sodium 132 L (136-145) mmol/L BUN 26 H (6-23) mg/dl BUN/Creatinine Ratio 27.7 H (10-20) Glucose 210 H (70-99(Fasting)) mg/dl POC Glucose 201 H (70-99) mg/dl Calcium 7.7 L (8.5-10.1) mg/dl Diagnostic Findings CT OF THE ABDOMEN AND PELVIS WITH CONTRAST CLINICAL HISTORY: Abdominal pain, decreased bowel sounds, hx multiple surgeries COMPARISON STUDY: CT of the abdomen and pelvis May 17, 2020. TECHNIQUE: Following IV administration of 88 mL of Optiray, axial images of the abdomen and pelvis were obtained from the lung bases to the proximal femurs. Images were reviewed in the axial, sagittal, and coronal planes. IV contrast was administered without complication. Automated exposure control was utilized for the study. A dose lowering technique was utilized adhering to the principles of ALARA. CT DOSE: 948.84 mGy.cm FINDINGS: Mild left lower lobe airspace opacity is new since chest CT of July 03, 2022. No pneumatosis, free air or portal venous gas is present. There is no significant biliary ductal dilatation status post cholecystectomy. There are no hepatic lesions. Spleen, adrenal glands and pancreas are unremarkable. There is duodenal diverticula. Low-attenuation bilateral renal lesions favor cysts. There is no hydronephrosis. There are also parapelvic cysts. Postoperative findings within the sigmoid colon are noted. Colonic diverticulosis is present without evidence for acute diverticulitis. The appendix is normal. Multiple dilated distal jejunal and proximal ileal loops are present. A left lower abdominal wall hernia contains a small bowel loop. Small bowel distal to the hernia is decompressed. There is mild associated mesenteric stranding. Extensive aortoiliac atherosclerotic plaque is noted. A 3.5 cm infrarenal abdominal aortic aneurysm is unchanged in caliber since CT of May 17, 2020. Although suboptimally assessed on this non-CTA exam, there is suspected occlusion of the aorta just inferior to the renal arteries. There is also probable occlusion of the left common iliac artery and severe stenosis of the right common iliac artery. At least moderate stenosis of the left renal artery is present. There is no lymphadenopathy. No acute fractures are identified. IMPRESSION: 1. Small bowel obstruction due to a left lower abdominal wall hernia which contains a small bowel loop. 2. No change in caliber of a 3.5 cm infrarenal abdominal aortic aneurysm since CT of May 17, 2020. Extensive aortoiliac atherosclerotic plaque, as above. 3. Mild left lower lobe airspace opacity. Although this could reflect atelectasis, pneumonia or aspiration pneumonitis could appear similar. ACT 112: Negative or not required by law. Electronically signed by: Alcon Perez M.D.
[2022-07-08] MEDS: ENOXAPARIN INJ 40 MG/0.4 ML SYR SQ SCH (13:19)
--- NOTE | 2022-07-08 14:32 | Hospitalist Progress Note ---
Date of Service July 08, 2022 Assessment & Plan (1) Acute respiratory distress: Plan: Biofire with + parainfluenza infection No pneumonia on chest x-ray Continue on Methylprednisolone 40mg IV BID, duo nebs, mucinex with a flutter valve (Completed Azithromycin 07/06/21) Elevated WBC (on steroids, afebrile) cough greatly improving (2) Elevated troponin: Plan: 07/04/22 Troponin 162.5 down from peak of 201.2 Echo revealed EF 60-65% with normal left ventricular wall motion Patient has a hx of NSTEMI EKG - NSR with no changes CTA revealed no aortic dissection Patient has no chest pain or dyspnea Continue aspirin 81mg, Plavix, carvedilol and statin (3) Small bowel obstruction: Plan: General surgery reduced and is following Offered to repair abdominal wall hernia with mesh and patient refuses the surgery at this time Per surgery ok to remove NGT and start clear liquid diet Dulcolax suppository again today Repeat KUB in the AM (4) Diabetes mellitus type 2, uncontrolled: Plan: Patient typically is on 70/30 insulin 50 units in the morning 40 units at night. Initially on Lantus 30 twice daily with insulin sliding scale expecting that the IV Solu-Medrol will make her diabetes more difficult to control. Patient had a hypoglycemic episode last evening Changed Lantus to 24 units BID Continue to closely monitor glucose May need to increase lantus as she no longer is NPO HgbA1c 7.2 07/03/22 (5) CKD (chronic kidney disease) stage 3, GFR 30-59 ml/min: Plan: Patient's chronic kidney disease is likely attributed to her diabetes and stable at this time Conitnue on lisinopril for renal protective effects from diabetes and antihypertensive control (6) Hypertension: Plan: Continue Lisinopril and carvedilol - blood pressure today 119/75 (7) GERD (gastroesophageal reflux disease): Plan: At home was on omeprazole Here on Protonix BID (had epigastric pain on admission) Zofran as needed for nausea Patient has had no nausea or vomiting past 24 hours (8) Hypothyroidism: Plan: Synthroid is continued at 25 mcg a day, last TSH was checked December 09 this past year and was normal at 3 (9) Constipation: Plan: SBO and is passing flatus Dulcolax suppository 07/06/22 and had several formed and brown BMs No BM today another dulcolax suppository KUB ordered for tomorrow Encouraged up and OOB (10) Nausea and vomiting: Plan: 07/05 with SBO secondary to Herniated small bowel loop in LLQ over previous ostomy site Resolved with NGT to LIS and hernia reduced by surgery NGT removed today and started clear liquids and will continue to monitor closely (11) Incarcerated hernia of abdominal cavity: Plan: cause of SBO manually reduced by general surgery - Dr John 07/05 Patient educated on holding abdomen with coughing If hernia returns, may need surgical intervention/repair Patient is DNR/DNI but is interested in surgery if absolutely needed and if hernia is incarcerated. Surgery offered repair of the hernia with mesh and she is refusing at this time and they recommended to pull NGT and start clear liquid diet Plan Enoxaparin 40mg SQ for DVT prevention Encourage OOB Patient is DNR/DNI Admission and Anticipated Discharge Date Admission Date: July 03, 2022 Supervising Physician Co-Signing Physician Notes PA Supervision Note: I did not personally see or examine the patient. I verified all humphrey points and agree with STEVIE Jorgensen with the following exceptions and/or additions: COPD exacerbation: secondary to parainfluenza infection. Transition methylpred to prednisone tomorrow as tolerating PO. SBO: developed abdominal pain 07/05, CTAP with SBO, improving pain and nausea with NGT. Gen Surg involved and will continue to follow, and did reduce abdominal wall hernia. NGT removed. Elevated troponin: Resolved. Type 2 demand ischemia is likely cause, from acute hypoxia and acute illness in patient with known atherosclerotic disease. No evidence of ACS. Troponin downtrended. Otherwise as above Review of Systems Constitutional: no fever, no chills and no sweats Ear, Nose, Mouth, Throat: + post nasal drip; no ear pain and no sinus pain/pressure Respiratory: + cough and + chest congestion; no hemoptysis Cardiovascular: no chest pain, no syncope and no calf pain Gastrointestinal: no abdominal pain, no nausea and no vomiting had several BMs yesterday, no BM today Genitourinary: no dysuria, no urinary frequency and no urinary hesitancy Integumentary: no rash, no lesions and no new lesions Neurologic: no falls, no syncope, no headache(s) and no confusion Psychiatric: no behavioral changes, no panic attacks and no confusion Physical Exam Constitutional: WD/WN, vitals as above ENMT: NGT present with bilious drainage in container Neck: trachea midline, no thyromegaly Respiratory: + cough and able to speak in complete sentences; no respiratory distress and no labored breathing Cardiovascular: RRR, no murmur, no edema Gastrointestinal (Abdomen): normal bowel sounds, soft, nontender, no hepatosplenomegaly Inspection/Auscultation: abdomen normal to inspection and + abdominal surgical scar; no visible herniation Skin: no rashes, warm and dry Neurologic: PERRL, EOMI, accommodation nl, no face palsy, no dysarthria Psychiatric: A+Ox3, euthymic affect Results & Data Results & Data ([facility]) Vital Signs (Past 12 Hours) Vital Signs Temp Pulse Resp BP BP Pulse Ox Pulse Ox 07/08/22 13:35 07/08/22 11:00 96 07/08/22 12:00 36.5 C 70 20 119/75 92 07/08/22 11:10 88 18 93 07/08/22 10:54 36.8 C 84 18 124/71 96 07/08/22 08:00 36.4 C L 68 20 124/71 90 07/08/22 07:18 76 18 93 07/08/22 03:24 36.5 C 77 16 115/63 95 O2 Del Method O2 Del Method 07/08/22 13:35 Room Air 07/08/22 11:00 Room Air 07/08/22 12:00 Room Air 07/08/22 11:10 Room Air 07/08/22 10:54 Room Air 07/08/22 08:00 Room Air 07/08/22 07:18 Room Air 07/08/22 03:24 Room Air Laboratory Results Abnormal lab results 07/07/22 07/07/22 07/08/22 Range/Units 18:10 20:18 06:05 WBC (4.8-10.8) K/ul Hgb (12.0-16.0) g/dl MCV (80.0-100.0) fL MCH (25.0-34.0) pg MCHC (32.0-36.0) g/dL RDW Std Deviation (36.4-46.3) fL RDW Coeff of Flakito (11.5-14.5) % Sodium (136-145) mmol/L BUN (6-23) mg/dl BUN/Creatinine Ratio (10-20) Glucose (70-99(Fasting)) mg/dl POC Glucose 159 H 69 L* 172 H (70-99) mg/dl Calcium (8.5-10.1) mg/dl 07/08/22 07/08/22 07/08/22 Range/Units 07:46 07:46 09:59 WBC 14.26 H (4.8-10.8) K/ul Hgb 10.7 L (12.0-16.0) g/dl MCV 74.5 L (80.0-100.0) fL MCH 22.3 L (25.0-34.0) pg MCHC 30.0 L (32.0-36.0) g/dL RDW Std Deviation 46.7 H (36.4-46.3) fL RDW Coeff of Flakito 17.4 H (11.5-14.5) % Sodium 132 L (136-145) mmol/L BUN 26 H (6-23) mg/dl BUN/Creatinine Ratio 27.7 H (10-20) Glucose 210 H (70-99(Fasting)) mg/dl POC Glucose 201 H (70-99) mg/dl Calcium 7.7 L (8.5-10.1) mg/dl 07/08/22 Range/Units 12:08 WBC (4.8-10.8) K/ul Hgb (12.0-16.0) g/dl MCV (80.0-100.0) fL MCH (25.0-34.0) pg MCHC (32.0-36.0) g/dL RDW Std Deviation (36.4-46.3) fL RDW Coeff of Flakito (11.5-14.5) % Sodium (136-145) mmol/L BUN (6-23) mg/dl BUN/Creatinine Ratio (10-20) Glucose (70-99(Fasting)) mg/dl POC Glucose 217 H (70-99) mg/dl Calcium (8.5-10.1) mg/dl Diagnostic Findings KUB X-Ray 07/08/22 06:15 KUB HISTORY: Follow up study in a patient with small bowel obstruction SBO compare with 07/07/22 COMPARISON: KUB July 07, 2022, CT 07/05/2022 FINDINGS: Distal tip of enteric tube projects over the mid gastric body. Cholecystectomy. Moderate colonic fecal retention. Dilated air-filled loop of small bowel within the midabdomen measures up to 3.9 cm which appears generally unchanged from yesterday's study. Air is present within the large bowel. No renal calculi. No ureteral calculi. No pneumoperitoneum or pneumatosis. No fracture. IMPRESSION: 1. Generally stable appearance of the persistent small bowel obstruction. 2. Unchanged positioning of the enteric tube. ACT 112: Negative or not required by law. The above report was generated using voice recognition software. It may contain grammatical, syntax or spelling errors. Electronically signed by: Judd Pham M.D. 07/08/2022 9:06 AM PG Care Time/CCT Total # of Minutes Spent Total Time Spent with Patient: Total time spent is greater than 50% in coordination of care (as documented) at patient's floor/unit and/or counseling patient: Coding Level of Care Code 67075 SUB INP/OBS CARE 2/35MIN Diagnoses Acute respiratory distress R06.03 Elevated troponin R77.8 Small bowel obstruction K56.609 Diabetes mellitus type 2, uncontrolled E11.65 CKD (chronic kidney disease) stage 3, GFR 30-59 ml/min N18.30 Hypertension I10 Hypertension type: unspecified GERD (gastroesophageal reflux disease) K21.9 Hypothyroidism E03.9 Constipation K59.00 Nausea and vomiting R11.2 Incarcerated hernia of abdominal cavity K45.0 (1) Hypertension Hypertension type: unspecified Qualified Code(s): I10 - Essential (primary) hypertension
[2022-07-08] MEDS ORDERED: LANTUS PER UNIT CHARGE SQ SCH (21:00)
[2022-07-08] MEDS: CLOPIDOGREL BISULFATE 75 MG TAB PO SCH (22:08)
[2022-07-08] MEDS: GABAPENTIN 100 MG CAP PO SCH (22:08)
[2022-07-08] MEDS: ROSUVASTATIN CALCIUM 20 MG TAB PO SCH (22:08)
[2022-07-09] MEDS: LEVOTHYROXINE SODIUM 25 MCG TABLET PO SCH (05:46)
[2022-07-09] MEDS: ALBUT/IPRATROP 3MG/0.5MG NEB 3 ML VIAL NEB SCH (05:53)
[2022-07-09 07:31] LABS: Hematocrit (blood only) 36.1 % (34.1-44.9); Mean Corpuscular Hemoglobin 22.4 pg (25.0-34.0); Mean Corpuscular Hgb Conc 30.5 g/dL (32.0-36.0); Mean Corpuscular Volume 73.4 fL (80.0-100.0); Mean Platelet Volume 9.6 fL (9.4-12.3); Platelet Count 330 K/uL (130-400); RDW Coefficient of Variation 17.6 % (11.5-14.5); RDW Standard Deviation 46.3 fL (36.4-46.3); Red Blood Count 4.92 M/uL (3.93-5.22); White Blood Count 22.38 K/ul (4.8-10.8)
[2022-07-09] MEDS: methylPREDNISolone 40 MG in SYRINGE 0 ML IV SCH (07:32)
[2022-07-09] MEDS: lisinopril 10 MG TAB PO SCH (07:32)
[2022-07-09] MEDS: ASPIRIN 81 MG ECTAB PO SCH (07:32)
[2022-07-09] MEDS: PANTOprazole 40 MG TAB PO SCH ×2 (07:33→22:22)
[2022-07-09] MEDS: carvediloL 3.125 MG TAB PO SCH ×2 (07:33→22:22)
[2022-07-09] MEDS: guaiFENesin 600 MG TABCR PO SCH ×2 (07:35→22:23)
[2022-07-09 07:36] LABS: BUN Creatinine Ratio 26.9 (10-20); Calcium 7.9 mg/dl (8.5-10.1); Creatinine Clr Calc Pharmacy 32.7 ml/min; Est GFR (African American) 55.6 ml/min; Est GFR (Non-African American) 47.9 ml/min; Potassium 4.1 mmol/L (3.5-5.1)
[2022-07-09] MEDS: INSULIN ASPART PER UNIT SC SCH ×4 (08:26→22:29)
[2022-07-09] MEDS: LANTUS PER UNIT CHARGE SQ SCH ×2 (08:27→22:29)
[2022-07-09] MEDS ORDERED: ALBUT/IPRATROP 3MG/0.5MG NEB 3 ML VIAL NEB PRN (08:32)
[2022-07-09] MEDS: ENOXAPARIN INJ 40 MG/0.4 ML SYR SQ SCH (11:16)
--- NOTE | 2022-07-09 11:28 | XRay Report ---
KUB CLINICAL HISTORY: SBO compare with previous COMPARISON STUDY: CT of the abdomen and pelvis July 05, 2022. KUB July 08, 2022. FINDINGS: Cholecystectomy clips are incidentally noted. Nasogastric tube has been removed. Small erik l dilatation is no longer identified. No evidence for free air on supine exam. Abdominal aortic aneur ysm is better depicted on CT. IMPRESSION: Radiographic findings suggestive of resolution of the small bowel obstruction. ACT 112: Negative or not required by law. Electronically signed by: Alcon Perez M.D. 07/09/2022 11:27 AM
--- NOTE | 2022-07-09 11:45 | Surgery Progress Note ---
Date of Service July 09, 2022 Assessment & Plan (1) Small bowel obstruction: Plan: Secondary to hernia at ostomy site, left side. This was reduced and continues to be reducible no abdominal pain no nausea KUB today showed resolution of SBO Plan: Can advance diet as tolerated Will order abdominal binder to wear to help keep hernia reduced given her cough She is not interested in surgical repair of hernia given risks of surgery, if she were to change her mind she can follow-up as an outpatient. She should continue to wear abdominal binder to help keep hernia reduced and avoid incarceration. Our services signing off, please call with questions/concerns. Dr. Patterson has seen patient and present during my examination and agrees with above. Admission and Anticipated Discharge Date Admission Date: July 03, 2022 Subjective feeling good today no abdominal pain no nausea bowel movement yesterday going for xray today not interested in surgery given high risk of surgery with her other medical issues asking for something to keep hernia reduced when coughing Physical Exam Constitutional: WD/WN, vitals as above + obese; no acute distress and not ill appearing Neck: normal visual inspection and trachea midline Respiratory: normal respiratory effort and + cough; no respiratory distress, no labored breathing and no retractions Gastrointestinal (Abdomen): Inspection/Auscultation: abdomen normal to inspection and + visible herniation (in LLQ , reducible); abdomen not distended Percussion/Palpation: abdomen soft; abdomen nontender, no guarding and abdomen not rigid Skin: no rashes, warm and dry Psychiatric: A+Ox3, euthymic affect Results & Data ([facility]) Vital Signs (Past 12 Hours) Vital Signs Temp Pulse Pulse Resp BP BP Pulse Ox 07/09/22 11:20 36.3 C L 59 L 18 138/76 95 07/09/22 07:50 36.3 C L 75 18 108/73 98 07/09/22 07:15 64 07/09/22 05:54 72 18 94 07/09/22 04:15 102/66 07/09/22 02:53 36.3 C L 72 18 89/55 L 90 O2 Del Method O2 Flow Rate 07/09/22 11:20 Room Air 07/09/22 07:50 Nasal Cannula 3 07/09/22 07:15 07/09/22 05:54 Room Air 07/09/22 04:15 07/09/22 02:53 Room Air Laboratory Results 07/09/22 07/09/22 07/09/22 Range/Units 11:36 07:47 06:43 WBC (4.8-10.8) K/ul RBC (3.93-5.22) M/uL Hgb (12.0-16.0) g/dl Hct (34.1-44.9) % MCV (80.0-100.0) fL MCH (25.0-34.0) pg MCHC (32.0-36.0) g/dL RDW Std Deviation (36.4-46.3) fL RDW Coeff of Flakito (11.5-14.5) % Plt Count (130-400) K/uL MPV (9.4-12.3) fL Sodium 136 (136-145) mmol/L Potassium 4.1 (3.5-5.1) mmol/L Chloride 101 (98-107) mmol/L Carbon Dioxide 29 (21-32) mmol/L Anion Gap 6 (3-11) BUN 28 H (6-23) mg/dl Creatinine 1.04 (0.6-1.2) mg/dl Est Cr Clr Drug Dosing 32.7 ml/min Est GFR ( Amer) 55.6 ml/min Est GFR (Non-Af Amer) 47.9 ml/min BUN/Creatinine Ratio 26.9 H (10-20) Glucose 110 H (70-99(Fasting)) mg/dl POC Glucose 199 H 109 H (70-99) mg/dl Calcium 7.9 L (8.5-10.1) mg/dl 07/09/22 07/08/22 07/08/22 Range/Units 06:43 22:18 18:45 WBC 22.38 H D (4.8-10.8) K/ul RBC 4.92 (3.93-5.22) M/uL Hgb 11.0 L (12.0-16.0) g/dl Hct 36.1 (34.1-44.9) % MCV 73.4 L (80.0-100.0) fL MCH 22.4 L (25.0-34.0) pg MCHC 30.5 L (32.0-36.0) g/dL RDW Std Deviation 46.3 (36.4-46.3) fL RDW Coeff of Flakito 17.6 H (11.5-14.5) % Plt Count 330 (130-400) K/uL MPV 9.6 (9.4-12.3) fL Sodium (136-145) mmol/L Potassium (3.5-5.1) mmol/L Chloride (98-107) mmol/L Carbon Dioxide (21-32) mmol/L Anion Gap (3-11) BUN (6-23) mg/dl Creatinine (0.6-1.2) mg/dl Est Cr Clr Drug Dosing ml/min Est GFR ( Amer) ml/min Est GFR (Non-Af Amer) ml/min BUN/Creatinine Ratio (10-20) Glucose (70-99(Fasting)) mg/dl POC Glucose 120 H 326 H* (70-99) mg/dl Calcium (8.5-10.1) mg/dl 07/08/22 07/08/22 07/08/22 Range/Units 16:49 16:47 12:08 WBC (4.8-10.8) K/ul RBC (3.93-5.22) M/uL Hgb (12.0-16.0) g/dl Hct (34.1-44.9) % MCV (80.0-100.0) fL MCH (25.0-34.0) pg MCHC (32.0-36.0) g/dL RDW Std Deviation (36.4-46.3) fL RDW Coeff of Flakito (11.5-14.5) % Plt Count (130-400) K/uL MPV (9.4-12.3) fL Sodium (136-145) mmol/L Potassium (3.5-5.1) mmol/L Chloride (98-107) mmol/L Carbon Dioxide (21-32) mmol/L Anion Gap (3-11) BUN (6-23) mg/dl Creatinine (0.6-1.2) mg/dl Est Cr Clr Drug Dosing ml/min Est GFR ( Amer) ml/min Est GFR (Non-Af Amer) ml/min BUN/Creatinine Ratio (10-20) Glucose (70-99(Fasting)) mg/dl POC Glucose 356 H* 360 H* 217 H (70-99) mg/dl Calcium (8.5-10.1) mg/dl Diagnostic Findings KUB CLINICAL HISTORY: SBO compare with previous COMPARISON STUDY: CT of the abdomen and pelvis July 05, 2022. KUB July 08, 2022. FINDINGS: Cholecystectomy clips are incidentally noted. Nasogastric tube has been removed. Small bowel dilatation is no longer identified. No evidence for free air on supine exam. Abdominal aortic aneurysm is better depicted on CT. IMPRESSION: Radiographic findings suggestive of resolution of the small bowel obstruction.
--- NOTE | 2022-07-09 16:42 | Hospitalist Progress Note ---
Date of Service July 09, 2022 Assessment & Plan (1) Acute respiratory distress: Plan: Biofire with + parainfluenza infection No pneumonia on chest x-ray Was on Methylprednisolone 40mg IV BID, duo nebs, mucinex with a flutter valve (Completed Azithromycin 07/06/21) Currently nebs as needed and will change methylprednisolone to Prednisone 20mg for 2 more days Elevated WBC (on steroids, afebrile) cough greatly improving (2) Elevated troponin: Plan: 07/04/22 Troponin 162.5 down from peak of 201.2 Echo revealed EF 60-65% with normal left ventricular wall motion Patient has a hx of NSTEMI EKG - NSR with no changes CTA revealed no aortic dissection Patient has no chest pain or dyspnea Continue aspirin 81mg, Plavix, carvedilol and statin (3) Small bowel obstruction: Plan: General surgery reduced and is following Offered to repair abdominal wall hernia with mesh and patient refuses the surgery at this time Per surgery ok to advance diet Abdominal binder Advised patient that if she has a firm painful mass in the hernia area to return to the nearest ER or call her family doctor to evaluate Discussed holding the area when coughing or straining and to wear the abdominal binder to help keep hernia reduced while coughing (4) Diabetes mellitus type 2, uncontrolled: Plan: Patient typically is on 70/30 insulin 50 units in the morning 40 units at night. Initially on Lantus 30 twice daily with insulin sliding scale expecting that the IV Solu-Medrol will make her diabetes more difficult to control. Patient had a hypoglycemic episode last evening Changed Lantus to 35 units Continue to closely monitor glucose Fasting glucose was 110 HgbA1c 7.2 07/03/22 (5) CKD (chronic kidney disease) stage 3, GFR 30-59 ml/min: Plan: Patient's chronic kidney disease is likely attributed to her diabetes and stable at this time Continue on lisinopril for renal protective effects from diabetes and antihypertensive control (6) Hypertension: Plan: Continue Lisinopril and carvedilol - blood pressure today 119/75 (7) GERD (gastroesophageal reflux disease): Plan: At home was on omeprazole Here on Protonix BID (had epigastric pain on admission) Zofran as needed for nausea Patient has had no nausea or vomiting past 24 hours (8) Hypothyroidism: Plan: Synthroid is continued at 25 mcg a day, last TSH was checked December 09 this past year and was normal at 3 (9) Constipation: Plan: Resolved and currently having bowel movements and no pain or N/V Encouraged up and OOB Discussed good bowel regimen (10) Nausea and vomiting: Plan: 07/05 with SBO secondary to Herniated small bowel loop in LLQ over previous ostomy site Resolved with NGT to LIS and hernia reduced by surgery Resolved and now tolerating a carb consistent diet (11) Incarcerated hernia of abdominal cavity: Plan: cause of SBO manually reduced by general surgery - Dr John 07/05 Patient educated on holding abdomen with coughing If hernia returns, may need surgical intervention/repair Patient is DNR/DNI but is interested in surgery if absolutely needed and if hernia is incarcerated. Surgery offered repair of the hernia with mesh and she is refusing at this time and they recommended abdominal binder to help keep hernia reduced while coughing Plan Enoxaparin 40mg SQ for DVT prevention Encourage OOB Patient is DNR/DNI Admission and Anticipated Discharge Date Admission Date: July 03, 2022 Supervising Physician Co-Signing Physician Notes PA Supervision Note: I did not personally see or examine the patient. I verified all humphrey points and agree with STEVIE Jorgensen with the following exceptions and/or additions: none. Subjective Patient is awake sitting up in bed and she denies any abdominal pain or Nausea or vomiting. She tolerated clear liquids yesterday. She was evaluated by surgery today and continues to refuse repair of the abdominal hernia. Surgery recommended to advance her diet and apply abdominal binder. She tells me that she had several BMs yesterday and also one this AM. Review of Systems Constitutional: no fever, no chills and no sweats Ear, Nose, Mouth, Throat: + post nasal drip; no ear pain and no sinus pain/pressure Respiratory: + cough and + chest congestion; no hemoptysis Cardiovascular: no chest pain, no syncope and no calf pain Gastrointestinal: no abdominal pain, no nausea and no vomiting Had several BMs after getting dulcolax suppository 07/08/22 Genitourinary: no dysuria, no urinary frequency and no urinary hesitancy Integumentary: no rash, no lesions and no new lesions Neurologic: no falls, no syncope, no headache(s) and no confusion Psychiatric: no behavioral changes, no panic attacks and no confusion Physical Exam Constitutional: WD/WN, vitals as above Neck: trachea midline, no thyromegaly Respiratory: + cough and able to speak in complete sentences; no respiratory distress and no labored breathing Cardiovascular: RRR, no murmur, no edema Gastrointestinal (Abdomen): normal bowel sounds, soft, nontender, no hepatosplenomegaly Inspection/Auscultation: abdomen normal to inspection and + abdominal surgical scar; no visible herniation Skin: no rashes, warm and dry Neurologic: PERRL, EOMI, accommodation nl, no face palsy, no dysarthria Psychiatric: A+Ox3, euthymic affect Results & Data Results & Data ([facility]) Vital Signs (Past 12 Hours) Vital Signs Temp Pulse Pulse Resp BP Pulse Ox O2 Del Method 07/09/22 15:48 36.5 C 62 18 122/75 94 Room Air 07/09/22 15:02 67 07/09/22 11:20 36.3 C L 59 L 18 138/76 95 Room Air 07/09/22 07:50 36.3 C L 75 18 108/73 98 Nasal Cannula 07/09/22 07:15 64 07/09/22 05:54 72 18 94 Room Air O2 Flow Rate 07/09/22 15:48 07/09/22 15:02 07/09/22 11:20 07/09/22 07:50 3 07/09/22 07:15 07/09/22 05:54 Laboratory Results Abnormal lab results 07/08/22 07/08/22 07/08/22 Range/Units 16:47 16:49 18:45 WBC (4.8-10.8) K/ul Hgb (12.0-16.0) g/dl MCV (80.0-100.0) fL MCH (25.0-34.0) pg MCHC (32.0-36.0) g/dL RDW Coeff of Flakito (11.5-14.5) % BUN (6-23) mg/dl BUN/Creatinine Ratio (10-20) Glucose (70-99(Fasting)) mg/dl POC Glucose 360 H* 356 H* 326 H* (70-99) mg/dl Calcium (8.5-10.1) mg/dl 07/08/22 07/09/22 07/09/22 Range/Units 22:18 06:43 06:43 WBC 22.38 H D (4.8-10.8) K/ul Hgb 11.0 L (12.0-16.0) g/dl MCV 73.4 L (80.0-100.0) fL MCH 22.4 L (25.0-34.0) pg MCHC 30.5 L (32.0-36.0) g/dL RDW Coeff of Flakito 17.6 H (11.5-14.5) % BUN 28 H (6-23) mg/dl BUN/Creatinine Ratio 26.9 H (10-20) Glucose 110 H (70-99(Fasting)) mg/dl POC Glucose 120 H (70-99) mg/dl Calcium 7.9 L (8.5-10.1) mg/dl 07/09/22 07/09/22 Range/Units 07:47 11:36 WBC (4.8-10.8) K/ul Hgb (12.0-16.0) g/dl MCV (80.0-100.0) fL MCH (25.0-34.0) pg MCHC (32.0-36.0) g/dL RDW Coeff of Flakito (11.5-14.5) % BUN (6-23) mg/dl BUN/Creatinine Ratio (10-20) Glucose (70-99(Fasting)) mg/dl POC Glucose 109 H 199 H (70-99) mg/dl Calcium (8.5-10.1) mg/dl PG Care Time/CCT Total # of Minutes Spent Total Time Spent with Patient: Total time spent is greater than 50% in coordination of care (as documented) at patient's floor/unit and/or counseling patient: Coding Level of Care Code 11889 SUB INP/OBS CARE 2/35MIN Diagnoses Acute respiratory distress R06.03 Elevated troponin R77.8 Small bowel obstruction K56.609 Diabetes mellitus type 2, uncontrolled E11.65 CKD (chronic kidney disease) stage 3, GFR 30-59 ml/min N18.30 Hypertension I10 Hypertension type: unspecified GERD (gastroesophageal reflux disease) K21.9 Hypothyroidism E03.9 Constipation K59.00 Nausea and vomiting R11.2 Incarcerated hernia of abdominal cavity K45.0 (1) Hypertension Hypertension type: unspecified Qualified Code(s): I10 - Essential (primary) hypertension
[2022-07-09] MEDS: GABAPENTIN 100 MG CAP PO SCH (22:21)
[2022-07-09] MEDS: ROSUVASTATIN CALCIUM 20 MG TAB PO SCH (22:22)
[2022-07-09] MEDS: CLOPIDOGREL BISULFATE 75 MG TAB PO SCH (22:22)
[2022-07-10] MEDS ORDERED: SODIUM CHLORIDE 0.65% NA SOLN 45 ML (OCEAN) PRN (03:05)
[2022-07-10] MEDS: LEVOTHYROXINE SODIUM 25 MCG TABLET PO SCH (06:01)
[2022-07-10 06:38] LABS: Hematocrit (blood only) 36.2 % (34.1-44.9); Hemoglobin 11.1 g/dl (12.0-16.0); Mean Corpuscular Hemoglobin 22.4 pg (25.0-34.0); Mean Corpuscular Hgb Conc 30.7 g/dL (32.0-36.0); Mean Corpuscular Volume 73.1 fL (80.0-100.0); Mean Platelet Volume 9.6 fL (9.4-12.3); Platelet Count 436 K/uL (130-400); RDW Standard Deviation 46.6 fL (36.4-46.3); Red Blood Count 4.95 M/uL (3.93-5.22); White Blood Count 23.56 K/ul (4.8-10.8)
--- NOTE | 2022-07-10 07:09 | Discharge Summary ---
Date of Service July 10, 2022 Admission HPI Per Admitting Provider 78-year-old female arrives with 5 days of worsening illness with increasing cough and shortness of breath. Patient has congestion coryza and weakness. Patient does not believe she is around any ill contacts. Patient did require a hour-long nebulizer. It is felt that she is acute on exacerbation of chronic lung disease. Patient reportedly is up-to-date on her COVID and flu vaccines. I visited the patient after her nebulizer she still had prolonged expiratory phase and some loose coughing but no wheezing and no respiratory distress when I evaluated her. She was on room air at that time. Patient will be observed on steroids insulin to cover her type 2 diabetes for the effects of the steroids and azithromycin for bronchitis with mucolytic's and flutter valve, antitussives added for comfort for sleep Admission Exam Per Admitting Provider The patient appeared well nourished and normally developed. Vital signs as documented. Head exam is normocephalic atraumatic Neck is without JVD, thyromegaly, or carotid bruits. Lungs are clear to auscultation, no focal loss of breath sounds Cardiac exam, Rhythm is regular.. No murmurs, rubs or gallops. Abdominal exam reveals normal bowel sounds, soft non tender, no masses Extremities are nonedematous and both pedal pulses are present Neurologic exam is alert and oriented, no focal loss of strength or sensation Skin is without bruises or rashes Psychologically is without concerns for anxiety or depression.. Principal Diagnosis Acute respiratory distress SBO Discharge Exam Constitutional WD/WN, vitals as above Neck trachea midline, no thyromegaly Respiratory + cough and able to speak in complete sentences; no respiratory distress and no labored breathing Cardiovascular RRR, no murmur, no edema Gastrointestinal (Abdomen) normal bowel sounds, soft, nontender, no hepatosplenomegaly Inspection/Auscultation: abdomen normal to inspection and + abdominal surgical scar; no visible herniation Skin no rashes, warm and dry Neurologic PERRL, EOMI, accommodation nl, no face palsy, no dysarthria Psychiatric A+Ox3, euthymic affect Discharge Data Allergies Allergy/AdvReac Type Severity Reaction Status Date / Time adhesive Allergy Mild Rash Verified 07/03/22 15:03 egg Allergy Mild GI SYMPTOMS Verified 07/03/22 15:03 garlic Allergy Mild GI symptoms Verified 07/03/22 15:03 propoxyphene Allergy Mild light Verified 07/03/22 15:03 headed sertraline Allergy Mild Dizziness Verified 07/03/22 15:03 soap [From Betadine] Allergy Mild itchy Verified 07/03/22 15:03 Sulfa (Sulfonamide Allergy Mild GI symptoms Verified 07/03/22 15:03 Antibiotics) simvastatin AdvReac Intermediate MYALGIA Verified 07/03/22 15:03 Consultations 07/02/22 09:28 ED Decision to Admit Stat 07/05/22 14:54 Consult General Surgery Routine Ordered Studies 07/03/22 09:56 CT angio chest dissec wo/w con Urgent 07/05/22 13:24 CT Abd and Pelvis [CT abd pelvis IV con only] Stat Hospital Course (1) Acute respiratory distress: Biofire with + parainfluenza infection No pneumonia on chest x-ray Was on Methylprednisolone 40mg IV BID, duo nebs, mucinex with a flutter valve (Completed Azithromycin 07/06/21) Currently nebs as needed and changed methylprednisolone to Prednisone 20mg for 2 more days (07/10 and 07/11) Elevated WBC (on steroids, afebrile) cough greatly improving Saturating well on RA (2) Elevated troponin: 07/04/22 Troponin 162.5 down from peak of 201.2 Echo revealed EF 60-65% with normal left ventricular wall motion Patient has a hx of NSTEMI EKG - NSR with no changes CTA revealed no aortic dissection Patient has no chest pain or dyspnea Continue aspirin 81mg, Plavix, carvedilol and statin (3) Small bowel obstruction: General surgery reduced and is following Offered to repair abdominal wall hernia with mesh and patient refuses the surgery at this time Tolerating a carb consistent diet Abdominal binder Advised patient that if she has a firm painful mass in the hernia area to return to the nearest ER or call her family doctor to evaluate Discussed holding the area when coughing or straining and to wear the abdominal binder to help keep hernia reduced while coughing (4) Diabetes mellitus type 2, uncontrolled: Patient typically is on 70/30 insulin 50 units in the morning 40 units at night. Initially on Lantus 30 twice daily with insulin sliding scale expecting that the IV Solu-Medrol will make her diabetes more difficult to control. Currently on Lantus to 35 units BID Continue to closely monitor glucose Fasting glucose was 110 HgbA1c 7.2 07/03/22 (5) CKD (chronic kidney disease) stage 3, GFR 30-59 ml/min: Patient's chronic kidney disease is likely attributed to her diabetes and stable at this time Continue on lisinopril for renal protective effects from diabetes and antihypertensive control (6) Hypertension: Continue Lisinopril and carvedilol - blood pressure today 119/75 (7) GERD (gastroesophageal reflux disease): At home was on omeprazole Here on Protonix BID (had epigastric pain on admission) Zofran as needed for nausea Patient has had no nausea or vomiting past 24 hours (8) Hypothyroidism: Synthroid is continued at 25 mcg a day, last TSH was checked December 09 this past year and was normal at 3 (9) Constipation: Resolved and currently having bowel movements and no pain or N/V Encouraged up and OOB Discussed good bowel regimen (10) Nausea and vomitin/31 with SBO secondary to Herniated small bowel loop in LLQ over previous ostomy site Resolved with NGT to LIS and hernia reduced by surgery Resolved and now tolerating a carb consistent diet (11) Incarcerated hernia of abdominal cavity: cause of SBO manually reduced by general surgery - Dr John 07/05 Patient educated on holding abdomen with coughing If hernia returns, may need surgical intervention/repair Patient is DNR/DNI but is interested in surgery if absolutely needed and if hernia is incarcerated. Surgery offered repair of the hernia with mesh and she is refusing at this time and they recommended abdominal binder to help keep hernia reduced while coughing Plan While in patient Enoxaparin 40mg SQ for DVT prevention Encourage OOB Patient is DNR/DNI Plan to discharge to home today Total Time Total Time Spent Total Time Spent (In Minutes): 40 Discharge Plan Discharge Items Patient Disposition: Home - Self-Care Reason For Visit: ACUTE EXACERBATION OF CHRONIC LUNG DISEASE Discharge Diagnosis: Acute hypoxic respiratory distress secondary to Parainfluenza infection SBO secondary to incarcerated hernia reduced by surgery Condition on Discharge: Good Activity: Resume your previous activity Lifting: Gradually increase as tolerated Weightbearing: Full weightbearing Non-emergency contact: Primary Care Provider Call non-emergency contact if: you have any medication questions, your pain is worsening and your temperature is above 101.5 Follow-up/Referrals: Anthony Boss, [Primary Care Provider] - 07/14/22 4:00 pm (with KEVIN Eddy) Diet: Carb Consistent or DM2 Addtl Attending Provider Instructions: You were admitted and found to have a viral influenza that affected your respiratory system and you were treated with antibiotics, steroids and breathing treatments. Initially you needed oxygen. During your admission you had a hernia that became incarcerated and surgery evaluated you and reduced the hernia. The offered surgical repair of your hernia. You stated you only wanted surgery if absolutely necessary and if became incarcerated again. They placed an abdominal binder on to help keep hernia reduced while coughing. Discussed a good bowel regimen to keep your bowels moving. The dose of your insulin was decreased due to your diet changing here in the hospital You had a few episodes of low blood sugar that needed treated with glucose. You are being discharged on the same insulin you were on previously. You will need to monitor your blood sugars and your family doctor may need to adjust. You should follow up with your family doctor in 1 -2 weeks You will have one more day of steroids to take tomorrow with breakfast, Pending Studies at Discharge: No Stand-Alone Forms: [facility] Medications and DC Order Prescriptions: New prednisone 20 mg tablet 20 mg PO DAILY 1 Days Qty: 1 0RF Rx Instructions: days 11-21 of therapy Continued clotrimazole-betamethasone 1-0.05 % cream 1 applic topical BID PRN (Reason: rash) Qty: 45 0RF rosuvastatin [Crestor] 20 mg tablet 20 mg PO HS Qty: 90 3RF insulin asp prt-insulin aspart [Novolog Mix 70-30FlexPen U-100] 100 unit/mL (70-30) insulin pen See Rx Instructions SUBCUT .COMPLEX Qty: 90 3RF Rx Instructions: 50 units in AM before breakfast, 40 units in PM before supper; (DME) Accu-Chek Guide test strips Strip See Rx Instructions .Route Qty: 200 3RF Rx Instructions: Test blood sugars twice a day gabapentin 100 mg capsule 100 mg PO HS Qty: 90 3RF levothyroxine 25 mcg tablet 25 mcg PO QAM Qty: 90 3RF lisinopril 10 mg tablet 10 mg PO QAM Qty: 90 3RF esomeprazole magnesium 40 mg capsule,delayed release(DR/EC) 40 mg PO QAM Qty: 90 3RF clopidogrel [Plavix] 75 mg tablet 75 mg PO QPM Qty: 90 3RF carvedilol 3.125 mg tablet 3.125 mg PO BID Qty: 60 0RF ferrous sulfate 325 mg (65 mg iron) tablet 162.5 mg PO DAILY cyclobenzaprine 5 mg tablet 5 mg PO TID PRN (Reason: muscle spasm) Qty: 30 1RF Discharge Orders: Discharge Order (Routine); Ordered 07/10/22 Ordered By: Paula Jorgensen Admission Data Admit Date/Time: 07/03/22 10:06 Attending Provider: Neisha Ham Admit Provider: Johan Raymond Primary Care Provider: Anthony Boss Other Providers: Johan Raymond ; Melecio Hackett ; Alecia John Other Interventions: Discharge Summary Assessment (RN) Last Done: 07/10/22 14:14 Supervising Physician Co-Signing Physician Notes PA Supervision Note: I personally saw and examined the patient. I verified all humphrey points and agree with STEVIE Jorgensen with the following exceptions and/or additions: Subjective: 86 yo F Hx abdominal wall hernia, hypothyroidism, GERD, HTN,DM2, iron deficiency anemia, CVA, CAD, CKD III admitted for acute hypoxic respiratory failure 2/2 COPD exacerbation, parainfluenza virus positive. Received IV methylpred and was transitioned to prednisone. Developed SBO while admitted secondary to incarcerated abdominal hernia which was able to be reduced at bedside by Gen. Surg 07/05. Advanced to normal diet slowly and doing well without abdominal complaints. No complaints from patient today, looking forward to going home. Did have hypoglycemia while receiving Lantus dosing at equivalent doses to her 70/30 at home, however with significantly increased carb load at home compared to in-house. Physical exam: Vitals reviewed Gen: Alert and oriented, NAD HEENT: anicteric sclerae, EOMI CV: RRR no murmurs Pulm: CTAB no wheezes Abd: +BS soft NT ND no masses; no evidence of hernia incarceration on exam Ext: no edema, 2+ DP pulses Skin: no rashes, warm/dry Neuro: No focal neurologic deficits Labs, Rads, and ECG reviewed Assessment and Plan: Acute hypoxic respiratory failure, parainfluenza infection: Chest CTA on admission no PE, pneumonia, fluid overload. Was receiving methylpred for several days, transitioned to PO prednisone to continue on discharge one more day. Normal lung exam, saturating well on room air. SBO, abdominal wall hernia: developed abdominal pain during admission with imaging showing SBO. Gen. Surg able to reduce incarcerated abdominal wall hernia. Belly binder given to patient to wear. Surgery deferred by patient, in favor of conservative management. Did offer surgery in the future should patient change her mind. Able to advance diet to DM2 diet with good tolerance. DM2: Discharged patient back to home 70/30 insulin dosing. Do not anticipate that patient will have hypoglycemia at home has her diet consists of things like toast and grapefruit for breakfast, sandwiches, macaroni salad (higher carb load than she was receiving at hospital). Advised to monitor sugars closely and have juice and crackers on-hand for hypoglycemia. Patient should have follow up with PCP in next 7-10 days to review BSGs, respiratory status. Otherwise see above. Coding Level of Care Code HOSP INP/OBS DISCH >30 MIN Diagnoses Acute respiratory distress R06.03 Elevated troponin R77.8 Small bowel obstruction K56.609 Diabetes mellitus type 2, uncontrolled E11.65 CKD (chronic kidney disease) stage 3, GFR 30-59 ml/min N18.30 Hypertension I10 Hypertension type: unspecified GERD (gastroesophageal reflux disease) K21.9 Hypothyroidism E03.9 Constipation K59.00 Nausea and vomiting R11.2 Incarcerated hernia of abdominal cavity K45.0 Time Spent (min) 40
[2022-07-10 07:32] LABS: BUN Creatinine Ratio 30.7 (10-20); Creatinine Clr Calc Pharmacy 29.8 ml/min; Est GFR (African American) 49.7 ml/min; Est GFR (Non-African American) 42.9 ml/min; Potassium 3.6 mmol/L (3.5-5.1)
[2022-07-10] MEDS: INSULIN ASPART PER UNIT SC SCH ×2 (07:41→12:22)
[2022-07-10] MEDS: LANTUS PER UNIT CHARGE SQ SCH (08:05)
[2022-07-10] MEDS: PANTOprazole 40 MG TAB PO SCH (08:05)
[2022-07-10] MEDS: ASPIRIN 81 MG ECTAB PO SCH (08:05)
[2022-07-10] MEDS: lisinopril 10 MG TAB PO SCH (08:05)
[2022-07-10] MEDS: guaiFENesin 600 MG TABCR PO SCH (08:05)
[2022-07-10] MEDS: carvediloL 3.125 MG TAB PO SCH (08:06)
[2022-07-10] MEDS ORDERED: predniSONE 20 MG TAB PO SCH (09:00)
[2022-07-10] MEDS ORDERED: ENOXAPARIN INJ 30 MG/0.3 ML SYR SQ SCH (09:00)
== END 2022-07-10 14:45 | disposition home or self-care (01) | DRG 202 ==
LOC: ED 07:09 → EDINP 07:09 → 2W 12:21 → SUATTDRO 07-03 10:06 → EDINP 07-03 18:32 → 2W 07-04 03:36

== ENCOUNTER 2023-01-06 12:51 | Observation (INO) ==
[2023-01-06 13:46] LABS: Hematocrit (blood only) 37.6 % (37.0-47.0); Hemoglobin 10.8 g/dl (12.0-16.0); Mean Corpuscular Hemoglobin 22.1 pg (25.0-34.0); Mean Corpuscular Hgb Conc 28.7 g/dL (32.0-36.0); Mean Platelet Volume 9.2 fL (9.4-12.4); Platelet Count 307 K/uL (130-400); RDW Coefficient of Variation 18.3 % (11.5-14.5); RDW Standard Deviation 49.2 fL (36.4-46.3); Red Blood Count 4.88 M/uL (4.20-5.40); White Blood Count 13.51 K/ul (4.8-10.8)
[2023-01-06 13:49] LABS: Alanine Aminotransferase 8 U/L (7-52); Albumin Globulin Ratio 1.1 (0.9-2); Albumin Level 3.9 gm/dl (3.4-5.0); Alkaline Phosphatase 86 U/L (34-104); Anion Gap 6 (3-11); Aspartate Aminotransferase 15 U/L (13-39); BUN Creatinine Ratio 22.8 (10-20); Bilirubin,Total 0.5 mg/dl (0.2-1.0); Blood Urea Nitrogen 18 mg/dl (6-23); Calcium 9.2 mg/dl (8.6-10.3); Carbon Dioxide 27 mmol/L (21-32); Chloride 105 mmol/L (98-107); Est GFR (African American) 76.9 ml/min; Est GFR (Non-African American) 66.4 ml/min; Globulin 3.4 gm/dl (2.5-4.0); Glucose 99 mg/dl (70-99(Fasting)); Magnesium 2.1 mg/dl (1.7-2.4); Potassium 4.4 mmol/L (3.5-5.1); Sodium 138 mmol/L (136-145); Total Protein 7.3 gm/dl (6.0-8.3)
[2023-01-06 13:55] LABS: Troponin I High Sensitivity 5.5 pg/ml (0-14)
[2023-01-06 14:00] LABS: Basophils # (auto) 0.05 K/uL (0-0.2); Basophils % (auto) 0.4 %; Eosinophils % (auto) 1.5 %; Hypochromasia Present; Immature Granulocytes # (auto) 0.08 K/uL (0.01-0.20); Immature Granulocytes % (auto) 0.6 %; Lymphocytes # (auto) 2.42 K/uL (1.2-3.4); Lymphocytes % (auto) 17.9 %; Monocytes # (auto) 1.11 K/uL (0.11-0.59); Monocytes % (auto) 8.2 %; Neutrophils # (auto) 9.65 K/uL (1.40-6.50); Neutrophils % (auto) 71.4 %
[2023-01-06 14:02] LABS: Appearance Urine Clear (Clear); Bacteria Urine Automated Negative (Negative); Bilirubin Urine Negative (Negative); Blood Urine Negative (Negative); Cast Urine Automated 0 /lpf (0-5); Color Urine Yellow; Epithelial Cell Urine Auto >30 /lpf (0-5); Glucose Urine UA Negative (Negative); Ketones Urine Negative (Negative); Leukocyte Esterase Urine 1+ (Negative); Nitrite Urine Negative (Negative); Protein Urine Negative (Negative); RBC Urine Automated 0-4 /hpf (0-4); Specific Gravity Urine 1.007 (1.000-1.030); Urobilinogen Urine Negative (Negative); pH Urine 7.5 (4.5-7.5)
[2023-01-06 14:06] LABS: Partial Thromboplastin Time 27.2 Seconds (21.0-31.0); Prothrombin Time 10.5 Seconds (9.0-12.0)
[2023-01-06] MEDS ORDERED: ACETAMINOPHEN 1,000 MG/100 ML VIAL IV STA (14:16)
--- NOTE | 2023-01-06 14:24 | Emergency Department Note ---
History of Present Illness General Chief complaint: Dizziness Stated complaint: DIZZINESS Time Seen by Provider: 01/06/23 14:00 History of Present Illness Provider complaint: Dizziness lightheadedness Onset (ago): week(s) (1.5) Associated symptoms: + headaches, + nausea/vomiting and + shortness of breath 87-year-old female presents emergency department with dizziness lightheadedness. Patient reports her symptoms have been going on for last 1.5 weeks. She reports her symptoms are made worse with lying down and with head movement. Constance mims reports she feels like she is going to pass out but never did pass out. She reports a headache. She reports a headache is worse with movement. She rated reports shortness of breath and nausea. She denies any chest pain or vomiting. No diarrhea. No fevers. No hemoptysis. Home Medications Medication Instructions Recorded Confirmed Type esomeprazole magnesium 40 mg 40 mg PO QAM #90 caps 04/29/22 01/06/23 Rx capsule,delayed release clopidogrel 75 mg tablet (Plavix) 75 mg PO QPM #90 tabs 05/02/22 01/06/23 Rx carvedilol 3.125 mg tablet 3.125 mg PO BID #120 tabs 07/24/22 01/06/23 Rx clotrimazole-betamethasone 1 1 applic topical BID PRN rash #45 09/10/22 01/06/23 Rx %-0.05 % topical cream grams rosuvastatin 20 mg tablet (Crestor) 20 mg PO HS #90 tabs 09/10/22 01/06/23 Rx Accu-Chek Guide test strips (blood #200 ea 10/27/22 12/16/22 Rx sugar diagnostic) insulin aspar prot-insulin aspart See Rx Instructions subcut 10/27/22 01/06/23 Rx 100 unit/mL (70-30) subcutaneous .COMPLEX #90 mL pen (Novolog Mix 70-30FlexPen U-100) levothyroxine 25 mcg tablet 25 mcg PO QAM #90 tabs 10/30/22 01/06/23 Rx lisinopril 10 mg tablet 10 mg PO QAM #90 tabs 10/30/22 01/06/23 Rx gabapentin 100 mg capsule 100 mg PO HS #90 caps 12/05/22 01/06/23 Rx cyclobenzaprine 5 mg tablet 5 mg PO TID PRN muscle spasm #30 12/12/22 01/06/23 Rx tabs diclofenac sodium 1 % topical gel 1 g topical QID PRN pain, moderate 12/16/22 01/06/23 Rx #100 grams Allergies Allergy/AdvReac Type Severity Reaction Status Date / Time adhesive Allergy Intermediate Rash Verified 01/06/23 15:46 soap [From Betadine] Allergy Intermediate itchy Verified 01/06/23 15:46 egg AdvReac Intermediate GI SYMPTOMS Verified 01/06/23 15:46 garlic AdvReac Intermediate GI symptoms Verified 01/06/23 15:46 sertraline AdvReac Intermediate Dizziness Verified 01/06/23 15:46 simvastatin AdvReac Intermediate MYALGIA Verified 01/06/23 15:46 Sulfa (Sulfonamide AdvReac Intermediate GI symptoms Verified 01/06/23 15:46 Antibiotics) propoxyphene AdvReac Mild light Verified 01/06/23 15:46 headed Past Med/Surg History Medical History Anemia treated with PRBC inpatient 04/06/21 at [facility] (arteriosclerotic cardiovascular disease) Carotid artery stenosis Cerebral arterial aneurysm COPD (chronic obstructive pulmonary disease) CVA (cerebral vascular accident) 2014--short term memory loss, gait loss--uses walker CVA (cerebral vascular accident) Diabetes mellitus, type 2 Diabetic peripheral neuropathy GI bleed heme+ stool Hearing deficit History of CHF (congestive heart failure) Hx of angina pectoris Hyperlipidemia Hypothyroid NSTEMI (non-ST elevated myocardial infarction) pt unsure if she had an [place] while inpatient at [facility] at the beginning of April 2021. states no one told her either way. but she denies sob or chest pain currently. Occlusion and stenosis of carotid artery with cerebral infarction On anticoagulant therapy Osteoarthritis Rectocutaneous fistula Restless leg syndrome Surgical History H/O section x3 History of bilateral cataract extraction History of bilateral tubal ligation History of cardiac cath @ [facility] [place]--no stents History of colonoscopy History of sigmoidoscopy History of tonsillectomy and adenoidectomy History of tooth extraction all teeth removed History of total abdominal hysterectomy and bilateral salpingo-oophorectomy S/P cholecystectomy S/P removal of ovarian cyst Family History Grandmother (Paternal) Family history of diabetes mellitus Father Myocardial infarction Mother Myocardial infarction Family/Other Heart disease Multiple benign polyps of large intestine Other No family history of adverse response to anesthesia Denies family history of Ovarian cancer Prostate cancer Crohn's disease Colorectal cancer Cancer Ulcerative colitis Social History Smoking Status: Former smoker Tobacco Type: Cigarettes Cigarettes Per Day: 1 pack per day; Second Hand Exposure: No; Do You Dip or Chew Tobacco: No; Hx Alcohol Use: No Hx Substance Use: No Preferred Language: Argentine Communication Ability: Effective Visual Impairment: No Limitations Hearing Ability: Use of Hearing Aid Heel Scorer Required: No Beliefs That Will Affect Care: None marital status: Current Living Situation: Alone Current Living Situation Comment: senior apartment current occupational status: retired Feels Safe at Home: Yes Childhood Exposure to Second-Hand Smoke: Yes Diet: low salt and regular Dental Care, Regularly: No Physical Activity Frequency: Does not Exercise Seatbelt Use: always Sunscreen Use: No Assistive Devices: Walker Physical Exam Vital Signs Vital Signs - 24 hr 01/06/23 12:57 01/06/23 14:19 01/06/23 14:19 Temperature 36.8 C Temperature Source Temporal Artery Scan Pulse Rate 85 Pulse Rate [Apical] 82 Respiratory Rate 18 16 Respiratory Effort / Characteristics Non-Labored Spontaneous Respiratory Depth Normal Respiratory Pattern Regular Blood Pressure 137/71 Blood Pressure [Right Arm] 197/116 H Blood Pressure Mean 93 Blood Pressure Mean [Right Arm] 143 Pulse Oximetry 99 97 Oxygen Delivery Method Room Air Room Air Room Air Sepsis Recent Fever Within 48 Hours No Sepsis New/Unexplained Change in Mental Status No Sepsis Action Taken by Nursing No Action Required Pulse Oximetry Post Tiitration 97 01/06/23 16:19 01/06/23 16:00 01/06/23 17:30 Temperature Temperature Source Pulse Rate 85 Pulse Rate [Apical] 85 88 Respiratory Rate 18 24 Respiratory Effort / Characteristics Non-Labored Spontaneous Non-Labored Spontaneous Respiratory Depth Normal Normal Respiratory Pattern Blood Pressure Blood Pressure [Right Arm] 135/77 167/81 H Blood Pressure Mean Blood Pressure Mean [Right Arm] 96 109 Pulse Oximetry 98 97 Oxygen Delivery Method Room Air Room Air Sepsis Recent Fever Within 48 Hours Sepsis New/Unexplained Change in Mental Status Sepsis Action Taken by Nursing Pulse Oximetry Post Tiitration Physical Exam HENT: Exam performed. -Head: Normocephalic and atraumatic. -Right Ear: External ear normal. No mastoid erythema and edema. mild cerumen impaction. -Left Ear: External ear normal. No mastoid erythema and edema. Mild cerumen impaction. Cerumen was removed with currette and the tympanic membrane is serrano and pearly. -Mouth/Throat: The oropharynx is clear and moist. No trismus in the jaw. No dental abscesses or uvula swelling. No oropharyngeal exudate or tonsillar abscesses. EYES: Conjunctivae and EOM are normal. Pupils are equal, round, and reactive to light. Right eye exhibits no discharge. Left eye exhibits no discharge. No scleral icterus. No nystagmus. NECK: Normal range of motion. Neck supple. No JVD present. No spinous process tenderness present. No tracheal deviation and normal range of motion present. CV: Normal rate, regular rhythm, normal heart sounds and intact distal pulses. There is no peripheral edema. Palpable radial pulses bue. PULM/CHEST: Effort normal and breath sounds normal. No respiratory distress. No stridor. She has no wheezes. She has no rales. ABD: The abdomen is soft.There is no tenderness. There is no rebound, no guarding. NEURO: She is alert and oriented to person, place, and time. She has normal strength. No cranial nerve deficit or sensory deficit.GCS eye subscore is 4. GCS verbal subscore is 5. GCS motor subscore is 6. Cerebellar tests wnl. Course Course 1400: The patient was evaluated in room B4. A complete history and physical exam was performed Administered Medications Sodium Chloride (Nss) 500 mls @ 125 mls/hr IV .Q4H ANGIE Stop: 02/05/23 14:29 Last Admin: 01/06/23 14:30 Dose: 125 mls/hr Documented By: ESTIVEN Discontinued Medications Acetaminophen (Ofirmev) 1,000 mg in 100 mls @ 400 mls/hr IV NOW STA Stop: 01/06/23 14:30 Last Infusion: 01/06/23 14:45 Dose: 0 mls/hr Documented By: Admin: 01/06/23 14:29 Dose: 400 mls/hr Documented By: ESTIVEN Ioversol (Optiray 320 125ml) 119 ml IV ONCE ONE Stop: 01/06/23 15:01 Last Admin: 01/06/23 15:01 Dose: 119 ml Documented By: RAMESH Meclizine HCl (Meclizine 12.5 Mg Tab) 12.5 mg PO NOW STA Stop: 01/06/23 15:46 Last Admin: 01/06/23 16:22 Dose: 12.5 mg Documented By: JOI Medical Decision Making Medical Records Attestation: I reviewed the patient's medical records. External medical records reviewed. Patient was seen by her PCP on December 30, 2012. She was thought to have postural dizziness secondary to antihypertensive medications and large bowel movements according to his note. Laboratory Data Attestation: I reviewed the patient's lab results. 01/06/23 13:21 01/06/23 13:21 Lab Results 01/06/23 01/06/23 01/06/23 Range/Units 13:21 13:21 13:21 WBC 13.51 H (4.8-10.8) K/ul RBC 4.88 (4.20-5.40) M/uL Hgb 10.8 L (12.0-16.0) g/dl Hct 37.6 (37.0-47.0) % MCV 77.0 L (80.0-100.0) fL MCH 22.1 L (25.0-34.0) pg MCHC 28.7 L (32.0-36.0) g/dL RDW Std Deviation 49.2 H (36.4-46.3) fL RDW Coeff of Flakito 18.3 H (11.5-14.5) % Plt Count 307 (130-400) K/uL MPV 9.2 L (9.4-12.4) fL Immature Gran % (Auto) 0.6 % Neut % (Auto) 71.4 % Lymph % (Auto) 17.9 % Will % (Auto) 8.2 % Eos % (Auto) 1.5 % Baso % (Auto) 0.4 % Neut # (Auto) 9.65 H (1.40-6.50) K/uL Lymph # (Auto) 2.42 (1.2-3.4) K/uL Will # (Auto) 1.11 H (0.11-0.59) K/uL Eos # (Auto) 0.20 (0-0.50) K/uL Baso # (Auto) 0.05 (0-0.2) K/uL Immature Gran # (Auto) 0.08 (0.01-0.20) K/uL Hypochromasia Present PT 10.5 (9.0-12.0) Seconds INR 1.0 (0.9-1.1) APTT 27.2 (21.0-31.0) Seconds PTT Ratio 1.0 VBG pH (7.36-7.41) VBG pCO2 (38-50) mmHg VBG pO2 mmHg VBG HCO3 mmol/L VBG O2 Saturation % VBG Base Excess mEq/L Sodium 138 (136-145) mmol/L Potassium 4.4 (3.5-5.1) mmol/L Chloride 105 (98-107) mmol/L Carbon Dioxide 27 (21-32) mmol/L Anion Gap 6 (3-11) BUN 18 (6-23) mg/dl Creatinine 0.79 (0.6-1.2) mg/dl Est Cr Clr Drug Dosing Not Reportable Est GFR ( Amer) 76.9 ml/min Est GFR (Non-Af Amer) 66.4 ml/min BUN/Creatinine Ratio 22.8 H (10-20) Glucose 99 (70-99(Fasting)) mg/dl Lactate (0.4-2.0) mmol/L Calcium 9.2 (8.6-10.3) mg/dl Magnesium 2.1 (1.7-2.4) mg/dl Total Bilirubin 0.5 (0.2-1.0) mg/dl AST 15 (13-39) U/L ALT 8 (7-52) U/L Alkaline Phosphatase 86 (34-104) U/L Troponin I High Sens 5.5 (0-14) pg/ml Total Protein 7.3 (6.0-8.3) gm/dl Albumin 3.9 (3.4-5.0) gm/dl Globulin 3.4 (2.5-4.0) gm/dl Albumin/Globulin Ratio 1.1 (0.9-2) Procalcitonin (0-0.5) ng/ml TSH (0.300-4.500) uIu/ml Urine Color Urine Appearance (Clear) Urine pH (4.5-7.5) Ur Specific [place] (1.000-1.030) Urine Protein (Negative) Urine Glucose (UA) (Negative) Urine Ketones (Negative) Urine Blood (Negative) Urine Nitrite (Negative) Urine Bilirubin (Negative) Urine Urobilinogen (Negative) Ur Leukocyte Esterase (Negative) Urine WBC (Auto) (0-5) /hpf Urine RBC (Auto) (0-4) /hpf U Hyaline Cast (Auto) (0-5) /lpf U Epithel Cells (Auto) (0-5) /lpf Urine Bacteria (Auto) (Negative) SARS-CoV-2 (PCR) (Negative) Influenza Type A (PCR) (Neg) Influenza Type B (PCR) (Neg) RSV (RT-PCR) (Neg) 01/06/23 01/06/23 01/06/23 Range/Units 13:21 13:45 14:28 WBC (4.8-10.8) K/ul RBC (4.20-5.40) M/uL Hgb (12.0-16.0) g/dl Hct (37.0-47.0) % MCV (80.0-100.0) fL MCH (25.0-34.0) pg MCHC (32.0-36.0) g/dL RDW Std Deviation (36.4-46.3) fL RDW Coeff of Flakito (11.5-14.5) % Plt Count (130-400) K/uL MPV (9.4-12.4) fL Immature Gran % (Auto) % Neut % (Auto) % Lymph % (Auto) % Will % (Auto) % Eos % (Auto) % Baso % (Auto) % Neut # (Auto) (1.40-6.50) K/uL Lymph # (Auto) (1.2-3.4) K/uL Will # (Auto) (0.11-0.59) K/uL Eos # (Auto) (0-0.50) K/uL Baso # (Auto) (0-0.2) K/uL Immature Gran # (Auto) (0.01-0.20) K/uL Hypochromasia PT (9.0-12.0) Seconds INR (0.9-1.1) APTT (21.0-31.0) Seconds PTT Ratio VBG pH (7.36-7.41) VBG pCO2 (38-50) mmHg VBG pO2 mmHg VBG HCO3 mmol/L VBG O2 Saturation % VBG Base Excess mEq/L Sodium (136-145) mmol/L Potassium (3.5-5.1) mmol/L Chloride (98-107) mmol/L Carbon Dioxide (21-32) mmol/L Anion Gap (3-11) BUN (6-23) mg/dl Creatinine (0.6-1.2) mg/dl Est Cr Clr Drug Dosing Est GFR ( Amer) ml/min Est GFR (Non-Af Amer) ml/min BUN/Creatinine Ratio (10-20) Glucose (70-99(Fasting)) mg/dl Lactate (0.4-2.0) mmol/L Calcium (8.6-10.3) mg/dl Magnesium (1.7-2.4) mg/dl Total Bilirubin (0.2-1.0) mg/dl AST (13-39) U/L ALT (7-52) U/L Alkaline Phosphatase (34-104) U/L Troponin I High Sens (0-14) pg/ml Total Protein (6.0-8.3) gm/dl Albumin (3.4-5.0) gm/dl Globulin (2.5-4.0) gm/dl Albumin/Globulin Ratio (0.9-2) Procalcitonin (0-0.5) ng/ml TSH 2.699 (0.300-4.500) uIu/ml Urine Color Yellow Urine Appearance Clear (Clear) Urine pH 7.5 (4.5-7.5) Ur Specific [place] 1.007 (1.000-1.030) Urine Protein Negative (Negative) Urine Glucose (UA) Negative (Negative) Urine Ketones Negative (Negative) Urine Blood Negative (Negative) Urine Nitrite Negative (Negative) Urine Bilirubin Negative (Negative) Urine Urobilinogen Negative (Negative) Ur Leukocyte Esterase 1+ H (Negative) Urine WBC (Auto) 10-30 H (0-5) /hpf Urine RBC (Auto) 0-4 (0-4) /hpf U Hyaline Cast (Auto) 0 (0-5) /lpf U Epithel Cells (Auto) >30 H (0-5) /lpf Urine Bacteria (Auto) Negative (Negative) SARS-CoV-2 (PCR) NEGATIVE (Negative) Influenza Type A (PCR) Negative (Neg) Influenza Type B (PCR) Negative (Neg) RSV (RT-PCR) Negative (Neg) 01/06/23 01/06/23 01/06/23 Range/Units 14:32 14:41 14:41 WBC (4.8-10.8) K/ul RBC (4.20-5.40) M/uL Hgb (12.0-16.0) g/dl Hct (37.0-47.0) % MCV (80.0-100.0) fL MCH (25.0-34.0) pg MCHC (32.0-36.0) g/dL RDW Std Deviation (36.4-46.3) fL RDW Coeff of Flakito (11.5-14.5) % Plt Count (130-400) K/uL MPV (9.4-12.4) fL Immature Gran % (Auto) % Neut % (Auto) % Lymph % (Auto) % Will % (Auto) % Eos % (Auto) % Baso % (Auto) % Neut # (Auto) (1.40-6.50) K/uL Lymph # (Auto) (1.2-3.4) K/uL Will # (Auto) (0.11-0.59) K/uL Eos # (Auto) (0-0.50) K/uL Baso # (Auto) (0-0.2) K/uL Immature Gran # (Auto) (0.01-0.20) K/uL Hypochromasia PT (9.0-12.0) Seconds INR (0.9-1.1) APTT (21.0-31.0) Seconds PTT Ratio VBG pH 7.34 L (7.36-7.41) VBG pCO2 51 H (38-50) mmHg VBG pO2 36 mmHg VBG HCO3 28 mmol/L VBG O2 Saturation < 60.0 % VBG Base Excess 0.9 mEq/L Sodium (136-145) mmol/L Potassium (3.5-5.1) mmol/L Chloride (98-107) mmol/L Carbon Dioxide (21-32) mmol/L Anion Gap (3-11) BUN (6-23) mg/dl Creatinine (0.6-1.2) mg/dl Est Cr Clr Drug Dosing Est GFR ( Amer) ml/min Est GFR (Non-Af Amer) ml/min BUN/Creatinine Ratio (10-20) Glucose (70-99(Fasting)) mg/dl Lactate 1.4 (0.4-2.0) mmol/L Calcium (8.6-10.3) mg/dl Magnesium (1.7-2.4) mg/dl Total Bilirubin (0.2-1.0) mg/dl AST (13-39) U/L ALT (7-52) U/L Alkaline Phosphatase (34-104) U/L Troponin I High Sens (0-14) pg/ml Total Protein (6.0-8.3) gm/dl Albumin (3.4-5.0) gm/dl Globulin (2.5-4.0) gm/dl Albumin/Globulin Ratio (0.9-2) Procalcitonin < 0.05 (0-0.5) ng/ml TSH (0.300-4.500) uIu/ml Urine Color Urine Appearance (Clear) Urine pH (4.5-7.5) Ur Specific [place] (1.000-1.030) Urine Protein (Negative) Urine Glucose (UA) (Negative) Urine Ketones (Negative) Urine Blood (Negative) Urine Nitrite (Negative) Urine Bilirubin (Negative) Urine Urobilinogen (Negative) Ur Leukocyte Esterase (Negative) Urine WBC (Auto) (0-5) /hpf Urine RBC (Auto) (0-4) /hpf U Hyaline Cast (Auto) (0-5) /lpf U Epithel Cells (Auto) (0-5) /lpf Urine Bacteria (Auto) (Negative) SARS-CoV-2 (PCR) (Negative) Influenza Type A (PCR) (Neg) Influenza Type B (PCR) (Neg) RSV (RT-PCR) (Neg) Imaging Data Attestation: I personally reviewed and interpreted this imaging study as follows: My Impression: Chest x-ray: No acute infiltrate Radiologist's Impression: Head CT 01/06/23 14:[address] OF THE BRAIN; CT ANGIOGRAM OF THE BRAIN; CT ANGIOGRAM OF THE NECK CLINICAL HISTORY: Dizziness. Headache. COMPARISON STUDY: CT of the brain dated 11/28/2021. TECHNIQUE: Unenhanced axial CT scan of the brain is performed. Subsequently, following the IV administration of 119 of Optiray 320, CT angiogram of the head and neck was performed from the aortic arch to the vertex. Images are reviewed in the axial, sagittal, and coronal planes. 3-D MIPS images are created and asse ssed. IV contrast was administered without complication. All measurements were calculated based on NASCET criteria. A dose lowering technique was utilized adhering to the principles of ALARA. CT DOSE: 984.20 mGy.cm FINDINGS: Brain parenchyma: There is age-related involutional change noting moderate subcortical and periventricular microangiopathic disease. There is no hemorrhage, mass effect, or evidence of acute territorial ischemia by CT criteria. There is no evidence of enhancing mass lesion on the angiogram phase images. The ventricles, sulci, and cisterns are prominent secondary to involutional change. Fuchs-white matter differentiation is preserved. No extra- axial fluid collection is seen. Thoracic aorta: There is atherosclerotic calcification of the thoracic aorta. Visualized portions of the thoracic aorta are normal in caliber. The aortic arch demonstrates bovine variant anatomy. Right carotid arterial system: The right common carotid artery is widely patent, as are the right internal and external carotid arteries. Calcified plaque is seen in the carotid bulb. Left carotid arterial system: The left common carotid artery is widely patent. Atherosclerotic plaque in the carotid bulb causes approximately 50% stenosis of the origin of the left internal carotid artery. The remainder of the left internal carotid artery and the external carotid artery are patent. Vertebral arteries: The vertebral arteries are patent bilaterally noting right sided dominance. The left vertebral artery is diminutive. Subclavian arteries: Widely patent bilaterally. Intracranial vasculature: There is atherosclerotic calcification of the cavernous carotid and vertebral arteries. The internal carotid arteries are patent at the skull base, as are the anterior and middle cerebral arteries bilaterally. There is at least moderate stenosis of the left cavernous carotid artery at the skull base. The vertebral artery and the basilar artery are patent. 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 There is origin of the right posterior cerebral artery. The right vertebral artery is dominant. There is moderate focal stenosis of the left anterior cervical artery seen on coronal image #25. No aneurysm is seen. Jugular veins: Patent bilaterally. Dural sinuses: Patent. Lung apices: Partially visualized upper lobe lung parenchyma appears clear. Soft tissues: The visualized pharyngeal soft tissues are normal in appearance noting angiographic phase technique. The oropharyngeal airway appears widely patent. The thyroid gland is heterogeneous. The salivary are normal in appearance. No cervical lymphadenopathy is seen. Skeletal structures: The skeletal structures are osteopenic. The calvarium appears intact. The cervical spine is maintained noting mild multilevel spondylosis. No lytic or blastic lesion is seen. Orbits: The bony orbits are intact. Orbital contents are normal as visualized noting bilateral ocular lens implants. Sinuses and mastoids: The paranasal sinuses are clear. The skeletal structures are osteopenic. There is a large left mastoid effusion, with fluid seen in the left middle ear. The right mastoid air cells are well pneumatized. IMPRESSION: 1. There is no hemorrhage, mass effect, or evidence of acute territorial ischemia by CT criteria. 2. There is a large left mastoid effusion. This has significantly increased in size from the 11/28/2021 examination, an there is now fluid in the left middle ear. Correlate clinically for evidence of otomastoiditis 3. 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 This is of indeterminant chronicity. 4. 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 5. 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 6. Atherosclerotic plaque causes approximately 50% stenosis at the origin of the left internal carotid artery. 7. Additional findings as above. ACT 112: Negative or not required by law. Electronically signed by: Jacques Stewart M.D. 01/06/2023 3:36 PM Head CTA 01/06/23 14:[address] OF THE BRAIN; CT ANGIOGRAM OF THE BRAIN; CT ANGIOGRAM OF THE NECK CLINICAL HISTORY: Dizziness. Headache. COMPARISON STUDY: CT of the brain dated 11/28/2021. TECHNIQUE: Unenhanced axial CT scan of the brain is performed. Subsequently, following the IV administration of 119 of Optiray 320, CT angiogram of the head and neck was performed from the aortic arch to the vertex. Images are reviewed in the axial, sagittal, and coronal planes. 3-D MIPS images are created and assessed. IV contrast was administered without complication. All measurements were calculated based on NASCET criteria. A dose lowering technique was utilized adhering to the principles of ALARA. CT DOSE: 984.20 mGy.cm FINDINGS: Brain parenchyma: There is age-related involutional change noting moderate subcortical and periventricular microangiopathic disease. There is no hemorrhage, mass effect, or evidence of acute territorial ischemia by CT criteria. There is no evidence of enhancing mass lesion on the angiogram phase images. The ventricles, sulci, and cisterns are prominent secondary to involutional change. Fuchs-white matter differentiation is preserved. No extra- axial fluid collection is seen. Thoracic aorta: There is atherosclerotic calcification of the thoracic aorta. Visualized portions of the thoracic aorta are normal in caliber. The aortic arch demonstrates bovine variant anatomy. Right carotid arterial system: The right common carotid artery is widely patent, as are the right internal and external carotid arteries. Calcified plaque is seen in the carotid bulb. Left carotid arterial system: The left common carotid artery is widely patent. Atherosclerotic plaque in the carotid bulb causes approximately 50% stenosis of the origin of the left internal carotid artery. The remainder of the left internal carotid artery and the external carotid artery are patent. Vertebral arteries: The vertebral arteries are patent bilaterally noting right sided dominance. The left vertebral artery is diminutive. Subclavian arteries: Widely patent bilaterally. Intracranial vasculature: There is atherosclerotic calcification of the cavernous carotid and vertebral arteries. The internal carotid arteries are patent at the skull base, as are the anterior and middle cerebral arteries bilaterally. There is at least moderate stenosis of the left cavernous carotid artery at the skull base. The vertebral artery and the basilar artery are patent. 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 There is origin of the right posterior cerebral artery. The right vertebral artery is dominant. There is moderate focal stenosis of the left anterior cervical artery seen on coronal image #25. No aneurysm is seen. Jugular veins: Patent bilaterally. Dural sinuses: Patent. Lung apices: Partially visualized upper lobe lung parenchyma appears clear. Soft tissues: The visualized pharyngeal soft tissues are normal in appearance noting angiographic phase technique. The oropharyngeal airway appears widely patent. The thyroid gland is heterogeneous. The salivary are normal in appearance. No cervical lymphadenopathy is seen. Skeletal structures: The skeletal structures are osteopenic. The calvarium appears intact. The cervical spine is maintained noting mild multilevel spondylosis. No lytic or blastic lesion is seen. Orbits: The bony orbits are intact. Orbital contents are normal as visualized noting bilateral ocular lens implants. Sinuses and mastoids: The paranasal sinuses are clear. The skeletal structures are osteopenic. There is a large left mastoid effusion, with fluid seen in the left middle ear. The right mastoid air cells are well pneumatized. IMPRESSION: 1. There is no hemorrhage, mass effect, or evidence of acute territorial ischemia by CT criteria. 2. There is a large left mastoid effusion. This has significantly increased in size from the 11/28/2021 examination, an there is now fluid in the left middle ear. Correlate clinically for evidence of otomastoiditis 3. 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 This is of indeterminant chronicity. 4. 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 5. 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 6. Atherosclerotic plaque causes approximately 50% stenosis at the origin of the left internal carotid artery. 7. Additional findings as above. ACT 112: Negative or not required by law. Electronically signed by: Jacques Stewart M.D. 01/06/2023 3:36 PM Neck CTA 01/06/23 14:[address] OF THE BRAIN; CT ANGIOGRAM OF THE BRAIN; CT ANGIOGRAM OF THE NECK CLINICAL HISTORY: Dizziness. Headache. COMPARISON STUDY: CT of the brain dated 11/28/2021. TECHNIQUE: Unenhanced axial CT scan of the brain is performed. Subsequently, following the IV administration of 119 of Optiray 320, CT angiogram of the head and neck was performed from the aortic arch to the vertex. Images are reviewed in the axial, sagittal, and coronal planes. 3-D MIPS images are created and assessed. IV contrast was administered without complication. All measurements were calculated based on NASCET criteria. A dose lowering technique was utilized adhering to the principles of ALARA. CT DOSE: 984.20 mGy.cm FINDINGS: Brain parenchyma: There is age-related involutional change noting moderate subcortical and periventricular microangiopathic disease. There is no hemorrhage, mass effect, or evidence of acute territorial ischemia by CT criteria. There is no evidence of enhancing mass lesion on the angiogram phase images. The ventricles, sulci, and cisterns are prominent secondary to involutional change. Fuchs-white matter differentiation is preserved. No extra- axial fluid collection is seen. Thoracic aorta: There is atherosclerotic calcification of the thoracic aorta. Visualized portions of the thoracic aorta are normal in caliber. The aortic arch demonstrates bovine variant anatomy. Right carotid arterial system: The right common carotid artery is widely patent, as are the right internal and external carotid arteries. Calcified plaque is seen in the carotid bulb. Left carotid arterial system: The left common carotid artery is widely patent. Atherosclerotic plaque in the carotid bulb causes approximately 50% stenosis of the origin of the left internal carotid artery. The remainder of the left internal carotid artery and the external carotid artery are patent. Vertebral arteries: The vertebral arteries are patent bilaterally noting right sided dominance. The left vertebral artery is diminutive. Subclavian arteries: Widely patent bilaterally. Intracranial vasculature: There is atherosclerotic calcification of the cavernous carotid and vertebral arteries. The internal carotid arteries are patent at the skull base, as are the anterior and middle cerebral arteries bilaterally. There is at least moderate stenosis of the left cavernous carotid artery at the skull base. The vertebral artery and the basilar artery are patent . 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 There is origin of the right posterior cerebral artery. The right vertebral artery is dominant. There is moderate focal stenosis of the left anterior cervical artery seen on coronal image #25. No aneurysm is seen. Jugular veins: Patent bilaterally. Dural sinuses: Patent. Lung apices: Partially visualized upper lobe lung parenchyma appears clear. Soft tissues: The visualized pharyngeal soft tissues are normal in appearance noting angiographic phase technique. The oropharyngeal airway appears widely patent. The thyroid gland is heterogeneous. The salivary are normal in appearance. No cervical lymphadenopathy is seen. Skeletal structures: The skeletal structures are osteopenic. The calvarium appears intact. The cervical spine is maintained noting mild multilevel spondylosis. No lytic or blastic lesion is seen. Orbits: The bony orbits are intact. Orbital contents are normal as visualized noting bilateral ocular lens implants. Sinuses and mastoids: The paranasal sinuses are clear. The skeletal structures are osteopenic. There is a large left mastoid effusion, with fluid seen in the left middle ear. The right mastoid air cells are well pneumatized. IMPRESSION: 1. There is no hemorrhage, mass effect, or evidence of acute territorial ischemia by CT criteria. 2. There is a large left mastoid effusion. This has significantly increased in size from the 11/28/2021 examination, an there is now fluid in the left middle ear. Correlate clinically for evidence of otomastoiditis 3. 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 This is of indeterminant chronicity. 4. 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 5. 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 6. Atherosclerotic plaque causes approximately 50% stenosis at the origin of the left internal carotid artery. 7. Additional findings as above. ACT 112: Negative or not required by law. Electronically signed by: Jacques Stewart M.D. 01/06/2023 3:36 PM Chest X-Ray 01/06/23 14:17 SINGLE VIEW CHEST CLINICAL HISTORY: Dizziness. FINDINGS: An AP, portable, upright chest radiograph is compared to study dated 07/02/2022 and correlated with chest CT dated 07/03/2022. The heart is enlarged noting atherosclerotic calcification of the thoracic aorta. The pulmonary vasculature is noncongested. Chronic interstitial thickening is similar to previous. Mild scarring/atelectasis is noted at the lung bases. The lungs and pleural spaces are otherwise clear. No pneumothorax is seen. The skeletal structures are osteopenic. The bony thorax is grossly intact. IMPRESSION: Cardiomegaly with no active disease in the chest. ACT 112: Negative or not required by law. Electronically signed by: Jacques Stewart M.D. 01/06/2023 4:34 PM ECG Data Attestation: I personally reviewed and interpreted this ECG as follows: Rate (beats per minute): 73 Rhythm: + normal sinus ECG Intervals/blocks: + Normal FL and + Normal QT-c ECG ST segments: + Normal ST segments Additional Comments: QRS 66 MDM Narrative Cardiac monitoring: An order was placed for continuous cardiac monitoring. The monitor shows a rate of 70 with sinus rhythm interpreted by me Vital signs stable. Labs within normal limits with the exception of a mildly elevated leukocytosis of 13. CT imaging shows that there is a large left mastoid effusion. Clinically the patient does not have any evidence of mastoiditis. Patient reports feeling no better after receiving meclizine. Patient will be observed in the hospital under the [facility] [address] Dia notified. Impression & Plan Vertigo Discharge Plan Visit Data Chief Complaint: Dizziness Stated Complaint: DIZZINESS ED Provider: Louis Regalado Discharge Problem: Vertigo Patient Disposition: Being Evaluated by Hospitalist Forms Stand Alone Forms: My [facility] Prescriptions Prescriptions: No Action esomeprazole magnesium 40 mg capsule,delayed release(DR/EC) 40 mg PO QAM Qty: 90 3RF clopidogrel [Plavix] 75 mg tablet 75 mg PO QPM Qty: 90 3RF clotrimazole-betamethasone 1-0.05 % cream 1 applic topical BID PRN (Reason: rash) Qty: 45 0RF rosuvastatin [Crestor] 20 mg tablet 20 mg PO HS Qty: 90 3RF (DME) Accu-Chek Guide test strips Strip See Rx Instructions .Route Qty: 200 3RF Rx Instructions: Test blood sugars twice a day insulin asp prt-insulin aspart [Novolog Mix 70-30FlexPen U-100] 100 unit/mL (70-30) insulin pen See Rx Instructions SUBCUT .COMPLEX Qty: 90 3RF Rx Instructions: 45 units in AM before breakfast, 35 units in PM before supper; levothyroxine 25 mcg tablet 25 mcg PO QAM Qty: 90 3RF lisinopril 10 mg tablet 10 mg PO QAM Qty: 90 3RF Hold Instructions: DIZZINESS Rx Instructions: PER PT'S FAMILY, "STOPPED ABOUT 2 WKS AGO". gabapentin 100 mg capsule 100 mg PO HS Qty: 90 3RF cyclobenzaprine 5 mg tablet 5 mg PO TID PRN (Reason: muscle spasm) Qty: 30 1RF diclofenac sodium 1 % gel 1 g topical QID PRN (Reason: pain, moderate) Qty: 100 2RF carvedilol 3.125 mg tablet 3.125 mg PO BID Qty: 120 3RF Referrals Referrals: Anthony Boss DO [Primary Care Provider] -
[2023-01-06] MEDS: SODIUM CHLORIDE 0.9% 500 ML IV SCH (14:30)
[2023-01-06] MEDS ORDERED: OPTIRAY 320 125ml IV ONE (15:00)
[2023-01-06 15:08] LABS: Base Excess VBG 0.9 mEq/L; HCO3 VBG 28 mmol/L; Oxygen Saturation VBG < 60.0 %; PCO2 VBG 51 mmHg (38-50); PO2 VBG 36 mmHg; pH VBG 7.34 (7.36-7.41)
[2023-01-06 15:21] LABS: Influenza A virus by PCR Negative (Neg); Influenza B virus by PCR Negative (Neg); RSV by PCR Negative (Neg); SARS CoV2 RNA(COVID-19) Ceph NEGATIVE (Negative)
--- NOTE | 2023-01-06 15:38 | CT Scan Report ---
UNENHANCED CT OF THE BRAIN; CT ANGIOGRAM OF THE BRAIN; CT ANGIOGRAM OF THE NECK CLINICAL HISTORY: Dizziness. Headache. COMPARISON STUDY: CT of the brain dated 11/28/2021. TECHNIQUE: Unenhanced axial CT scan of the brain is performed. Subsequently, following the IV adminis tration of 119 of Optiray 320, CT angiogram of the head and neck was performed from the aortic arch t o the vertex. Images are reviewed in the axial, sagittal, and coronal planes. 3-D MIPS images are cre ated and assessed. IV contrast was administered without complication. All measurements were calculate d based on NASCET criteria. A dose lowering technique was utilized adhering to the principles of ALA RA. CT DOSE: 984.20 mGy.cm FINDINGS: Brain parenchyma: There is age-related involutional change noting moderate subcortical and periventri cular microangiopathic disease. There is no hemorrhage, mass effect, or evidence of acute territorial ischemia by CT criteria. There is no evidence of enhancing mass lesion on the angiogram phase images . The ventricles, sulci, and cisterns are prominent secondary to involutional change. Fuchs-white hansel er differentiation is preserved. No extra-axial fluid collection is seen. Thoracic aorta: There is atherosclerotic calcification of the thoracic aorta. Visualized portions of the thoracic aorta are normal in caliber. The aortic arch demonstrates bovine variant anatomy. Right carotid arterial system: The right common carotid artery is widely patent, as are the right int ernal and external carotid arteries. Calcified plaque is seen in the carotid bulb. Left carotid arterial system: The left common carotid artery is widely patent. Atherosclerotic plaque in the carotid bulb causes approximately 50% stenosis of the origin of the left internal carotid art marianela. The remainder of the left internal carotid artery and the external carotid artery are patent. Vertebral arteries: The vertebral arteries are patent bilaterally noting right sided dominance. The l eft vertebral artery is diminutive. Subclavian arteries: Widely patent bilaterally. Intracranial vasculature: There is atherosclerotic calcification of the cavernous carotid and vertebr al arteries. The internal carotid arteries are patent at the skull base, as are the anterior and midd le cerebral arteries bilaterally. There is at least moderate stenosis of the left cavernous carotid a rtery at the skull base. The vertebral artery and the basilar artery are patent. 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 There is origin of the right posteri or cerebral artery. The right vertebral artery is dominant. There is moderate focal stenosis of the l eft anterior cervical artery seen on coronal image #25. No aneurysm is seen. Jugular veins: Patent bilaterally. Dural sinuses: Patent. Lung apices: Partially visualized upper lobe lung parenchyma appears clear. Soft tissues: The visualized pharyngeal soft tissues are normal in appearance noting angiographic pha se technique. The oropharyngeal airway appears widely patent. The thyroid gland is heterogeneous. The salivary are normal in appearance. No cervical lymphadenopathy is seen. Skeletal structures: The skeletal structures are osteopenic. The calvarium appears intact. The cervic al spine is maintained noting mild multilevel spondylosis. No lytic or blastic lesion is seen. Orbits: The bony orbits are intact. Orbital contents are normal as visualized noting bilateral ocular lens implants. Sinuses and mastoids: The paranasal sinuses are clear. The skeletal structures are osteopenic. There is a large left mastoid effusion, with fluid seen in the left middle ear. The right mastoid air cells are well pneumatized. IMPRESSION: 1. There is no hemorrhage, mass effect, or evidence of acute territorial ischemia by CT criteria. 2. There is a large left mastoid effusion. This has significantly increased in size from the 2 examination, an there is now fluid in the left middle ear. Correlate clinically for evidence of raffy mastoiditis 3. 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 This is of indeterminant chronicity. 4. 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 5. 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 6. Atherosclerotic plaque causes approximately 50% stenosis at the origin of the left internal caroti d artery. 7. Additional findings as above. ACT 112: Negative or not required by law. Electronically signed by: Jacques Stewart M.D. 01/06/2023 3:36 PM
[2023-01-06] MEDS ORDERED: MECLIZINE 12.5 MG TAB PO STA (15:45)
--- NOTE | 2023-01-06 16:35 | XRay Report ---
SINGLE VIEW CHEST CLINICAL HISTORY: Dizziness. FINDINGS: An AP, portable, upright chest radiograph is compared to study dated 07/02/2022 and correla deirdre with chest CT dated 07/03/2022. The heart is enlarged noting atherosclerotic calcification of the thoracic aorta. The pulmonary vasculature is noncongested. Chronic interstitial thickening is simila r to previous. Mild scarring/atelectasis is noted at the lung bases. The lungs and pleural spaces are otherwise clear. No pneumothorax is seen. The skeletal structures are osteopenic. The bony thorax is grossly intact. IMPRESSION: Cardiomegaly with no active disease in the chest. ACT 112: Negative or not required by law. Electronically signed by: Jacques Stewart M.D. 01/06/2023 4:34 PM
--- NOTE | 2023-01-06 18:46 | History & Physical Report ---
Date of Service January 06, 2023 Assessment & Plan (1) Vertigo: Plan: New onset with prior stroke history and current headache / neck pain - recommend brain MRI w/wo IV contrast to complete stroke workup No other focal neurology consistent with a stroke. If brain MRI negative consider PT consult for BPPV. Consider ENT consult regarding mastoid effusion if contributing however no findings overlying this on exam and no symptoms Plan VTE Prophyalxis - low risk Diet - T2DM Disposition - observation status to med/tele Admission and Anticipated Discharge Date Admission Date: January 06, 2023 History of Present Illness Chief Complaint: Dizzy Primary Care Provider: DO Carly Evanscalvin Angel is an 87 year old female who presents to the ER due to dizziness. Initially this started 1.5 weeks ago on Thursday. She reports on that day when she went to get out of bed she had sudden onset room spinning sensation even when lying down with associated nausea. Since this episode she does have intermittent times of complete relief but in general it is getting worse especially on left lateral head movements. She also notes associated "head hurts all over" the last few days and mild right sided neck pain just in the ER. Also reports having shortness of breath just today associated with the dizziness. She has no current shortness of breath at rest. She denies any lateralizing weakness in her extremities - today she feels like both legs might just collapse on her. She notes having a prior stroke causing difficulty writing > 10 years ago but has subsequently had full recovery from this. She has no history of vertigo. No tinnitus or change in hearing loss (she used hearing aids b/l. She saw her PCP on December 30 for this dizziness and suspected to be more of a BP problem and her lisinopril was discontinued. Allergies Allergy/AdvReac Type Severity Reaction Status Date / Time adhesive Allergy Intermediate Rash Verified 01/06/23 15:46 soap [From Betadine] Allergy Intermediate itchy Verified 01/06/23 15:46 egg AdvReac Intermediate GI SYMPTOMS Verified 01/06/23 15:46 garlic AdvReac Intermediate GI symptoms Verified 01/06/23 15:46 sertraline AdvReac Intermediate Dizziness Verified 01/06/23 15:46 simvastatin AdvReac Intermediate MYALGIA Verified 01/06/23 15:46 Sulfa (Sulfonamide AdvReac Intermediate GI symptoms Verified 01/06/23 15:46 Antibiotics) propoxyphene AdvReac Mild light Verified 01/06/23 15:46 headed Home Medications Medication Instructions Recorded Confirmed Type esomeprazole magnesium 40 mg 40 mg PO QAM #90 caps 04/29/22 01/06/23 Rx capsule,delayed release clopidogrel 75 mg tablet (Plavix) 75 mg PO QPM #90 tabs 05/02/22 01/06/23 Rx carvedilol 3.125 mg tablet 3.125 mg PO BID #120 tabs 07/24/22 01/06/23 Rx clotrimazole-betamethasone 1 1 applic topical BID PRN rash #45 09/10/22 01/06/23 Rx %-0.05 % topical cream grams rosuvastatin 20 mg tablet (Crestor) 20 mg PO HS #90 tabs 09/10/22 01/06/23 Rx Accu-Chek Guide test strips (blood #200 ea 10/27/22 12/16/22 Rx sugar diagnostic) insulin aspar prot-insulin aspart See Rx Instructions subcut 10/27/22 01/06/23 Rx 100 unit/mL (70-30) subcutaneous .COMPLEX #90 mL pen (Novolog Mix 70-30FlexPen U-100) levothyroxine 25 mcg tablet 25 mcg PO QAM #90 tabs 10/30/22 01/06/23 Rx lisinopril 10 mg tablet 10 mg PO QAM #90 tabs 10/30/22 01/06/23 Rx gabapentin 100 mg capsule 100 mg PO HS #90 caps 12/05/22 01/06/23 Rx cyclobenzaprine 5 mg tablet 5 mg PO TID PRN muscle spasm #30 12/12/22 01/06/23 Rx tabs diclofenac sodium 1 % topical gel 1 g topical QID PRN pain, moderate 12/16/22 01/06/23 Rx #100 grams Past Med/Surg History Medical History Anemia treated with [facility] inpatient 04/06/21 at [facility] ASCVD (arteriosclerotic cardiovascular disease) Carotid artery stenosis Cerebral arterial aneurysm COPD (chronic obstructive pulmonary disease) CVA (cerebral vascular accident) 2014--short term memory loss, gait loss--uses walker CVA (cerebral vascular accident) Diabetes mellitus, type 2 Diabetic peripheral neuropathy GI bleed heme+ stool Hearing deficit History of CHF (congestive heart failure) Hx of angina pectoris Hyperlipidemia Hypothyroid NSTEMI (non-ST elevated myocardial infarction) pt unsure if she had an AK while inpatient at [facility] at the beginning of April 2021. states no one told her either way. but she denies sob or chest pain currently. Occlusion and stenosis of carotid artery with cerebral infarction On anticoagulant therapy Osteoarthritis Rectocutaneous fistula Restless leg syndrome Surgical History H/O section x3 History of bilateral cataract extraction History of bilateral tubal ligation [place] [facility] [place] History of colonoscopy History of sigmoidoscopy History of tonsillectomy and adenoidectomy History of tooth extraction all teeth removed History of total abdominal hysterectomy and bilateral salpingo-oophorectomy S/P cholecystectomy S/P removal of ovarian cyst Family History Grandmother (Paternal) Family history of diabetes mellitus Father Myocardial infarction Mother Myocardial infarction Family/Other Heart disease Multiple benign polyps of large intestine Other No family history of adverse response to anesthesia Denies family history of Ovarian cancer Prostate cancer Crohn's disease Colorectal cancer Cancer Ulcerative colitis Social History Smoking Status: Former smoker Tobacco Type: Cigarettes Cigarettes Per Day: 1 pack per day; Second Hand Exposure: No; Do You Dip or Chew Tobacco: No; Hx Alcohol Use: No Hx Substance Use: No Preferred Language: Kiswahili Communication Ability: Effective Visual Impairment: No Limitations Hearing Ability: Use of Hearing Aid Bone Drier Required: No Beliefs That Will Affect Care: None marital status: Current Living Situation: Alone Current Living Situation Comment: apartment current occupational status: retired Other Information That Helps Us Care for You: No Feels Safe at Home: Yes Safety Concerns: Feels Safe At This Time Childhood Exposure to Second-Hand Smoke: Yes Diet: low salt and regular Dental Care, Regularly: No Physical Activity Frequency: Does not Exercise Seatbelt Use: always Sunscreen Use: No Assistive Devices: Denture - Upper, Denture - Lower, Glasses, Hearing Aid - Bilateral, Scooter/Electric Scooter and Walker Review of Systems Review of Systems: All systems reviewed & are unremarkable except as noted in HPI & below Constipation Physical Exam Constitutional: WD/WN, vitals as above Eyes: PERRL, conjunctivae normal, anicteric sclerae no nystagmus ENMT: external ear and nose normal, oropharynx normal Neck: trachea midline, no thyromegaly Respiratory: normal respiratory effort, lungs clear to auscultation Cardiovascular: RRR, no murmur, no edema Gastrointestinal (Abdomen): normal bowel sounds, soft, nontender, no hepatosplenomegaly Musculoskeletal: no cyanosis or clubbing, extremities motor strength 5/5 Skin: no rashes, warm and dry Neurologic: moves all extremities and awake; no focal motor deficits and not confused Speech / Cognition: normal speech, no expressive aphasia and no receptive aphasia Motor/Sensory: no tremor, no pronator drift and no sensory deficit Coordination: normal [id number] test and normal [id number] test Psychiatric: Orientation: alert, oriented to person, oriented to place and oriented to time Genitourinary: no CVA tenderness Results & Data Results & Data Vital Signs (Past 12 Hours) Vital Signs Temp Pulse Pulse Resp BP BP Pulse Ox 01/06/23 17:30 88 24 167/81 H 97 01/06/23 16:00 85 18 135/77 98 01/06/23 16:19 85 01/06/23 14:19 82 16 197/116 H 97 01/06/23 14:19 01/06/23 12:57 36.8 C 85 18 137/71 99 O2 Del Method 01/06/23 17:30 Room Air 01/06/23 16:00 Room Air 01/06/23 16:19 01/06/23 14:19 Room Air 01/06/23 14:19 Room Air 01/06/23 12:57 Room Air Laboratory Results Abnormal lab results 01/06/23 01/06/23 01/06/23 Range/Units 13:21 13:21 13:45 WBC 13.51 H (4.8-10.8) K/ul Hgb 10.8 L (12.0-16.0) g/dl MCV 77.0 L (80.0-100.0) fL MCH 22.1 L (25.0-34.0) pg MCHC 28.7 L (32.0-36.0) g/dL RDW Std Deviation 49.2 H (36.4-46.3) fL RDW Coeff of Flakito 18.3 H (11.5-14.5) % MPV 9.2 L (9.4-12.4) fL Neut # (Auto) 9.65 H (1.40-6.50) K/uL [place] # (Auto) 1.11 H (0.11-0.59) K/uL VBG pH (7.36-7.41) VBG pCO2 (38-50) mmHg BUN/Creatinine Ratio 22.8 H (10-20) POC Glucose (70-99) mg/dl Ur Leukocyte Esterase 1+ H (Negative) Urine WBC (Auto) 10-30 H (0-5) /hpf U Epithel Cells (Auto) >30 H (0-5) /lpf 01/06/23 01/06/23 01/07/23 Range/Units 14:41 22:54 06:23 WBC (4.8-10.8) K/ul Hgb (12.0-16.0) g/dl MCV (80.0-100.0) fL MCH (25.0-34.0) pg MCHC (32.0-36.0) g/dL RDW Std Deviation (36.4-46.3) fL RDW Coeff of Flakito (11.5-14.5) % MPV (9.4-12.4) fL Neut # (Auto) (1.40-6.50) K/uL [place] # (Auto) (0.11-0.59) K/uL VBG pH 7.34 L (7.36-7.41) VBG pCO2 51 H (38-50) mmHg BUN/Creatinine Ratio (10-20) POC Glucose 108 H 154 H (70-99) mg/dl Ur Leukocyte Esterase (Negative) Urine WBC (Auto) (0-5) /hpf U Epithel Cells (Auto) (0-5) /lpf Diagnostic Findings UNENHANCED CT OF THE BRAIN; CT ANGIOGRAM OF THE BRAIN; CT ANGIOGRAM OF THE NECK CLINICAL HISTORY: Dizziness. Headache. COMPARISON STUDY: CT of the brain dated 11/28/2021. TECHNIQUE: Unenhanced axial CT scan of the brain is performed. Subsequently, following the IV administration of 119 of Optiray 320, CT angiogram of the head and neck was performed from the aortic arch to the vertex. Images are reviewed in the axial, sagittal, and coronal planes. 3-D MIPS images are created and assessed. IV contrast was administered without complication. All measurements w ere calculated based on NASCET criteria. A dose lowering technique was utilized adhering to the principles of ALARA. CT DOSE: 984.20 mGy.cm FINDINGS: Brain parenchyma: There is age-related involutional change noting moderate subcortical and periventricular microangiopathic disease. There is no hemorrhage, mass effect, or evidence of acute territorial ischemia by CT criteria. There is no evidence of enhancing mass lesion on the angiogram phase images. The ventricles, sulci, and cisterns are prominent secondary to involutional change. Fcuhs-white matter differentiation is preserved. No extra-a xial fluid collection is seen. Thoracic aorta: There is atherosclerotic calcification of the thoracic aorta. Visualized portions of the thoracic aorta are normal in caliber. The aortic arch demonstrates bovine variant anatomy. Right carotid arterial system: The right common carotid artery is widely patent, as are the right internal and external carotid arteries. Calcified plaque is seen in the carotid bulb. Left carotid arterial system: The left common carotid artery is widely patent. Atherosclerotic plaque in the carotid bulb causes approximately 50% stenosis of the origin of the left internal carotid artery. The remainder of the left internal carotid artery and the external carotid artery are patent. Vertebral arteries: The vertebral arteries are patent bilaterally noting right sided dominance. The left vertebral artery is diminutive. Subclavian arteries: Widely patent bilaterally. Intracranial vasculature: There is atherosclerotic calcification of the cavernous carotid and vertebral arteries. The internal carotid arteries are patent at the skull base, as are the anterior and middle cerebral arteries bilaterally. There is at least moderate stenosis of the left cavernous carotid a rtery at the skull base. The vertebral artery and the basilar artery are patent. 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 There is origin of the right posterior cerebral artery. The right vertebral artery is dominant. There is moderate focal stenosis of the left anterior cervical artery seen on coronal image #25. No aneurysm is seen. Jugular veins: Patent bilaterally. Dural sinuses: Patent. Lung apices: Partially visualized upper lobe lung parenchyma appears clear. Soft tissues: The visualized pharyngeal soft tissues are normal in appearance noting angiographic phase technique. The oropharyngeal airway appears widely patent. The thyroid gland is heterogeneous. The salivary are normal in appearance. No cervical lymphadenopathy is seen. Skeletal structures: The skeletal structures are osteopenic. The calvarium appears intact. The cervical spine is maintained noting mild multilevel spondylosis. No lytic or blastic lesion is seen. Orbits: The bony orbits are intact. Orbital contents are normal as visualized noting bilateral ocular lens implants. Sinuses and mastoids: The paranasal sinuses are clear. The skeletal structures are osteopenic. There is a large left mastoid effusion, with fluid seen in the left middle ear. The right mastoid air cells are well pneumatized. IMPRESSION: 1. There is no hemorrhage, mass effect, or evidence of acute territorial ischemia by CT criteria. 2. There is a large left mastoid effusion. This has significantly increased in size from the 11/28/2021 examination, an there is now fluid in the left middle ear. Correlate clinically for evidence of otomastoiditis 3. 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 This is of indeterminant chronicity. 4. 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 5. 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 6. Atherosclerotic plaque causes approximately 50% stenosis at the origin of the left internal carotid artery. 7. Additional findings as above. SINGLE VIEW CHEST CLINICAL HISTORY: Dizziness. FINDINGS: An AP, portable, upright chest radiograph is compared to study dated 07/02/2022 and correlated with chest CT dated 07/03/2022. The heart is enlarged noting atherosclerotic calcification of the thoracic aorta. The pulmonary vasculature is noncongested. Chronic interstitial thickening is similar to previous. Mild scarring/atelectasis is noted at the lung bases. The lungs and pleural spaces are otherwise clear. No pneumothorax is seen. The skeletal structures are osteopenic. The bony thorax is grossly intact. IMPRESSION: Cardiomegaly with no active disease in the chest. Medications Administered ER Mediations Given: Acetaminophen 1000mg IV NSS @ 125ml/hr Meclizine 12.5mg PO ECG Rate (beats per minute): 73 Rhythm: sinus with SA Findings: no acute ischemic change Comparison ECG Date: from (2021) Change: no significant change Code Status & VTE Plan Code Status DNR/DNI per patient wishes VTE Prophylaxis Plan VTE Prophylaxis will be ordered: No PG Care Time/CCT Total # of Minutes Spent Total Time Spent with Patient: Total time spent is greater than 50% in coordination of care (as documented) at patient's floor/unit and/or counseling patient: Coding Level of Care Code 76086 INT INP/OBS CARE 2/MIN Diagnoses Vertigo R42
[2023-01-06] MEDS ORDERED: ROSUVASTATIN CALCIUM 20 MG TAB PO SCH (21:50)
[2023-01-06] MEDS ORDERED: CLOPIDOGREL BISULFATE 75 MG TAB PO SCH (21:50)
[2023-01-06] MEDS ORDERED: GABAPENTIN 100 MG CAP PO SCH (21:50)
[2023-01-06] MEDS ORDERED: MECLIZINE 12.5 MG TAB PO PRN (22:18)
[2023-01-06] MEDS: carvediloL 3.125 MG TAB PO SCH (22:38)
[2023-01-07] MEDS: SODIUM CHLORIDE 0.9% 500 ML IV SCH (00:38)
[2023-01-07] MEDS ORDERED: POLYETHYLENE (MIRALAX) 17 GM PACK PO PRN (03:24)
[2023-01-07] MEDS ORDERED: GLUCOSE 10 TAB/TUBE PO PRN (03:43)
[2023-01-07] MEDS ORDERED: CARBOHYDRATES FOR HYPOGLYCEMIA PO PRN (03:43)
[2023-01-07] MEDS ORDERED: GLUCOSE 40% GEL 15 GM TUBE PO PRN (03:43)
[2023-01-07] MEDS ORDERED: DEXTROSE 50% 50 ML SYRINGE IV PRN (03:43)
[2023-01-07] MEDS ORDERED: GLUCAGON FOR INJ 1 MG VIAL SQ PRN (03:43)
[2023-01-07] MEDS ORDERED: LEVOTHYROXINE SODIUM 25 MCG TABLET PO SCH (06:30)
[2023-01-07] MEDS: INSULIN ASPART PER UNIT CHARGE SC SCH ×3 (07:30→17:26)
[2023-01-07] MEDS ORDERED: LANTUS PER UNIT CHARGE SQ SCH (09:00)
[2023-01-07] MEDS ORDERED: PANTOprazole 40 MG TAB PO SCH (09:00)
[2023-01-07] MEDS: carvediloL 3.125 MG TAB PO SCH ×2 (09:07→17:27)
--- NOTE | 2023-01-07 10:53 | Neurology Consultation ---
Date of Consultation January 07, 2023 Assessment & Plan (1) Vertigo: (2) Mastoiditis: (3) Carotid stenosis, left: (4) Neuropathy: (5) History of CVA (cerebrovascular accident): Plan patient has a history of subacute onset intermittent vertiginous and lightheaded symptoms triggered by position change in head movement. This is typical of an inner ear issue. The patient did have a history of pontine stroke in the past but has been stable on clopidogrel. CT imaging studies showed left-sided mastoiditis. inflammation from the mastoiditis could affect the inner ear. Today she is asymptomatic. Her neurologic examination was unremarkable with no focal findings or meningeal signs. She does have history of polyneuropathy secondary to diabetes. This is stable. The patient has multiple vascular stenoses including the distal left vertebral, left anterior communicating artery, and a left internal carotid artery at [address]. Recommendations: 1. MRI of the brain with and without contrast. 2. treat mastoiditis ( I would defer this to hospitalist or ENT) 3. meclizine 25 milligrams up to 3 times a day as needed for vertiginous symptoms, should she need it. 4. Increase activity as able. 5. remain on clopidogrel 75 milligrams daily. I do not believe she is a surgical candidate for any of these vascular stenoses. Overall, I spent a total of 75 minutes with this case including review of records, review of CT films, direct evaluation the patient at bedside, reports generation, and discussion of the case with the patient and RN at bedside and Dr. Lord including differential diagnosis and treatment options. History of Present Illness Reason for Consultation: Patient is an 87-year-old, who was asked to see at the request of Dr. Lord, for neurologic consultation regarding acute onset of dizziness. Requesting Physician: Dr. Lord Attending Physician: Sherrell Lord MD History of Present Illness patient has a history of left pontine stroke resulting in some dysphagia and ataxic gait back in March of 2012. she was noted to have carotid stenosis at that time. The patient has type 2 diabetes with significant polyneuropathy, coronary artery disease with congestive heart failure, and dyslipidemia. Although she has a history of GI bleed in the past she is on clopidogrel 75 milligrams daily. Patient has noted some intermittent dizziness episodes over the last 1-2 weeks. Sometimes it is a significant lightheadedness when she stands up and other times it is a vertiginous sensation lasting a few seconds, when she changes position or turns her head. On January 06 she was having a generalized headache with some nausea and shortness of breath as well as the vertiginous and lightheaded symptoms particularly with head movement. She arrived to the emergency room January 06 at 12:57 with a temperature 36.8, pulse 85 and regular, respiratory rate 18, blood pressure 137/71, and O2 saturation 99 percent. Her neurologic examination was largely unremarkable with no focal findings, meningeal signs, or encephalopathy. CBC showed elevated white count with increased neutrophils and some mild anemia with decreased MCV. Chem profile was unremarkable. TSH was normal at 2.6 and urinalysis was unremarkable. Lactate and procalcitonin were normal. CT scan of the head showed a large left mastoid effusion. I reviewed these films CT angiography of the head and neck revealed moderate left anterior cerebral artery stenosis, a distal left vertebral thrombosis, 80 left internal carotid artery origin stenosis of 50 percent and a moderate stenosis of left internal carotid artery in the cavernous portion. Today the patient feels that she is back to baseline with no lightheadedness or vertiginous symptoms even getting up or moving around. She has no headache, nausea, vomiting, or shortness of breath. She believes her memory is doing well. Nursing reports no new issues overnight. Blood pressure this morning was 124/73 and she remains afebrile. Allergies Allergy/AdvReac Type Severity Reaction Status Date / Time adhesive Allergy Intermediate Rash Verified 01/06/23 15:46 soap [From Betadine] Allergy Intermediate itchy Verified 01/06/23 15:46 egg AdvReac Intermediate GI SYMPTOMS Verified 01/06/23 15:46 garlic AdvReac Intermediate GI symptoms Verified 01/06/23 15:46 sertraline AdvReac Intermediate Dizziness Verified 01/06/23 15:46 simvastatin AdvReac Intermediate MYALGIA Verified 01/06/23 15:46 Sulfa (Sulfonamide AdvReac Intermediate GI symptoms Verified 01/06/23 15:46 Antibiotics) propoxyphene AdvReac Mild light Verified 01/06/23 15:46 headed Home Medications Medication Instructions Recorded Confirmed Type esomeprazole magnesium 40 mg 40 mg PO QAM #90 caps 04/29/22 01/06/23 Rx capsule,delayed release clopidogrel 75 mg tablet (Plavix) 75 mg PO QPM #90 tabs 05/02/22 01/06/23 Rx carvedilol 3.125 mg tablet 3.125 mg PO BID #120 tabs 07/24/22 01/06/23 Rx clotrimazole-betamethasone 1 1 applic topical BID PRN rash #45 09/10/22 01/06/23 Rx %-0.05 % topical cream grams rosuvastatin 20 mg tablet (Crestor) 20 mg PO HS #90 tabs 09/10/22 01/06/23 Rx Accu-Chek Guide test strips (blood #200 ea 10/27/22 12/16/22 Rx sugar diagnostic) insulin aspar prot-insulin aspart See Rx Instructions subcut 10/27/22 01/06/23 Rx 100 unit/mL (70-30) subcutaneous .COMPLEX #90 mL pen (Novolog Mix 70-30FlexPen U-100) levothyroxine 25 mcg tablet 25 mcg PO QAM #90 tabs 10/30/22 01/06/23 Rx lisinopril 10 mg tablet 10 mg PO QAM #90 tabs 10/30/22 01/06/23 Rx gabapentin 100 mg capsule 100 mg PO HS #90 caps 12/05/22 01/06/23 Rx cyclobenzaprine 5 mg tablet 5 mg PO TID PRN muscle spasm #30 12/12/22 01/06/23 Rx tabs diclofenac sodium 1 % topical gel 1 g topical QID PRN pain, moderate 12/16/22 01/06/23 Rx #100 grams Patient History Medical History (Updated 01/07/23 @ 11:06 by Eric Salas MD) Anemia treated with [facility] inpatient 04/06/21 at [facility] ASCVD (arteriosclerotic cardiovascular disease) Carotid artery stenosis Cerebral arterial aneurysm COPD (chronic obstructive pulmonary disease) CVA (cerebral vascular accident) 2014--short term memory loss, gait loss--uses walker CVA (cerebral vascular accident) Diabetes mellitus, type 2 Diabetic peripheral neuropathy GI bleed heme+ stool Hearing deficit History of CHF (congestive heart failure) Hx of angina pectoris Hyperlipidemia Hypothyroid NSTEMI (non-ST elevated myocardial infarction) pt unsure if she had an IA while inpatient at [facility] at the beginning of April 2021. states no one told her either way. but she denies sob or chest pain currently. Occlusion and stenosis of carotid artery with cerebral infarction On anticoagulant therapy Osteoarthritis Rectocutaneous fistula Restless leg syndrome Vertigo Surgical History H/O section x3 History of bilateral cataract extraction History of bilateral tubal ligation History of cardiac cath @ [facility] [place]--no stents History of colonoscopy History of sigmoidoscopy History of tonsillectomy and adenoidectomy History of tooth extraction all teeth removed History of total abdominal hysterectomy and bilateral salpingo-oophorectomy S/P cholecystectomy S/P removal of ovarian cyst Family History Grandmother (Paternal) Family history of diabetes mellitus Father , age 52 of an IA Myocardial infarction Mother , age 90 of heart conditions Myocardial infarction Family/Other Heart disease Multiple benign polyps of large intestine Other No family history of adverse response to anesthesia Denies family history of Ovarian cancer Prostate cancer Crohn's disease Colorectal cancer Cancer Ulcerative colitis Social History (Updated 01/07/23 @ 10:45 by Eric Salas MD) Smoking Status: Former smoker Tobacco Type: Cigarettes Age Started Using Tobacco: 6; Age Quit Using Tobacco: 67; Cigarettes Per Day: 1 pack per day (varied from a few cigarettes a day to over 2 packs a day ); Second Hand Exposure: No; Do You Dip or Chew Tobacco: No; Hx Alcohol Use: No Hx Substance Use: No Preferred Language: Mozambican Communication Ability: Effective Visual Impairment: No Limitations Hearing Ability: Use of Hearing Aid Chili Maker Required: No Beliefs That Will Affect Care: None marital status: Current Living Situation: Alone Current Living Situation Comment: apartment current occupational status: retired 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 [employer] Feels Safe at Home: Yes Childhood Exposure to Second-Hand Smoke: Yes Diet: low salt and regular Dental Care, Regularly: No Physical Activity Frequency: Does not Exercise Seatbelt Use: always Sunscreen Use: No Assistive Devices: Denture - Upper, Denture - Lower, Glasses, Hearing Aid - Bilateral, Scooter/Electric Scooter and Walker Review of Systems Constitutional: no fever, no fatigue and no weakness Eyes: no diplopia, no eye pain and no worsening vision Ear, Nose, Mouth, Throat: no ear pain, no tinnitus, no hearing loss, no dizziness, no snoring, no hoarseness and no dysphagia Respiratory: no cough and no dyspnea Cardiovascular: no chest pain, no palpitations and no lightheadedness Gastrointestinal: no abdominal pain, no nausea and no vomiting Genitourinary: no dysuria, no urinary frequency and no urinary incontinence Musculoskeletal: no back pain, no neck pain, no radicular pain, no joint pain and no myalgia Integumentary: no rash and no lesions Neurologic: no gait abnormality, no localized weakness, no generalized weakness, no tingling, no numbness, no tremor(s), no abnormal movements, no headache(s), no abnormal speech, no confusion and no memory loss Psychiatric: no depression, no irritability, no anxiety, no difficulty concentrating, no confusion and no hallucinations Endocrine: no fatigue and no flushing Hematologic / Lymphatic: no easy bleeding and no easy bruising Allergy / Immunological: no urticaria and no problem reported Exam (Neuro) Physical Exam: The patient is right-handed. The patient is awake, alert, and attentive. Speech is normal without any aphasia or dysarthria. The patient can name objects, repeat phrases, and has normal spontaneous speech. Mentation and thought processes are intact, with orientation to person, place and time, and normal fund of knowledge. Attention and concentration are normal. Mood and affect are normal and appropriate. Gen eral appearance and grooming are normal. Short and long-term memory are intact. Pupils are 3 mm bilaterally and reactive to light. Extraocular eye muscles are intact without nystagmus. Visual acuity and visual shah seem normal grossly to confrontation. There are no deficits to sensation in the face in all 3 distributions of the fifth cranial nerve bilaterally. Corneal reflexes are positive bilaterally. Facial strength and symmetry was normal bilaterally. she is very hard of hearing. Palate moves well without asymmetry. There is normal sternocleidomastoid and trapezius (shoulder shrug) strength bilaterally. Tongue is midline with good strength bilaterally. Neck has a full range of motion without discomfort. There are no cervical bruits bilaterally. There are no cranial or ocular bruits. Heart is without murmur. There is a regular rhythm and rate. Cervical, thoracic, and lumbar spine are nontender to palpation. Gait was not tested but stance sitting up in bed is reasonable With outstretched arms there is no drift. There are no resting, postural, or action tremors. There is no ataxia with finger to nose testing. There is good facility in the hands. No other abnormal involuntary movements are noted. Motor strength is 5/5 diffusely in the arms bilaterally including deltoids, biceps, triceps, brachioradialis, wrist flexors and extensors, wood boatbuilder, and intrinsic hand muscles. Motor strength is 5/5 diffusely in the legs bilaterally including hip flexors, quadriceps, hamstrings, gastrocnemius, tibialis anterior, tibialis posterior, and Peroneii muscles. Toe extensors are normal and there is good bulk in the extensor digitorum brevis muscles bilaterally. The limbs have good tone without rigidity or spasticity. There is no atrophy noted in the muscles. Muscle bulk is normal, there is no tenderness to palpation, no myotonia to percussion, and no fasciculations seen. Sensory examination is intact to touch and pin throughout all 4 limbs diffusely. Reflexes are 2/4 in the biceps, triceps, brachioradialis, and quadriceps tendons bilaterally. Achilles tendon reflexes are absent Bilaterally. There is no clonus bilaterally. Toes are downgoing with plantar stimulation bilaterally. Peripheral pulses are present and of normal quality distally in all 4 limbs. There is no peripheral edema noted in the limbs. Results & Data Vital Signs (Past 12 Hours) Vital Signs Temp Pulse Pulse Resp BP Pulse Ox O2 Del Method 01/07/23 07:20 36.7 C 84 13 124/73 93 Room Air 01/07/23 07:30 81 01/07/23 03:27 36.7 C 83 16 108/69 93 Room Air PG Care Time/CCT Total # of Minutes Spent Total Time Spent with Patient: Total time spent is greater than 50% in coordination of care (as documented) at patient's floor/unit and/or counseling patient: Coding Level of Care Code 71655 INT INP/OBS CARE 3/75MIN Diagnoses Vertigo R42 Mastoiditis H70.90 Carotid stenosis, left I65.22 Neuropathy G62.9 History of CVA (cerebrovascular accident) Z86.73 Time Spent (min) 75
[2023-01-07] MEDS ORDERED: GADOXETATE DISODIUM IV ONE (12:09)
--- NOTE | 2023-01-07 12:28 | Magnetic Resonance Report ---
MR brain wo/w con CLINICAL HISTORY: new onset veritgo, headache TECHNIQUE: Multiplanar and multisequence MR images of the brain were obtained prior to and following administration of gadolinium contrast. Comparison: Comparison is made to MRI brain 08/30/2013 FINDINGS: No abnormal restricted diffusion is identified. Foci of T2 and FLAIR hyperintensity are noted in the paraventricular areas consistent with chronic small vessel ischemic disease. Ex vacuo ventriculomegal y and sulcal enlargement is noted compatible with diffuse volume loss. No mass or abnormal enhancemen t is seen. There is no mass effect or midline shift. There is no evidence of acute intraparenchymal h emorrhage. No extra axial fluid collections are seen. The corpus callosum, pituitary gland, and cereb ellar tonsils appear grossly unremarkable. Flow voids of the major intracranial arterial vessels are identified. Left mastoid effusion is seen. IMPRESSION: No acute abnormalities. ACT 112: Negative or not required by law. Electronically signed by: Chato Sequeira M.D. 01/07/2023 12:27 PM
[2023-01-07 13:22] LABS: Basophils # (auto) 0.05 K/uL (0-0.2); Basophils % (auto) 0.5 %; Eosinophils # (auto) 0.26 K/uL (0-0.50); Eosinophils % (auto) 2.8 %; Hematocrit (blood only) 33.7 % (37.0-47.0); Hemoglobin 9.9 g/dl (12.0-16.0); Immature Granulocytes # (auto) 0.16 K/uL (0.01-0.20); Immature Granulocytes % (auto) 1.7 %; Lymphocytes # (auto) 1.17 K/uL (1.2-3.4); Lymphocytes % (auto) 12.8 %; Mean Corpuscular Hemoglobin 22.2 pg (25.0-34.0); Mean Corpuscular Hgb Conc 29.4 g/dL (32.0-36.0); Mean Corpuscular Volume 75.6 fL (80.0-100.0); Mean Platelet Volume 9.2 fL (9.4-12.4); Monocytes # (auto) 0.71 K/uL (0.11-0.59); Monocytes % (auto) 7.7 %; Neutrophils # (auto) 6.82 K/uL (1.40-6.50); Neutrophils % (auto) 74.5 %; Platelet Count 239 K/uL (130-400); RDW Coefficient of Variation 18.5 % (11.5-14.5); RDW Standard Deviation 49.9 fL (36.4-46.3); Red Blood Count 4.46 M/uL (4.20-5.40); White Blood Count 9.17 K/ul (4.8-10.8)
[2023-01-07 13:34] LABS: BUN Creatinine Ratio 14.1 (10-20); Calcium 8.9 mg/dl (8.6-10.3); Creatinine Clr Calc Pharmacy 36.5 ml/min; Est GFR (Non-African American) 55.2 ml/min; Potassium 4.7 mmol/L (3.5-5.1)
[2023-01-07] MEDS ORDERED: AMPICILLIN/SULBACTAM SOD 3,000 MG in 0.9 % SODIUM CHLORIDE 100 ML IV SCH (14:00)
--- NOTE | 2023-01-07 16:39 | Discharge Summary ---
Discharge Summary Date of Service January 07, 2023 Admission HPI Per Admitting Provider Debra Angel is an 87 year old female who presents to the ER due to dizziness. Initially this started 1.5 weeks ago on Thursday. She reports on that day when she went to get out of bed she had sudden onset room spinning sensation even when lying down with associated nausea. Since this episode she does have intermittent times of complete relief but in general it is getting worse especially on left lateral head movements. She also notes associated "head hurts all over" the last few days and mild right sided neck pain just in the ER. Also reports having shortness of breath just today associated with the dizziness. She has no current shortness of breath at rest. She denies any lateralizing weakness in her extremities - today she feels like both legs might just collapse on her. She notes having a prior stroke causing difficulty writing > 10 years ago but has subsequently had full recovery from this. She has no history of vertigo. No tinnitus or change in hearing loss (she used hearing aids b/l. She saw her PCP on December 30 for this dizziness and suspected to be more of a BP problem and her lisinopril was discontinued. Principal Dx & Hospital Course #1 = Principal Diagnosis (1) Vertigo: New onset with prior stroke history and current headache / neck pain - Seen by Neuro and recommended brain MRI w/wo IV contrast to complete stroke workup-negative for stroke or mastoiditis With large mastoid effusion--> d/w ENT at [place] and recommends f/u in office - no treatment with abx needed if not having fevers or erythema etc. -vertigo likely from inner ear issue -Resolved prior to discharge, able to ambulate -f/u with ENT in office (2) Iron deficiency anemia: hgb 9, microcytic Fe studies here consistent with Fe def anemia--> recommend outpt f/u and GI workup if not completed previously needs Fe replacement with IV Fe as an outpt as po Fe makes her too constipated (3) COPD (chronic obstructive pulmonary disease): stable (4) Coronary artery disease: stable continue home meds (5) Diabetes mellitus type 2, uncontrolled: stable continue home meds (6) Hypertension: controlled continue home meds (7) Hypothyroidism: TSH 2.6 continue home meds (8) Mastoid disorder: as above Asymptomatic bacteriuria-UA contaminated with epithelial cells, did receive 1 dose of Unasyn initially fo rmastoiditis which was later ruled out. No need fo rongoing treatment for UTI Plan VTE Prophyalxis - low risk Diet - T2DM Disposition - dc to home Discharge Exam Constitutional WD/WN, vitals as above Eyes PERRL, conjunctivae normal, anicteric sclerae ENMT external ear and nose normal, oropharynx normal Respiratory normal respiratory effort, lungs clear to auscultation Cardiovascular RRR, no murmur, no edema Neurologic PERRL, EOMI, accommodation nl, no face palsy, no dysarthria Updated Medication List Medication Instructions Recorded Confirmed Type esomeprazole magnesium 40 mg 40 mg PO QAM #90 caps 04/29/22 01/08/23 Rx capsule,delayed release clopidogrel 75 mg tablet (Plavix) 75 mg PO QPM #90 tabs 05/02/22 01/08/23 Rx carvedilol 3.125 mg tablet 3.125 mg PO BID #120 tabs 07/24/22 01/08/23 Rx clotrimazole-betamethasone 1 1 applic topical BID PRN rash #45 09/10/22 01/08/23 Rx %-0.05 % topical cream grams rosuvastatin 20 mg tablet (Crestor) 20 mg PO HS #90 tabs 09/10/22 01/08/23 Rx Accu-Chek Guide test strips (blood #200 ea 10/27/22 01/08/23 Rx sugar diagnostic) insulin aspar prot-insulin aspart See Rx Instructions subcut 10/27/22 01/08/23 Rx 100 unit/mL (70-30) subcutaneous .COMPLEX #90 mL pen (Novolog Mix 70-30FlexPen U-100) levothyroxine 25 mcg tablet 25 mcg PO QAM #90 tabs 10/30/22 01/08/23 Rx gabapentin 100 mg capsule 100 mg PO HS #90 caps 12/05/22 01/08/23 Rx cyclobenzaprine 5 mg tablet 5 mg PO TID PRN muscle spasm #30 12/12/22 01/08/23 Rx tabs diclofenac sodium 1 % topical gel 1 g topical QID PRN pain, moderate 12/16/22 01/08/23 Rx #100 grams Accu-Chek Guide Glucose Meter #1 ea 01/08/23 01/08/23 Rx (blood-glucose meter) meclizine 25 mg tablet 25 mg PO TID #90 tabs 01/08/23 01/08/23 Rx Hospital Stay Data Consultations 01/06/23 17:27 ED Decision to Admit Stat 01/07/23 09:26 Consult Neurology Routine Diagnostic Imagining Performed 01/06/23 14:16 CT angio head w con Stat CT angio neck with con Stat CT head/brain wo con Stat 01/07/23 07:00 MR brain wo/w con Routine Pending Results Patient Have Any Pending Studies at Discharge: Yes Discharge Instructions Given to Patient (Per Discharging Provider) You were admitted for dizziness and had a brain MRI that was NEGATIVE for stroke. You were seen by a Neurologist and this was thought to be from an inner ear problem. You can do Sandrita maneuvers at home to help this improve if it returns. You do have a large amount of fluid behind the left ear and should follow up with the ENT surgeon within the next few weeks to discuss this. Your urine culture was growing some bacteria but because you are not having any symptoms of a UTI, this does not need to be treated with antibiotics. This may also be contamination from the skin cells of the genital region that got into the urine sample. You were also found to have iron deficiency anemia. Because iron pills make you constipated, please talk to your PCP about getting IV iron arranged through the Hematology office. Total Time Total Time Spent Total Time Spent (In Minutes): 40 min Total Time Includes: Examination of the Patient, Discharge Planning, Medication Reconciliation and Communication With Other Providers (Neurology, ENT Dr. Jang ) Coding Level of Care Code 37373 INP/OBS DISCH >30 MIN Diagnoses Vertigo R42 Iron deficiency anemia D50.9 COPD (chronic obstructive pulmonary disease) J44.9 COPD type: unspecified COPD Coronary artery disease I25.10 Diabetes mellitus type 2, uncontrolled E11.65 Hypertension I10 Hypertension type: unspecified Hypothyroidism E03.9 Mastoid disorder H74.90
--- NOTE | 2023-01-09 05:35 | Electrocardiogram Report ---
Test Reason : Blood Pressure : / mmHG Vent. Rate : 073 BPM Atrial Rate : 073 BPM P-R Int : 164 ms QRS Dur : 066 ms QT Int : 390 ms P-R-T Axes : 001 010 051 degrees QTc Int : 429 ms Sinus rhythm with marked sinus arrhythmia Nonspecific T wave abnormality When compared with ECG of 04-JUL-2022 06:06, No significant change was found Confirmed by Chris Do ([id number]) on 01/09/2023 5:35:25 AM Referred By: Confirmed By:Chris Do
== END 2023-01-07 18:15 | disposition home or self-care (01) ==
LOC: 2N 12:51 → ED 12:51 → SUATTDRO 18:13 → 2N 20:53
DX: Z79.890 Hormone replacement therapy; Z87.891 Personal history of nicotine dependence; I10 Essential (primary) hypertension; R42 Dizziness and giddiness; Z88.8 Allergy status to other drugs, medicaments and biological substances; E11.9 Type 2 diabetes mellitus without complications; Z79.4 Long term (current) use of insulin; E03.9 Hypothyroidism, unspecified; I25.10 Atherosclerotic heart disease of native coronary artery without angina pectoris; Z79.899 Other long term (current) drug therapy; J44.9 Chronic obstructive pulmonary disease, unspecified; Z88.2 Allergy status to sulfonamides; I77.1 Stricture of artery

== ENCOUNTER 2023-08-25 10:26 | Inpatient (IN) ==
[2023-08-25] MEDS: ONDANSETRON INJ 2 MG/ML 2 ML VIAL IV STA (11:00)
[2023-08-25] MEDS: ONDANSETRON INJ 2 MG/ML 2 ML VIAL ONE (11:05)
[2023-08-25 11:53] LABS: Hemoglobin 9.4 g/dl (12.0-16.0); Mean Corpuscular Hemoglobin 18.4 pg (25.0-34.0); Mean Corpuscular Hgb Conc 26.9 g/dL (32.0-36.0); Mean Corpuscular Volume 68.5 fL (80.0-100.0); Mean Platelet Volume 9.7 fL (9.4-12.4); Platelet Count 307 K/uL (130-400); RDW Coefficient of Variation 19.3 % (11.5-14.5); Red Blood Count 5.11 M/uL (4.20-5.40); White Blood Count 11.71 K/ul (4.8-10.8)
[2023-08-25 12:18] LABS: Basophils # (auto) 0.03 K/uL (0.00-0.20); Basophils % (auto) 0.3 %; Eosinophils # (auto) 0.04 K/uL (0.00-0.50); Eosinophils % (auto) 0.3 %; Immature Granulocytes # (auto) 0.05 K/uL (0.01-0.20); Immature Granulocytes % (auto) 0.4 %; Lymphocytes # (auto) 1.18 K/uL (1.20-3.40); Lymphocytes % (auto) 10.1 %; Monocytes # (auto) 0.55 K/uL (0.11-0.59); Monocytes % (auto) 4.7 %; Neutrophils # (auto) 9.86 K/uL (1.40-6.50); Neutrophils % (auto) 84.2 %; Polychromasia 1+
[2023-08-25 12:26] LABS: Anion Gap 10 (3-11); Bilirubin,Total 0.7 mg/dl (0.2-1.0); Calcium 9.6 mg/dl (8.6-10.3); Carbon Dioxide 26 mmol/L (21-32); Chloride 102 mmol/L (98-107); Potassium 4.4 mmol/L (3.5-5.1); Sodium 138 mmol/L (136-145)
[2023-08-25 12:32] LABS: Alanine Aminotransferase 9 U/L (7-52); Albumin Globulin Ratio 1.2 (0.9-2); Alkaline Phosphatase 93 U/L (34-104); Aspartate Aminotransferase 15 U/L (13-39); BUN Creatinine Ratio 17.5 (10-20); Blood Urea Nitrogen 14 mg/dl (6-23); Est GFR (African American) 75.8 ml/min; Est GFR (Non-African American) 65.4 ml/min; Globulin 3.3 gm/dl (2.5-4.0); Glucose 268 mg/dl (70-99(Fasting)); Lipase 12 U/L (11-82); Total Protein 7.3 gm/dl (6.0-8.3)
--- NOTE | 2023-08-25 12:34 | Emergency Department Note ---
Impression & Plan Small bowel obstruction, Aneurysm of abdominal aorta, Nausea & vomiting ED Provider Note NAME: TUNG THURMAN AGE: 87 SEX: F : 1935 ARRIVES VIA: Ambulance INFORMANT: Patient, ED PROVIDER(S): Reyes Elmore MD CHIEF COMPLAINT: Abdominal pain, nausea vomiting MEDICAL DECISION MAKING: Patient presents due to concern for abdominal pain and nausea vomiting. Initially seen in triage waiting area as there were no beds in which the patient could be seen. IV was established and blood work was obtained. Very mild white count of 11 with chronic and stable anemia hemoglobin 9 with normal kidney function electrolytes. BSG is elevated but not DKA. Patient had stated that the Zofran did not help initially. The patient was ordered Pepcid IV and CT abdomen pelvis. Patient did have a chest x-ray ordered given that she does have bibasilar crackles. CT abdomen pelvis shows small bowel obstruction with transition point to the left lower quadrant ventral hernia. Infrarenal aortic aneurysm noted and reportedly unchanged from prior. Chest x-ray shows cardiomegaly mild pulmonary edema. Patient did have an NG tube placed given the patient's vomiting and small bowel obstruction. Is here with the on-call general surgeon Dr. Garcia as well as the inpatient medicine service Dr. Mayo and the patient was admitted. Postplacement KUB was ordered. Discussion w/ other healthcare providers: Dr. Garcia general surgery Dr. Mayo inpatient medicine service Prior /Outside records reviewed: I reviewed a wellness visit from June 19, [address] Hay. Patient was seen for her annual Medicare wellness exam. No concerns at that time. Patient was have 6-month follow-up currently resides at [facility]. Differential diagnosis: Appendicitis, ovarian cyst, ovarian torsion, TOA, PID, diverticulitis, UTI, obstruction, inflammatory bowel disease, renal colic, PUD, pancreatitis, biliary pathology, hernia, volvulus, constipation, as well as other pathologies were considered. Diagnostics, as interpreted by me: ECG: None Cardiac monitoring: An order was placed for continuous cardiac monitoring. The monitor shows a rate of 78 with sinus rhythm. Patient was placed on pulse oximetry Medical decision rules: None Imaging studies: I informally interpreted the patient's KUB which shows satisfactory placement of NG tube with formal report to follow. HPI: Patient presents due to concern for abdominal pain which began after eating last night. The patient states that her pain has been constant and diffuse. Patient had associated nausea vomiting "too many times to count." Patient denies any blood in the urine or stool. Patient denies any chest pains or shortness of breath. The patient does not take any thing for symptoms at home. Patient denies any recent falls or trauma. Patient did not take anything for symptoms at home and her pain has been persistent. Patient denies any blood in the stool but states that she felt as if she has had some diarrhea as well. No known sick contacts or recent travel and the patient denies any recent antibiotic use or untreated stream or well water. PAST MEDICAL HISTORY: See Below PAST SURGICAL HISTORY: See Below SOCIAL HISTORY: See Below HOME MEDICATIONS: See Below ALLERGIES: See Below VITALS: See Below PHYSICAL EXAMINATION: GENERAL: NAD, non-toxic. Wearing glasses, hard of hearing EYE EXAM: Normal conjunctiva. PERRL, no anisocoria and EOM's grossly intact w/o pain. OROPHARYNX: Moist mucus membranes, grossly normal dentition. NECK: Trachea midline, no stridor. LUNGS: Bibasilar crackles noted. Normal chest wall mechanics. HEART: NSR, no MRG. ABDOMEN: Abdomen soft, diffuse abdominal pain no masses, no rebound or guarding. BACK: No CVA TTP. SKIN: No rashes and no bruising. UPPER EXTREMITIES: Upper extremities are grossly normal. LOWER EXTREMITIES: Grossly normal, no edema. NEURO EXAM: A&O x3, cranial nerves II-XII grossly intact, normal speech, moves all 4 extremities. Past Med/Surg History Medical History (Updated 08/25/23 @ 19:28 by Reyes Elmore MD) Small bowel obstruction Mixed conductive and sensorineural hearing loss of left ear with restricted hearing of right ear Vertigo Incarcerated hernia of abdominal cavity Nausea and vomiting Constipation Respiratory difficulty Elevated troponin Acute respiratory distress GI bleed heme+ stool On anticoagulant therapy Anemia treated with PRBC inpatient 04/06/21 at [facility] NSTEMI (non-ST elevated myocardial infarction) pt unsure if she had an MO while inpatient at [facility] at the beginning of April 2021. states no one told her either way. but she denies sob or chest pain currently. 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 Hemorrhoids Diabetic peripheral neuropathy Hyperlipidemia Osteoarthritis Diabetes mellitus, type 2 Hearing deficit History of CHF (congestive heart failure) ASCVD (arteriosclerotic cardiovascular disease) Cerebral arterial aneurysm Carotid artery stenosis Restless leg syndrome CVA (cerebral vascular accident) CVA (cerebral vascular accident) 2014--short term memory loss, gait loss--uses walker Hypothyroid Hx of angina pectoris COPD (chronic obstructive pulmonary disease) Surgical History History of sigmoidoscopy History of bilateral tubal ligation History of total abdominal hysterectomy and bilateral salpingo-oophorectomy History of colonoscopy History of tooth extraction all teeth removed History of tonsillectomy and adenoidectomy History of bilateral cataract extraction [place] [facility] [place] H/O section x3 S/P removal of ovarian cyst S/P cholecystectomy Family History Grandmother (Paternal) Family history of diabetes mellitus Father , age 52 of an MO Myocardial infarction Mother , age 90 of heart conditions Myocardial infarction Family/Other Heart disease Multiple benign polyps of large intestine Other No family history of adverse response to anesthesia Denies family history of Ovarian cancer Prostate cancer Crohn's disease Colorectal cancer Cancer Ulcerative colitis Social History Smoking Status: Never smoker Tobacco Type: Cigarettes Age Started Using Tobacco: 6; Age Quit Using Tobacco: 67; Cigarettes Per Day: 1 pack per day (varied from a few cigarettes a day to over 2 packs a day ); Second Hand Exposure: No; Do You Dip or Chew Tobacco: No; Hx Alcohol Use: No Hx Substance Use: No Preferred Language: Bengali Communication Ability: Effective Visual Impairment: Limited Hearing Ability: Use of Hearing Aid Worm Sorter Required: No Beliefs That Will Affect Care: None marital status: Current Living Situation: Alone Current Living Situation Comment: apartment current occupational status: retired 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 [email or web address] How many Children do You have: 4 Feels Safe at Home: Yes Childhood Exposure to Second-Hand Smoke: Yes Diet: regular caffeine: Yes during the past year weight has: remained stable Dental Care, Regularly: No Physical Activity Frequency: Does not Exercise Seatbelt Use: always Sunscreen Use: No Assistive Devices: Denture - Upper, Denture - Lower, Glasses, Hearing Aid - Left and Walker Allergies Allergies Allergy/AdvReac Type Severity Reaction Status Date / Time adhesive Allergy Intermediate Rash Verified 08/25/23 15:26 soap [From Betadine] Allergy Intermediate itchy Verified 08/25/23 15:26 egg AdvReac Intermediate GI SYMPTOMS Verified 08/25/23 15:26 garlic AdvReac Intermediate GI symptoms Verified 08/25/23 15:26 sertraline AdvReac Intermediate Dizziness Verified 08/25/23 15:26 simvastatin AdvReac Intermediate MYALGIA Verified 08/25/23 15:26 Sulfa (Sulfonamide AdvReac Intermediate GI symptoms Verified 08/25/23 15:26 Antibiotics) propoxyphene AdvReac Mild light Verified 08/25/23 15:26 headed Home Meds Home Medications Medication Instructions Recorded Confirmed meclizine 25 mg tablet 25 mg PO TID PRN dizzy 05/15/23 08/25/23 vit C 250 mg-vit E 90 mg-zinc 40 1 tab PO BID 08/25/23 08/25/23 mg-copper 1 [id number] capsule (PreserVision AREDS-2) Previous Rx's Medication Instructions Recorded rosuvastatin 20 mg tablet (Crestor) 20 mg PO HS #90 tabs 09/10/22 Accu-Chek Guide test strips (blood #200 ea 10/27/22 sugar diagnostic) insulin aspar prot-insulin aspart See Rx Instructions subcut 10/27/22 100 unit/mL (70-30) subcutaneous .COMPLEX #90 mL pen (Novolog Mix 70-30FlexPen U-100) levothyroxine 25 mcg tablet 25 mcg PO QAM #90 tabs 10/30/22 gabapentin 100 mg capsule 100 mg PO HS #90 caps 12/05/22 cyclobenzaprine 5 mg tablet 5 mg PO TID PRN muscle spasm #30 12/12/22 tabs diclofenac sodium 1 % topical gel 1 g topical QID PRN pain, moderate 12/16/22 #100 grams Accu-Chek Guide Glucose Meter #1 ea 01/08/23 (blood-glucose meter) carvedilol 3.125 mg tablet 3.125 mg PO BID #120 tabs 03/23/23 pen needle, diabetic 32 gauge x #100 ea 04/06/23" (BD Ultra-Fine Fina Pen Needle) esomeprazole magnesium 40 mg 40 mg PO QAM #90 caps 05/05/23 capsule,delayed release clopidogrel 75 mg tablet (Plavix) 75 mg PO QPM #90 tabs 06/01/23 clotrimazole-betamethasone 1 1 applic topical BID PRN rash #45 08/12/23 %-0.05 % topical cream grams Results & Data (ED) Vital Signs Vital Signs - 24 hr 08/25/23 10:44 08/25/23 12:37 Temperature 36.0 C L Temperature Source Temporal Artery Scan Pulse Rate 87 Pulse Rate [Apical] 89 Pulse Rhythm Regular Pulse Rhythm [Apical] Regular Pulse Strength Normal Respiratory Rate 20 16 Respiratory Effort / Characteristics Non-Labored Spontaneous Respiratory Depth Normal Respiratory Pattern Regular Blood Pressure 158/77 H Blood Pressure [Right Arm] 177/84 H Blood Pressure Mean 104 Blood Pressure Mean [Right Arm] 115 Blood Pressure Position Sitting Pulse Oximetry 98 95 Oxygen Delivery Method Room Air Room Air Sepsis Recent Fever Within 48 Hours No Sepsis New/Unexplained Change in Mental Status No Sepsis Action Taken by Nursing No Action Required Home Medications Current Medication List: was personally reviewed by me Laboratory Data Attestation: I reviewed the patient's lab results. 08/25/23 10:58 08/25/23 10:58 Lab Results 08/25/23 Range/Units 10:58 WBC 11.71 H (4.8-10.8) K/ul RBC 5.11 (4.20-5.40) M/uL Hgb 9.4 L (12.0-16.0) g/dl Hct 35.0 L (37.0-47.0) % MCV 68.5 L (80.0-100.0) fL MCH 18.4 L (25.0-34.0) pg MCHC 26.9 L (32.0-36.0) g/dL RDW Std Deviation 47.0 H (36.4-46.3) fL RDW Coeff of Flakito 19.3 H (11.5-14.5) % Plt Count 307 (130-400) K/uL MPV 9.7 (9.4-12.4) fL Immature Gran % (Auto) 0.4 % Neut % (Auto) 84.2 % Lymph % (Auto) 10.1 % [place] % (Auto) 4.7 % Eos % (Auto) 0.3 % Baso % (Auto) 0.3 % Neut # (Auto) 9.86 H (1.40-6.50) K/uL Lymph # (Auto) 1.18 L (1.20-3.40) K/uL [place] # (Auto) 0.55 (0.11-0.59) K/uL Eos # (Auto) 0.04 (0.00-0.50) K/uL Baso # (Auto) 0.03 (0.00-0.20) K/uL Immature Gran # (Auto) 0.05 (0.01-0.20) K/uL Polychromasia 1+ Sodium 138 (136-145) mmol/L Potassium 4.4 (3.5-5.1) mmol/L Chloride 102 (98-107) mmol/L Carbon Dioxide 26 (21-32) mmol/L Anion Gap 10 (3-11) BUN 14 (6-23) mg/dl Creatinine 0.80 (0.6-1.2) mg/dl Est Cr Clr Drug Dosing Not Reportable Est GFR ( Amer) 75.8 ml/min Est GFR (Non-Af Amer) 65.4 ml/min BUN/Creatinine Ratio 17.5 (10-20) Glucose 268 H (70-99(Fasting)) mg/dl Calcium 9.6 (8.6-10.3) mg/dl Total Bilirubin 0.7 (0.2-1.0) mg/dl AST 15 (13-39) U/L ALT 9 (7-52) U/L Alkaline Phosphatase 93 (34-104) U/L Total Protein 7.3 (6.0-8.3) gm/dl Albumin 4.0 (3.4-5.0) gm/dl Globulin 3.3 (2.5-4.0) gm/dl Albumin/Globulin Ratio 1.2 (0.9-2) Lipase 12 (11-82) U/L Administered Medications Lactated Ringer's (Lr) 1,000 mls @ 80 mls/hr IV .[id number] ANGIE Stop: 09/24/23 15:14 Last Admin: 08/25/23 15:56 Dose: 80 mls/hr Documented By: AB Insulin Aspart (Insulin Aspart Per Unit Charge) 0 units SC Q6 ANGIE Stop: 09/24/23 15:44 Last Admin: 08/25/23 18:19 Dose: Not Given Documented By: Admin: 08/25/23 15:49 Dose: 6 units Documented By: Co-signed By: FRANKI Discontinued Medications Famotidine (Pepcid 20mg Iv Push) 20 mg in 5 mls @ 2.5 mls/min IV NOW STA Stop: 08/25/23 12:43 Last Admin: 08/25/23 13:12 Dose: 2.5 mls/min Documented By: ETIENNE Insulin Glargine (Lantus Per Unit Charge) 20 units SQ ONE ONE Stop: 08/25/23 16:01 Last Admin: 08/25/23 15:53 Dose: 20 units Documented By: Co-signed By: FRANKI Ioversol (Optiray 320 500ml) 87 ml IV ONCE ONE Stop: 08/25/23 13:18 Last Admin: 08/25/23 13:17 Dose: 87 ml Documented By: ANDRES Labetalol HCl (Labetalol Hcl Iv 5 Mg/Ml 20ml) 10 mg IV NOW STA Stop: 08/25/23 18:03 Last Admin: 08/25/23 18:15 Dose: 10 mg Documented By: Co-signed By: ETIENNE Metoprolol Tartrate (Metoprolol Tartrate 1 Mg/Ml Vial) 2.5 mg IV NOW STA Stop: 08/25/23 15:10 Last Admin: 08/25/23 15:49 Dose: 2.5 mg Documented By: Ondansetron HCl (Ondansetron Inj 2 Mg/Ml 2 Ml Vial) 4 mg IV NOW STA Stop: 08/25/23 11:00 Last Admin: 08/25/23 11:00 Dose: 4 mg Documented By: FRANKI Ondansetron HCl (Ondansetron Inj 2 Mg/Ml 2 Ml Vial) Confirm Administered Dose 4 mg .ROUTE .STK-MED ONE Stop: 08/25/23 11:01 Last Admin: 08/25/23 11:05 Dose: Not Given Documented By: FRANKI Imaging Data Radiologist's Impression: Abdomen/Pelvis CT 08/25/23 12:42 CT abd pelvis IV con only CLINICAL HISTORY: diffuse ab pain, n/v TECHNIQUE: Helical axial images of the abdomen and pelvis were obtained and displayed. Automated dose lowering techniques and/or adjustment according to patient size were utilized for this exam. This exam was performed with intravenous contrast. CT DOSE: 1299.06 mGy.cm COMPARISON: Comparison is made to CT abdomen pelvis 07/05/2022 FINDINGS: Lower chest: Cardiomegaly is seen with biatrial enlargement. Liver: Unremarkable. No focal lesions are seen. Gallbladder and biliary tree: Patient is status post cholecystectomy. No intra- or extrahepatic biliary ductal dilation. Pancreas: Unremarkable, no focal lesions. Spleen: Unremarkable. Adrenals: Unremarkable. Kidneys and ureters: Renal cysts are seen. Bladder: Unremarkable. Reproductive organs: Unremarkable. Bowel: Diverticulosis is seen without diverticulitis. The appendix is normal. There are multiple dilated loops of small bowel measuring up to 31 mm with a transition point at a left-sided ventral hernia in the left lower quadrant. Stool remains in the colon. Lymph nodes Retroperitoneal: Unremarkable. Pelvic: Unremarkable. Mesenteric: Unremarkable. Peritoneum: Normal. Vessels: There is an infrarenal aortic aneurysm measuring 35 mm with severe atherosclerotic disease noted. Abdominal wall: Left ventricle hernia is seen containing a dilated loop of bowel. Bones: Mild degenerative changes are seen. IMPRESSION: 1. Findings compatible with small bowel obstruction with transition point at the left lower quadrant ventral hernia. 2. Infrarenal aortic aneurysm, unchanged from prior exam. Extensive atherosclerosis. ACT 112: Negative or not required by law. Electronically signed by: Chato Sequeira M.D. 08/25/2023 1:25 PM Chest X-Ray 08/25/23 12:51 XR chest 1V not portable CLINICAL HISTORY: bibasilar crackles TECHNIQUE: Single frontal radiograph of the chest was obtained. Comparison: Comparison is made to chest radiograph 01/06/2023 FINDINGS: No lines and tubes are seen. Cardiomegaly is noted. The aortic arch is calcified. Prominence and cephalization of the vasculature is seen. No evidence of pleural effusion or pneumothorax. IMPRESSION: Cardiomegaly and mild pulmonary edema. ACT 112: Negative or not required by law. Electronically signed by: Chato Sequeira M.D. 08/25/2023 2:08 PM Discharge Plan Visit Data Chief Complaint: Abdominal Pain Stated Complaint: AB PAIN ED Provider: Reyes Elmore Discharge Problem: Small bowel obstruction, Aneurysm of abdominal aorta, Nausea & vomiting Patient Disposition: Admitted As Inpatient Discharge Instructions Interventions: ED Discharge Assessment Last Done: 08/25/23 17:10 Discharge Problem: Aneurysm of abdominal aorta Qualifiers: Abdominal aorta location: infrarenal aorta Presence of rupture: without rupture Qualified Code(s): I71.43 - Infrarenal abdominal aortic aneurysm, without rupture Nausea & vomiting Qualifiers: Vomiting type: unspecified Qualified Code(s): R11.2 - Nausea with vomiting, unspecified
[2023-08-25] MEDS: FAMOTIDINE 20MG IV PUSH 20 MG/5 ML SYR IV STA (13:12)
[2023-08-25] MEDS: OPTIRAY 320 500ml IV ONE (13:17)
--- NOTE | 2023-08-25 13:27 | CT Scan Report ---
CT abd pelvis IV con only CLINICAL HISTORY: diffuse ab pain, n/v TECHNIQUE: Helical axial images of the abdomen and pelvis were obtained and displayed. Automated dose lowering techniques and/or adjustment according to patient size were utilized for this exam. This e xam was performed with intravenous contrast. CT DOSE: 1299.06 mGy.cm COMPARISON: Comparison is made to CT abdomen pelvis 07/05/2022 FINDINGS: Lower chest: Cardiomegaly is seen with biatrial enlargement. Liver: Unremarkable. No focal lesions are seen. Gallbladder and biliary tree: Patient is status post cholecystectomy. No intra- or extrahepatic bilia ry ductal dilation. Pancreas: Unremarkable, no focal lesions. Spleen: Unremarkable. Adrenals: Unremarkable. Kidneys and ureters: Renal cysts are seen. Bladder: Unremarkable. Reproductive organs: Unremarkable. Bowel: Diverticulosis is seen without diverticulitis. The appendix is normal. There are multiple dila deirdre loops of small bowel measuring up to 31 mm with a transition point at a left-sided ventral hernia in the left lower quadrant. Stool remains in the colon. Lymph nodes Retroperitoneal: Unremarkable. Pelvic: Unremarkable. Mesenteric: Unremarkable. Peritoneum: Normal. Vessels: There is an infrarenal aortic aneurysm measuring 35 mm with severe atherosclerotic disease n oted. Abdominal wall: Left ventricle hernia is seen containing a dilated loop of bowel. Bones: Mild degenerative changes are seen. IMPRESSION: 1. Findings compatible with small bowel obstruction with transition point at the left lower quadrant ventral hernia. 2. Infrarenal aortic aneurysm, unchanged from prior exam. Extensive atherosclerosis. ACT 112: Negative or not required by law. Electronically signed by: Chato Sequeira M.D. 08/25/2023 1:25 PM
--- NOTE | 2023-08-25 14:09 | XRay Report ---
XR chest 1V not portable CLINICAL HISTORY: bibasilar crackles TECHNIQUE: Single frontal radiograph of the chest was obtained. Comparison: Comparison is made to chest radiograph 01/06/2023 FINDINGS: No lines and tubes are seen. Cardiomegaly is noted. The aortic arch is calcified. Prominence and ceph alization of the vasculature is seen. No evidence of pleural effusion or pneumothorax. IMPRESSION: Cardiomegaly and mild pulmonary edema. ACT 112: Negative or not required by law. Electronically signed by: Chato Sequeira M.D. 08/25/2023 2:08 PM
--- NOTE | 2023-08-25 14:48 | History & Physical Report ---
Date of Service August 25, 2023 Assessment & Plan (1) Small bowel obstruction: Plan: Small bowel obstruction CT-A/P: SBO with left lower quadrant transition point at site of ventral hernia. - Hernia present, additional w/ multiple prior abdominal surgeries including total hysterectomy, tubal ligation, section, cholecystectomy, and ovarian cyst removal Patient reports she has declined to have a ventral hernia repair as an outpatient due to high surgical risk. She does not want surgery unless absolutely necessary. No signs of hernia incarceration on abdomen N.p.o. NGT to LIS Multimodal IV pain control, Zofran for nausea as needed Surgery consulted (2) ASCVD (arteriosclerotic cardiovascular disease): Plan: CAD Denies history of heart failure, [place], stents Carvedilol 3.125 twice daily held while n.p.o., converted to metoprolol 2.5 mg every 6 hours to prevent beta-анна withdrawal while NPO Plavix 75 mg held for NPO. no history of stents, resume Plavix when able (3) CVA (cerebral vascular accident): Plan: History of CVA On Plavix/rosuvastatin as noted. Plaavix temporarily held. (4) Hypothyroidism: Plan: Hypothyroidism Synthroid held. If n.p.o. 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 Pharmacy glycemic consult to follow and assist management (6) Hyperlipidemia: Plan: Hyperlipidemia Crestor held while n.p.o. (7) CKD (chronic kidney disease) stage 3, GFR 30-59 ml/min: Plan: CKD 3 Creatinine 0.81, at baseline on admission - Trend daily. - IVFM with LR Plan DVT prophylaxis: Heparin subcu Diet: N.p.o., IV FM 80 cc/h Disposition: PCU for IV beta-анна while n.p.o. CODE STATUS: DNR/DNI History of Present Illness Primary Care Provider: Anthony Boss DO Debra is an 87-year-old female with a past medical history of COPD, CAD, GERD, PVD, vertigo, DM 2, CKD, hearing loss who presents to the ER for abdominal pa in/nausea. CT with contrast shows suspected small bowel obstruction with left lower quadrant transition point, and unchanged infrarenal aortic aneurysm of 31 mm stable compared to prior. Surgery was consulted and recommended medical admission with conservative care at this time. NGT ordered and pending placement Debra is seen at the bedside. She reports that she has never had a bowel obstruction before but she has had multiple abdominal surgeries and she has a hernia which has not been repaired as she is a poor surgical candidate and high risk, and it has never bothered her/she has always been able to push it back in. She reports that for the last day or so she has had increased nausea, vomiting, and epigastric abdominal pain. She last vomited shortly before admitting assessment, yellowish and clear without any blood/melena. She denies chest pain, chest pressure, lightheadedness, dizziness. No fever/chills/sweats. She reports that she last had a bowel movement approximately 2 days ago and thinks this was "normal ". Denies blood/melena/diarrhea. She has not passed any gas yet today. She feels significantly improved and her nausea has almost completely resolved after NGT was placed. She reports she had a history of angina, but has no history of heart failure, heart attack, or cardiac stents. Denies history of any other type of statins. She reports that she has had a history of stroke with some residual dizziness have a deficit, denies one-sided deficits but notes she is so weak in her legs. Denies tobacco/alcohol/recreational drug use. Has not kept any medications down today due to nausea/vomiting. DNR/DNI Allergies Allergy/AdvReac Type Severity Reaction Status Date / Time adhesive Allergy Intermediate Rash Verified 06/19/23 11:31 soap [From Betadine] Allergy Intermediate itchy Verified 06/19/23 11:31 egg AdvReac Intermediate GI SYMPTOMS Verified 06/19/23 11:31 garlic AdvReac Intermediate GI symptoms Verified 06/19/23 11:31 sertraline AdvReac Intermediate Dizziness Verified 06/19/23 11:31 simvastatin AdvReac Intermediate MYALGIA Verified 06/19/23 11:31 Sulfa (Sulfonamide AdvReac Intermediate GI symptoms Verified 06/19/23 11:31 Antibiotics) propoxyphene AdvReac Mild light Verified 06/19/23 11:31 headed Home Medications Medication Instructions Recorded Confirmed Type rosuvastatin 20 mg tablet (Crestor) 20 mg PO HS #90 tabs 09/10/22 06/19/23 Rx Accu-Chek Guide test strips (blood #200 ea 10/27/22 06/19/23 Rx sugar diagnostic) insulin aspar prot-insulin aspart See Rx Instructions subcut 10/27/22 06/19/23 Rx 100 unit/mL (70-30) subcutaneous .COMPLEX #90 mL pen (Novolog Mix 70-30FlexPen U-100) levothyroxine 25 mcg tablet 25 mcg PO QAM #90 tabs 10/30/22 06/19/23 Rx gabapentin 100 mg capsule 100 mg PO HS #90 caps 12/05/22 06/19/23 Rx cyclobenzaprine 5 mg tablet 5 mg PO TID PRN muscle spasm #30 12/12/22 06/19/23 Rx tabs diclofenac sodium 1 % topical gel 1 g topical QID PRN pain, moderate 12/16/22 06/19/23 Rx #100 grams Accu-Chek Guide Glucose Meter #1 ea 01/08/23 06/19/23 Rx (blood-glucose meter) carvedilol 3.125 mg tablet 3.125 mg PO BID #120 tabs 03/23/23 06/19/23 Rx pen needle, diabetic 32 gauge x #100 ea 04/06/23 06/19/23 Rx 5/32" (BD Ultra-Fine Fina Pen Needle) esomeprazole magnesium 40 mg 40 mg PO QAM #90 caps 05/05/23 06/19/23 Rx capsule,delayed release meclizine 25 mg tablet 25 mg PO TID PRN 05/15/23 06/19/23 History clopidogrel 75 mg tablet (Plavix) 75 mg PO QPM #90 tabs 06/01/23 06/19/23 Rx ARED's 2 PO 06/19/23 History clotrimazole-betamethasone 1 1 applic topical BID PRN rash #45 08/12/23 Rx %-0.05 % topical cream grams Past Med/Surg History Medical History (Updated 08/25/23 @ 14:57 by Danny Mayo MD) Small bowel obstruction Mixed conductive and sensorineural hearing loss of left ear with restricted hearing of right ear Vertigo Incarcerated hernia of abdominal cavity Nausea and vomiting Constipation Respiratory difficulty Elevated troponin Acute respiratory distress GI bleed heme+ stool On anticoagulant therapy Anemia treated with PRBC inpatient 04/06/21 at [facility] [place] NSTEMI (non-ST elevated myocardial infarction) pt unsure if she had an AZ while inpatient at [facility] [place] at the beginning of April 2021. states no one told her either way. but she denies sob or chest pain currently. 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 Hemorrhoids Diabetic peripheral neuropathy Hyperlipidemia Osteoarthritis Diabetes mellitus, type 2 Hearing deficit History of CHF (congestive heart failure) ASCVD (arteriosclerotic cardiovascular disease) Cerebral arterial aneurysm Carotid artery stenosis Restless leg syndrome CVA (cerebral vascular accident) CVA (cerebral vascular accident) 2014--short term memory loss, gait loss--uses walker Hypothyroid Hx of angina pectoris COPD (chronic obstructive pulmonary disease) Surgical History History of sigmoidoscopy History of bilateral tubal ligation History of total abdominal hysterectomy and bilateral salpingo-oophorectomy History of colonoscopy History of tooth extraction all teeth removed History of tonsillectomy and adenoidectomy History of bilateral cataract extraction History of cardiac cath @ [facility] [place]--no stents H/O section x3 S/P removal of ovarian cyst S/P cholecystectomy Family History Grandmother (Paternal) Family history of diabetes mellitus Father , age 52 of an [place] Myocardial infarction Mother , age 90 of heart conditions Myocardial infarction Family/Other Heart disease Multiple benign polyps of large intestine Other No family history of adverse response to anesthesia Denies family history of Ovarian cancer Prostate cancer Crohn's disease Colorectal cancer Cancer Ulcerative colitis Social History Smoking Status: Never smoker Tobacco Type: Cigarettes Age Started Using Tobacco: 6; Age Quit Using Tobacco: 67; Cigarettes Per Day: 1 pack per day (varied from a few cigarettes a day to over 2 packs a day ); Second Hand Exposure: No; Do You Dip or Chew Tobacco: No; Hx Alcohol Use: No Hx Substance Use: No Preferred Language: Swedish Communication Ability: Effective Visual Impairment: Limited Hearing Ability: Use of Hearing Aid Life Manager Required: No Beliefs That Will Affect Care: None marital status: Current Living Situation: Alone Current Living Situation Comment: apartment current occupational status: retired 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 NAD. Cooperative. HEENT: Atraumatic, normocephalic. PERLAA. NGT in place. Pulm: CTAB A&P. -wheezes, -rales, -rhonchi. Symmetrical chest rise. No increased work of breathing. No respiratory distress. Cardiac: RRR, -mrg. Radial pulses intact and symmetrical. Abdominal: Nontender, nondistended, soft. BS present. Results & Data Results & Data Vital Signs (Past 12 Hours) Vital Signs Temp Pulse Pulse Resp BP BP Pulse Ox 08/25/23 12:37 89 16 177/84 H 95 08/25/23 10:44 36.0 C L 87 20 158/77 H 98 O2 Del Method 08/25/23 12:37 Room Air 08/25/23 10:44 Room Air PG Care Time/CCT Total # of Minutes Spent Total Time Spent with Patient: Total time spent is greater than 50% in coordination of care (as documented) at patient's floor/unit and/or counseling patient: Coding Level of Care Code 84697 INT INP/OBS CARE 3/75MIN Diagnoses Small bowel obstruction K56.609 ASCVD (arteriosclerotic cardiovascular disease) I25.10 CVA (cerebral vascular accident) I63.9 Acquired hypothyroidism E03.9 Hypothyroidism type: acquired Uncontrolled type 2 diabetes mellitus with hyperglycemia E11.65 Glycemic state: with hyperglycemia Mixed hyperlipidemia E78.2 Hyperlipidemia type: mixed hyperlipidemia Stage 3a chronic kidney disease N18.31 Chronic kidney disease stage 3 subtype: stage 3a (GFR 45-59) (4) Hypothyroidism Hypothyroidism type: acquired Qualified Code(s): E03.9 - Hypothyroidism, unspecified (5) Diabetes mellitus type 2, uncontrolled Glycemic state: with hyperglycemia Qualified Code(s): E11.65 - Type 2 diabetes mellitus with hyperglycemia (6) Hyperlipidemia Hyperlipidemia type: mixed hyperlipidemia Qualified Code(s): E78.2 - Mixed hyperlipidemia (7) CKD (chronic kidney disease) stage 3, GFR 30-59 ml/min Chronic kidney disease stage 3 subtype: stage 3a (GFR 45-59) Qualified Code(s): N18.31 - Chronic kidney disease, stage 3a
[2023-08-25] MEDS ORDERED: GLUCOSE 40% GEL 15 GM TUBE PO PRN (15:06)
[2023-08-25] MEDS ORDERED: CARBOHYDRATES FOR HYPOGLYCEMIA PO PRN (15:06)
[2023-08-25] MEDS ORDERED: GLUCOSE 10 TAB/TUBE PO PRN (15:06)
[2023-08-25] MEDS ORDERED: GLUCAGON FOR INJ 1 MG VIAL SQ PRN (15:06)
[2023-08-25] MEDS ORDERED: PHARMACY GLYCEMIC MGMT CONSULT PRN (15:06)
[2023-08-25] MEDS ORDERED: DEXTROSE 50% 50 ML SYRINGE IV PRN (15:06)
[2023-08-25] MEDS ORDERED: MoRPHine SULFATE 4 MG/ML 1 ML CARP\\VIAL IV PRN (15:07)
[2023-08-25] MEDS ORDERED: ACETAMINOPHEN 1,000 MG/100 ML VIAL IV PRN (15:07)
[2023-08-25] MEDS ORDERED: MoRPHine SULFATE 2 MG/ML CARP IV PRN (15:07)
[2023-08-25] MEDS ORDERED: Patient's WEIGHT Needed STA (15:24)
[2023-08-25] MEDS: METOPROLOL TARTRATE 1 MG/ML VIAL IV STA (15:49)
[2023-08-25] MEDS: INSULIN ASPART PER UNIT CHARGE SC SCH (15:49)
[2023-08-25] MEDS: LANTUS PER UNIT CHARGE SQ ONE (15:53)
[2023-08-25] MEDS: LACTATED RINGER'S 1,000 ML IV SCH (15:56)
[2023-08-25] MEDS ORDERED: LANTUS PER UNIT CHARGE SQ ONE (16:00)
[2023-08-25] MEDS ORDERED: LABETALOL HCL IV 5 MG/ML 20ML IV PRN (18:02)
[2023-08-25] MEDS: LABETALOL HCL IV 5 MG/ML 20ML IV STA (18:15)
--- NOTE | 2023-08-25 19:39 | Surgery Consultation ---
Date of Consultation August 25, 2023 Assessment & Plan (1) Small bowel obstruction: partial reducible LLQ hernia agree with NG IVF/NPO History of Present Illness Attending Physician: Danny Mayo MD History of Present Illness This is a 87YO who came to ED with abdominal pain and nausea & vomiting. CT shows findings consistent with SBO near a LLQ ventral hernia. An NG was placed given the patient's vomiting and small bowel obstruction. She is passing flatus and feels alittle better after the NG. Hernia is reducible. Allergies Allergy/AdvReac Type Severity Reaction Status Date / Time adhesive Allergy Intermediate Rash Verified 08/25/23 15:26 soap [From Betadine] Allergy Intermediate itchy Verified 08/25/23 15:26 egg AdvReac Intermediate GI SYMPTOMS Verified 08/25/23 15:26 garlic AdvReac Intermediate GI symptoms Verified 08/25/23 15:26 sertraline AdvReac Intermediate Dizziness Verified 08/25/23 15:26 simvastatin AdvReac Intermediate MYALGIA Verified 08/25/23 15:26 Sulfa (Sulfonamide AdvReac Intermediate GI symptoms Verified 08/25/23 15:26 Antibiotics) propoxyphene AdvReac Mild light Verified 08/25/23 15:26 headed Home Medications Medication Instructions Recorded Confirmed Type rosuvastatin 20 mg tablet (Crestor) 20 mg PO HS #90 tabs 09/10/22 08/25/23 Rx Accu-Chek Guide test strips (blood #200 ea 10/27/22 08/25/23 Rx sugar diagnostic) insulin aspar prot-insulin aspart See Rx Instructions subcut 10/27/22 08/25/23 Rx 100 unit/mL (70-30) subcutaneous .COMPLEX #90 mL pen (Novolog Mix 70-30FlexPen U-100) levothyroxine 25 mcg tablet 25 mcg PO QAM #90 tabs 10/30/22 08/25/23 Rx gabapentin 100 mg capsule 100 mg PO HS #90 caps 12/05/22 08/25/23 Rx cyclobenzaprine 5 mg tablet 5 mg PO TID PRN muscle spasm #30 12/12/22 08/25/23 Rx tabs diclofenac sodium 1 % topical gel 1 g topical QID PRN pain, moderate 12/16/22 08/25/23 Rx #100 grams Accu-Chek Guide Glucose Meter #1 ea 01/08/23 08/25/23 Rx (blood-glucose meter) carvedilol 3.125 mg tablet 3.125 mg PO BID #120 tabs 03/23/23 08/25/23 Rx pen needle, diabetic 32 gauge x #100 ea 04/06/23 08/25/23 Rx 5/32" (BD Ultra-Fine Fina Pen Needle) esomeprazole magnesium 40 mg 40 mg PO QAM #90 caps 05/05/23 08/25/23 Rx capsule,delayed release meclizine 25 mg tablet 25 mg PO TID PRN dizzy 05/15/23 08/25/23 History clopidogrel 75 mg tablet (Plavix) 75 mg PO QPM #90 tabs 06/01/23 08/25/23 Rx clotrimazole-betamethasone 1 1 applic topical BID PRN rash #45 08/12/23 08/25/23 Rx %-0.05 % topical cream grams vit C 250 mg-vit E 90 mg-zinc 40 1 tab PO BID 08/25/23 08/25/23 History mg-copper 1 to-figxct-dfgyso capsule (PreserVision AREDS-2) Patient History Medical History (Updated 08/25/23 @ 19:28 by Reyes Elmore MD) Small bowel obstruction Mixed conductive and sensorineural hearing loss of left ear with restricted hearing of right ear Vertigo Incarcerated hernia of abdominal cavity Nausea and vomiting Constipation Respiratory difficulty Elevated troponin Acute respiratory distress GI bleed heme+ stool On anticoagulant therapy Anemia treated with PRBC inpatient 04/06/21 at [facility] NSTEMI (non-ST elevated myocardial infarction) pt unsure if she had an MD while inpatient at [facility] at the beginning of April 2021. states no one told her either way. but she denies sob or chest pain currently. 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 Hemorrhoids Diabetic peripheral neuropathy Hyperlipidemia Osteoarthritis Diabetes mellitus, type 2 Hearing deficit History of CHF (congestive heart failure) ASCVD (arteriosclerotic cardiovascular disease) Cerebral arterial aneurysm Carotid artery stenosis Restless leg syndrome CVA (cerebral vascular accident) CVA (cerebral vascular accident) 2014--short term memory loss, gait loss--uses walker Hypothyroid Hx of angina pectoris COPD (chronic obstructive pulmonary disease) Surgical History History of sigmoidoscopy History of bilateral tubal ligation History of total abdominal hysterectomy and bilateral salpingo-oophorectomy History of colonoscopy History of tooth extraction all teeth removed History of tonsillectomy and adenoidectomy History of bilateral cataract extraction [place] [facility] [place] H/O section x3 S/P removal of ovarian cyst S/P cholecystectomy Family History Grandmother (Paternal) Family history of diabetes mellitus Father , age 52 of an [place] Myocardial infarction Mother , age 90 of heart conditions Myocardial infarction Family/Other Heart disease Multiple benign polyps of large intestine Other No family history of adverse response to anesthesia Denies family history of Ovarian cancer Prostate cancer Crohn's disease Colorectal cancer Cancer Ulcerative colitis Social History Smoking Status: Never smoker Tobacco Type: Cigarettes Age Started Using Tobacco: 6; Age Quit Using Tobacco: 67; Cigarettes Per Day: 1 pack per day (varied from a few cigarettes a day to over 2 packs a day ); Second Hand Exposure: No; Do You Dip or Chew Tobacco: No; Hx Alcohol Use: No Hx Substance Use: No Preferred Language: Sudanese Communication Ability: Effective Visual Impairment: Limited Hearing Ability: Use of Hearing Aid Director Instructional Material Required: No Beliefs That Will Affect Care: None marital status: Current Living Situation: Alone Current Living Situation Comment: apartment current occupational status: retired 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 [employer] How many Children do You have: 4 Feels Safe at Home: Yes Childhood Exposure to Second-Hand Smoke: Yes Diet: regular caffeine: Yes during the past year weight has: remained stable Dental Care, Regularly: No Physical Activity Frequency: Does not Exercise Seatbelt Use: always Sunscreen Use: No Assistive Devices: Denture - Upper, Denture - Lower, Glasses, Hearing Aid - Left and Walker Review of Systems Constitutional: no fever, no chills and no anorexia Eyes: no problem reported Ear, Nose, Mouth, Throat: no problem reported Respiratory: no cough and no dyspnea Cardiovascular: no chest pain Gastrointestinal: + abdominal pain, + nausea and + vomitin g; no change in bowel habits Genitourinary: no dysuria Musculoskeletal: + back pain Integumentary: no problem reported Neurologic: no localized weakness and no generalized weakness Psychiatric: no behavioral changes Endocrine: no fatigue Hematologic / Lymphatic: no easy bleeding and no easy bruising Physical Exam Constitutional: WD/WN, vitals as above Eyes: PERRL, conjunctivae normal, anicteric sclerae ENMT: external ear and nose normal, oropharynx normal Neck: trachea midline Respiratory: normal respiratory effort, lungs clear to auscultation Cardiovascular: RRR, no murmur, no edema Gastrointestinal (Abdomen): Inspection/Auscultation: abdomen normal to inspection, normal bowel sounds and + visible herniation (reducible); abdomen not distended Percussion/Palpation: abdomen soft; abdomen nontender, no guarding and abdomen not rigid Musculoskeletal: Head/Neck/Chest: normocephalic and head atraumatic Skin: no rashes, warm and dry Results & Data Vital Signs (Past 12 Hours) Vital Signs Temp Pulse Pulse Resp BP BP Pulse Ox 08/25/23 18:52 77 08/25/23 18:15 89 232/88 H 08/25/23 17:10 08/25/23 17:08 90 17 221/104 H 96 08/25/23 16:11 77 192/79 H 08/25/23 15:49 98 H 196/82 H 08/25/23 15:43 90 08/25/23 15:26 91 H 20 196/82 H 93 08/25/23 12:37 89 16 177/84 H 95 08/25/23 10:44 36.0 C L 87 20 158/77 H 98 O2 Del Method 08/25/23 18:52 08/25/23 18:15 08/25/23 17:10 Room Air 08/25/23 17:08 Room Air 08/25/23 16:11 08/25/23 15:49 08/25/23 15:43 08/25/23 15:26 Room Air 08/25/23 12:37 Room Air 08/25/23 10:44 Room Air Diagnostic Findings CT abd pelvis IV con only CLINICAL HISTORY: diffuse ab pain, n/v TECHNIQUE: Helical axial images of the abdomen and pelvis were obtained and displayed. Automated dose lowering techniques and/or adjustment according to patient size were utilized for this exam. This exam was performed with intravenous contrast. CT DOSE: 1299.06 mGy.cm COMPARISON: Comparison is made to CT abdomen pelvis 07/05/2022 FINDINGS: Lower chest: Cardiomegaly is seen with biatrial enlargement. Liver: Unremarkable. No focal lesions are seen. Gallbladder and biliary tree: Patient is status post cholecystectomy. No intra- or extrahepatic biliary ductal dilation. Pancreas: Unremarkable, no focal lesions. Spleen: Unremarkable. Adrenals: Unremarkable. Kidneys and ureters: Renal cysts are seen. Bladder: Unremarkable. Reproductive organs: Unremarkable. Bowel: Diverticulosis is seen without diverticulitis. The appendix is normal. There are multiple dilated loops of small bowel measuring up to 31 mm with a transition point at a left-sided ventral hernia in the left lower quadrant. Stool remains in the colon. Lymph nodes Retroperitoneal: Unremarkable. Pelvic: Unremarkable. Mesenteric: Unremarkable. Peritoneum: Normal. Vessels: There is an infrarenal aortic aneurysm measuring 35 mm with severe atherosclerotic disease noted. Abdominal wall: Left ventricle hernia is seen containing a dilated loop of bowel. Bones: Mild degenerative changes are seen. IMPRESSION: 1. Findings compatible with small bowel obstruction with transition point at the left lower quadrant ventral hernia. 2. Infrarenal aortic aneurysm, unchanged from prior exam. Extensive atherosclerosis.
[2023-08-25] MEDS: ONDANSETRON INJ 2 MG/ML 2 ML VIAL IV PRN (23:26)
[2023-08-26] MEDS: METOPROLOL TARTRATE 1 MG/ML VIAL IV SCH (00:15)
[2023-08-26 02:39] LABS: Appearance Urine Cloudy (Clear); Bacteria Urine Automated 4+ (Negative); Bilirubin Urine Negative (Negative); Blood Urine Negative (Negative); Color Urine Yellow; Glucose Urine UA 1+ (Negative); Ketones Urine Negative (Negative); Leukocyte Esterase Urine 1+ (Negative); Nitrite Urine Positive (Negative); Protein Urine Trace (Negative); RBC Urine Automated 0-4 /hpf (0-4); Specific Gravity Urine > 1.045 (1.000-1.030); Urobilinogen Urine Negative (Negative); WBC Urine Automated >30 /hpf (0-5); pH Urine 5.5 (4.5-7.5)
[2023-08-26 06:48] LABS: BUN Creatinine Ratio 20.7 (10-20); Calcium 8.3 mg/dl (8.6-10.3); Creatinine Clr Calc Pharmacy 40.8 ml/min; Est GFR (African American) 73.5 ml/min; Est GFR (Non-African American) 63.4 ml/min; Potassium 3.7 mmol/L (3.5-5.1)
[2023-08-26 06:55] LABS: Basophils # (auto) 0.05 K/uL (0.00-0.20); Basophils % (auto) 0.4 %; Eosinophils # (auto) 0.08 K/uL (0.00-0.50); Eosinophils % (auto) 0.7 %; Hematocrit (blood only) 28.7 % (37.0-47.0); Hemoglobin 7.9 g/dl (12.0-16.0); Hypochromasia Present; Immature Granulocytes # (auto) 0.04 K/uL (0.01-0.20); Immature Granulocytes % (auto) 0.3 %; Lymphocytes # (auto) 2.01 K/uL (1.20-3.40); Lymphocytes % (auto) 16.9 %; Mean Corpuscular Hemoglobin 18.8 pg (25.0-34.0); Mean Corpuscular Hgb Conc 27.5 g/dL (32.0-36.0); Mean Corpuscular Volume 68.2 fL (80.0-100.0); Mean Platelet Volume 9.8 fL (9.4-12.4); Microcytosis Present; Monocytes # (auto) 1.14 K/uL (0.11-0.59); Monocytes % (auto) 9.6 %; Neutrophils # (auto) 8.56 K/uL (1.40-6.50); Neutrophils % (auto) 72.1 %; Platelet Count 263 K/uL (130-400); Polychromasia 1+; RDW Coefficient of Variation 19.1 % (11.5-14.5); RDW Standard Deviation 46.7 fL (36.4-46.3); Red Blood Count 4.21 M/uL (4.20-5.40); White Blood Count 11.88 K/ul (4.8-10.8)
--- NOTE | 2023-08-26 07:04 | XRay Report ---
KUB HISTORY: Status post placement of an enteric tube s/p NG COMPARISON: CT examination of same day FINDINGS: There are a few dilated air-filled loops of small bowel redemonstrated. Distal tip of enter ic tube projects over the gastric body. Contrast noted within the urinary bladder lumen. Cholecystect krista. No renal calculi. No ureteral calculi. No pneumoperitoneum or pneumatosis. No fracture. IMPRESSION: 1. Distal tip of enteric tube projects over the gastric body. 2. Dilated loops of small bowel are better evaluated on the comparison CT exam. ACT 112: Negative or not required by law. The above report was generated using voice recognition software. It may contain grammatical, syntax o r spelling errors. Electronically signed by: Judd Pham M.D. 08/26/2023 7:03 AM
[2023-08-26 07:55] LABS: Estimated Average Glucose 197 mg/dl; Hemoglobin A1C 8.5 % (4.5-5.6)
--- NOTE | 2023-08-26 08:56 | Pharmacy Report ---
Pharmacy Glycemic Short Note 2 - Date of Service August 26, 2023 - Glycemic Short BSG Results (Last 24 hours): 08/25/23 08/25/23 08/25/23 10:58 15:29 18:10 Glucose 268 H POC Glucose 290 H 253 H 08/26/23 08/26/23 08/26/23 00:04 05:39 05:57 Glucose 174 H POC Glucose 275 H 185 H OUTPATIENT ANTIDIABETIC REGIMEN: * Novolog 70/30 mix 45 units SC w/ breakfast and 35 units SC w/ dinner HbA1c: 8.5% (08/26/23) ASSESSMENT: * AR is an 87 year old female presented to ED on 08/25/23 w/ abdominal pain, nausea, and vomiting * Found to have SBO w/ LLQ hernia, patient would prefer no surgical int ervention at this time * NG tube placed, patient NPO * Hyperglycemic on admission, BSG of 290 mg/dL * Given 20 units of basal and 12 units of correctional bolus yesterday * Fasting BSG of 185 mg/dL this morning * Will be conservative with initial insulin dosing due to NPO status and advanced age PLAN FOR INPATIENT GLYCEMIC CONTROL: * Hold 70/30 mix, use SC basal/bolus regimen w/ insulin glargine and insulin aspart * Basal insulin * Lantus 15 units SC x 1 today (~0.2 unit/kg) * Bolus insulin * NovoLog per scale ACHS or Q6hrs while NPO * Goal Range: Low 110 mg/dL - High 140 mg/dL * Correction Factor: 25 mg/dL/unit * Nutritional / Prandial insulin per carb ratio of 1 unit per 10 grams CHO consumed
[2023-08-26 08:59] LABS: Reticulocyte % 2.32 % (0.50-2.00); Reticulocytes # 0.1 10^6/uL (0.020-0.100)
[2023-08-26 09:34] LABS: Ferritin 3.8 ng/ml (8-388)
[2023-08-26 09:39] LABS: Folate (Folic Acid),Ser orPlas 11.99 ng/ml (>5.38)
--- NOTE | 2023-08-26 10:10 | Surgery Progress Note ---
Date of Service August 26, 2023 Assessment & Plan (1) Small bowel obstruction: Plan: await bowel function con't ng check KUB in AM OOB Admission and Anticipated Discharge Date Admission Date: August 25, 2023 Subjective some abd pain some flatus reducible LLQ hernia Review of Systems Constitutional: no fever and no chills Respiratory: no cough and no dyspnea Cardiovascular: no chest pain Gastrointestinal: + abdominal pain and + change in bowel h abits; no nausea and no vomiting Genitourinary: no dysuria Musculoskeletal: no back pain Neurologic: no localized weakness and no generalized weakness Psychiatric: no behavioral changes Physical Exam Constitutional: WD/WN, vitals as above Respiratory: normal respiratory effort, lungs clear to auscultation Cardiovascular: RRR, no murmur, no edema Gastrointestinal (Abdomen): Inspection/Auscultation: abdomen normal to inspection and normal bowel sounds; abdomen not distended Percussion/Palpation: + abdomen tender and abdomen soft; no guarding and abdomen not rigid Musculoskeletal: Head/Neck/Chest: normocephalic and head atraumatic Skin: no rashes, warm and dry Results & Data Vital Signs (Past 12 Hours) Vital Signs Temp Pulse Pulse Resp BP BP Pulse Ox 08/26/23 08:00 08/26/23 07:46 36.7 C 81 18 105/55 L 94 08/26/23 06:37 83 94/56 L 08/26/23 06:22 98 H 117/67 08/26/23 02:15 36.8 C 84 16 146/72 H 96 08/26/23 01:07 89 08/26/23 00:30 87 126/73 08/26/23 00:15 90 139/62 08/25/23 23:37 08/25/23 22:43 36.6 C 90 18 139/62 93 O2 Del Method 08/26/23 08:00 Room Air 08/26/23 07:46 Room Air 08/26/23 06:37 08/26/23 06:22 08/26/23 02:15 Room Air 08/26/23 01:07 08/26/23 00:30 08/26/23 00:15 08/25/23 23:37 Room Air 08/25/23 22:43 Room Air
[2023-08-26] MEDS: IRON SUCROSE 200 MG in 0.9 % SODIUM CHLORIDE 100 ML IV SCH (10:39)
[2023-08-26] MEDS: LANTUS PER UNIT CHARGE SQ ONE (12:26)
--- NOTE | 2023-08-26 12:52 | Hospitalist Progress Note ---
Date of Service August 26, 2023 Assessment & Plan (1) Small bowel obstruction: (2) ASCVD (arteriosclerotic cardiovascular disease): (3) CVA (cerebral vascular accident): (4) Hypothyroidism: (5) Diabetes mellitus type 2, uncontrolled: (6) Hyperlipidemia: (7) CKD (chronic kidney disease) stage 3, GFR 30-59 ml/min: Plan: CKD 3 Creatinine 0.81, at baseline on admission - Trend daily. - IVFM with LR Plan Ms. Angel is an 87-year-old female who was admitted for further evaluation and management of a small bowel obstruction. Small bowel obstruction CT-A/P: SBO with left lower quadrant transition point at site of ventral hernia. No signs of hernia incarceration As management, patient was placed n.p.o. and NG tube was placed Multimodal IV pain control, Zofran for nausea as needed Surgery consulted Patient still with some abdominal pain, therefore will continue n.p.o. order and NG tube and check KUB in the morning to assess bowel function and progression of possible partial bowel obstruction. CAD Denies history of heart failure, [place], stents Carvedilol 3.125 twice daily held while n.p.o., converted to metoprolol 2.5 mg every 6 hours to prevent beta-анна withdrawal while NPO Plavix 75 mg held for NPO. no history of stents, resume Plavix when able Hx of CVA On Plavix/rosuvastatin as noted. Plavix temporarily held. Hypothyroidism Synthroid held. If n.p.o. 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 Pharmacy glycemic consult to follow and assist management HLD Crestor held while n.p.o. DVT prophylaxis: Heparin subcu Diet: N.p.o., IV FM 80 cc/h Disposition: PCU for IV beta-анна while n.p.o. CODE STATUS: DNR/DNI Admission and Anticipated Discharge Date Admission Date: August 25, 2023 Supervising Physician Co-Signing Physician Notes I personally examined the patient and verified humphrey points of history and exam, discussed case, and agree with decision making and plan documented by Dr. To. On exam, patient resting comfortably in bed, NG tube in place, non tender abdomen, on IVF. ADAT tomorrow if KUB reassuring. Subjective 87-year-old female with past medical history of COPD, CAD, GERD, PVD, vertigo, diabetes type 2, CKD, hearing loss, multiple abdominal/pelvic surgeries who came to the emergency department after experiencing sudden abdominal pain associated with nausea and vomiting. CT performed in the emergency department showed suspected small bowel obstruction with left lower quadrant transition point. D ue to this finding, surgery was consulted and NG tube was ordered and placed. Today, she was evaluated at bedside and she was found alone, awake, alert, oriented in all spheres, and in no acute distress. She refers feeling improvement in her abdominal pain and her nausea, although she has not consumed anything other than water since the time of her admission. She denies feeling any chest pain, shortness of breath, fevers, chills, weakness, or any other symptoms. Review of Systems Review of Systems: As per HPI. Physical Exam Physical Exam: General: Alert. Oriented to person, time, and place. Afebrile. No acute distress. Eyes: pupils equal and reactive to light bilaterally, extraocular movements intact. Cardiac: Regular rate and rhythm, no murmurs/rubs/gallops. Respiratory: Clear to auscultation bilaterally a/p, no wheezes/rales/rhonchi. No increased work of breathing. Symmetrical chest rise. No respiratory distress. Abdomen: Soft, mildly distended, tender in bilateral lower quadrants but not the upper quadrants or epigastric area, diminished bowel sounds. Lower Extremities: No lower extremity edema or swelling. No deep calf pain. Momo's negative bilaterally. Results & Data Results & Data Vital Signs (Past 12 Hours) Vital Signs Temp Pulse Pulse Resp BP BP Pulse Ox 08/26/23 12:38 84 121/85 08/26/23 11:47 36.9 C 85 19 117/72 92 08/26/23 08:00 08/26/23 07:46 36.7 C 81 18 105/55 L 94 08/26/23 06:37 83 94/56 L 08/26/23 06:22 98 H 117/67 08/26/23 02:15 36.8 C 84 16 146/72 H 96 08/26/23 01:07 89 O2 Del Method 08/26/23 12:38 08/26/23 11:47 Room Air 08/26/23 08:00 Room Air 08/26/23 07:46 Room Air 08/26/23 06:37 08/26/23 06:22 08/26/23 02:15 Room Air 08/26/23 01:07 (4) Hypothyroidism Hypothyroidism type: acquired Qualified Code(s): E03.9 - Hypothyroidism, unspecified (5) Diabetes mellitus type 2, uncontrolled Glycemic state: with hyperglycemia Qualified Code(s): E11.65 - Type 2 diabetes mellitus with hyperglycemia (6) Hyperlipidemia Hyperlipidemia type: mixed hyperlipidemia Qualified Code(s): E78.2 - Mixed hyperlipidemia (7) CKD (chronic kidney disease) stage 3, GFR 30-59 ml/min Chronic kidney disease stage 3 subtype: stage 3a (GFR 45-59) Qualified Code(s): N18.31 - Chronic kidney disease, stage 3a
[2023-08-26] MEDS: HEPARIN SOD 5,000 UNIT/0.5 ML VIAL SQ SCH (20:25)
--- NOTE | 2023-08-27 07:11 | XRay Report ---
KUB HISTORY: Acute onset abdominal pain with reported small bowel obstruction bowel obstruction COMPARISON: 08/25/2023 FINDINGS: Surgical clips of the upper abdomen redemonstrated. Distal tip of enteric tube projects ove r the gastric body. No definite dilated loops of small bowel identified on today's study. Mild to mod erate colonic fecal retention. No renal calculi. No ureteral calculi. No pneumoperitoneum or pneumat osis. 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 No fracture. IMPRESSION: 1. Distal tip of enteric tube projects over the gastric body. 2. No dilated loops of small bowel identified on today's exam. ACT 112: Negative or not required by law. The above report was generated using voice recognition software. It may contain grammatical, syntax o r spelling errors. Electronically signed by: Judd Pham M.D. 08/27/2023 7:10 AM
[2023-08-27 07:47] LABS: BUN Creatinine Ratio 19.1 (10-20); Calcium 8.3 mg/dl (8.6-10.3); Est GFR (African American) 89.9 ml/min; Est GFR (Non-African American) 77.6 ml/min; Potassium 3.6 mmol/L (3.5-5.1)
[2023-08-27 07:53] LABS: Anisocytosis Present; Basophils # (auto) 0.04 K/uL (0.00-0.20); Basophils % (auto) 0.5 %; Eosinophils # (auto) 0.29 K/uL (0.00-0.50); Eosinophils % (auto) 3.8 %; Hematocrit (blood only) 28.5 % (37.0-47.0); Hemoglobin 7.7 g/dl (12.0-16.0); Hypochromasia Present; Immature Granulocytes % (auto) 1.3 %; Lymphocytes # (auto) 1.85 K/uL (1.20-3.40); Lymphocytes % (auto) 24.2 %; Mean Corpuscular Hemoglobin 18.6 pg (25.0-34.0); Mean Platelet Volume 9.9 fL (9.4-12.4); Monocytes # (auto) 0.71 K/uL (0.11-0.59); Monocytes % (auto) 9.3 %; Neutrophils # (auto) 4.66 K/uL (1.40-6.50); Neutrophils % (auto) 60.9 %; Platelet Count 226 K/uL (130-400); Polychromasia 1+; RDW Coefficient of Variation 19.3 % (11.5-14.5); RDW Standard Deviation 47.6 fL (36.4-46.3); Red Blood Count 4.13 M/uL (4.20-5.40); Rouleaux 1+; Tear Drop Cells 1+; White Blood Count 7.65 K/ul (4.8-10.8)
--- NOTE | 2023-08-27 10:17 | Hospitalist Progress Note ---
Date of Service August 27, 2023 Assessment & Plan (1) Small bowel obstruction: (2) ASCVD (arteriosclerotic cardiovascular disease): (3) CVA (cerebral vascular accident): (4) Hypothyroidism: (5) Diabetes mellitus type 2, uncontrolled: (6) Hyperlipidemia: (7) CKD (chronic kidney disease) stage 3, GFR 30-59 ml/min: (8) Urinary tract infection: Plan Ms. Angel is an 87-year-old female who was admitted for further evaluation and management of a small bowel obstruction. Small bowel obstruction CT-A/P: SBO with left lower quadrant transition point at site of ventral hernia. No signs of hernia incarceration As management, patient was placed n.p.o. and NG tube was placed Multimodal IV pain control, Zofran for nausea as needed - KUB: No dilated loops of small bowel - Will clamp NGT and order Clear liquid diet. Advance diet as tolerated. Will re-start home PO meds Surgery consulted ok to dc NGT and progress diet UTI - U/A positive for bacteria, nitrites, and leukocyte esterase - Patient not endorsing dysuria but is having suprapubic tenderness. Uncertain whether this is related to SBO or UTI. - Urine culture showing Gram negative bacilli (>100,000 colonies); pending sensitivities - Will treat with Ceftriaxone while patient is SBO and change to PO regimen once able to eat and pending sensitivities CAD Denies history of heart failure, [place], stents Re-start Carvedilol 3.125 twice daily Continue Plavix. 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 To. Ventral hernia likely causing small bowel obstruction without gangrene as this was reduced by surgical team at consultation. KUB this morning reassuring. NG tube is out. Patient advancing diet. No abdominal tenderness or palpable ventral hernia on exam. Subjective 87-year-old female with past medical history of COPD, CAD, GERD, PVD, vertigo, diabetes type 2, CKD, hearing loss, multiple abdominal/pelvic surgeries who came to the emergency department after experiencing sudden abdominal pain associated with nausea and vomiting. Admitted due to SBO. Today, she was evaluated at bedside and she was found alone, awake, alert, oriented in all spheres, and in no acute distress. Denies having nausea or vomiting. Has passed gas as per nursing. Review of Systems Review of Systems: As per HPI. Physical Exam Physical Exam: General: Alert. Oriented to person, time, and place. Afebrile. No acute distress. Eyes: pupils equal and reactive to light bilaterally, extraocular movements intact. Cardiac: Regular rate and rhythm, no murmurs/rubs/gallops. Respiratory: Clear to auscultation bilaterally a/p, no wheezes/rales/rhonchi. No increased work of breathing. Symmetrical chest rise. No respiratory distress. Abdomen: Soft, mildly distended, tender in bilateral lower quadrants and suprapubic region and epigastric region. Diminished bowel sounds. Lower Extremities: No lower extremity edema or swelling. No deep calf pain. Momo's negative bilaterally. Results & Data Results & Data Vital Signs (Past 12 Hours) Vital Signs Temp Pulse Pulse Resp BP BP BP 08/27/23 08:09 75 08/27/23 07:15 36.4 C L 76 19 107/56 L 08/27/23 06:33 78 108/64 08/27/23 06:17 81 121/72 08/27/23 03:05 36.4 C L 83 20 123/53 L 08/27/23 00:33 80 112/49 L 08/26/23 23:05 36.5 C 84 17 122/57 L 08/26/23 23:00 71 Pulse Ox O2 Del Method 08/27/23 08:09 08/27/23 07:15 93 Room Air 08/27/23 06:33 08/27/23 06:17 08/27/23 03:05 94 Room Air 08/27/23 00:33 08/26/23 23:05 97 Room Air 08/26/23 23:00 (4) Hypothyroidism Hypothyroidism type: acquired Qualified Code(s): E03.9 - Hypothyroidism, unspecified (5) Diabetes mellitus type 2, uncontrolled Glycemic state: with hyperglycemia Qualified Code(s): E11.65 - Type 2 diabetes mellitus with hyperglycemia (6) Hyperlipidemia Hyperlipidemia type: mixed hyperlipidemia Qualified Code(s): E78.2 - Mixed hyperlipidemia (7) CKD (chronic kidney disease) stage 3, GFR 30-59 ml/min Chronic kidney disease stage 3 subtype: stage 3a (GFR 45-59) Qualified Code(s): N18.31 - Chronic kidney disease, stage 3a
--- NOTE | 2023-08-27 12:35 | Surgery Progress Note ---
Date of Service August 27, 2023 Assessment & Plan (1) Small bowel obstruction: Plan: KUB improved passing flatus reducible hernia remove NG begin diet ambulate Admission and Anticipated Discharge Date Admission Date: August 25, 2023 Subjective passing a lot more flatus pain resolving Review of Systems Constitutional: no fever and no chills Respiratory: no cough and no dyspnea Cardiovascular: no chest pain Gastrointestinal: no abdominal pain, no nausea, no vomiting and no change in bowel habits Neurologic: no localized weakness and no generalized weakness Psychiatric: no behavioral changes Hematologic / Lymphatic: no easy bleeding and no easy bruising Physical Exam Constitutional: WD/WN, vitals as above Respiratory: normal respiratory effort, lungs clear to auscultation Cardiovascular: RRR, no murmur, no edema Gastrointestinal (Abdomen): Inspection/Auscultation: abdomen normal to inspection and normal bowel sounds; abdomen not distended Percussion/Palpation: abdomen soft; abdomen nontender, no guarding and abdomen not rigid Musculoskeletal: Head/Neck/Chest: normocephalic and head atraumatic Skin: no rashes, warm and dry Results & Data Vital Signs (Past 12 Hours) Vital Signs Temp Pulse Pulse Resp BP BP BP 08/27/23 11:53 36.7 C 88 19 141/77 H 08/27/23 08:09 75 08/27/23 07:15 36.4 C L 76 19 107/56 L 08/27/23 06:33 78 108/64 08/27/23 06:17 81 121/72 08/27/23 03:05 36.4 C L 83 20 123/53 L 08/27/23 00:33 80 112/49 L Pulse Ox O2 Del Method 08/27/23 11:53 90 Room Air 08/27/23 08:09 08/27/23 07:15 93 Room Air 08/27/23 06:33 08/27/23 06:17 08/27/23 03:05 94 Room Air 08/27/23 00:33
[2023-08-27] MEDS ORDERED: cefTRIAXone SODIUM 1,000 MG in DEXTROSE 5 % MINI-B 50 ML IV SCH (12:45)
[2023-08-27] MEDS: SODIUM CHLORIDE 0.9% 1,000 ML IV SCH (14:08)
[2023-08-27] MEDS: cefTRIAXone SODIUM 2,000 MG in DEXTROSE 5 % MINI-B 50 ML IV SCH (14:11)
[2023-08-27] MEDS ORDERED: DICLOFENAC SOD 1% GEL 100 GM TUBE EXT PRN (16:44)
[2023-08-27] MEDS ORDERED: CYCLOBENZAPRINE HCL 5 MG TAB PO PRN (16:44)
[2023-08-27] MEDS: INSULIN ASPART PER UNIT CHARGE SC SCH (17:19)
[2023-08-27] MEDS: LANTUS PER UNIT CHARGE SC SCH (17:19)
[2023-08-27] MEDS: carvediloL 3.125 MG TAB PO SCH (21:15)
[2023-08-27] MEDS: CLOPIDOGREL BISULFATE 75 MG TAB PO SCH (21:15)
[2023-08-27] MEDS: GABAPENTIN 100 MG CAP PO SCH (21:15)
[2023-08-27] MEDS: ROSUVASTATIN CALCIUM 20 MG TAB PO SCH (21:16)
[2023-08-28 07:06] LABS: Hematocrit (blood only) 28.9 % (37.0-47.0); Hemoglobin 7.9 g/dl (12.0-16.0); Mean Corpuscular Hemoglobin 18.8 pg (25.0-34.0); Mean Corpuscular Hgb Conc 27.3 g/dL (32.0-36.0); Mean Corpuscular Volume 68.6 fL (80.0-100.0); Mean Platelet Volume 9.9 fL (9.4-12.4); Nucleated RBC # (auto) 0.02 K/uL (0.00-0.12); Nucleated RBC % (auto) 0.2 %; Platelet Count 225 K/uL (130-400); RDW Coefficient of Variation 19.3 % (11.5-14.5); RDW Standard Deviation 46.8 fL (36.4-46.3); Red Blood Count 4.21 M/uL (4.20-5.40); White Blood Count 9.01 K/ul (4.8-10.8)
[2023-08-28 07:18] LABS: BUN Creatinine Ratio 12.9 (10-20); Calcium 8.1 mg/dl (8.6-10.3); Creatinine Clr Calc Pharmacy 54.9 ml/min; Est GFR (African American) 92.7 ml/min; Est GFR (Non-African American) 79.9 ml/min; Potassium 3.1 mmol/L (3.5-5.1)
[2023-08-28 07:20] LABS: Anisocytosis Present; Basophils # (auto) 0.06 K/uL (0.00-0.20); Basophils % (auto) 0.7 %; Eosinophils # (auto) 0.36 K/uL (0.00-0.50); Immature Granulocytes # (auto) 0.11 K/uL (0.01-0.20); Immature Granulocytes % (auto) 1.2 %; Lymphocytes # (auto) 1.81 K/uL (1.20-3.40); Lymphocytes % (auto) 20.1 %; Monocytes # (auto) 0.89 K/uL (0.11-0.59); Monocytes % (auto) 9.9 %; Neutrophils # (auto) 5.78 K/uL (1.40-6.50); Neutrophils % (auto) 64.1 %; Polychromasia 1+
[2023-08-28 07:38] LABS: Microcytosis Present
[2023-08-28] MEDS: PANTOprazole 40 MG TAB PO SCH (08:11)
[2023-08-28] MEDS: CEROVITE ADV FORMULA TAB PO SCH (08:11)
[2023-08-28] MEDS: LEVOTHYROXINE SODIUM 25 MCG TABLET PO SCH (08:11)
[2023-08-28] MEDS: LANTUS PER UNIT CHARGE SC SCH (08:24)
--- NOTE | 2023-08-28 12:59 | Discharge Summary ---
Date of Service August 28, 2023 Admission HPI Per Admitting Provider Debra is an 87-year-old female with a past medical history of COPD, CAD, GERD, PVD, vertigo, DM 2, CKD, hearing loss who presents to the ER for abdominal pain/nausea. CT with contrast shows suspected small bowel obstruction with left lower quadrant transition point, and unchanged infrarenal aortic aneurysm of 31 mm stable compared to prior. Surgery was consulted and recommended medical admission with conservative care at this time. NGT ordered and pending placement Debra is seen at the bedside. She reports that she has never had a bowel obstruction before but she has had multiple abdominal surgeries and she has a hernia which has not been repaired as she is a poor surgical candidate and high risk, and it has never bothered her/she has always been able to push it back in. She reports that for the last day or so she has had increased nausea, vomiting, and epigastric abdominal pain. She last vomited shortly before admitting assessment, yellowish and clear without any blood/melena. She denies chest pain, chest pressure, lightheadedness, dizziness. No fever/chills/sweats. She reports that she last had a bowel movement approximately 2 days ago and thinks this was "normal ". Denies blood/melena/diarrhea. She has not passed any gas yet today. She feels significantly improved and her nausea has almost completely resolved after NGT was placed. She reports she had a history of angina, but has no history of heart failure, heart attack, or cardiac stents. Denies history of any other type of statins. She reports that she has had a history of stroke with some residual dizziness have a deficit, denies one-sided deficits but notes she is so weak in her legs. Denies tobacco/alcohol/recreational drug use. Has not kept any medications down today due to nausea/vomiting. DNR/DNI Admission Exam Per Admitting Provider General: A&Ox3. NAD. Cooperative. HEENT: Atraumatic, normocephalic. PERLAA. NGT in place. Pulm: CTAB A&P. -wheezes, -rales, -rhonchi. Symmetrical chest rise. No increased work of breathing. No respiratory distress. Cardiac: RRR, -mrg. Radial pulses intact and symmetrical. Abdominal: Nontender, nondistended, soft. BS present. Principal Diagnosis SBO Discharge Exam General: Alert. Oriented to person, time, and place. Afebrile. No acute distress. Eyes: pupils equal and reactive to light bilaterally, extraocular movements intact. Cardiac: Regular rate and rhythm, no murmurs/rubs/gallops. Respiratory: Clear to auscultation bilaterally a/p, no wheezes/rales/rhonchi. No increased work of breathing. Symmetrical chest rise. No respiratory distress. Abdomen: Soft, non-distended, present bowel sounds in all 4 quadrants, non- tender Lower Extremities: No lower extremity edema or swelling. No deep calf pain. Momo's negative bilaterally. Discharge Data Allergies Allergy/AdvReac Type Severity Reaction Status Date / Time adhesive Allergy Intermediate Rash Verified 08/25/23 15:26 soap [From Betadine] Allergy Intermediate itchy Verified 08/25/23 15:26 egg AdvReac Intermediate GI SYMPTOMS Verified 08/25/23 15:26 garlic AdvReac Intermediate GI symptoms Verified 08/25/23 15:26 sertraline AdvReac Intermediate Dizziness Verified 08/25/23 15:26 simvastatin AdvReac Intermediate MYALGIA Verified 08/25/23 15:26 Sulfa (Sulfonamide AdvReac Intermediate GI symptoms Verified 08/25/23 15:26 Antibiotics) propoxyphene AdvReac Mild light Verified 08/25/23 15:26 headed Consultations 08/25/23 13:58 ED Decision to Admit Stat 08/25/23 14:16 Consult General Surgery Routine Ordered Studies 08/25/23 12:42 CT abd pelvis IV con only Stat Hospital Course (1) Small bowel obstruction: (2) ASCVD (arteriosclerotic cardiovascular disease): (3) CVA (cerebral vascular accident): (4) Hypothyroidism: (5) Diabetes mellitus type 2, uncontrolled: (6) Hyperlipidemia: (7) CKD (chronic kidney disease) stage 3, GFR 30-59 ml/min: (8) Urinary tract infection: (9) Iron deficiency anemia: Plan Ms. Angel is an 87-year-old female who was admitted for further evaluation and management of a small bowel obstruction. Small bowel obstruction (Resolved) Patient was placed n.p.o. and NG tube was placed. Patient's pain and nausea had improved, and repeat KUB showing no dilated loops of small bowel, due to which NGT was dc and diet was restarted. Patient has tolerated well and has passed gas as well as had a large bowel movement. Therefore, patient was deemed stable to be discharged back home. UTI (Resolved) - U/A positive for bacteria, nitrites, and leukocyte esterase. Urine culture growing pansensitive E.coli. She was treated with 2 days of Ceftriaxone. Patient not endorsing dysuria currently and not having urgency, suprapubic pain, or any other symptoms. Will send Bactrim to be taken twice daily for 1 day to complete 3 days of therapy. Iron deficiency anemia - Hgb on admission ~9, which after fluids and PO restriction decreased to 7.9. Patient not endorsing lightheadedness or dizziness. - MCV of 68.6, ferritin low (3.8) - Iron infusion given during admission. - Encourage continued iron intake as an outpatient. CAD (Chronic, stable) Denies history of heart failure, AK, stents Continue Carvedilol 3.125 twice daily Continue Plavix. 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 Total Time Total Time Spent Total Time Spent (In Minutes): As per attending attestation. Discharge Plan Discharge Items Patient Disposition: Home - Self-Care Reason For Visit: SBO Discharge Diagnosis: SBO Activity: Per Instructions section Non-emergency contact: Primary Care Provider Call non-emergency contact if: your symptoms worsen and your temperature is above 101 Follow-up/Referrals: Anthony Boss, [Primary Care Provider] - Diet: Carb Consistent or DM2 and Heart Healthy Addtl Attending Provider Instructions: You were admitted to the hospital for management of a blockage in your bowel (i.e. small bowel obstruction). This blockage made it difficult for you to have a bowel movement/poop, which caused the belly pain and nausea you had been experiencing. This was corrected while you were in the hospital, and you are now able to have a bowel movement/poop. While you were in the hospital, you were also found to have a urinary tract infection, which we were treating with antibiotics through your veins. Now that you are able to eat and take medications by mouth, we will send a script for Bactrim, which you will take two times a day for one more day to complete 3 days of treatment. A discharge summary will be sent to your primary care physician to ensure continuity of care. Please bring this discharge summary with you to your next office appointment so that your provider can review it at that time. Follow-up appointments: Make a follow-up appointment with your PCP within the next week. It is very important that you follow up with them shortly after discharge from the hospit al. Keep all your follow-up appointments as already scheduled. If you cannot make an appointment, notify your provider. Medications: Your medication list has been reviewed and reconciled upon discharge to ensure accuracy and continuity of care. An updated list of all your medications is included with your hospital discharge paperwork. Please review this list closely, and make note of any changes. If you have any issues filling these prescriptions, please call [phone] and ask to leave a message for Dr. To. Take your medications as instructed; do not skip a dose of your medicines. Make sure all of your doctors know every medicine you are taking (including [id number]-[id number] medicines, vitamins, and supplements). Call your primary care provider before taking any new medicines (including over- the-counter medicines, vitamins, and supplements), because some of these may interact with your current medications, or may make your symptoms worse. Tell your primary care provider if you cannot afford your medications. CONTACT YOUR PRIMARY CARE PROVIDER if you experience any of the following: Worsening of symptoms Fever, chills, or fatigue Difficulty following your treatment plan, or difficulty taking medications CALL 911 OR GO TO THE EMERGENCY DEPARTMENT if you experience any of the following: Sudden, severe abdominal pain or nausea/vomiting Severe chest pain, or chest pain that radiates (moves) to your jaw or arm Sudden, severe shortness of breath or difficulty breathing Thank you for allowing us to participate in your care. Pending Studies at Discharge: No Stand-Alone Forms: My [employer], Smoking Cessation Medications and DC Order Prescriptions: New sulfamethoxazole-trimethoprim [Bactrim DS] 800-160 mg tablet 1 tab PO BID 1 Days Qty: 2 0RF Continued rosuvastatin [Crestor] 20 mg tablet 20 mg PO HS Qty: 90 3RF (DME) Accu-Chek Guide test strips Strip See Rx Instructions .Route Qty: 200 3RF Rx Instructions: Test blood sugars twice a day insulin asp prt-insulin aspart [Novolog Mix 70-30FlexPen U-100] 100 unit/mL (70-30) insulin pen See Rx Instructions SUBCUT .COMPLEX Qty: 90 3RF Rx Instructions: 45 units in AM before breakfast, 35 units in PM before supper; levothyroxine 25 mcg tablet 25 mcg PO QAM Qty: 90 3RF gabapentin 100 mg capsule 100 mg PO HS Qty: 90 3RF cyclobenzaprine 5 mg tablet 5 mg PO TID PRN (Reason: muscle spasm) Qty: 30 1RF (DME) blood-glucose meter [Accu-Chek Guide Glucose Meter] Misc See Rx Instructions .Route Qty: 1 0RF Rx Instructions: Check blood glucose up to 4 times daily carvedilol 3.125 mg tablet 3.125 mg PO BID Qty: 120 3RF (DME) pen needle, diabetic [BD Ultra-Fine Fina Pen Needle] 32 gauge x 5/32" needle See Rx Instructions .Route Qty: 100 5RF Rx Instructions: use with insulin injections BID esomeprazole magnesium 40 mg capsule,delayed release(DR/EC) 40 mg PO QAM Qty: 90 3RF clopidogrel [Plavix] 75 mg tablet 75 mg PO QPM Qty: 90 3RF clotrimazole-betamethasone 1-0.05 % cream 1 applic topical BID PRN (Reason: rash) Qty: 45 0RF diclofenac sodium 1 % gel 1 g topical QID PRN (Reason: pain, moderate) Qty: 100 2RF meclizine 25 mg tablet 25 mg PO TID PRN (Reason: dizzy) PreserVision AREDS-2 250-90-40-1 mg Capsule 1 tab PO BID Krames/Other Patient Handouts: High Blood Sugar (Hyperglycemia), Managing Type 2 Diabetes Admission Data Admit Date/Time: 08/25/23 15:05 Attending Provider: Eliazar Marlow Admit Provider: Danny Mayo Primary Care Provider: Anthony Boss Other Providers: Danny Mayo; Naif Decker Supervising Physician Co-Signing Physician Notes Attending attestation Pt seen and examined in concert with Dr. To. In agreement with the documented findings as noted in the resident documentation with any exceptions or additions as noted here. Resting comfortably in bed tolerating POI well without complaint. On examination, S1/S2 nl RRR no MCG. CTAB. Abd NT/ND BS+ve SBO - resolved - counseling re: recurrence and symtpoms to watch for as well as hernia symptoms UTI POA - complete course of TMP-SMX as noted DMII - resume outpatient regimen and follow up with PCP. Else see resident documentation as noted. Total attending physician time spent with this patient's care on the day of discharge: 40 minutes.
--- NOTE | 2023-08-28 13:54 | Surgery Progress Note ---
Date of Service August 28, 2023 Assessment & Plan (1) Small bowel obstruction: Plan: resolved advance diet discharge per medical team will sign off Admission and Anticipated Discharge Date Admission Date: August 25, 2023 Subjective large BM no issues Review of Systems Constitutional: no fever and no chills Cardiovascular: no chest pain Gastrointestinal: no abdominal pain, no nausea and no vomiting Genitourinary: no dysuria Musculoskeletal: no back pain Neurologic: no localized weakness Psychiatric: no behavioral changes Physical Exam Constitutional: WD/WN, vitals as above Respiratory: normal respiratory effort, lungs clear to auscultation Cardiovascular: RRR, no murmur, no edema Gastrointestinal (Abdomen): Inspection/Auscultation: abdomen normal to inspection and normal bowel sounds; abdomen not distended Percussion/Palpation: abdomen soft; abdomen nontender Musculoskeletal: Head/Neck/Chest: normocephalic and head atraumatic Skin: no rashes, warm and dry Results & Data Vital Signs (Past 12 Hours) Vital Signs Temp Pulse Resp BP Pulse Ox O2 Del Method 08/28/23 10:59 36.9 C 77 18 163/80 H 90 Room Air 08/28/23 07:29 36.5 C 96 H 19 126/73 92 Room Air 08/28/23 03:43 36.6 C 75 16 120/74 91 Room Air
--- NOTE | 2023-08-28 14:28 | Pharmacy Report ---
Pharmacy Glycemic Short Note 2 - Date of Service August 28, 2023 - Glycemic Short BSG Results (Last 24 hours): 08/27/23 08/27/23 08/28/23 15:55 20:10 05:50 Glucose 111 H POC Glucose 249 H 121 H 08/28/23 08/28/23 07:00 11:44 Glucose POC Glucose 124 H 171 H OUTPATIENT ANTIDIABETIC REGIMEN: * Novolog 70/30 mix 45 units SC w/ breakfast and 35 units SC w/ dinner HbA1c: 8.5% (08/26/23) ASSESSMENT: 08/28 * Debra received 15 units of insulin yesterday (10 were basal) * Fasting BSG this AM within goal range, diet advanced to full liquid this AM and then T2DM with lunch, will add a basal insulin scale based on BSGs due to uncertain PO intake * Novolog appears to be covering appropriately 08/26 * AR is an 87 year old female presented to ED on 08/25/23 w/ abdominal pain, nausea, and vomiting * Found to have SBO w/ LLQ hernia, patient would prefer no surgical intervention at this time * NG tube placed, patient NPO * Hyperglycemic on admission, BSG of 290 mg/dL * Given 20 units of basal and 12 units of correctional bolus yesterday * Fasting BSG of 185 mg/dL this morning * Will be conservative with initial insulin dosing due to NPO status and advanced age PLAN FOR INPATIENT GLYCEMIC CONTROL: * Hold 70/30 mix, use SC basal/bolus regimen w/ insulin glargine and insulin aspart * Basal insulin * Lantus 0-10 units SC BID * Bolus insulin * NovoLog per scale ACHS or Q6hrs while NPO * Goal Range: Low 110 mg/dL - High 140 mg/dL * Correction Factor: 25 mg/dL/unit * Nutritional / Prandial insulin per carb ratio of 1 unit per 10 grams CHO consumed
[2023-08-28] MEDS ORDERED: POTASSIUM CHLORIDE CRTAB 20 MEQ TABCR PO SCH (21:00)
== END 2023-08-28 16:18 | disposition home or self-care (01) | DRG 394 ==
LOC: ED 10:26 → SUATTDRO 15:05 → EDINP 15:05 → 2S 22:12